=== PATIENT | female | born 1935 | race African-American/Black ===

== ENCOUNTER → 2016-07-18 | Outpatient (CLI) | payer MEDICARE, OTHER ==
[2015-10-28 18:51] VITALS: BP 152/70
[~2016-07-18] MED LIST: ACET325T9 PO; AMLO10TA4 PO; ASPI81TA2 PO; CA C1TAB28 PO; CRESTOR10 MG PO; CRESTOR5 MG PO; DABI75CA3 PO; EZET10TA3 PO; FLUT15OI2 TP; FURO-68 PO; HYDR-2672 PO; HYDR15SO4 PO; LANS30CA PO; LEVO137T3 PO; LOSA50TA6 PO; ONDA-35 PO; POTA20PA PO; SOTA80TA48 PO; TRAM50TA PO
--- NOTE | 2016-07-18 12:09 | CARD ---
APPROVED REPORT EXAM: Two-dimensional and M-mode echocardiogram with Doppler and color Doppler. Other Information Quality : Technically Limited Rhythm : NSRTechnically limited study due to body habitus and positioning limitations of the essence ent. INDICATION Dyspnea 2D DIMENSIONS Left Atrium(2D)3.7 (1.6-4.0cm)IVSd1.3 (0.7-1.1cm) Aortic Root(2D)2.9 (2.0-3.7cm)LVDd4.8 (3.9-5.9cm) LVOT Diameter2.1 (1.8-2.4cm)PWd1.3 (0.7-1.1cm) LVDs2.2 (2.5-4.0cm)FS (%) 32.9 % SV89.3 mlLVEF(%)63.9 (>50%) Aortic Valve AoV Peak Wesly.104.8cm/sAoV VTI20.8cm AO Peak GR.4.4mmHgLVOT Peak Wesly.81.2cm/s LVOT VTI 13.66cmAO Mean GR.2mmHg ESDRAS (VMAX)2.15fn8ECT (VTI)2.37cm2 Mitral Valve MV E Zmbvcnpi55.4cm/sMV DECEL [id number] MV A Bppjcxyr13.4cm/sMV RQQ03xi E/A Ratio1.2MV A Fnggkgcj004dd MVA (PHT)3.39cm2 TDI E/Lateral E'9.3E/Medial E'6.9 Pulmonary Valve PV Peak Qdncaggt39.1cm/sPV Peak Grad.3mmHg RVOT VTI14.5cm Tricuspid Valve TR P. Nnhlnhbs650tv/sRAP JZCNRVBE3tbSn TR Peak Gr.31mjPsRTPE18gzMt LEFT VENTRICLE Technically difficult study. The left ventricle is normal size. There is borderline to mild concentri c left ventricular hypertrophy. Left ventricle systolic function is normal. The Ejection Fraction is 55-60%. There is normal LV segmental wall motion. The left ventricular diastolic function and filling is normal for age. There is no ventricular septal defect visualized. RIGHT VENTRICLE The right ventricle is normal size. The right ventricular systolic function is normal. ATRIA The left atrium size is normal. The right atrium size is normal. The interatrial septum is intact wit h no evidence for an atrial septal defect or patent foramen ovale as noted on 2-D or Doppler imaging. AORTIC VALVE The aortic valve is not well visualized. Doppler and Color Flow revealed no significant aortic regurg itation. There is no significant aortic valvular stenosis. MITRAL VALVE The mitral valve is normal in structure and function. There is no mitral valve stenosis. Doppler and Color Flow revealed trace mitral valve regurgitation. TRICUSPID VALVE The tricuspid valve is not well visualized. Doppler and Color Flow revealed trace to mild tricuspid r egurgitation. The PA pressure was estimated at 33 mmHg. There is no tricuspid valve stenosis. PULMONIC VALVE The pulmonic valve is not well visualized. Doppler and Color Flow revealed no pulmonic valvular regur gitation. There is no pulmonic valvular stenosis. GREAT VESSELS The aortic root is normal in size. Pulmonary veins not well visualized. The IVC is normal in size and collapses >50% with inspiration. PERICARDIAL EFFUSION There is no evidence of significant pericardial effusion. Critical Notification Critical Value: No <Conclusion> Technically difficult study. The left ventricle is normal size. Left ventricle systolic function is normal. The Ejection Fraction is 55-60%. There is borderline to mild concentric left ventricular hypertrophy. There is no significant aortic valvular stenosis. Doppler and Color Flow revealed no significant aortic regurgitation. Doppler and Color Flow revealed trace mitral valve regurgitation. Doppler and Color Flow revealed trace to mild tricuspid regurgitation. The PA pressure was estimated at 33 mmHg.
== END | disposition home or self-care (01) ==
LOC: ECHO 11:05
PROVIDERS: ATTEND Internal Medicine Cardiovascular Disease
DX: I51.7 Cardiomegaly (principal)
CPT/HCPCS: 93306

== ENCOUNTER → 2016-08-30 | Outpatient (CLI) | payer MEDICARE, OTHER ==
[2015-10-28 18:51] VITALS: BP 152/70
[~2016-08-30] MED LIST changes: +ASPI-630 PO; -ASPI81TA2 PO; +EZET10TA18 PO; -EZET10TA3 PO; -HYDR-2672 PO; +HYDR-2766 PO; -ONDA-35 PO; +ONDA4TAB11 PO
--- NOTE | 2016-08-30 12:17 | RAD ---
INDICATION: Right neck pain. COMPARISON: None. TECHNIQUE: Axial CT images obtained through the neck. No intravenous contrast. FINDINGS: Calcified granulomas partially visualized lungs. Mild ground glass opacities left upper lung. There is apparent postoperative changes to the thyroid region with surgical clips. Degenerative changes throughout the spine. No prevertebral soft tissue thickening. There are scattered small lymph nodes seen within the neck. There is some fullness of the region of the aryepiglottic folds. 25 x 13 mm soft tissue density right thyroid region IMPRESSION: 1. There is some questionable fullness of the aryepiglottic folds. This is a questionable finding but can't exclude a lesion within the region. It may be helpful to obtain direct visualization to ensure there is no pathologic process within the region. 2. Degenerative changes throughout spine. 3. Mild groundglass opacities left upper lung. Could be seen with small foci of airway inflammation. Soft tissue density in the right thyroid region. Could be secondary to thyroid tissue within the region if the patient has not had it removed. If the patient has a history of thyroid neoplasm than recurrence is not excluded. Focused ultrasound could further evaluate. PQRS Compliance Statement: One or more of the following individualized dose reduction techniques were utilized for this examination: 1. Automated exposure control 2. Adjustment of the mA and/or kV according to patient size 3. Use of iterative reconstruction technique
== END | disposition home or self-care (01) ==
LOC: CT 11:17
PROVIDERS: ATTEND Internal Medicine
DX: M54.2 Cervicalgia (principal); R91.8 Other nonspecific abnormal finding of lung field
CPT/HCPCS: 70490

== ENCOUNTER → 2016-09-07 | Outpatient (CLI) | payer MEDICARE, OTHER ==
[2015-10-28 18:51] VITALS: BP 152/70
--- NOTE | 2016-09-07 14:14 | RAD ---
Thyroid ultrasound, 09/07/2016: History: Neck mass on CT There is a history of previous thyroidectomy. Ultrasound imaging of the thyroid region was compromised by this patient's body habitus. The small density seen in the right thyroid bed on the CT study was not visualized sonographically. Shadowing related to surgical clips is probably contributing to its poor sonographic visibility. IMPRESSION: 1. Status post thyroidectomy. 2. Nonvisualization of the small density seen in the right thyroid bed on the recent CT study, likely on a technical basis. This could represent residual thyroid tissue or scarring. Depending on the patient's thyroid history, CT follow-up could be considered to establish stability and exclude a neoplastic etiology.
== END | disposition home or self-care (01) ==
LOC: US 10:35
PROVIDERS: ATTEND Internal Medicine
DX: R94.6 Abnormal results of thyroid function studies (principal); E89.0 Postprocedural hypothyroidism
CPT/HCPCS: 76536

== ENCOUNTER 2017-11-29 19:11 | Inpatient (IN) | payer MEDICARE, OTHER ==
[~2017-11-29] VITALS: Ht 167.6 cm; Wt 173.3 kg
[~2017-11-29 19:11] MED LIST changes: -LOSA50TA6 PO; +LOSA50TA7 PO; -POTA20PA PO; +POTA20PA30 PO
--- NOTE | 2017-11-29 20:10 | RAD ---
Exam: AP portable chest History: Dyspnea. Comparison: August 23, 2017. Findings: Cardiac silhouette appears enlarged. Bilateral alveolar infiltrates are seen, right worse than left, most notable in right perihilar region. Pulmonary vascularity is increased. At least small bilateral pleural effusions are suspected. Findings are compatible with moderate congestive heart failure. Impression: 1. Moderate congestive heart failure. Electronically signed by: He Faust MD (11/29/2017 8:07 PM) [facility]
[2017-11-29 20:12] LABS: BASE EXCESS ABG 2 mmol/L (-3-3); HCO3 ABG 34 mmol/L (21-28); PO2 ABG 100 mmHg (65-108); SAT O2 ABG 96 % (92-99)
[2017-11-29 20:36] LABS: PCO2 ABG 96 mmHg (35-46)
--- NOTE | 2017-11-29 20:46 | PHYS DOC ---
Past Medical History Past Medical History: A-Fib, CHF, Hypertension, Hypothyroid, Other Additional Past Medical Histor: PE, OBESE Past Surgical History: Cholecystectomy, Hysterectomy, Other Additional Past Surgical Histo: thyroidectomy, hernia, cataracts Alcohol Use: None Drug Use: None Adult General Chief Complaint Chief Complaint: DYSPNEA/RESPIRATOY DISTRESS HPI HPI Patient is a 82 year old F who presents with respiratory failure and altered mental status. Daughter reports patient's O2 sats have been trending down over the last two weeks. Today, her O2 sat was found to be in the 60's. EMS arrived and placed patient on non-rebreather. Her O2 is better, but she is still struggling to breathe. She is slow to respond. Daughter reports patient was placed at [facility] this summer. She came home from there about two weeks ago. Daughter reports patient has not been sleeping well. Review of Systems Review of Systems Per Daughter: Constitutional: Denies fever or chills [] Respiratory: Reports low O2 sats and some sob Cardiovascular: No chest pain GI: Denies abdominal pain, nausea, vomiting Integument: Denies rash or skin lesions [] Neurologic: Denies headache, focal weakness or sensory changes [] All other systems were reviewed and found to be within normal limits, except as documented in this note. Current Medications Current Medications Current Medications Medications (Trade) Dose Ordered Sig/Violet Start Time Stop Time Status Last Admin Dose Admin Albuterol Sulfate (Ventolin Neb Soln) 2.5 mg 1X ONCE 11/29/17 22:00 11/29/17 22:01 DC Calcium Gluconate (Calcium Gluconate) 2,000 mg 1X ONCE 11/29/17 22:00 11/29/17 22:01 DC Dextrose (Dextrose 50%-Water Syringe) 25 gm 1X ONCE 11/29/17 22:00 11/29/17 22:01 DC Insulin Human Regular (HumuLIN R VIAL) 10 unit 1X ONCE 11/29/17 22:00 11/29/17 22:01 DC Ondansetron HCl (Zofran) 4 mg PRN Q8HRS PRN 11/29/17 21:00 11/30/17 20:59 Allergies Allergies Allergies Coded Allergies Type Severity Reaction Last Updated Verified adhesive Allergy Severe rash 10/28/15 Yes dabigatran etexilate Allergy Severe chf 08/24/17 Yes gabapentin Allergy Severe CHF 08/24/17 Yes Penicillins Allergy Intermediate Rash 10/28/15 Yes sulfacetamide sodium Allergy Intermediate Rash 10/28/15 Yes lisinopril Adverse Reaction Intermediate COUGH 10/28/15 Yes Physical Exam Physical Exam Constitutional: Well developed, well nourished, no acute distress, non-toxic appearance. [] HENT: Normocephalic, atraumatic Eyes: PERRLA, EOMI, conjunctiva normal, no discharge. [] Neck: Normal range of motion, no tenderness, supple, no stridor. [] Cardiovascular:Heart rate regular rhythm, no murmur [] Lungs & Thorax: Breath sound diminished and coarse throughout Abdomen: Bowel sounds normal, soft, no tenderness Skin: Warm, dry, no erythema, no rash. [] Neurologic: Alert and oriented X 3, normal motor function, normal sensory function, no focal deficits noted. [] Psychologic: Affect normal, judgement normal, mood normal. [] Current Patient Data Vital Signs Vital Signs Date Time Temp Pulse Resp B/P (MAP) Pulse Ox O2 Delivery O2 Flow Rate FiO2 11/29/17 20:24 58 20 134/80 (98) 97 BiPAP/CPAP 11/29/17 19:11 98.4 15.0 98.4 Lab Values Laboratory Tests Test 11/29/17 19:30 11/29/17 21:06 O2 Saturation 96 % (92-99) Arterial Blood pH 7.17 (7.35-7.45) *L Arterial Blood pCO2 at Patient Temp 96 mmHg (35-46) *H Arterial Blood pO2 at Patient Temp 100 mmHg (65-108) Arterial Blood HCO3 34 mmol/L (21-28) H Arterial Blood Base Excess 2 mmol/L (-3-3) FiO2 36.0 White Blood Count 6.1 x10^3/uL (4.0-11.0) Red Blood Count 4.29 x10^6/uL (3.50-5.40) Hemoglobin 13.3 g/dL (12.0-15.5) Hematocrit 39.3 % (36.0-47.0) Mean Corpuscular Volume 92 fL (79-100) Mean Corpuscular Hemoglobin 31 pg (25-35) Mean Corpuscular Hemoglobin Concent 34 g/dL (31-37) Red Cell Distribution Width 14.9 % (11.5-14.5) H Platelet Count 263 x10^3/uL (140-400) Neutrophils (%) (Auto) 59 % (31-73) Lymphocytes (%) (Auto) 31 % (24-48) Monocytes (%) (Auto) 7 % (0-9) Eosinophils (%) (Auto) 2 % (0-3) Basophils (%) (Auto) 1 % (0-3) Neutrophils # (Auto) 3.6 x10^3uL (1.8-7.7) Lymphocytes # (Auto) 1.9 x10^3/uL (1.0-4.8) Monocytes # (Auto) 0.4 x10^3/uL (0.0-1.1) Eosinophils # (Auto) 0.1 x10^3/uL (0.0-0.7) Basophils # (Auto) 0.1 x10^3/uL (0.0-0.2) Sodium Level 136 mmol/L (136-145) Potassium Level 6.5 mmol/L (3.5-5.1) *H Chloride Level 101 mmol/L (98-107) Carbon Dioxide Level 31 mmol/L (21-32) Anion Gap 4 (6-14) L Blood Urea Nitrogen 21 mg/dL (7-20) H Creatinine 1.6 mg/dL (0.6-1.0) H Estimated GFR (Cockcroft-Gault) 37.2 BUN/Creatinine Ratio 13 (6-20) Glucose Level 146 mg/dL (70-99) H Calcium Level 8.7 mg/dL (8.5-10.1) Total Bilirubin 0.4 mg/dL (0.2-1.0) Aspartate Amino Transferase (AST) 10 U/L (15-37) L Alanine Aminotransferase (ALT) 12 U/L (14-59) L Alkaline Phosphatase 89 U/L (46-116) Troponin I Quantitative < 0.017 ng/mL (0.000-0.055) SL-Uju-J-Type Natriuretic Peptide 3089 pg/mL (0-449) H Total Protein 7.1 g/dL (6.4-8.2) Albumin 2.8 g/dL (3.4-5.0) L Albumin/Globulin Ratio 0.7 (1.0-1.7) L Laboratory Tests 11/29/17 21:06 Laboratory Tests 11/29/17 21:06 EKG EKG A fib, rate 65, no stemi[] Radiology/Procedures Radiology/Procedures PATIENT: ADILIA MACEDOCOUNT: [id number]#: [id number] : 1935 LOCATION: ER AGE: 82 SEX: F EXAM STATUS: REG ER ORD. PHYSICIAN: NURA RUBALCAVA APRN REASON: hypoxia, AMS PROCEDURE: CHEST AP ONLY Exam: AP portable chest History: Dyspnea. Comparison: August 23, 2017. Findings: Cardiac silhouette appears enlarged. Bilateral alveolar infiltrates are seen, right worse than left, most notable in right perihilar region. Pulmonary vascularity is increased. At least small bilateral pleural effusions are suspected. Findings are compatible with moderate congestive heart failure. Impression: 1. Moderate congestive heart failure. Electronically signed by: He Baig MD (11/29/2017 8:07 PM) [facility] DICTATED and SIGNED BY: HE BAIG MD DATE: 11/29/172005 [] Course & Med Decision Making Course & Med Decision Making Pertinent Labs and Imaging studies reviewed. (See chart for details) d/w Dr. Doherty, accepts admission. Plan: admit Dragon Disclaimer Dragon Disclaimer This electronic medical record was generated, in whole or in part, using a voice recognition dictation system. 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
[2017-11-29] MEDS ORDERED: SOTA80TA48 PO (20:57)
[2017-11-29] MEDS ORDERED: AMLO5TAB7 PO (20:57)
[2017-11-29] MEDS ORDERED: PANT40GR PO (20:57)
[2017-11-29] MEDS ORDERED: LEVO137T2 PO (20:58)
[2017-11-29] MEDS ORDERED: ONDANSETRON PF 4 MG/2 ML VIAL. IV PRN (21:00)
[2017-11-29] MEDS ORDERED: MULT1TAB52 PO (21:03)
[2017-11-29] MEDS ORDERED: CHOL10003 PO (21:03)
[2017-11-29] MEDS ORDERED: [UNRECOGNIZED DRUG - CODE] PO (21:03)
[2017-11-29] MEDS ORDERED: POLY17PO29 PO (21:03)
[2017-11-29] MEDS ORDERED: FLUT9.9S NS (21:03)
[2017-11-29] MEDS ORDERED: CRAN200C2 PO (21:03)
[2017-11-29] MEDS ORDERED: ACET325T9 PO (21:03)
[2017-11-29 21:19] LABS: BASO # 0.1 x10^3/uL (0.0-0.2); BASO % 1 % (0-3); EOS # 0.1 x10^3/uL (0.0-0.7); EOS % 2 % (0-3); HEMATOCRIT 39.3 % (36.0-47.0); HEMOGLOBIN 13.3 g/dL (12.0-15.5); LYMPH # 1.9 x10^3/uL (1.0-4.8); LYMPH % 31 % (24-48); MEAN CORPUSCULAR HEMOGLOBIN 31 pg (25-35); MEAN CORPUSCULAR HGB CONC 34 g/dL (31-37); MEAN CORPUSCULAR VOLUME 92 fL (79-100); MONO # 0.4 x10^3/uL (0.0-1.1); MONO % 7 % (0-9); NEUT # 3.6 x10^3uL (1.8-7.7); NEUT % 59 % (31-73); PLATELET COUNT 263 x10^3/uL (140-400); RED BLOOD COUNT 4.29 x10^6/uL (3.50-5.40); RED CELL DISTRIBUTION WIDTH 14.9 % (11.5-14.5); WHITE BLOOD COUNT 6.1 x10^3/uL (4.0-11.0)
[2017-11-29 21:34] LABS: ALBUMIN 2.8 g/dL (3.4-5.0); ALBUMIN/GLOBULIN RATIO 0.7 (1.0-1.7); CALCIUM 8.7 mg/dL (8.5-10.1); CREATININE 1.6 mg/dL (0.6-1.0); GFR 37.2; TOTAL BILIRUBIN 0.4 mg/dL (0.2-1.0); TOTAL PROTEIN 7.1 g/dL (6.4-8.2)
[2017-11-29 21:37] LABS: POTASSIUM 6.5 mmol/L (3.5-5.1)
[2017-11-29] MEDS ORDERED: DEXTROSE 50% 25 GM / 50ML DISP.SYRIN. IV ONE (22:00)
[2017-11-29] MEDS ORDERED: CALCIUM GLUCONATE 1,000 MG/10 ML VIAL. IVP ONE (22:00)
[2017-11-29] MEDS ORDERED: ALBUTEROL SULFATE 2.5 MG/3 ML NEBU. NEB ONE (22:00)
[2017-11-29] MEDS ORDERED: INSULIN REGULAR 100 UNIT/ML 3ML VIAL. IV ONE (22:00)
[2017-11-29 22:21] LABS: BILIRUBIN,URINE NEGATIVE (NEG); CLARITY,URINE CLEAR; COLOR,URINE YELLOW; NITRITE,URINE NEGATIVE (NEG); PROTEIN,URINE 100 mg/dL (NEG-TRACE)
[2017-11-29 22:28] LABS: BACTERIA,URINE FEW /HPF (0-FEW); RBC,URINE TNTC /HPF (0-2); WBC,URINE OCC /HPF (0-4)
[2017-11-29 22:29] LABS: HYALINE CASTS, URINE MODERATE /HPF; SQUAMOUS EPITHELIAL CELL,UR OCC /LPF
[2017-11-29] MEDS ORDERED: ACETAMINOPHEN 325 MG TABLET. PO ONE (22:45)
[2017-11-29 22:59] LABS: BASE EXCESS ABG 2 mmol/L (-3-3); HCO3 ABG 33 mmol/L (21-28); PO2 ABG 107 mmHg (65-108); SAT O2 ABG 97 % (92-99)
[2017-11-29 23:01] LABS: PCO2 ABG 88 mmHg (35-46)
--- NOTE | 2017-11-29 23:43 | PDOC1 ---
History and Physical Date of Admission Date of Admission DATE: 11/29/17 TIME: 23:43 Identification/Chief Complaint Chief Complaint Shortness of breath Past Medical History Cardiovascular: AFIB, CHF, HTN Pulmonary: Pulmonary embolus CENTRAL NERVOUS SYSTEM: Other GI: Diverticulosis, Other Heme/Onc: No pertinent hx Hepatobiliary: No pertinent hx Psych: No pertinent hx Musculoskeletal: Osteoarthritis Rheumatologic: No pertinent hx Infectious disease: No pertinent hx Renal/: No pertinent hx Endocrine: Diabetes, Hypothyroidism Past Surgical History Past Surgical History: Cholecystectomy, Hernia Repair, Hysterectomy, Other Family History Family History: Other Social History ALCOHOL: none Drugs: None Current Medications Current Medications Current Medications Ondansetron HCl (Zofran) 4 mg PRN Q8HRS PRN IV NAUSEA/VOMITING; Start at 21:00; Stop 11/30/17 at 20:59 Insulin Human Regular (HumuLIN R VIAL) 10 unit 1X ONCE IV Last administered on 11/29/17at 22:35; Start 11/29/17 at 22:00; Stop 11/29/17 at 22:01; Status DC Dextrose (Dextrose 50%-Water Syringe) 25 gm 1X ONCE IV Last administered on at 22:31; Start 11/29/17 at 22:00; Stop 11/29/17 at 22:01; Status DC Albuterol Sulfate (Ventolin Neb Soln) 2.5 mg 1X ONCE NEB Last administered on 11/29/17at 22:44; Start 11/29/17 at 22:00; Stop 11/29/17 at 22:01; Status DC Calcium Gluconate (Calcium Gluconate) 2,000 mg 1X ONCE IVP Last administered on 11/29/17at 22:33; Start 11/29/17 at 22:00; Stop 11/29/17 at 22:01; Status DC Acetaminophen (Tylenol) 650 mg 1X ONCE PO Last administered on 11/29/17at 22: 40; Start 11/29/17 at 22:45; Stop 11/29/17 at 22:46; Status DC Active Scripts Active Reported Miralax (Polyethylene Glycol 3350) 17 Gm Powd.pack 1 Packet PO DAILY Flonase Allergy Relief (Fluticasone Propionate) 9.9 Ml [place].susp 2 Sprays NS DAILY Vitamin D3 (Cholecalciferol (Vitamin D3)) 1,000 Unit Tablet 1 Tab PO DAILY Tylenol (Acetaminophen) 325 Mg Tablet 325 Mg PO Cranberry (Cranberry Extract) 200 Mg Capsule 200 Mg PO Multivitamins (Multivitamin) 1 Each Tablet 1 Tab PO DAILY Acid Control (Ranitidine Hcl) 150 Mg Tablet 150 Mg PO Synthroid (Levothyroxine Sodium) 137 Mcg Tablet 1 Tab PO DAILY Protonix (Pantoprazole Sodium) 40 Mg Granpkt.dr 40 Mg PO DAILY Sotalol (Sotalol Hcl) 80 Mg Tablet 1 Tab PO BID Amlodipine Besylate 5 Mg Tablet 5 Mg PO DAILY Lasix (Furosemide) 40 Mg Tablet 1 Tab PO DAILY Losartan Potassium 50 Mg Tablet 50 Mg PO BID Hydrocodone-Apap 10-325 (Hydrocodone Bit/Acetaminophen) 1 Each Tablet 1 Each PO PRN Q4HRS Aspirin 81 Mg Tab.chew 81 Mg PO DAILY Allergies Allergies: Coded Allergies: adhesive (Verified Allergy, Severe, rash, 10/28/15) dabigatran etexilate (Verified Allergy, Severe, chf, 08/24/17) gabapentin (Verified Allergy, Severe, CHF, 08/24/17) Penicillins (Verified Allergy, Intermediate, Rash, 10/28/15) sulfacetamide sodium (Verified Allergy, Intermediate, Rash, 10/28/15) lisinopril (Verified Adverse Reaction, Intermediate, COUGH, 10/28/15) Vitals Vitals Vital Signs Date Time Temp Pulse Resp B/P (MAP) Pulse Ox O2 Delivery O2 Flow Rate FiO2 11/29/17 23:10 84 22 103/56 (72) 96 BiPAP/CPAP 11/29/17 19:11 98.4 15.0 98.4 Labs Labs Laboratory Tests Test 11/29/17 19:30 11/29/17 21:06 11/29/17 22:15 11/29/17 22:45 O2 Saturation 96 % (92-99) 97 % (92-99) Arterial Blood pH 7.17 (7.35-7.45) 7.19 (7.35-7.45) Arterial Blood pCO2 at Patient Temp 96 mmHg (35-46) 88 mmHg (35-46) Arterial Blood pO2 at Patient Temp 100 mmHg (65-108) 107 mmHg (65-108) Arterial Blood HCO3 34 mmol/L (21-28) 33 mmol/L (21-28) Arterial Blood Base Excess 2 mmol/L (-3-3) 2 mmol/L (-3-3) FiO2 36.0 40.0 White Blood Count 6.1 x10^3/uL (4.0-11.0) Red Blood Count 4.29 x10^6/uL (3.50-5.40) Hemoglobin 13.3 g/dL (12.0-15.5) Hematocrit 39.3 % (36.0-47.0) Mean Corpuscular Volume 92 fL (79-100) Mean Corpuscular Hemoglobin 31 pg (25-35) Mean Corpuscular Hemoglobin Concent 34 g/dL (31-37) Red Cell Distribution Width 14.9 % (11.5-14.5) Platelet Count 263 x10^3/uL (140-400) Neutrophils (%) (Auto) 59 % (31-73) Lymphocytes (%) (Auto) 31 % (24-48) Monocytes (%) (Auto) 7 % (0-9) Eosinophils (%) (Auto) 2 % (0-3) Basophils (%) (Auto) 1 % (0-3) Neutrophils # (Auto) 3.6 x10^3uL (1.8-7.7) Lymphocytes # (Auto) 1.9 x10^3/uL (1.0-4.8) Monocytes # (Auto) 0.4 x10^3/uL (0.0-1.1) Eosinophils # (Auto) 0.1 x10^3/uL (0.0-0.7) Basophils # (Auto) 0.1 x10^3/uL (0.0-0.2) Sodium Level 136 mmol/L (136-145) Potassium Level 6.5 mmol/L (3.5-5.1) Chloride Level 101 mmol/L (98-107) Carbon Dioxide Level 31 mmol/L (21-32) Anion Gap 4 (6-14) Blood Urea Nitrogen 21 mg/dL (7-20) Creatinine 1.6 mg/dL (0.6-1.0) Estimated GFR (Cockcroft-Gault) 37.2 BUN/Creatinine Ratio 13 (6-20) Glucose Level 146 mg/dL (70-99) Calcium Level 8.7 mg/dL (8.5-10.1) Total Bilirubin 0.4 mg/dL (0.2-1.0) Aspartate Amino Transf (AST/SGOT) 10 U/L (15-37) Alanine Aminotransferase (ALT/SGPT) 12 U/L (14-59) Alkaline Phosphatase 89 U/L (46-116) Troponin I Quantitative < 0.017 ng/mL (0.000-0.055) QH-Lym-W-Type Natriuretic Peptide 3089 pg/mL (0-449) Total Protein 7.1 g/dL (6.4-8.2) Albumin 2.8 g/dL (3.4-5.0) Albumin/Globulin Ratio 0.7 (1.0-1.7) Urine Collection Type U cath Urine Color Yellow Urine Clarity Clear Urine pH 5.0 Urine Specific [place] 1.020 Urine Protein 100 mg/dL (NEG-TRACE) Urine Glucose (UA) Negative mg/dL (NEG) Urine Ketones (Stick) Negative mg/dL (NEG) Urine Blood Large (NEG) Urine Nitrite Negative (NEG) Urine Bilirubin Negative (NEG) Urine Urobilinogen Dipstick 1.0 mg/dL (0.2 mg/dL) Urine Leukocyte Esterase Trace (NEG) Urine RBC Tntc /HPF (0-2) Urine WBC Occ /HPF (0-4) Urine Squamous Epithelial Cells Occ /LPF Urine Bacteria Few /HPF (0-FEW) Urine Hyaline Casts Moderate /HPF Urine Mucus Mod /LPF Laboratory Tests Test 11/29/17 19:30 11/29/17 21:06 11/29/17 22:15 11/29/17 22:45 O2 Saturation 96 % (92-99) 97 % (92-99) Arterial Blood pH 7.17 (7.35-7.45) 7.19 (7.35-7.45) Arterial Blood pCO2 at Patient Temp 96 mmHg (35-46) 88 mmHg (35-46) Arterial Blood pO2 at Patient Temp 100 mmHg (65-108) 107 mmHg (65-108) Arterial Blood HCO3 34 mmol/L (21-28) 33 mmol/L (21-28) Arterial Blood Base Excess 2 mmol/L (-3-3) 2 mmol/L (-3-3) FiO2 36.0 40.0 White Blood Count 6.1 x10^3/uL (4.0-11.0) Red Blood Count 4.29 x10^6/uL (3.50-5.40) Hemoglobin 13.3 g/dL (12.0-15.5) Hematocrit 39.3 % (36.0-47.0) Mean Corpuscular Volume 92 fL (79-100) Mean Corpuscular Hemoglobin 31 pg (25-35) Mean Corpuscular Hemoglobin Concent 34 g/dL (31-37) Red Cell Distribution Width 14.9 % (11.5-14.5) Platelet Count 263 x10^3/uL (140-400) Neutrophils (%) (Auto) 59 % (31-73) Lymphocytes (%) (Auto) 31 % (24-48) Monocytes (%) (Auto) 7 % (0-9) Eosinophils (%) (Auto) 2 % (0-3) Basophils (%) (Auto) 1 % (0-3) Neutrophils # (Auto) 3.6 x10^3uL (1.8-7.7) Lymphocytes # (Auto) 1.9 x10^3/uL (1.0-4.8) Monocytes # (Auto) 0.4 x10^3/uL (0.0-1.1) Eosinophils # (Auto) 0.1 x10^3/uL (0.0-0.7) Basophils # (Auto) 0.1 x10^3/uL (0.0-0.2) Sodium Level 136 mmol/L (136-145) Potassium Level 6.5 mmol/L (3.5-5.1) Chloride Level 101 mmol/L (98-107) Carbon Dioxide Level 31 mmol/L (21-32) Anion Gap 4 (6-14) Blood Urea Nitrogen 21 mg/dL (7-20) Creatinine 1.6 mg/dL (0.6-1.0) Estimated GFR (Cockcroft-Gault) 37.2 BUN/Creatinine Ratio 13 (6-20) Glucose Level 146 mg/dL (70-99) Calcium Level 8.7 mg/dL (8.5-10.1) Total Bilirubin 0.4 mg/dL (0.2-1.0) Aspartate Amino Transf (AST/SGOT) 10 U/L (15-37) Alanine Aminotransferase (ALT/SGPT) 12 U/L (14-59) Alkaline Phosphatase 89 U/L (46-116) Troponin I Quantitative < 0.017 ng/mL (0.000-0.055) KF-Kdy-D-Type Natriuretic Peptide 3089 pg/mL (0-449) Total Protein 7.1 g/dL (6.4-8.2) Albumin 2.8 g/dL (3.4-5.0) Albumin/Globulin Ratio 0.7 (1.0-1.7) Urine Collection Type U cath Urine Color Yellow Urine Clarity Clear Urine pH 5.0 Urine Specific [place] 1.020 Urine Protein 100 mg/dL (NEG-TRACE) Urine Glucose (UA) Negative mg/dL (NEG) Urine Ketones (Stick) Negative mg/dL (NEG) Urine Blood Large (NEG) Urine Nitrite Negative (NEG) Urine Bilirubin Negative (NEG) Urine Urobilinogen Dipstick 1.0 mg/dL (0.2 mg/dL) Urine Leukocyte Esterase Trace (NEG) Urine RBC Tntc /HPF (0-2) Urine WBC Occ /HPF (0-4) Urine Squamous Epithelial Cells Occ /LPF Urine Bacteria Few /HPF (0-FEW) Urine Hyaline Casts Moderate /HPF Urine Mucus Mod /LPF VTE Prophylaxis Ordered VTE Prophylaxis Devices: Contraindicated TIKI PALMA MD Nov 29, 2017 23:43
[2017-11-29] MEDS ORDERED: 0.9 % SODIUM CHLORIDE 10 ML DISP.SYRIN. IV PRN (23:45)
[2017-11-30] VITALS (26 sets, daily range): BP systolic 79–159; BP diastolic 43–66
[2017-11-30] MEDS ORDERED: DEXTROSE 50% 25 GM / 50ML DISP.SYRIN. IV PRN
[2017-11-30] MEDS: HYDROcodone/APAP 10/325 1 TAB TABLET PO PRN ×3 (01:35→21:10)
--- NOTE | 2017-11-30 02:18 | EKG ---
[facility] [address] [place] [address] Test Date: 2017-11-29 Test Time: 19:23:42 Pat Name: DAILIA MACEDO Department: Room: Gender: F Card Doffer: : 1935 Requested By: NURA RUBALCAVA Order Number: [id number] Reading MD: Measurements Intervals [place] Rate: 58 P: MI: QRS: -38 QRSD: 90 T: -19 QT: 428 QTc: 423 Interpretive Statements ATRIAL FIBRILLATION ABNORMAL LEFT AXIS DEVIATION LEFT ANTERIOR FASCICULAR BLOCK QRS(T) CONTOUR ABNORMALITY CONSIDER ANTEROSEPTAL MYOCARDIAL DAMAGE T ABNORMALITY IN INFERIOR LEADS ABNORMAL ECG No previous ECG available for comparison
[2017-11-30 06:39] LABS: BASO # 0.1 x10^3/uL (0.0-0.2); BASO % 1 % (0-3); EOS # 0.1 x10^3/uL (0.0-0.7); EOS % 1 % (0-3); HEMATOCRIT 38.5 % (36.0-47.0); HEMOGLOBIN 12.8 g/dL (12.0-15.5); LYMPH # 2.8 x10^3/uL (1.0-4.8); LYMPH % 42 % (24-48); MEAN CORPUSCULAR HEMOGLOBIN 31 pg (25-35); MEAN CORPUSCULAR HGB CONC 33 g/dL (31-37); MEAN CORPUSCULAR VOLUME 93 fL (79-100); MONO # 0.6 x10^3/uL (0.0-1.1); MONO % 9 % (0-9); NEUT # 3.1 x10^3uL (1.8-7.7); NEUT % 47 % (31-73); PLATELET COUNT 249 x10^3/uL (140-400); RED BLOOD COUNT 4.16 x10^6/uL (3.50-5.40); WHITE BLOOD COUNT 6.6 x10^3/uL (4.0-11.0)
[2017-11-30 06:58] LABS: ALBUMIN 2.8 g/dL (3.4-5.0); ALBUMIN/GLOBULIN RATIO 0.7 (1.0-1.7); CALCIUM 9.1 mg/dL (8.5-10.1); CREATININE 1.8 mg/dL (0.6-1.0); GFR 32.5; TOTAL BILIRUBIN 0.5 mg/dL (0.2-1.0); TOTAL PROTEIN 6.9 g/dL (6.4-8.2)
--- NOTE | 2017-11-30 07:37 | PDOC ---
PROGRESS NOTES Vitals Vitals Vital Signs Date Time Temp Pulse Resp B/P (MAP) Pulse Ox O2 Delivery O2 Flow Rate FiO2 11/30/17 07:31 100 BiPAP/CPAP 11/30/17 06:00 52 24 110/48 (68) 11/30/17 04:00 97.6 97.6 11/29/17 19:11 15.0 Labs LABS Laboratory Tests Test 11/29/17 19:30 11/29/17 21:06 11/29/17 22:15 11/29/17 22:45 O2 Saturation 96 % (92-99) 97 % (92-99) Arterial Blood pH 7.17 (7.35-7.45) 7.19 (7.35-7.45) Arterial Blood pCO2 at Patient Temp 96 mmHg (35-46) 88 mmHg (35-46) Arterial Blood pO2 at Patient Temp 100 mmHg (65-108) 107 mmHg (65-108) Arterial Blood HCO3 34 mmol/L (21-28) 33 mmol/L (21-28) Arterial Blood Base Excess 2 mmol/L (-3-3) 2 mmol/L (-3-3) FiO2 36.0 40.0 White Blood Count 6.1 x10^3/uL (4.0-11.0) Red Blood Count 4.29 x10^6/uL (3.50-5.40) Hemoglobin 13.3 g/dL (12.0-15.5) Hematocrit 39.3 % (36.0-47.0) Mean Corpuscular Volume 92 fL (79-100) Mean Corpuscular Hemoglobin 31 pg (25-35) Mean Corpuscular Hemoglobin Concent 34 g/dL (31-37) Red Cell Distribution Width 14.9 % (11.5-14.5) Platelet Count 263 x10^3/uL (140-400) Neutrophils (%) (Auto) 59 % (31-73) Lymphocytes (%) (Auto) 31 % (24-48) Monocytes (%) (Auto) 7 % (0-9) Eosinophils (%) (Auto) 2 % (0-3) Basophils (%) (Auto) 1 % (0-3) Neutrophils # (Auto) 3.6 x10^3uL (1.8-7.7) Lymphocytes # (Auto) 1.9 x10^3/uL (1.0-4.8) Monocytes # (Auto) 0.4 x10^3/uL (0.0-1.1) Eosinophils # (Auto) 0.1 x10^3/uL (0.0-0.7) Basophils # (Auto) 0.1 x10^3/uL (0.0-0.2) Sodium Level 136 mmol/L (136-145) Potassium Level 6.5 mmol/L (3.5-5.1) Chloride Level 101 mmol/L (98-107) Carbon Dioxide Level 31 mmol/L (21-32) Anion Gap 4 (6-14) Blood Urea Nitrogen 21 mg/dL (7-20) Creatinine 1.6 mg/dL (0.6-1.0) Estimated GFR (Cockcroft-Gault) 37.2 BUN/Creatinine Ratio 13 (6-20) Glucose Level 146 mg/dL (70-99) Calcium Level 8.7 mg/dL (8.5-10.1) Total Bilirubin 0.4 mg/dL (0.2-1.0) Aspartate Amino Transf (AST/SGOT) 10 U/L (15-37) Alanine Aminotransferase (ALT/SGPT) 12 U/L (14-59) Alkaline Phosphatase 89 U/L (46-116) Troponin I Quantitative < 0.017 ng/mL (0.000-0.055) ZM-Rhr-U-Type Natriuretic Peptide 3089 pg/mL (0-449) Total Protein 7.1 g/dL (6.4-8.2) Albumin 2.8 g/dL (3.4-5.0) Albumin/Globulin Ratio 0.7 (1.0-1.7) Urine Collection Type U cath Urine Color Yellow Urine Clarity Clear Urine pH 5.0 Urine Specific [place] 1.020 Urine Protein 100 mg/dL (NEG-TRACE) Urine Glucose (UA) Negative mg/dL (NEG) Urine Ketones (Stick) Negative mg/dL (NEG) Urine Blood Large (NEG) Urine Nitrite Negative (NEG) Urine Bilirubin Negative (NEG) Urine Urobilinogen Dipstick 1.0 mg/dL (0.2 mg/dL) Urine Leukocyte Esterase Trace (NEG) Urine RBC Tntc /HPF (0-2) Urine WBC Occ /HPF (0-4) Urine Squamous Epithelial Cells Occ /LPF Urine Bacteria Few /HPF (0-FEW) Urine Hyaline Casts Moderate /HPF Urine Mucus Mod /LPF Test 11/30/17 05:50 White Blood Count 6.6 x10^3/uL (4.0-11.0) Red Blood Count 4.16 x10^6/uL (3.50-5.40) Hemoglobin 12.8 g/dL (12.0-15.5) Hematocrit 38.5 % (36.0-47.0) Mean Corpuscular Volume 93 fL (79-100) Mean Corpuscular Hemoglobin 31 pg (25-35) Mean Corpuscular Hemoglobin Concent 33 g/dL (31-37) Red Cell Distribution Width 15.0 % (11.5-14.5) Platelet Count 249 x10^3/uL (140-400) Neutrophils (%) (Auto) 47 % (31-73) Lymphocytes (%) (Auto) 42 % (24-48) Monocytes (%) (Auto) 9 % (0-9) Eosinophils (%) (Auto) 1 % (0-3) Basophils (%) (Auto) 1 % (0-3) Neutrophils # (Auto) 3.1 x10^3uL (1.8-7.7) Lymphocytes # (Auto) 2.8 x10^3/uL (1.0-4.8) Monocytes # (Auto) 0.6 x10^3/uL (0.0-1.1) Eosinophils # (Auto) 0.1 x10^3/uL (0.0-0.7) Basophils # (Auto) 0.1 x10^3/uL (0.0-0.2) Sodium Level 137 mmol/L (136-145) Potassium Level 6.0 mmol/L (3.5-5.1) Chloride Level 101 mmol/L (98-107) Carbon Dioxide Level 30 mmol/L (21-32) Anion Gap 6 (6-14) Blood Urea Nitrogen 22 mg/dL (7-20) Creatinine 1.8 mg/dL (0.6-1.0) Estimated GFR (Cockcroft-Gault) 32.5 BUN/Creatinine Ratio 12 (6-20) Glucose Level 88 mg/dL (70-99) Calcium Level 9.1 mg/dL (8.5-10.1) Total Bilirubin 0.5 mg/dL (0.2-1.0) Aspartate Amino Transf (AST/SGOT) 11 U/L (15-37) Alanine Aminotransferase (ALT/SGPT) 9 U/L (14-59) Alkaline Phosphatase 84 U/L (46-116) Total Protein 6.9 g/dL (6.4-8.2) Albumin 2.8 g/dL (3.4-5.0) Albumin/Globulin Ratio 0.7 (1.0-1.7) Comment Review of Relevant I have reviewed the following items jeet (where applicable) has been applied. Labs Laboratory Tests Test 11/29/17 19:30 11/29/17 21:06 11/29/17 22:15 11/29/17 22:45 O2 Saturation 96 % (92-99) 97 % (92-99) Arterial Blood pH 7.17 (7.35-7.45) 7.19 (7.35-7.45) Arterial Blood pCO2 at Patient Temp 96 mmHg (35-46) 88 mmHg (35-46) Arterial Blood pO2 at Patient Temp 100 mmHg (65-108) 107 mmHg (65-108) Arterial Blood HCO3 34 mmol/L (21-28) 33 mmol/L (21-28) Arterial Blood Base Excess 2 mmol/L (-3-3) 2 mmol/L (-3-3) FiO2 36.0 40.0 White Blood Count 6.1 x10^3/uL (4.0-11.0) Red Blood Count 4.29 x10^6/uL (3.50-5.40) Hemoglobin 13.3 g/dL (12.0-15.5) Hematocrit 39.3 % (36.0-47.0) Mean Corpuscular Volume 92 fL (79-100) Mean Corpuscular Hemoglobin 31 pg (25-35) Mean Corpuscular Hemoglobin Concent 34 g/dL (31-37) Red Cell Distribution Width 14.9 % (11.5-14.5) Platelet Count 263 x10^3/uL (140-400) Neutrophils (%) (Auto) 59 % (31-73) Lymphocytes (%) (Auto) 31 % (24-48) Monocytes (%) (Auto) 7 % (0-9) Eosinophils (%) (Auto) 2 % (0-3) Basophils (%) (Auto) 1 % (0-3) Neutrophils # (Auto) 3.6 x10^3uL (1.8-7.7) Lymphocytes # (Auto) 1.9 x10^3/uL (1.0-4.8) Monocytes # (Auto) 0.4 x10^3/uL (0.0-1.1) Eosinophils # (Auto) 0.1 x10^3/uL (0.0-0.7) Basophils # (Auto) 0.1 x10^3/uL (0.0-0.2) Sodium Level 136 mmol/L (136-145) Potassium Level 6.5 mmol/L (3.5-5.1) Chloride Level 101 mmol/L (98-107) Carbon Dioxide Level 31 mmol/L (21-32) Anion Gap 4 (6-14) Blood Urea Nitrogen 21 mg/dL (7-20) Creatinine 1.6 mg/dL (0.6-1.0) Estimated GFR (Cockcroft-Gault) 37.2 BUN/Creatinine Ratio 13 (6-20) Glucose Level 146 mg/dL (70-99) Calcium Level 8.7 mg/dL (8.5-10.1) Total Bilirubin 0.4 mg/dL (0.2-1.0) Aspartate Amino Transf (AST/SGOT) 10 U/L (15-37) Alanine Aminotransferase (ALT/SGPT) 12 U/L (14-59) Alkaline Phosphatase 89 U/L (46-116) Troponin I Quantitative < 0.017 ng/mL (0.000-0.055) UI-Rgr-F-Type Natriuretic Peptide 3089 pg/mL (0-449) Total Protein 7.1 g/dL (6.4-8.2) Albumin 2.8 g/dL (3.4-5.0) Albumin/Globulin Ratio 0.7 (1.0-1.7) Urine Collection Type U cath Urine Color Yellow Urine Clarity Clear Urine pH 5.0 Urine Specific [place] 1.020 Urine Protein 100 mg/dL (NEG-TRACE) Urine Glucose (UA) Negative mg/dL (NEG) Urine Ketones (Stick) Negative mg/dL (NEG) Urine Blood Large (NEG) Urine Nitrite Negative (NEG) Urine Bilirubin Negative (NEG) Urine Urobilinogen Dipstick 1.0 mg/dL (0.2 mg/dL) Urine Leukocyte Esterase Trace (NEG) Urine RBC Tntc /HPF (0-2) Urine WBC Occ /HPF (0-4) Urine Squamous Epithelial Cells Occ /LPF Urine Bacteria Few /HPF (0-FEW) Urine Hyaline Casts Moderate /HPF Urine Mucus Mod /LPF Test 11/30/17 05:50 White Blood Count 6.6 x10^3/uL (4.0-11.0) Red Blood Count 4.16 x10^6/uL (3.50-5.40) Hemoglobin 12.8 g/dL (12.0-15.5) Hematocrit 38.5 % (36.0-47.0) Mean Corpuscular Volume 93 fL (79-100) Mean Corpuscular Hemoglobin 31 pg (25-35) Mean Corpuscular Hemoglobin Concent 33 g/dL (31-37) Red Cell Distribution Width 15.0 % (11.5-14.5) Platelet Count 249 x10^3/uL (140-400) Neutrophils (%) (Auto) 47 % (31-73) Lymphocytes (%) (Auto) 42 % (24-48) Monocytes (%) (Auto) 9 % (0-9) Eosinophils (%) (Auto) 1 % (0-3) Basophils (%) (Auto) 1 % (0-3) Neutrophils # (Auto) 3.1 x10^3uL (1.8-7.7) Lymphocytes # (Auto) 2.8 x10^3/uL (1.0-4.8) Monocytes # (Auto) 0.6 x10^3/uL (0.0-1.1) Eosinophils # (Auto) 0.1 x10^3/uL (0.0-0.7) Basophils # (Auto) 0.1 x10^3/uL (0.0-0.2) Sodium Level 137 mmol/L (136-145) Potassium Level 6.0 mmol/L (3.5-5.1) Chloride Level 101 mmol/L (98-107) Carbon Dioxide Level 30 mmol/L (21-32) Anion Gap 6 (6-14) Blood Urea Nitrogen 22 mg/dL (7-20) Creatinine 1.8 mg/dL (0.6-1.0) Estimated GFR (Cockcroft-Gault) 32.5 BUN/Creatinine Ratio 12 (6-20) Glucose Level 88 mg/dL (70-99) Calcium Level 9.1 mg/dL (8.5-10.1) Total Bilirubin 0.5 mg/dL (0.2-1.0) Aspartate Amino Transf (AST/SGOT) 11 U/L (15-37) Alanine Aminotransferase (ALT/SGPT) 9 U/L (14-59) Alkaline Phosphatase 84 U/L (46-116) Total Protein 6.9 g/dL (6.4-8.2) Albumin 2.8 g/dL (3.4-5.0) Albumin/Globulin Ratio 0.7 (1.0-1.7) Laboratory Tests Test 11/29/17 19:30 11/29/17 21:06 11/29/17 22:15 11/29/17 22:45 O2 Saturation 96 % (92-99) 97 % (92-99) Arterial Blood pH 7.17 (7.35-7.45) 7.19 (7.35-7.45) Arterial Blood pCO2 at Patient Temp 96 mmHg (35-46) 88 mmHg (35-46) Arterial Blood pO2 at Patient Temp 100 mmHg (65-108) 107 mmHg (65-108) Arterial Blood HCO3 34 mmol/L (21-28) 33 mmol/L (21-28) Arterial Blood Base Excess 2 mmol/L (-3-3) 2 mmol/L (-3-3) FiO2 36.0 40.0 White Blood Count 6.1 x10^3/uL (4.0-11.0) Red Blood Count 4.29 x10^6/uL (3.50-5.40) Hemoglobin 13.3 g/dL (12.0-15.5) Hematocrit 39.3 % (36.0-47.0) Mean Corpuscular Volume 92 fL (79-100) Mean Corpuscular Hemoglobin 31 pg (25-35) Mean Corpuscular Hemoglobin Concent 34 g/dL (31-37) Red Cell Distribution Width 14.9 % (11.5-14.5) Platelet Count 263 x10^3/uL (140-400) Neutrophils (%) (Auto) 59 % (31-73) Lymphocytes (%) (Auto) 31 % (24-48) Monocytes (%) (Auto) 7 % (0-9) Eosinophils (%) (Auto) 2 % (0-3) Basophils (%) (Auto) 1 % (0-3) Neutrophils # (Auto) 3.6 x10^3uL (1.8-7.7) Lymphocytes # (Auto) 1.9 x10^3/uL (1.0-4.8) Monocytes # (Auto) 0.4 x10^3/uL (0.0-1.1) Eosinophils # (Auto) 0.1 x10^3/uL (0.0-0.7) Basophils # (Auto) 0.1 x10^3/uL (0.0-0.2) Sodium Level 136 mmol/L (136-145) Potassium Level 6.5 mmol/L (3.5-5.1) Chloride Level 101 mmol/L (98-107) Carbon Dioxide Level 31 mmol/L (21-32) Anion Gap 4 (6-14) Blood Urea Nitrogen 21 mg/dL (7-20) Creatinine 1.6 mg/dL (0.6-1.0) Estimated GFR (Cockcroft-Gault) 37.2 BUN/Creatinine Ratio 13 (6-20) Glucose Level 146 mg/dL (70-99) Calcium Level 8.7 mg/dL (8.5-10.1) Total Bilirubin 0.4 mg/dL (0.2-1.0) Aspartate Amino Transf (AST/SGOT) 10 U/L (15-37) Alanine Aminotransferase (ALT/SGPT) 12 U/L (14-59) Alkaline Phosphatase 89 U/L (46-116) Troponin I Quantitative < 0.017 ng/mL (0.000-0.055) VH-Tof-D-Type Natriuretic Peptide 3089 pg/mL (0-449) Total Protein 7.1 g/dL (6.4-8.2) Albumin 2.8 g/dL (3.4-5.0) Albumin/Globulin Ratio 0.7 (1.0-1.7) Urine Collection Type U cath Urine Color Yellow Urine Clarity Clear Urine pH 5.0 Urine Specific [place] 1.020 Urine Protein 100 mg/dL (NEG-TRACE) Urine Glucose (UA) Negative mg/dL (NEG) Urine Ketones (Stick) Negative mg/dL (NEG) Urine Blood Large (NEG) Urine Nitrite Negative (NEG) Urine Bilirubin Negative (NEG) Urine Urobilinogen Dipstick 1.0 mg/dL (0.2 mg/dL) Urine Leukocyte Esterase Trace (NEG) Urine RBC Tntc /HPF (0-2) Urine WBC Occ /HPF (0-4) Urine Squamous Epithelial Cells Occ /LPF Urine Bacteria Few /HPF (0-FEW) Urine Hyaline Casts Moderate /HPF Urine Mucus Mod /LPF Test 11/30/17 05:50 White Blood Count 6.6 x10^3/uL (4.0-11.0) Red Blood Count 4.16 x10^6/uL (3.50-5.40) Hemoglobin 12.8 g/dL (12.0-15.5) Hematocrit 38.5 % (36.0-47.0) Mean Corpuscular Volume 93 fL (79-100) Mean Corpuscular Hemoglobin 31 pg (25-35) Mean Corpuscular Hemoglobin Concent 33 g/dL (31-37) Red Cell Distribution Width 15.0 % (11.5-14.5) Platelet Count 249 x10^3/uL (140-400) Neutrophils (%) (Auto) 47 % (31-73) Lymphocytes (%) (Auto) 42 % (24-48) Monocytes (%) (Auto) 9 % (0-9) Eosinophils (%) (Auto) 1 % (0-3) Basophils (%) (Auto) 1 % (0-3) Neutrophils # (Auto) 3.1 x10^3uL (1.8-7.7) Lymphocytes # (Auto) 2.8 x10^3/uL (1.0-4.8) Monocytes # (Auto) 0.6 x10^3/uL (0.0-1.1) Eosinophils # (Auto) 0.1 x10^3/uL (0.0-0.7) Basophils # (Auto) 0.1 x10^3/uL (0.0-0.2) Sodium Level 137 mmol/L (136-145) Potassium Level 6.0 mmol/L (3.5-5.1) Chloride Level 101 mmol/L (98-107) Carbon Dioxide Level 30 mmol/L (21-32) Anion Gap 6 (6-14) Blood Urea Nitrogen 22 mg/dL (7-20) Creatinine 1.8 mg/dL (0.6-1.0) Estimated GFR (Cockcroft-Gault) 32.5 BUN/Creatinine Ratio 12 (6-20) Glucose Level 88 mg/dL (70-99) Calcium Level 9.1 mg/dL (8.5-10.1) Total Bilirubin 0.5 mg/dL (0.2-1.0) Aspartate Amino Transf (AST/SGOT) 11 U/L (15-37) Alanine Aminotransferase (ALT/SGPT) 9 U/L (14-59) Alkaline Phosphatase 84 U/L (46-116) Total Protein 6.9 g/dL (6.4-8.2) Albumin 2.8 g/dL (3.4-5.0) Albumin/Globulin Ratio 0.7 (1.0-1.7) Medications Current Medications Ondansetron HCl (Zofran) 4 mg PRN Q8HRS PRN IV NAUSEA/VOMITING; Start at 21:00; Stop 11/30/17 at 20:59 Insulin Human Regular (HumuLIN R VIAL) 10 unit 1X ONCE IV Last administered on 11/29/17at 22:35; Start 11/29/17 at 22:00; Stop 11/29/17 at 22:01; Status DC Dextrose (Dextrose 50%-Water Syringe) 25 gm 1X ONCE IV Last administered on at 22:31; Start 11/29/17 at 22:00; Stop 11/29/17 at 22:01; Status DC Albuterol Sulfate (Ventolin Neb Soln) 2.5 mg 1X ONCE NEB Last administered on 11/29/17at 22:44; Start 11/29/17 at 22:00; Stop 11/29/17 at 22:01; Status DC Calcium Gluconate (Calcium Gluconate) 2,000 mg 1X ONCE IVP Last administered on 11/29/17at 22:33; Start 11/29/17 at 22:00; Stop 11/29/17 at 22:01; Status DC Acetaminophen (Tylenol) 650 mg 1X ONCE PO Last administered on 11/29/17at 22: 40; Start 11/29/17 at 22:45; Stop 11/29/17 at 22:46; Status DC Heparin Sodium (Porcine) (Heparin Sodium) 5,000 unit Q12HR SQ ; Start 11/30/17 at 09:00 Sodium Chloride (Normal Saline Flush) 3 ml QSHIFT PRN IV AFTER MEDS AND BLOOD DRAWS; Start 11/29/17 at 23:45 Senna/Docusate Sodium (Senna Plus) 1 tab BID PO ; Start 11/30/17 at 09:00 Acetaminophen (Tylenol) 325 mg PRN Q6HRS PRN PO fever; Start 11/29/17 at 23:45 Amlodipine Besylate (Norvasc) 5 mg DAILY PO ; Start 11/30/17 at 09:00 Aspirin (Children'S Aspirin) 81 mg DAILY PO ; Start 11/30/17 at 09:00 Vitamin D (Vitamin D3) 1,000 unit DAILY PO ; Start 11/30/17 at 09:00 Furosemide (Lasix) 40 mg DAILY PO ; Start 11/30/17 at 09:00 Levothyroxine Sodium (Synthroid) 137 mcg DAILY07 PO ; Start 11/30/17 at 07:00 Fluticasone Propionate (Flonase) 2 spray DAILY NS ; Start 11/30/17 at 09:00 Acetaminophen/ Hydrocodone Bitart (Lortab 10/325) 1 tab PRN Q4HRS PRN PO PAIN Last administered on 11/30/17at 01:35; Start 11/29/17 at 23:45 Multivitamins (Thera M Plus) 1 tab DAILY PO ; Start 11/30/17 at 09:00 Pantoprazole Sodium (Protonix) 40 mg DAILYAC PO ; Start 11/30/17 at 07:30 Polyethylene Glycol (miraLAX PACKET) 17 gm DAILY PO ; Start 11/30/17 at 09:00 Sotalol HCl (Betapace) 80 mg BID PO ; Start 11/30/17 at 09:00 Insulin Human Lispro (HumaLOG) 0-7 UNITS TIDWMEALS SQ ; Start 11/30/17 at 08:00 Dextrose (Dextrose 50%-Water Syringe) 12.5 gm PRN Q15MIN PRN IV SEE COMMENTS; Start 11/30/17 at 00:00 Albuterol/ Ipratropium (Duoneb) 3 ml RTQID NEB ; Start 11/30/17 at 08:00 Active Scripts Active Reported Miralax (Polyethylene Glycol 3350) 17 Gm Powd.pack 1 Packet PO DAILY Flonase Allergy Relief (Fluticasone Propionate) 9.9 Ml [place].susp 2 Sprays NS DAILY Vitamin D3 (Cholecalciferol (Vitamin D3)) 1,000 Unit Tablet 1 Tab PO DAILY Tylenol (Acetaminophen) 325 Mg Tablet 325 Mg PO Cranberry (Cranberry Extract) 200 Mg Capsule 200 Mg PO Multivitamins (Multivitamin) 1 Each Tablet 1 Tab PO DAILY Acid Control (Ranitidine Hcl) 150 Mg Tablet 150 Mg PO Synthroid (Levothyroxine Sodium) 137 Mcg Tablet 1 Tab PO DAILY Protonix (Pantoprazole Sodium) 40 Mg Granpkt.dr 40 Mg PO DAILY Sotalol (Sotalol Hcl) 80 Mg Tablet 1 Tab PO BID Amlodipine Besylate 5 Mg Tablet 5 Mg PO DAILY Lasix (Furosemide) 40 Mg Tablet 1 Tab PO DAILY Losartan Potassium 50 Mg Tablet 50 Mg PO BID Hydrocodone-Apap 10-325 (Hydrocodone Bit/Acetaminophen) 1 Each Tablet 1 Each PO PRN Q4HRS Aspirin 81 Mg Tab.chew 81 Mg PO DAILY Vitals/I & O Vital Sign - Last 24 Hours 11/29/17 11/29/17 11/29/17 11/29/17 19:11 19:45 19:54 20:24 Temp 98.4 98.4 Pulse 87 56 58 Resp 24 20 20 B/P (MAP) 134/60 (84) 155/67 (96) 134/80 (98) Pulse Ox 100 100 97 97 O2 Delivery NonRebreather Mask BiPAP/CPAP BiPAP/CPAP BiPAP/CPAP O2 Flow Rate 15.0 11/29/17 11/29/17 11/29/17 11/29/17 21:08 21:54 22:24 22:39 Pulse 62 56 56 Resp 18 18 16 B/P (MAP) 108/61 (77) 106/54 (71) 112/64 (80) Pulse Ox 97 98 99 97 O2 Delivery BiPAP/CPAP BiPAP/CPAP BiPAP/CPAP BiPAP/CPAP 11/29/17 11/30/17 11/30/17 11/30/17 23:10 00:00 00:15 00:15 Temp 97.5 97.5 Pulse 84 58 58 Resp 22 24 24 B/P (MAP) 103/56 (72) 149/55 (86) 146/65 (92) Pulse Ox 96 100 100 O2 Delivery BiPAP/CPAP BiPAP/CPAP BiPAP/CPAP Bi-pap 11/30/17 11/30/17 11/30/17 11/30/17 00:30 00:45 01:00 01:35 Pulse 56 54 58 Resp 24 24 24 24 B/P (MAP) 115/57 (76) 109/51 (70) 103/59 (74) Pulse Ox 98 98 97 97 O2 Delivery BiPAP/CPAP BiPAP/CPAP BiPAP/CPAP BiPAP/CPAP 11/30/17 11/30/17 11/30/17 11/30/17 01:45 02:00 02:05 03:00 Pulse 48 50 Resp 24 24 B/P (MAP) 111/54 (73) 127/57 (80) Pulse Ox 97 98 99 97 O2 Delivery BiPAP/CPAP BiPAP/CPAP BiPAP/CPAP BiPAP/CPAP 11/30/17 11/30/17 11/30/17 11/30/17 04:00 04:00 04:13 05:00 Temp 97.6 97.6 Pulse 52 52 Resp 24 24 B/P (MAP) 116/53 (74) 111/58 (75) Pulse Ox 100 99 100 O2 Delivery BiPAP/CPAP Bi-pap BiPAP/CPAP BiPAP/CPAP 11/30/17 11/30/17 11/30/17 05:30 06:00 07:31 Pulse 52 Resp 24 B/P (MAP) 110/48 (68) Pulse Ox 99 99 100 O2 Delivery BiPAP/CPAP BiPAP/CPAP BiPAP/CPAP Intake and Output 11/29/17 11/29/17 11/30/17 15:00 23:00 07:00 Intake Total 120 ml Output Total 160 ml Balance -40 ml TIKI PALMA MD Nov 30, 2017 07:37
[2017-11-30] MEDS: IPRATRPIUM/ALBUTEROL 0.5/2.5MG 3 ML NEBU. NEB SCH ×4 (07:39→20:10)
[2017-11-30] MEDS: PANTOPRAZOLE 40 MG TABLET.DR. PO SCH (07:56)
[2017-11-30] MEDS: LEVOTHYROXINE 137 MCG TABLET PO SCH (07:56)
[2017-11-30] MEDS ORDERED: INSULIN LISPRO 300 UNITS/3 ML INSULN.PEN. SQ SCH (08:00)
[2017-11-30 08:31] LABS: BASE EXCESS ABG 1 mmol/L (-3-3); HCO3 ABG 30 mmol/L (21-28); PO2 ABG 98 mmHg (65-108); SAT O2 ABG 97 % (92-99)
[2017-11-30 08:34] LABS: PCO2 ABG 70 mmHg (35-46)
[2017-11-30] MEDS: SENNOSIDES/DOCUSATE 8.6/50MG TABLET. PO SCH ×2 (09:00→21:11)
[2017-11-30] MEDS: POLYETHYLENE GLYCOL 3350 17 GM PACKET. PO SCH (09:00)
[2017-11-30] MEDS ORDERED: SOTALOL 80 MG TABLET. PO SCH (09:00)
[2017-11-30] MEDS ORDERED: amLODIPine BESYLATE 5 MG TABLET PO SCH (09:00)
[2017-11-30] MEDS ORDERED: FUROSEMIDE 40 MG TABLET. PO SCH (09:00)
[2017-11-30] MEDS ORDERED: FLUTICASONE 50MCG/NASAL SPRAY 16GM BOTTLE. NS SCH (09:00)
[2017-11-30] MEDS ORDERED: FUROSEMIDE 40 MG/4 ML VIAL. IVP ONE (10:00)
[2017-11-30] MEDS ORDERED: SODIUM POLYSTYRENE SULFONATE 15 GM/60 ML ORAL.SUSP. PO ONE (10:00)
[2017-11-30] MEDS ORDERED: IV NORMAL SALINE 500ML BAG 500 ML IV ONE (10:15)
[2017-11-30] MEDS: MULTIVITAMIN with MINERAL TABLET. PO SCH (10:23)
[2017-11-30] MEDS: ASPIRIN CHEWABLE 81 MG TABLET. PO SCH (10:23)
[2017-11-30] MEDS: CHOLECALCIFEROL (VITAMIN D3) 1,000 UNIT TABLET PO SCH (10:24)
[2017-11-30] MEDS: HEPARIN for SUB-Q USE 5,000 UNIT/ML VIAL. SQ SCH ×2 (10:28→21:11)
[2017-11-30] MEDS ORDERED: INSULIN REGULAR 100 UNIT/ML 3ML VIAL. IV ONE (10:30)
[2017-11-30] MEDS ORDERED: DEXTROSE 50% 25 GM / 50ML DISP.SYRIN. IV ONE (10:30)
--- NOTE | 2017-11-30 10:48 | CONS ---
DATE OF CONSULTATION: ATTENDING PHYSICIAN: Dr. Mahendra Doherty. REASON FOR CONSULTATION: Respiratory failure. HISTORY OF PRESENT ILLNESS: The patient is an 82-year-old female who is morbidly obese with a BMI of 60. She has been at rehab facility in October and then was sent home. However, the daughter was monitoring her oxygen levels, she is a DPOA as well. She noted her oxygen saturations started to be in the low 80s and then went down in the 70s and even up to the 60s. The patient also has a history of cough which dates back to 2 years, but the cough has been worse since October. Occasionally, she would bring light yellow sputum, but no fever, no chills, no headaches, no nausea or vomiting, no diarrhea. She has also noticed some increased ankle edema as well. When the patient's saturation dropped in the 60s, she called her primary care doctor who referred to be hospitalized. The patient's arterial blood gases initially were abnormal with a pH of 7.17, pCO2 of 96 and a pO2 of 100 with bicarbonate of 34 on 36% FiO2. The patient's ABGs last night did not change significantly and she was kept on BiPAP overnight. She is fully awake, following commands. Her blood gases this morning showed a pH of 7.25, pCO2 of 70 and a pO2 of 98. I had made some changes in her BiPAP setting. She is on IPAP of 26, EPAP of 6 and I have gradually weaned her oxygen down to 21% and saturation was still in the mid 90s. Her chest x-ray was reviewed by me. There were extensive interstitial infiltrates on the right lung. There was some atelectasis, infiltrate left base as well. There was also very prominent right hilum. The patient's x-ray was also abnormal in August. There were some mildly prominent interstitial infiltrates in the right lower lobe and hilar prominence. However, this latest x-ray is definitely worse. I have been asked to see her for further evaluation. PAST MEDICAL HISTORY: Significant for atrial fibrillation, history of CHF although she had a normal EF in August. History of hypertension and hypothyroidism. History of morbid obesity, history of PE. PAST SURGICAL HISTORY: Cholecystectomy, hysterectomy, thyroidectomy, hernia repair, and cataracts. ALLERGIES: PENICILLIN, DABIGATRAN, GABAPENTIN, LISINOPRIL and SULFACETAMIDE. CURRENT MEDICATIONS: Reviewed, including DuoNebs. She also received Lasix x 1; however, urine output is very minimal. HOME MEDICATIONS: Reviewed as well and they include antihypertensive medications, which are multiple and oral Lasix. She is not on any blood thinners. REVIEW OF SYSTEMS: Twelve-point system obtained. Pertinent positives discussed in my history of present illness, otherwise noncontributory. All systems that were negative were reviewed as well. SOCIAL HISTORY: Nonsmoker. FAMILY HISTORY: Noncontributory to lungs. PHYSICAL EXAMINATION: GENERAL: She is awake, following commands, while on BiPAP. VITAL SIGNS: Blood pressure has ranged from 120 systolic to 105, afebrile. HEENT: Sclerae nonicteric. NECK: Supple. LUNGS: With diminished breath sounds at the bases. CARDIOVASCULAR: Regular rate. ABDOMEN: Soft, morbidly obese. EXTREMITIES: With bilateral ankle edema. LABORATORY DATA: Reviewed. ABGs are discussed in my history of present illness. BUN 22, creatinine 1.8 which is increased. ProBNP is only 3089. Albumin is 2.8. Potassium was 6.5, now down to 6.0. White cell count 6.6, hemoglobin 12.8 and platelets are 249. IMPRESSION: 1. Htloq-[id number] hypercapnic respiratory failure and likely secondary to right lung pneumonia. Possibility of diastolic heart failure is also a consideration, but clinically less likely as she has failed to respond to Lasix and renal function has worsened from the one dose she received in the ER. She also has a right hilar prominence with interstitial markings being more accentuated since August x-ray and I cannot exclude the possibility of interstitial lung disease /? sarcoidosis. 2. Abnormal chest x-ray with diffuse right sided interstitial infiltrates with right hilar prominence in the right lung. Differential diagnosis would include interstitial pneumonia or progressive interstitial lung disease. Asymmetric congestive heart failure clinically less likely. She has a right hilar prominence and right hilar adenopathy is a concern, we will need a CT chest once stable to rule out above possibilities. 3. Underlying morbid obesity with suspected obstructive sleep apnea and obesity hypoventilation syndrome. 4. Hyperkalemia. 5. Increasing azotemia with decreasing urine output post Lasix. 6. No significant history of tobacco use or asthma. RECOMMENDATIONS: 1. I have made changes to the BiPAP settings and I have reduced the FiO2 to 21%. We will avoid hyperoxia and follow ABGs and make necessary adjustments. 2. We will hold further diuretics and give her fluid bolus to see an improvement in her urine output. 3. Noncontrast CT chest once more stable to assess for interstitial pneumonia or interstitial lung disease and also to rule out right hilar adenopathy. She may have sarcoidosis. 4. Empiric antibiotic will be initiated. 5. The patient's DPOA does not prefer to have Kayexalate for her hyperkalemia. I will give insulin and D50, and follow the results. 6. Monitor renal function. 7. She will benefit from sleep study as an outpatient. 8. Discussed with RN and RT and we will follow along with you discuss with Dr. Rojas as well. 9. Discussed code status with DPOA. No intubation but ok with CPR/ shock Critical care time 40 minutes. SHUKRI MAX MD DR: GAYLE/lila JOB#: [id number] / [id number] HARI
[2017-11-30] MEDS ORDERED: levOFLOXacin PER PHARMACY. MC PRN (11:15)
--- NOTE | 2017-11-30 11:51 | PDOC ---
Provider Note Provider Note history and physical dictated # [id number] HOOD ALLAN MD Nov 30, 2017 11:51
[2017-11-30] MEDS: IV NORMAL SALINE 1000ML BAG 1,000 ML IV SCH ×2 (12:03→23:05)
[2017-11-30 12:16] LABS: BASE EXCESS ABG 3 mmol/L (-3-3); HCO3 ABG 30 mmol/L (21-28); PCO2 ABG 56 mmHg (35-46); PO2 ABG 62 mmHg (65-108); SAT O2 ABG 93 % (92-99)
--- NOTE | 2017-11-30 12:54 | HP ---
ADMIT DATE: 11/30/2017 LOCATION: She is in Intensive Care Unit in room 113. HISTORY OF PRESENT ILLNESS: The patient is an 82-year-old white female, morbidly obese with BMI of 60, who has a history of diabetes mellitus type 2, treated with diet; hypertension; hyperlipidemia; chronic diastolic congestive heart failure and paroxysmal atrial fibrillation, who was recently dismissed from the [facility] facility due to debility and low back pain and the daughter notes in the last week that she has been coughing up some thick green sputum at times, without any fever or chills. In addition, she has an oximeter and she has been checking her oxygen level since they have been anywhere from 70s to even in the 60s. I was notified of this yesterday and she was told to go to the [facility] Emergency Room and she did and she was subsequently admitted to the hospital. Apparently, she was placed on the Hospitalist service and I was told later this morning that she was admitted to the hospital and I saw her this morning and spoke with her daughter, who is the DPOA. The patient was noted to have hypoxic and hypercarbic acute respiratory failure and was placed on BiPAP. Daughter wishes the patient to do not have intubation or ventilator, but wants her to have shock treatment and chest compressions if it becomes necessary. The patient was alert this morning and she was briefly taken off of BiPAP to cough up some thick, what appeared to be yellow, sputum. Her chest x-ray showed bilateral infiltrates and then the radiologist read it as congestive heart failure and a BNP was elevated. A chest x-ray was noted to be worse compared to the previous one and she was subsequently admitted to hospital. She apparently received a dose of Lasix IV in the Emergency Room, without any urine output and has not been drinking any fluids since 3 o'clock yesterday afternoon, according to the patient's daughter. She is therefore admitted for further evaluation of her acute hypoxic and hypercarbic respiratory failure and bilateral lung infiltrates. ALLERGIES AND INTOLERANCES: INCLUDE PENICILLIN, ADHESIVES, DABIGATRAN, GABAPENTIN, LISINOPRIL AND SULFA. LOOKING AT HER ALLERGIES, LISINOPRIL CAUSED A COUGH AND THE DABIGATRAN CAUSED A HEADACHE, WHICH IS PRADAXA. TARVACIN CAUSED MYALGIAS DID CRESTOR. MEDICATIONS: Prior to admission include Synthroid 137 mcg every day, amlodipine 5 mg every day, sotalol 80 mg in the morning and 40 mg in the p.m., losartan 100 mg every day, Lasix 40 mg every day, Protonix 40 mg every day and Plover 10/325 p.r.n. She also takes ranitidine p.r.n., multiple vitamin, cranberry tablet, aspirin 81 mg every day, Tylenol 650 mg p.r.n., vitamin D 1000 units every day, Flonase p.r.n. and MiraLax p.r.n. PAST MEDICAL HISTORY: Past history is significant for diabetes mellitus type 2, treated with diet; hypertension; hyperlipidemia; paroxysmal atrial fibrillation; chronic diastolic congestive heart failure and idiopathic peripheral neuropathy. She had a pulmonary embolus in 04/2013. She also has morbid obesity and osteoarthritis. She had a thyroidectomy in 2009 for a large goiter. Chronic diastolic congestive heart failure, tubal ligation, cholecystectomy, hysterectomy, arthrocentesis of the right knee and umbilical hernia repair. FAMILY HISTORY: Not contributory. REVIEW OF SYSTEMS: ENDOCRINE: She has diabetes mellitus. PULMONARY: She had the respiratory failure and a cough with thick yellow sputum. CARDIAC: No chest pain. GASTROINTESTINAL: No vomiting or diarrhea. The rest of the systems reviewed are negative, except as stated in the history of present illness. PHYSICAL EXAMINATION: VITAL SIGNS: Temperature is 98.2 degrees, pulse is 58, respiratory rate 24, blood pressure 99/58 and oxygen saturation 97% with the BiPAP. HEENT: Eyes, gaze is conjugate. Mouth symmetrical. HEART: Reveals an S1, S2. There is no S3 or murmur. LUNGS: Clear anteriorly. ABDOMEN: Obese, soft and nontender. GENITOURINARY: She has got a Soto catheter in. There is minimal output in her Soto bag. EXTREMITIES: Lower extremities without significant edema. She has got SCDs on. SKIN: No rashes. NEUROLOGIC: She is coherent and talks. LABORATORY DATA: Review of her laboratory tests, her white count is 6.6, hemoglobin 12.8, platelet count 249,000, polys 47 and lymphocytes 42. She had an arterial blood gas initially showing a pH of 7.17, pCO2 of 96 and a pO2 of 100 on FiO2 of 36%. Last blood gas from this morning showed a pH of 7.25, pCO2 of 70 and a pO2 of 98 and I believe she is on BiPAP. Sodium 137, potassium 6.0 today, chloride 101, total CO2 was 30, BUN 22, creatinine 1.8 and the blood sugar was 88 and 73 by fingerstick this morning. Her albumin was 2.8. The ProBNP was increased at 3089. Liver function tests were normal. Potassium was 6.5 yesterday. Total CO2 was 30. Urinalysis showed too numerous to count red cells and occasional white cells. Chest x-ray per the radiologist showed moderate congestive heart failure and pulmonary vascularity increased. Also had some bilateral pleural effusion suspected. I discussed the case with Dr. Deleon and I felt that she most likely was not in congestive heart failure and this could be more chronic and new infiltrates perhaps related to infection. Also, need to rule out sarcoidosis with accompanying infiltrates. EKG showed a lot of artifact. It was unclear if she was in atrial fib versus sinus rhythm. ASSESSMENT: 1. Acute hypoxic and hypercarbic respiratory failure. Suspect this is on top of chronic hypercarbic respiratory failure, possibly due to a Pickwickian type syndrome. 2. Chronic kidney disease stage 3. 3. Morbid obesity with a body mass index of 60. 4. Paroxysmal atrial fibrillation. 5. Diabetes mellitus type 2, treated with diet. 6. Hypertension. 7. Hypothyroidism. 8. Chronic diastolic congestive heart failure. 9. Hyperkalemia. She declined the Kayexalate and was given an amp of D50 and 10 units of regular insulin per Dr. Deleon. PLAN: The plan is to consult Dr. Deleon who has already seen the patient, consult Dr. Rocha for Cardiology, we will consult Dr. Mays for Nephrology and Dr. Miles for Infectious Disease. Discussed with the daughter, but the daughter does not want her intubated or placed on a ventilator, but wants everything else. Discussed that with the nurse who was going to write the order. We will start her on some Zyvox and Levaquin. Obtain a sputum culture. Repeat the chest x-ray and blood test tomorrow. Also get a renal ultrasound. We will start her on some IV normal saline at 75 mL an hour. Continue heparin for deep vein thrombosis prophylaxis. She did have an echocardiogram done a few months ago that showed a preserved left ventricular ejection fraction. HOOD ALLAN MD DR: Luis JOB#: [id number] / [id number]
--- NOTE | 2017-11-30 13:30 | PDOC2 ---
GISELLE HERNANDEZ EVENT SALES ASSISTANT 11/30/17 1330: CARDIAC CONSULT DATE OF CONSULT Date of Consult DATE: 11/30/17 TIME: 12:41 REASON FOR CONSULT Reason for Consult: CHF exacerbation REFERRING PHYSICIAN Referring Physician: Crystal SOURCE Source: Chart review, Patient HISTORY OF PRESENT ILLNESS HISTORY OF PRESENT ILLNESS This is an 82 yo female admitted for complains of SOA and altered mentation. She has been having increasing SOA in the last 2 weeks and actually more in the last week with increasing leg swelling. Her sister has noted her O2 sat in the 70-80s and was due to receive her O2 supplement this week. Last Monday her symptoms became more increased. She has been more tired and at times dizzy. Reports that she has been hydrating herself adequately and has been complaint with her medications. She was released from rehab a month ago. Denies any chest pain or palpitations and no nausea or vomiting. She has not been sleeping well. She has not been tested for sleep apnea. She takes lasix at home but less than what was given in rehab according to her. Unfortunately she could not weigh herself because she could not stand very well. She has a hospital bed but does not have a scale. PAST MEDICAL HISTORY Past Medical History Cardiovascular: AFIB (paroxysmal), CHF (diastolic ), HTN Pulmonary: Pulmonary embolus (2013) CENTRAL NERVOUS SYSTEM: Other (none) GI: Diverticulosis, Other (morbid obesity) Heme/Onc: No pertinent hx Hepatobiliary: cholelithiasis Psych: No pertinent hx Musculoskeletal: Osteoarthritis, lumbar stenosis, morbid obesity Rheumatologic: No pertinent hx Infectious disease: No pertinent hx ENT: No pertinent hx Renal/: No pertinent hx Endocrine: Diabetes, Hypothyroidism Dermatology: No pertinent hx PAST SURGICAL HISTORY Past Surgical History Cholecystectomy, Hernia Repair, Hysterectomy, Other (thyroidectomy) FAMILY HISTORY Family History noncontributory SOCIAL HISTORY Smoke: No ALCOHOL: none Drugs: None CURRENT MEDICATIONS CURRENT MEDICATIONS Current Medications Medications (Trade) Dose Ordered Sig/Violet Route PRN Reason Start Time Stop Time Status Last Admin Dose Admin Insulin Human Regular (HumuLIN R VIAL) 10 unit 1X ONCE IV 11/29/17 22:00 11/30/17 09:35 DC 11/29/17 22:35 Dextrose (Dextrose 50%-Water Syringe) 25 gm 1X ONCE IV 11/29/17 22:00 11/30/17 09:35 DC 11/29/17 22:31 Albuterol Sulfate (Ventolin Neb Soln) 2.5 mg 1X ONCE NEB 11/29/17 22:00 11/29/17 22:01 DC 11/29/17 22:44 Calcium Gluconate (Calcium Gluconate) 2,000 mg 1X ONCE IVP 11/29/17 22:00 11/29/17 22:01 DC 11/29/17 22:33 Acetaminophen (Tylenol) 650 mg 1X ONCE PO 11/29/17 22:45 11/29/17 22:46 DC 11/29/17 22:40 Heparin Sodium (Porcine) (Heparin Sodium) 5,000 unit Q12HR SQ 11/30/17 09:00 11/30/17 10:28 Aspirin (Children'S Aspirin) 81 mg DAILY PO 11/30/17 09:00 11/30/17 10:23 Vitamin D (Vitamin D3) 1,000 unit DAILY PO 11/30/17 09:00 11/30/17 10:24 Levothyroxine Sodium (Synthroid) 137 mcg DAILY07 PO 11/30/17 07:00 11/30/17 07:56 Acetaminophen/ Hydrocodone Bitart (Lortab 10/325) 1 tab PRN Q4HRS PRN PO PAIN 11/29/17 23:45 11/30/17 01:35 Multivitamins (Thera M Plus) 1 tab DAILY PO 11/30/17 09:00 11/30/17 10:23 Pantoprazole Sodium (Protonix) 40 mg DAILYAC PO 11/30/17 07:30 11/30/17 07:56 Albuterol/ Ipratropium (Duoneb) 3 ml RTQID NEB 11/30/17 08:00 11/30/17 11:55 Sodium Chloride 500 ml @ 500 mls/hr 1X ONCE IV 11/30/17 10:15 11/30/17 11:14 DC 11/30/17 10:22 Insulin Human Regular (HumuLIN R VIAL) 10 unit 1X ONCE IV 11/30/17 10:30 11/30/17 10:31 DC 11/30/17 10:27 Dextrose (Dextrose 50%-Water Syringe) 25 gm 1X ONCE IV 11/30/17 10:30 11/30/17 10:31 DC 11/30/17 10:25 Sodium Chloride 1,000 ml @ 75 mls/hr [id number] IV 11/30/17 11:30 11/30/17 12:03 ALLERGIES ALLERGIES: Coded Allergies: adhesive (Verified Allergy, Severe, rash, 10/28/15) dabigatran etexilate (Verified Allergy, Severe, chf, 08/24/17) gabapentin (Verified Allergy, Severe, CHF, 08/24/17) Penicillins (Verified Allergy, Intermediate, Rash, 10/28/15) sulfacetamide sodium (Verified Allergy, Intermediate, Rash, 10/28/15) lisinopril (Verified Adverse Reaction, Intermediate, COUGH, 10/28/15) PHYSICAL EXAM General: Alert, Oriented X3, Cooperative, mild distress HEENT: Atraumatic, Mucous membr. moist/pink Lungs: Other (diminsihed basilar crackles; 97% at 30% venti mask) Heart: Regular rate (SR with WAP), Other (distant heart sounds) Abdomen: Soft, Other (obese) Extremities: No cyanosis, Other (2+ bilateral pedal edema) Skin: No breakdown, No significant lesion Neuro: Normal speech, Sensation intact Psych/Mental Status: Mental status NL, Mood NL MUSCULOSKELETAL: Osteoarthritic changes both hands VITALS VITALS Vital Signs Date Time Temp Pulse Resp B/P (MAP) Pulse Ox O2 Delivery O2 Flow Rate FiO2 11/30/17 11:55 100 BiPAP/CPAP 11/30/17 11:00 58 24 99/58 (72) 11/30/17 08:00 98.2 98.2 11/29/17 19:11 15.0 LABS Lab: Laboratory Tests Test 11/29/17 19:30 11/29/17 21:06 11/29/17 22:15 11/29/17 22:45 O2 Saturation 96 % (92-99) 97 % (92-99) Arterial Blood pH 7.17 (7.35-7.45) 7.19 (7.35-7.45) Arterial Blood pCO2 at Patient Temp 96 mmHg (35-46) 88 mmHg (35-46) Arterial Blood pO2 at Patient Temp 100 mmHg (65-108) 107 mmHg (65-108) Arterial Blood HCO3 34 mmol/L (21-28) 33 mmol/L (21-28) Arterial Blood Base Excess 2 mmol/L (-3-3) 2 mmol/L (-3-3) FiO2 36.0 40.0 White Blood Count 6.1 x10^3/uL (4.0-11.0) Red Blood Count 4.29 x10^6/uL (3.50-5.40) Hemoglobin 13.3 g/dL (12.0-15.5) Hematocrit 39.3 % (36.0-47.0) Mean Corpuscular Volume 92 fL (79-100) Mean Corpuscular Hemoglobin 31 pg (25-35) Mean Corpuscular Hemoglobin Concent 34 g/dL (31-37) Red Cell Distribution Width 14.9 % (11.5-14.5) Platelet Count 263 x10^3/uL (140-400) Neutrophils (%) (Auto) 59 % (31-73) Lymphocytes (%) (Auto) 31 % (24-48) Monocytes (%) (Auto) 7 % (0-9) Eosinophils (%) (Auto) 2 % (0-3) Basophils (%) (Auto) 1 % (0-3) Neutrophils # (Auto) 3.6 x10^3uL (1.8-7.7) Lymphocytes # (Auto) 1.9 x10^3/uL (1.0-4.8) Monocytes # (Auto) 0.4 x10^3/uL (0.0-1.1) Eosinophils # (Auto) 0.1 x10^3/uL (0.0-0.7) Basophils # (Auto) 0.1 x10^3/uL (0.0-0.2) Sodium Level 136 mmol/L (136-145) Potassium Level 6.5 mmol/L (3.5-5.1) Chloride Level 101 mmol/L (98-107) Carbon Dioxide Level 31 mmol/L (21-32) Anion Gap 4 (6-14) Blood Urea Nitrogen 21 mg/dL (7-20) Creatinine 1.6 mg/dL (0.6-1.0) Estimated GFR (Cockcroft-Gault) 37.2 BUN/Creatinine Ratio 13 (6-20) Glucose Level 146 mg/dL (70-99) Calcium Level 8.7 mg/dL (8.5-10.1) Total Bilirubin 0.4 mg/dL (0.2-1.0) Aspartate Amino Transf (AST/SGOT) 10 U/L (15-37) Alanine Aminotransferase (ALT/SGPT) 12 U/L (14-59) Alkaline Phosphatase 89 U/L (46-116) Troponin I Quantitative < 0.017 ng/mL (0.000-0.055) ZW-Ncb-J-Type Natriuretic Peptide 3089 pg/mL (0-449) Total Protein 7.1 g/dL (6.4-8.2) Albumin 2.8 g/dL (3.4-5.0) Albumin/Globulin Ratio 0.7 (1.0-1.7) Urine Collection Type U cath Urine Color Yellow Urine Clarity Clear Urine pH 5.0 Urine Specific [place] 1.020 Urine Protein 100 mg/dL (NEG-TRACE) Urine Glucose (UA) Negative mg/dL (NEG) Urine Ketones (Stick) Negative mg/dL (NEG) Urine Blood Large (NEG) Urine Nitrite Negative (NEG) Urine Bilirubin Negative (NEG) Urine Urobilinogen Dipstick 1.0 mg/dL (0.2 mg/dL) Urine Leukocyte Esterase Trace (NEG) Urine RBC Tntc /HPF (0-2) Urine WBC Occ /HPF (0-4) Urine Squamous Epithelial Cells Occ /LPF Urine Bacteria Few /HPF (0-FEW) Urine Hyaline Casts Moderate /HPF Urine Mucus Mod /LPF Test 11/30/17 05:50 11/30/17 07:30 11/30/17 08:11 White Blood Count 6.6 x10^3/uL (4.0-11.0) Red Blood Count 4.16 x10^6/uL (3.50-5.40) Hemoglobin 12.8 g/dL (12.0-15.5) Hematocrit 38.5 % (36.0-47.0) Mean Corpuscular Volume 93 fL (79-100) Mean Corpuscular Hemoglobin 31 pg (25-35) Mean Corpuscular Hemoglobin Concent 33 g/dL (31-37) Red Cell Distribution Width 15.0 % (11.5-14.5) Platelet Count 249 x10^3/uL (140-400) Neutrophils (%) (Auto) 47 % (31-73) Lymphocytes (%) (Auto) 42 % (24-48) Monocytes (%) (Auto) 9 % (0-9) Eosinophils (%) (Auto) 1 % (0-3) Basophils (%) (Auto) 1 % (0-3) Neutrophils # (Auto) 3.1 x10^3uL (1.8-7.7) Lymphocytes # (Auto) 2.8 x10^3/uL (1.0-4.8) Monocytes # (Auto) 0.6 x10^3/uL (0.0-1.1) Eosinophils # (Auto) 0.1 x10^3/uL (0.0-0.7) Basophils # (Auto) 0.1 x10^3/uL (0.0-0.2) Sodium Level 137 mmol/L (136-145) Potassium Level 6.0 mmol/L (3.5-5.1) Chloride Level 101 mmol/L (98-107) Carbon Dioxide Level 30 mmol/L (21-32) Anion Gap 6 (6-14) Blood Urea Nitrogen 22 mg/dL (7-20) Creatinine 1.8 mg/dL (0.6-1.0) Estimated GFR (Cockcroft-Gault) 32.5 BUN/Creatinine Ratio 12 (6-20) Glucose Level 88 mg/dL (70-99) Calcium Level 9.1 mg/dL (8.5-10.1) Total Bilirubin 0.5 mg/dL (0.2-1.0) Aspartate Amino Transf (AST/SGOT) 11 U/L (15-37) Alanine Aminotransferase (ALT/SGPT) 9 U/L (14-59) Alkaline Phosphatase 84 U/L (46-116) Total Protein 6.9 g/dL (6.4-8.2) Albumin 2.8 g/dL (3.4-5.0) Albumin/Globulin Ratio 0.7 (1.0-1.7) O2 Saturation 97 % (92-99) Arterial Blood pH 7.25 (7.35-7.45) Arterial Blood pCO2 at Patient Temp 70 mmHg (35-46) Arterial Blood pO2 at Patient Temp 98 mmHg (65-108) Arterial Blood HCO3 30 mmol/L (21-28) Arterial Blood Base Excess 1 mmol/L (-3-3) Glucose (Fingerstick) 73 mg/dL (70-99) ECHOCARDIOGRAM ECHOCARDIOGRAM <Conclusion> The left ventricular systolic function is normal and the ejection fraction is within normal range. EF 65% There is mild to moderate concentric left ventricular hypertrophy. DATE: 08/24/17 1043 ASSESSMENT/PLAN ASSESSMENT/PLAN 1. Acute on chronic respiratory failure with underlying ELLI/morbid obesity/CHF with possible pneumonia 2. Acute on chronic diastolic CHF: induced by above. Recent EF nml. 3. STAN on CKD/hyperkalemia: prerenal. Has not had any hydration since 4PM yesterday.Nephrology consulted. 4. HTN: low end. 5. PAFIB: on sotalol. Presently SR and possible WAP. 6. Hypothyroidism 7. Hypoxic/metabolic encephalopathy: improved. Recommendations 1. Repeat EKG and note QTc. Continue low dose sotalol pending HR trend. periods of bradycardia with contributing metabolic issues. 2. ASA for stroke prevention. Deemed not a good candidate in the past for anticoagulation due to high bleed and fall risk 3. Correct K. kayexelate on board, insulin, albuterol. Start IVF. Lasix PRN for now. . 4. Was on bipap, tolerating venti mask currently 5. Will need home ELLI w/u as outpt given that she is bedbound. 6. No ARB or ACEi. Supportive care. CHERYLE MIRANDA MD 11/30/17 1532: CARDIAC CONSULT ASSESSMENT/PLAN ASSESSMENT/PLAN Patient seen and examined. Agree with above nurse practitioner note. Morbidly obese elderly woman presenting with respiratory distress. Ultimately will issues as noted above. No obvious cardiac source identified at this time. Await pulmonary and renal evaluation. Suspect underlying component of diastolic heart failure given her multiple comorbidities. Given her renal issues would defer any aggressive diuresis. Supportive care for now. GISELLE HERNANDEZ APRN Nov 30, 2017 13:30 CHERYLE MIRANDA MD Nov 30, 2017 15:32
[2017-11-30 13:39] LABS: CALCIUM 8.8 mg/dL (8.5-10.1); CREATININE 2.1 mg/dL (0.6-1.0); GFR 27.2; POTASSIUM 5.4 mmol/L (3.5-5.1)
--- NOTE | 2017-11-30 13:43 | EKG ---
[facility] [address] [place] [address] Test Date: 2017-11-30 Test Time: 13:38:23 Pat Name: ADILIA MACEDO Department: Room: 113 1 Gender: F Oven Dauber: ASIF : 1935 Requested By: GISELLE HERNANDEZ Order Number: [id number] Reading MD: Jairo Dubois MD Measurements Intervals [place] Rate: 60 P: [place]: QRS: -28 QRSD: 92 T: 35 QT: 428 QTc: 428 Interpretive Statements SR 1ST DEGREE AVB NON-SPECIFIC ST/T CHANGES Electronically Signed On 12-02-2017 13:42:56 CDT by Jairo Dubois MD
--- NOTE | 2017-11-30 14:58 | PDOC ---
Infectious Disease Note Vital Sign Vital Signs Vital Signs Date Time Temp Pulse Resp B/P (MAP) Pulse Ox O2 Delivery O2 Flow Rate FiO2 11/30/17 13:00 63 24 113/59 (77) 96 Venturi Mask 11/30/17 12:00 98.2 98.2 11/29/17 19:11 15.0 Labs Lab Laboratory Tests Test 11/29/17 19:30 11/29/17 21:06 11/29/17 22:15 11/29/17 22:45 O2 Saturation 96 % (92-99) 97 % (92-99) Arterial Blood pH 7.17 (7.35-7.45) 7.19 (7.35-7.45) Arterial Blood pCO2 at Patient Temp 96 mmHg (35-46) 88 mmHg (35-46) Arterial Blood pO2 at Patient Temp 100 mmHg (65-108) 107 mmHg (65-108) Arterial Blood HCO3 34 mmol/L (21-28) 33 mmol/L (21-28) Arterial Blood Base Excess 2 mmol/L (-3-3) 2 mmol/L (-3-3) FiO2 36.0 40.0 White Blood Count 6.1 x10^3/uL (4.0-11.0) Red Blood Count 4.29 x10^6/uL (3.50-5.40) Hemoglobin 13.3 g/dL (12.0-15.5) Hematocrit 39.3 % (36.0-47.0) Mean Corpuscular Volume 92 fL (79-100) Mean Corpuscular Hemoglobin 31 pg (25-35) Mean Corpuscular Hemoglobin Concent 34 g/dL (31-37) Red Cell Distribution Width 14.9 % (11.5-14.5) Platelet Count 263 x10^3/uL (140-400) Neutrophils (%) (Auto) 59 % (31-73) Lymphocytes (%) (Auto) 31 % (24-48) Monocytes (%) (Auto) 7 % (0-9) Eosinophils (%) (Auto) 2 % (0-3) Basophils (%) (Auto) 1 % (0-3) Neutrophils # (Auto) 3.6 x10^3uL (1.8-7.7) Lymphocytes # (Auto) 1.9 x10^3/uL (1.0-4.8) Monocytes # (Auto) 0.4 x10^3/uL (0.0-1.1) Eosinophils # (Auto) 0.1 x10^3/uL (0.0-0.7) Basophils # (Auto) 0.1 x10^3/uL (0.0-0.2) Sodium Level 136 mmol/L (136-145) Potassium Level 6.5 mmol/L (3.5-5.1) Chloride Level 101 mmol/L (98-107) Carbon Dioxide Level 31 mmol/L (21-32) Anion Gap 4 (6-14) Blood Urea Nitrogen 21 mg/dL (7-20) Creatinine 1.6 mg/dL (0.6-1.0) Estimated GFR (Cockcroft-Gault) 37.2 BUN/Creatinine Ratio 13 (6-20) Glucose Level 146 mg/dL (70-99) Calcium Level 8.7 mg/dL (8.5-10.1) Total Bilirubin 0.4 mg/dL (0.2-1.0) Aspartate Amino Transf (AST/SGOT) 10 U/L (15-37) Alanine Aminotransferase (ALT/SGPT) 12 U/L (14-59) Alkaline Phosphatase 89 U/L (46-116) Troponin I Quantitative < 0.017 ng/mL (0.000-0.055) SY-Ceu-K-Type Natriuretic Peptide 3089 pg/mL (0-449) Total Protein 7.1 g/dL (6.4-8.2) Albumin 2.8 g/dL (3.4-5.0) Albumin/Globulin Ratio 0.7 (1.0-1.7) Urine Collection Type U cath Urine Color Yellow Urine Clarity Clear Urine pH 5.0 Urine Specific [place] 1.020 Urine Protein 100 mg/dL (NEG-TRACE) Urine Glucose (UA) Negative mg/dL (NEG) Urine Ketones (Stick) Negative mg/dL (NEG) Urine Blood Large (NEG) Urine Nitrite Negative (NEG) Urine Bilirubin Negative (NEG) Urine Urobilinogen Dipstick 1.0 mg/dL (0.2 mg/dL) Urine Leukocyte Esterase Trace (NEG) Urine RBC Tntc /HPF (0-2) Urine WBC Occ /HPF (0-4) Urine Squamous Epithelial Cells Occ /LPF Urine Bacteria Few /HPF (0-FEW) Urine Hyaline Casts Moderate /HPF Urine Mucus Mod /LPF Test 11/30/17 05:50 11/30/17 07:30 11/30/17 08:11 11/30/17 12:20 White Blood Count 6.6 x10^3/uL (4.0-11.0) Red Blood Count 4.16 x10^6/uL (3.50-5.40) Hemoglobin 12.8 g/dL (12.0-15.5) Hematocrit 38.5 % (36.0-47.0) Mean Corpuscular Volume 93 fL (79-100) Mean Corpuscular Hemoglobin 31 pg (25-35) Mean Corpuscular Hemoglobin Concent 33 g/dL (31-37) Red Cell Distribution Width 15.0 % (11.5-14.5) Platelet Count 249 x10^3/uL (140-400) Neutrophils (%) (Auto) 47 % (31-73) Lymphocytes (%) (Auto) 42 % (24-48) Monocytes (%) (Auto) 9 % (0-9) Eosinophils (%) (Auto) 1 % (0-3) Basophils (%) (Auto) 1 % (0-3) Neutrophils # (Auto) 3.1 x10^3uL (1.8-7.7) Lymphocytes # (Auto) 2.8 x10^3/uL (1.0-4.8) Monocytes # (Auto) 0.6 x10^3/uL (0.0-1.1) Eosinophils # (Auto) 0.1 x10^3/uL (0.0-0.7) Basophils # (Auto) 0.1 x10^3/uL (0.0-0.2) Sodium Level 137 mmol/L (136-145) 138 mmol/L (136-145) Potassium Level 6.0 mmol/L (3.5-5.1) 5.4 mmol/L (3.5-5.1) Chloride Level 101 mmol/L (98-107) 101 mmol/L (98-107) Carbon Dioxide Level 30 mmol/L (21-32) 31 mmol/L (21-32) Anion Gap 6 (6-14) 6 (6-14) Blood Urea Nitrogen 22 mg/dL (7-20) 24 mg/dL (7-20) Creatinine 1.8 mg/dL (0.6-1.0) 2.1 mg/dL (0.6-1.0) Estimated GFR (Cockcroft-Gault) 32.5 27.2 BUN/Creatinine Ratio 12 (6-20) Glucose Level 88 mg/dL (70-99) 83 mg/dL (70-99) Calcium Level 9.1 mg/dL (8.5-10.1) 8.8 mg/dL (8.5-10.1) Total Bilirubin 0.5 mg/dL (0.2-1.0) Aspartate Amino Transf (AST/SGOT) 11 U/L (15-37) Alanine Aminotransferase (ALT/SGPT) 9 U/L (14-59) Alkaline Phosphatase 84 U/L (46-116) Total Protein 6.9 g/dL (6.4-8.2) Albumin 2.8 g/dL (3.4-5.0) Albumin/Globulin Ratio 0.7 (1.0-1.7) O2 Saturation 97 % (92-99) Arterial Blood pH 7.25 (7.35-7.45) Arterial Blood pCO2 at Patient Temp 70 mmHg (35-46) Arterial Blood pO2 at Patient Temp 98 mmHg (65-108) Arterial Blood HCO3 30 mmol/L (21-28) Arterial Blood Base Excess 1 mmol/L (-3-3) Glucose (Fingerstick) 73 mg/dL (70-99) Objective Assessment Acute Resp failure PCN allergy - has tolerated Cephalexin (d/w 2 daughters). Sulfa allergy AFib STAN CHF Plan Plan of Care Cont Zyvox D/c Levoflox with h/o Afib and begin Doxy Add Cefepime Check Influenza/Legionella/Strep antigen. RSVP not available F/u labs and cults D/w Daughters Thank you # [phone] MIN BOOKER MD Nov 30, 2017 14:58
[2017-11-30] MEDS ORDERED: CEFEPIME HCL 2 GM in IV DEXTROSE 5% 100ML 100 ML IV SCH (15:30)
[2017-11-30 15:40] LABS: FIO2 ABG 35% VENTI
[2017-11-30] MEDS: CEFEPIME HCL IV Push 2 GM VIAL. IVP SCH (15:42)
[2017-11-30 16:25] LABS: BASE EXCESS ABG 1 mmol/L (-3-3); HCO3 ABG 28 mmol/L (21-28); PCO2 ABG 53 mmHg (35-46); PO2 ABG 72 mmHg (65-108); SAT O2 ABG 95 % (92-99)
[2017-11-30 16:54] LABS: FIO2 ABG 28% VENTI
[2017-11-30 19:07] LABS: INFLUENZA A PATIENT NEGATIVE (NEGATIVE); INFLUENZA B PATIENT NEGATIVE (NEGATIVE)
[2017-11-30] MEDS: ACETAMINOPHEN 325 MG TABLET. PO PRN (21:10)
[2017-11-30] MEDS: DOXYCYCLINE HYCLATE 100 MG TABLET PO SCH (21:11)
[2017-12-01] VITALS (16 sets, daily range): BP systolic 103–196; BP diastolic 31–99
[2017-12-01] MEDS: CEFEPIME HCL IV Push 2 GM VIAL. IVP SCH ×3 (01:08→21:25)
[2017-12-01] MEDS: HYDROcodone/APAP 10/325 1 TAB TABLET PO PRN ×3 (01:13→21:22)
[2017-12-01] MEDS: SOTALOL 80 MG TABLET. PO SCH ×2 (01:18→07:40)
[2017-12-01] MEDS: FLUTICASONE 50MCG/NASAL SPRAY 16GM BOTTLE. NS PRN (01:24)
--- NOTE | 2017-12-01 03:48 | CONS ---
DATE OF CONSULTATION: 11/30/2017 PATIENT IS IN ROOM: ICU 113. REQUESTING PHYSICIAN: Dr. Rojas. REASON FOR CONSULTATION: Infiltrates. HISTORY OF PRESENT ILLNESS: The patient is an 82-year-old female with a longstanding history of morbid obesity, paroxysmal atrial fibrillation, recently discharged from a nursing facility that she was there secondary to low back pain. She has now developed some increased cough, some thick green sputum and have been checked and oxygen level dropped into the 70s and 60s. Apparently, she contacted Dr. Rojas on the and was instructed to go to the Emergency Room. On arrival, white count was 6.1 with a normal differential. Her O2 sat was 96, but her ABG had a pH of 7.17 and a pCO2 of 96. She was initially placed on FiO2 and then was changed to BiPAP. X-ray was obtained, it showed extensive interstitial infiltrates, mainly in the right lung. She denies any gross fevers or chills or sweats. She does have some nonspecific aches and generalized aches. No dysuria, but she does not have a catheter in place. Denies any rashes. PAST MEDICAL HISTORY: Positive for diabetes, hypertension, hyperlipidemia, atrial fibrillation, chronic diastolic congestive heart failure, idiopathic peripheral neuropathy, history of pulmonary embolism, morbid obesity, osteoarthritis, history of goiter. PAST SURGICAL HISTORY: Positive for thyroidectomy, tubal ligation, cholecystectomy, hysterectomy, arthrocentesis of the right knee and umbilical hernia repair. REVIEW OF SYSTEMS: Otherwise negative except as mentioned above. ALLERGIES: Listed as PENICILLIN. She cannot tolerate AMOXICILLIN, states she develops rash and dark fingernails. She has had cephalexin before. This was discussed with two of her daughters. Also listed ADHESIVE, DABIGATRAN, GABAPENTIN, LISINOPRIL, AND SULFA. SOCIAL HISTORY: She has a very supportive family, currently with her. She is a nonsmoker. FAMILY HISTORY: Noncontributory. CURRENT MEDICATIONS: Included levofloxacin, Zyvox, Tylenol, Norvasc, aspirin, levofloxacin, insulin, Synthroid, Protonix, sotalol. Other meds are available and have been reviewed in the chart. PHYSICAL EXAMINATION: VITAL SIGNS: She is afebrile, temperature 98.2 axillary, pulse 63, respirations 24, blood pressure 113/59, satting 96% of ventimask. CONSTITUTIONAL: She is alert. She is cooperative. She is in no acute distress. She is morbidly obese. She has normal conjunctivae. HEENT: Oral cavity, pharynx is dry, but clear. NECK: Supple, no JVD. LUNGS: Some mild crackles. HEART: S1, S2. ABDOMEN: Morbidly obese, soft, nontender, no guarding. GENITOURINARY: Soto is in place with clear urine. EXTREMITIES: Without clubbing, cyanosis, with trace 1+ lower extremity edema. Joints are without signs of any inflammation, no redness. SKIN: Warm to touch without signs of generalized rash. NEUROLOGIC: She is nonfocal and appropriate. PSYCHIATRIC: Affect is pleasant. IV SITES: Clean. LABORATORY DATA: White count 6.6, hemoglobin 12.8, platelets of 249. Neutrophils 47, they were 31 previously. Lymphs are 42. Creatinine is 2.1, up from 1.8. AST 11, ALT 9. Urinalysis, few bacteria, squamous cells occasional, too numerous to count red blood cells, occasional white blood cells, nitrites negative, leukocyte esterase is trace. Chest x-ray: Moderate congestive failure. IMPRESSION: 1. Acute respiratory failure. 2. PENICILLIN allergy, but has tolerated cephalexin. Discussed with 2 daughters. Also, SULFA allergy. 3. Atrial fibrillation. 4. Acute kidney injury. 5. Congestive heart failure. RECOMMENDATIONS: We will continue the Zyvox. We will discontinue the levofloxacin with history of atrial fibrillation on sotalol and begin doxycycline. Add cefepime. We will check influenza legionella, strep pneumo antigen. Respiratory viral panels are not available. Follow up labs and cultures. This was discussed with the daughters. Thank you for allowing me to participate in the patient's care. should you have any further questions, please do not hesitate to contact me. MIN BOOKER MD DR: MARY/lila JOB#: [id number] / [id number]
[2017-12-01 05:27] LABS: BASO % 0 % (0-3); EOS # 0.2 x10^3/uL (0.0-0.7); EOS % 4 % (0-3); HEMATOCRIT 34.2 % (36.0-47.0); HEMOGLOBIN 11.4 g/dL (12.0-15.5); LYMPH # 2.6 x10^3/uL (1.0-4.8); LYMPH % 40 % (24-48); MEAN CORPUSCULAR HEMOGLOBIN 31 pg (25-35); MEAN CORPUSCULAR HGB CONC 33 g/dL (31-37); MEAN CORPUSCULAR VOLUME 92 fL (79-100); MONO # 0.7 x10^3/uL (0.0-1.1); MONO % 11 % (0-9); NEUT # 2.9 x10^3uL (1.8-7.7); NEUT % 45 % (31-73); PLATELET COUNT 219 x10^3/uL (140-400); RED BLOOD COUNT 3.72 x10^6/uL (3.50-5.40); RED CELL DISTRIBUTION WIDTH 14.9 % (11.5-14.5); WHITE BLOOD COUNT 6.5 x10^3/uL (4.0-11.0)
[2017-12-01 05:59] LABS: CALCIUM 8.1 mg/dL (8.5-10.1); CREATININE 2.2 mg/dL (0.6-1.0); GFR 25.8; POTASSIUM 5.3 mmol/L (3.5-5.1)
[2017-12-01] MEDS: DOXYCYCLINE HYCLATE 100 MG TABLET PO SCH (07:38)
[2017-12-01] MEDS: CHOLECALCIFEROL (VITAMIN D3) 1,000 UNIT TABLET PO SCH (07:39)
[2017-12-01] MEDS: PANTOPRAZOLE 40 MG TABLET.DR. PO SCH (07:39)
[2017-12-01] MEDS: LEVOTHYROXINE 137 MCG TABLET PO SCH (07:40)
[2017-12-01] MEDS: POLYETHYLENE GLYCOL 3350 17 GM PACKET. PO SCH (07:40)
[2017-12-01] MEDS: ASPIRIN CHEWABLE 81 MG TABLET. PO SCH (07:40)
[2017-12-01] MEDS: MULTIVITAMIN with MINERAL TABLET. PO SCH (07:40)
[2017-12-01] MEDS: SENNOSIDES/DOCUSATE 8.6/50MG TABLET. PO SCH ×2 (07:40→21:26)
[2017-12-01] MEDS: HEPARIN for SUB-Q USE 5,000 UNIT/ML VIAL. SQ SCH ×2 (07:51→21:32)
[2017-12-01] MEDS: IPRATRPIUM/ALBUTEROL 0.5/2.5MG 3 ML NEBU. NEB SCH ×4 (08:06→21:47)
--- NOTE | 2017-12-01 09:06 | RAD ---
CT of the chest without contrast, 11/30/2017: HISTORY: Congestive heart failure, pneumonia Noncontrast scans were obtained as requested. Comparison is made to a study from 04/01/2013. The patient is moderately rotated to the left. The heart is generally enlarged. There is calcific plaquing of the aorta without evidence of aneurysm. Calcified mediastinal and hilar lymph nodes are present compatible with old granulomatous disease. No mediastinal adenopathy is seen. There is a small amount of right-sided pleural fluid. A greater amount of right-sided pleural fluid was present on the previous study. There is mild atelectasis posteriorly in the right upper and lower lobes. There is minimal atelectasis and/or scarring posteriorly in the left lower lobe. Scattered calcified granulomata are present in both lungs. No other dense pulmonary consolidation or mass is seen. There is only slight interlobular septal thickening posteriorly on the right. IMPRESSION: 1. Moderate generalized cardiomegaly and aortic atherosclerosis. 2. Old healed granulomatous disease in the chest. 3. Small right pleural effusion. 4. Mild atelectasis posteriorly in both lower lobes and right upper lobe. PQRS Compliance Statement: One or more of the following individualized dose reduction techniques were utilized for this examination: 1. Automated exposure control 2. Adjustment of the mA and/or kV according to patient size 3. Use of iterative reconstruction technique Electronically signed by: Eduardo Cano MD (12/01/2017 9:02 AM) [facility]
--- NOTE | 2017-12-01 09:09 | RAD ---
Portable chest, 12/01/2017: HISTORY: Respiratory failure Comparison is made to a study from 11/29/2017. The heart is enlarged. The pulmonary vascularity is at the upper limits of normal. Mild bibasilar opacities appear to have improved, although the lung bases and hemidiaphragms are partially obscured by the patient's overlying abdominal pannus. No new abnormality is seen. IMPRESSION: 1. Cardiomegaly with vascular congestion. 2. Mild bibasilar opacities appear to have improved slightly. Electronically signed by: Eduardo Cano MD (12/01/2017 9:06 AM) [facility]
--- NOTE | 2017-12-01 09:58 | PDOC ---
PROGRESS NOTES Subjective Subjective feels better. off bipap on oxygen NC. alert and talking. some urine output. lab reviewed. creatinine 2.2. ct chest negative for chf or pneumonia. Objective Objective Vital Signs Date Time Temp Pulse Resp B/P (MAP) Pulse Ox O2 Delivery O2 Flow Rate FiO2 12/01/17 09:33 61 20 134/59 (84) 99 Nasal Cannula 3.0 12/01/17 07:00 97.8 97.8 Intake and Output 12/01/17 07:00 Intake Total 2443 ml Output Total 297 ml Balance 2146 ml Intake Oral 600 ml IV Total 1843 ml Output Urine Total 297 ml Physical Exam Abdomen: Soft, Other (obese) Heart: Regular rate, Normal S1, Normal S2 Extremities: Other (trace edema feet) General: Alert HEENT: Atraumatic, Other Lungs: Other (clear with decreased breath sounds) Neuro: Normal speech Psych/Mental Status: Mental status NL Skin: No rashes Assessment Assessment 1. Acute on chronic hypoxic and hypercarbic respiratory failure. obesity hypoventilation syndrome 2. acute kidney injury on chronic kidney disease stage 3. 3. Morbid obesity with a body mass index of 60. 4. Paroxysmal atrial fibrillation. 5. Diabetes mellitus type 2, treated with diet. 6. Hypertension. 7. Hypothyroidism. 8. Chronic diastolic congestive heart failure. acute bronchitis Plan Plan of Care continue zyvox and doxycycline and cefepime sputum culture pending renal ultrasound continue iv fluids continue oxygen and nebulizer rx start PT and OT bilateral LE venous doppler discussed with patient and her daughter and dr. Deleon Comment Review of Relevant I have reviewed the following items jeet (where applicable) has been applied. Labs Laboratory Tests Test 11/29/17 19:30 11/29/17 21:06 11/29/17 22:15 11/29/17 22:45 O2 Saturation 96 % (92-99) 97 % (92-99) Arterial Blood pH 7.17 (7.35-7.45) 7.19 (7.35-7.45) Arterial Blood pCO2 at Patient Temp 96 mmHg (35-46) 88 mmHg (35-46) Arterial Blood pO2 at Patient Temp 100 mmHg (65-108) 107 mmHg (65-108) Arterial Blood HCO3 34 mmol/L (21-28) 33 mmol/L (21-28) Arterial Blood Base Excess 2 mmol/L (-3-3) 2 mmol/L (-3-3) FiO2 36.0 40.0 White Blood Count 6.1 x10^3/uL (4.0-11.0) Red Blood Count 4.29 x10^6/uL (3.50-5.40) Hemoglobin 13.3 g/dL (12.0-15.5) Hematocrit 39.3 % (36.0-47.0) Mean Corpuscular Volume 92 fL (79-100) Mean Corpuscular Hemoglobin 31 pg (25-35) Mean Corpuscular Hemoglobin Concent 34 g/dL (31-37) Red Cell Distribution Width 14.9 % (11.5-14.5) Platelet Count 263 x10^3/uL (140-400) Neutrophils (%) (Auto) 59 % (31-73) Lymphocytes (%) (Auto) 31 % (24-48) Monocytes (%) (Auto) 7 % (0-9) Eosinophils (%) (Auto) 2 % (0-3) Basophils (%) (Auto) 1 % (0-3) Neutrophils # (Auto) 3.6 x10^3uL (1.8-7.7) Lymphocytes # (Auto) 1.9 x10^3/uL (1.0-4.8) Monocytes # (Auto) 0.4 x10^3/uL (0.0-1.1) Eosinophils # (Auto) 0.1 x10^3/uL (0.0-0.7) Basophils # (Auto) 0.1 x10^3/uL (0.0-0.2) Sodium Level 136 mmol/L (136-145) Potassium Level 6.5 mmol/L (3.5-5.1) Chloride Level 101 mmol/L (98-107) Carbon Dioxide Level 31 mmol/L (21-32) Anion Gap 4 (6-14) Blood Urea Nitrogen 21 mg/dL (7-20) Creatinine 1.6 mg/dL (0.6-1.0) Estimated GFR (Cockcroft-Gault) 37.2 BUN/Creatinine Ratio 13 (6-20) Glucose Level 146 mg/dL (70-99) Calcium Level 8.7 mg/dL (8.5-10.1) Total Bilirubin 0.4 mg/dL (0.2-1.0) Aspartate Amino Transf (AST/SGOT) 10 U/L (15-37) Alanine Aminotransferase (ALT/SGPT) 12 U/L (14-59) Alkaline Phosphatase 89 U/L (46-116) Troponin I Quantitative < 0.017 ng/mL (0.000-0.055) VW-Ceu-X-Type Natriuretic Peptide 3089 pg/mL (0-449) Total Protein 7.1 g/dL (6.4-8.2) Albumin 2.8 g/dL (3.4-5.0) Albumin/Globulin Ratio 0.7 (1.0-1.7) Urine Collection Type U cath Urine Color Yellow Urine Clarity Clear Urine pH 5.0 Urine Specific [place] 1.020 Urine Protein 100 mg/dL (NEG-TRACE) Urine Glucose (UA) Negative mg/dL (NEG) Urine Ketones (Stick) Negative mg/dL (NEG) Urine Blood Large (NEG) Urine Nitrite Negative (NEG) Urine Bilirubin Negative (NEG) Urine Urobilinogen Dipstick 1.0 mg/dL (0.2 mg/dL) Urine Leukocyte Esterase Trace (NEG) Urine RBC Tntc /HPF (0-2) Urine WBC Occ /HPF (0-4) Urine Squamous Epithelial Cells Occ /LPF Urine Bacteria Few /HPF (0-FEW) Urine Hyaline Casts Moderate /HPF Urine Mucus Mod /LPF Test 11/30/17 01:00 11/30/17 05:50 11/30/17 07:30 11/30/17 08:11 Nasal Screen MRSA (PCR) Positive (Negative) White Blood Count 6.6 x10^3/uL (4.0-11.0) Red Blood Count 4.16 x10^6/uL (3.50-5.40) Hemoglobin 12.8 g/dL (12.0-15.5) Hematocrit 38.5 % (36.0-47.0) Mean Corpuscular Volume 93 fL (79-100) Mean Corpuscular Hemoglobin 31 pg (25-35) Mean Corpuscular Hemoglobin Concent 33 g/dL (31-37) Red Cell Distribution Width 15.0 % (11.5-14.5) Platelet Count 249 x10^3/uL (140-400) Neutrophils (%) (Auto) 47 % (31-73) Lymphocytes (%) (Auto) 42 % (24-48) Monocytes (%) (Auto) 9 % (0-9) Eosinophils (%) (Auto) 1 % (0-3) Basophils (%) (Auto) 1 % (0-3) Neutrophils # (Auto) 3.1 x10^3uL (1.8-7.7) Lymphocytes # (Auto) 2.8 x10^3/uL (1.0-4.8) Monocytes # (Auto) 0.6 x10^3/uL (0.0-1.1) Eosinophils # (Auto) 0.1 x10^3/uL (0.0-0.7) Basophils # (Auto) 0.1 x10^3/uL (0.0-0.2) Sodium Level 137 mmol/L (136-145) Potassium Level 6.0 mmol/L (3.5-5.1) Chloride Level 101 mmol/L (98-107) Carbon Dioxide Level 30 mmol/L (21-32) Anion Gap 6 (6-14) Blood Urea Nitrogen 22 mg/dL (7-20) Creatinine 1.8 mg/dL (0.6-1.0) Estimated GFR (Cockcroft-Gault) 32.5 BUN/Creatinine Ratio 12 (6-20) Glucose Level 88 mg/dL (70-99) Calcium Level 9.1 mg/dL (8.5-10.1) Total Bilirubin 0.5 mg/dL (0.2-1.0) Aspartate Amino Transf (AST/SGOT) 11 U/L (15-37) Alanine Aminotransferase (ALT/SGPT) 9 U/L (14-59) Alkaline Phosphatase 84 U/L (46-116) Total Protein 6.9 g/dL (6.4-8.2) Albumin 2.8 g/dL (3.4-5.0) Albumin/Globulin Ratio 0.7 (1.0-1.7) O2 Saturation 97 % (92-99) Arterial Blood pH 7.25 (7.35-7.45) Arterial Blood pCO2 at Patient Temp 70 mmHg (35-46) Arterial Blood pO2 at Patient Temp 98 mmHg (65-108) Arterial Blood HCO3 30 mmol/L (21-28) Arterial Blood Base Excess 1 mmol/L (-3-3) Glucose (Fingerstick) 73 mg/dL (70-99) Test 11/30/17 12:00 11/30/17 12:20 11/30/17 16:02 11/30/17 18:00 O2 Saturation 93 % (92-99) 95 % (92-99) Arterial Blood pH 7.34 (7.35-7.45) 7.34 (7.35-7.45) Arterial Blood pCO2 at Patient Temp 56 mmHg (35-46) 53 mmHg (35-46) Arterial Blood pO2 at Patient Temp 62 mmHg (65-108) 72 mmHg (65-108) Arterial Blood HCO3 30 mmol/L (21-28) 28 mmol/L (21-28) Arterial Blood Base Excess 3 mmol/L (-3-3) 1 mmol/L (-3-3) FiO2 35% venti 28% venti Sodium Level 138 mmol/L (136-145) Potassium Level 5.4 mmol/L (3.5-5.1) Chloride Level 101 mmol/L (98-107) Carbon Dioxide Level 31 mmol/L (21-32) Anion Gap 6 (6-14) Blood Urea Nitrogen 24 mg/dL (7-20) Creatinine 2.1 mg/dL (0.6-1.0) Estimated GFR (Cockcroft-Gault) 27.2 Glucose Level 83 mg/dL (70-99) Calcium Level 8.8 mg/dL (8.5-10.1) Procalcitonin < 0.10 ng/mL (0.00-0.10) Influenza Type A Antigen Negative (NEGATIVE) Influenza Type B Antigen Negative (NEGATIVE) Test 12/01/17 03:45 White Blood Count 6.5 x10^3/uL (4.0-11.0) Red Blood Count 3.72 x10^6/uL (3.50-5.40) Hemoglobin 11.4 g/dL (12.0-15.5) Hematocrit 34.2 % (36.0-47.0) Mean Corpuscular Volume 92 fL (79-100) Mean Corpuscular Hemoglobin 31 pg (25-35) Mean Corpuscular Hemoglobin Concent 33 g/dL (31-37) Red Cell Distribution Width 14.9 % (11.5-14.5) Platelet Count 219 x10^3/uL (140-400) Neutrophils (%) (Auto) 45 % (31-73) Lymphocytes (%) (Auto) 40 % (24-48) Monocytes (%) (Auto) 11 % (0-9) Eosinophils (%) (Auto) 4 % (0-3) Basophils (%) (Auto) 0 % (0-3) Neutrophils # (Auto) 2.9 x10^3uL (1.8-7.7) Lymphocytes # (Auto) 2.6 x10^3/uL (1.0-4.8) Monocytes # (Auto) 0.7 x10^3/uL (0.0-1.1) Eosinophils # (Auto) 0.2 x10^3/uL (0.0-0.7) Basophils # (Auto) 0.0 x10^3/uL (0.0-0.2) Sodium Level 136 mmol/L (136-145) Potassium Level 5.3 mmol/L (3.5-5.1) Chloride Level 102 mmol/L (98-107) Carbon Dioxide Level 27 mmol/L (21-32) Anion Gap 7 (6-14) Blood Urea Nitrogen 27 mg/dL (7-20) Creatinine 2.2 mg/dL (0.6-1.0) Estimated GFR (Cockcroft-Gault) 25.8 Glucose Level 90 mg/dL (70-99) Calcium Level 8.1 mg/dL (8.5-10.1) Laboratory Tests Test 11/30/17 12:00 11/30/17 12:20 11/30/17 16:02 11/30/17 18:00 O2 Saturation 93 % (92-99) 95 % (92-99) Arterial Blood pH 7.34 (7.35-7.45) 7.34 (7.35-7.45) Arterial Blood pCO2 at Patient Temp 56 mmHg (35-46) 53 mmHg (35-46) Arterial Blood pO2 at Patient Temp 62 mmHg (65-108) 72 mmHg (65-108) Arterial Blood HCO3 30 mmol/L (21-28) 28 mmol/L (21-28) Arterial Blood Base Excess 3 mmol/L (-3-3) 1 mmol/L (-3-3) FiO2 35% venti 28% venti Sodium Level 138 mmol/L (136-145) Potassium Level 5.4 mmol/L (3.5-5.1) Chloride Level 101 mmol/L (98-107) Carbon Dioxide Level 31 mmol/L (21-32) Anion Gap 6 (6-14) Blood Urea Nitrogen 24 mg/dL (7-20) Creatinine 2.1 mg/dL (0.6-1.0) Estimated GFR (Cockcroft-Gault) 27.2 Glucose Level 83 mg/dL (70-99) Calcium Level 8.8 mg/dL (8.5-10.1) Procalcitonin < 0.10 ng/mL (0.00-0.10) Influenza Type A Antigen Negative (NEGATIVE) Influenza Type B Antigen Negative (NEGATIVE) Test 12/01/17 03:45 White Blood Count 6.5 x10^3/uL (4.0-11.0) Red Blood Count 3.72 x10^6/uL (3.50-5.40) Hemoglobin 11.4 g/dL (12.0-15.5) Hematocrit 34.2 % (36.0-47.0) Mean Corpuscular Volume 92 fL (79-100) Mean Corpuscular Hemoglobin 31 pg (25-35) Mean Corpuscular Hemoglobin Concent 33 g/dL (31-37) Red Cell Distribution Width 14.9 % (11.5-14.5) Platelet Count 219 x10^3/uL (140-400) Neutrophils (%) (Auto) 45 % (31-73) Lymphocytes (%) (Auto) 40 % (24-48) Monocytes (%) (Auto) 11 % (0-9) Eosinophils (%) (Auto) 4 % (0-3) Basophils (%) (Auto) 0 % (0-3) Neutrophils # (Auto) 2.9 x10^3uL (1.8-7.7) Lymphocytes # (Auto) 2.6 x10^3/uL (1.0-4.8) Monocytes # (Auto) 0.7 x10^3/uL (0.0-1.1) Eosinophils # (Auto) 0.2 x10^3/uL (0.0-0.7) Basophils # (Auto) 0.0 x10^3/uL (0.0-0.2) Sodium Level 136 mmol/L (136-145) Potassium Level 5.3 mmol/L (3.5-5.1) Chloride Level 102 mmol/L (98-107) Carbon Dioxide Level 27 mmol/L (21-32) Anion Gap 7 (6-14) Blood Urea Nitrogen 27 mg/dL (7-20) Creatinine 2.2 mg/dL (0.6-1.0) Estimated GFR (Cockcroft-Gault) 25.8 Glucose Level 90 mg/dL (70-99) Calcium Level 8.1 mg/dL (8.5-10.1) Medications Current Medications Ondansetron HCl (Zofran) 4 mg PRN Q8HRS PRN IV NAUSEA/VOMITING; Start at 21:00; Stop 11/30/17 at 20:59; Status DC Insulin Human Regular (HumuLIN R VIAL) 10 unit 1X ONCE IV Last administered on 11/29/17at 22:35; Start 11/29/17 at 22:00; Stop 11/30/17 at 09:35; Status DC Dextrose (Dextrose 50%-Water Syringe) 25 gm 1X ONCE IV Last administered on at 22:31; Start 11/29/17 at 22:00; Stop 11/30/17 at 09:35; Status DC Albuterol Sulfate (Ventolin Neb Soln) 2.5 mg 1X ONCE NEB Last administered on 11/29/17at 22:44; Start 11/29/17 at 22:00; Stop 11/29/17 at 22:01; Status DC Calcium Gluconate (Calcium Gluconate) 2,000 mg 1X ONCE IVP Last administered on 11/29/17at 22:33; Start 11/29/17 at 22:00; Stop 11/29/17 at 22:01; Status DC Acetaminophen (Tylenol) 650 mg 1X ONCE PO Last administered on 11/29/17at 22: 40; Start 11/29/17 at 22:45; Stop 11/29/17 at 22:46; Status DC Heparin Sodium (Porcine) (Heparin Sodium) 5,000 unit Q12HR SQ Last administered on 12/01/17at 07:51; Start 11/30/17 at 09:00 Sodium Chloride (Normal Saline Flush) 3 ml QSHIFT PRN IV AFTER MEDS AND BLOOD DRAWS; Start 11/29/17 at 23:45 Senna/Docusate Sodium (Senna Plus) 1 tab BID PO Last administered on at 21:11; Start 11/30/17 at 09:00 Acetaminophen (Tylenol) 325 mg PRN Q6HRS PRN PO fever Last administered on at 21:10; Start 11/29/17 at 23:45 Amlodipine Besylate (Norvasc) 5 mg DAILY PO ; Start 11/30/17 at 09:00; Stop at 11:37; Status DC Aspirin (Children'S Aspirin) 81 mg DAILY PO Last administered on 12/01/17at 07: 40; Start 11/30/17 at 09:00 Vitamin D (Vitamin D3) 1,000 unit DAILY PO Last administered on 12/01/17at 07: 39; Start 11/30/17 at 09:00 Furosemide (Lasix) 40 mg DAILY PO ; Start 11/30/17 at 09:00; Stop 11/30/17 at 11:37; Status DC Levothyroxine Sodium (Synthroid) 137 mcg DAILY07 PO Last administered on at 07:40; Start 11/30/17 at 07:00 Fluticasone Propionate (Flonase) 2 spray DAILY NS ; Start 11/30/17 at 09:00; Stop 11/30/17 at 11:37; Status DC Acetaminophen/ Hydrocodone Bitart (Lortab 10/325) 1 tab PRN Q4HRS PRN PO PAIN Last administered on 12/01/17at 01:13; Start 11/29/17 at 23:45 Multivitamins (Thera M Plus) 1 tab DAILY PO Last administered on 12/01/17at 07: 40; Start 11/30/17 at 09:00 Pantoprazole Sodium (Protonix) 40 mg DAILYAC PO Last administered on at 07:39; Start 11/30/17 at 07:30 Polyethylene Glycol (miraLAX PACKET) 17 gm DAILY PO Last administered on at 07:40; Start 11/30/17 at 09:00 Sotalol HCl (Betapace) 80 mg BID PO ; Start 11/30/17 at 09:00; Stop 11/30/17 at 11:37; Status DC Insulin Human Lispro (HumaLOG) 0-7 UNITS TIDWMEALS SQ ; Start 11/30/17 at 08:00 ; Stop 11/30/17 at 09:35; Status DC Dextrose (Dextrose 50%-Water Syringe) 12.5 gm PRN Q15MIN PRN IV SEE COMMENTS; Start 11/30/17 at 00:00; Stop 11/30/17 at 09:35; Status DC Albuterol/ Ipratropium (Duoneb) 3 ml RTQID NEB Last administered on 12/01/17at 08:06; Start 11/30/17 at 08:00 Furosemide (Lasix) 40 mg 1X ONCE IVP ; Start 11/30/17 at 10:00; Stop at 10:08; Status DC Sodium Polystyrene Sulfonate (Kayexalate) 30 gm 1X ONCE PO ; Start 11/30/17 at 10:00; Stop 11/30/17 at 10:08; Status DC Sodium Chloride 500 ml @ 500 mls/hr 1X ONCE IV Last administered on at 10:22; Start 11/30/17 at 10:15; Stop 11/30/17 at 11:14; Status DC Insulin Human Regular (HumuLIN R VIAL) 10 unit 1X ONCE IV Last administered on 11/30/17at 10:27; Start 11/30/17 at 10:30; Stop 11/30/17 at 10:31; Status DC Dextrose (Dextrose 50%-Water Syringe) 25 gm 1X ONCE IV Last administered on at 10:25; Start 11/30/17 at 10:30; Stop 11/30/17 at 10:31; Status DC Levofloxacin/ Dextrose (Levaquin Per Pharmacy) 1 each PRN DAILY PRN MC SEE COMMENTS; Start 11/30/17 at 11:15; Stop 11/30/17 at 14:55; Status DC Linezolid/Dextrose 300 ml @ 300 mls/hr Q12HR IV Last administered on at 07:39; Start 11/30/17 at 12:00 Levofloxacin/ Dextrose 100 ml @ 100 mls/hr 1X ONCE IV Last administered on at 13:36; Start 11/30/17 at 12:00; Stop 11/30/17 at 12:59; Status DC Levofloxacin/ Dextrose 50 ml @ 50 mls/hr Q24H IV ; Start 12/01/17 at 12:00; Stop 12/01/17 at 12:00; Status DC Fluticasone Propionate (Flonase) 2 spray PRN DAILY PRN NS ALLERGIES Last administered on 12/01/17at 01:24; Start 11/30/17 at 11:30 Sotalol HCl (Betapace) 40 mg BID PO Last administered on 12/01/17at 01:18; Start 11/30/17 at 21:00 Sodium Chloride 1,000 ml @ 75 mls/hr [id number] IV Last administered on at 23:05; Start 11/30/17 at 11:30 Doxycycline Hyclate (Vibra-Tab) 100 mg BID PO Last administered on 12/01/17at 07:38; Start 11/30/17 at 21:00 Cefepime HCl 2 gm/ Dextrose 100 ml @ 200 mls/hr Q12HR IV ; Start 11/30/17 at 15:30; Status Cancel Cefepime HCl (Maxipime) 2 gm Q12HR IVP Last administered on 12/01/17at 07:38; Start 11/30/17 at 15:30 Active Scripts Active Reported Miralax (Polyethylene Glycol 3350) 17 Gm Powd.pack 1 Packet PO DAILY Flonase Allergy Relief (Fluticasone Propionate) 9.9 Ml Vest.susp 2 Sprays NS DAILY Vitamin D3 (Cholecalciferol (Vitamin D3)) 1,000 Unit Tablet 1 Tab PO DAILY Tylenol (Acetaminophen) 325 Mg Tablet 325 Mg PO Cranberry (Cranberry Extract) 200 Mg Capsule 200 Mg PO Multivitamins (Multivitamin) 1 Each Tablet 1 Tab PO DAILY Acid Control (Ranitidine Hcl) 150 Mg Tablet 150 Mg PO Synthroid (Levothyroxine Sodium) 137 Mcg Tablet 1 Tab PO DAILY Protonix (Pantoprazole Sodium) 40 Mg Granpkt.dr 40 Mg PO DAILY Sotalol (Sotalol Hcl) 80 Mg Tablet 1 Tab PO BID Amlodipine Besylate 5 Mg Tablet 5 Mg PO DAILY Lasix (Furosemide) 40 Mg Tablet 1 Tab PO DAILY Losartan Potassium 50 Mg Tablet 50 Mg PO BID Hydrocodone-Apap 10-325 (Hydrocodone Bit/Acetaminophen) 1 Each Tablet 1 Each PO PRN Q4HRS Aspirin 81 Mg Tab.chew 81 Mg PO DAILY Vitals/I & O Vital Sign - Last 24 Hours 11/30/17 11/30/17 11/30/17 11/30/17 11:00 11:55 12:00 12:00 Temp 98.2 98.2 Pulse 58 56 Resp 24 25 B/P (MAP) 99/58 (72) 100/53 (69) Pulse Ox 97 100 99 O2 Delivery BiPAP/CPAP BiPAP/CPAP BiPAP/CPAP Bi-pap 11/30/17 11/30/17 11/30/17 11/30/17 13:00 14:00 15:00 15:28 Pulse 63 68 68 Resp 24 25 24 B/P (MAP) 113/59 (77) 113/59 (77) 87/45 (59) Pulse Ox 96 97 96 98 O2 Delivery Venturi Mask Venturi Mask Venturi Mask Venturi Mask 11/30/17 11/30/17 11/30/17 11/30/17 16:00 16:00 17:00 18:00 Temp 98.0 98.0 Pulse 64 58 51 Resp 24 24 24 B/P (MAP) 89/46 (60) 115/51 (72) 122/47 (72) Pulse Ox 97 96 94 O2 Delivery Venturi Mask Bi-pap Venturi Mask Venturi Mask 11/30/17 11/30/17 11/30/17 11/30/17 19:00 20:00 20:00 20:00 Temp 98.7 98.7 Pulse 62 70 Resp 24 24 B/P (MAP) 91/47 (62) 79/47 (58) Pulse Ox 98 100 O2 Delivery Venturi Mask Bi-pap Nasal Cannula O2 Flow Rate 15.0 11/30/17 11/30/17 11/30/17 11/30/17 20:07 21:00 21:10 22:00 Pulse 69 Resp 24 12 B/P (MAP) 108/47 (67) Pulse Ox 97 96 97 O2 Delivery Nasal Cannula Venturi Mask O2 Flow Rate 5.0 5.0 5.0 11/30/17 11/30/17 11/30/17 11/30/17 22:00 22:10 23:00 23:59 Pulse 64 68 Resp 24 24 B/P (MAP) 102/43 (62) 159/66 (97) Pulse Ox 98 98 O2 Delivery Venturi Mask Venturi Mask Bi-pap O2 Flow Rate 5.0 12/01/17 12/01/17 12/01/17 12/01/17 00:00 00:01 01:00 01:13 Temp 98.4 98.4 Pulse 66 62 Resp 24 24 B/P (MAP) 166/84 (111) 196/84 (121) Pulse Ox 98 98 98 O2 Delivery Venturi Mask Venturi Mask O2 Flow Rate 5.0 5.0 12/01/17 12/01/17 12/01/17 12/01/17 01:18 02:00 02:13 03:00 Pulse 64 61 61 Resp 24 21 24 B/P (MAP) 196/87 159/67 (97) 159/64 (95) Pulse Ox 96 96 96 O2 Delivery Venturi Mask Venturi Mask Venturi Mask 12/01/17 12/01/17 12/01/17 12/01/17 04:00 04:00 04:00 05:00 Pulse 59 56 Resp 24 24 B/P (MAP) 179/88 (118) 103/31 (55) Pulse Ox 97 97 O2 Delivery Venturi Mask Bi-pap Venturi Mask O2 Flow Rate 5.0 12/01/17 12/01/17 12/01/17 12/01/17 06:00 07:00 07:40 08:00 Temp 97.8 97.8 Pulse 55 65 59 Resp 22 22 B/P (MAP) 104/49 (67) 105/52 (69) 105/52 Pulse Ox 97 100 O2 Delivery Venturi Mask Nasal Cannula O2 Flow Rate 3.0 3.0 12/01/17 12/01/17 12/01/17 12/01/17 08:00 08:06 09:00 09:33 Pulse 62 61 Resp 20 20 B/P (MAP) 134/59 (84) 134/59 (84) Pulse Ox 98 100 99 O2 Delivery Nasal Cannula Nasal Cannula Nasal Cannula Nasal Cannula O2 Flow Rate 3.0 4.0 3.0 3.0 Intake and Output 11/30/17 11/30/17 12/01/17 15:00 23:00 07:00 Intake Total 300 ml 2143 ml Output Total 37 ml 125 ml 135 ml Balance -37 ml 175 ml 2008 ml HOOD ALLAN MD Dec 01, 2017 09:58
--- NOTE | 2017-12-01 09:59 | PDOC ---
Infectious Disease Note Subjective Subjective "I feel great." Denies SOA/CP Denies F/C/S/aches Denies N/V/D ROS ROS per HPI otherwise neg Vital Sign Vital Signs Vital Signs Date Time Temp Pulse Resp B/P (MAP) Pulse Ox O2 Delivery O2 Flow Rate FiO2 12/01/17 09:33 61 20 134/59 (84) 99 Nasal Cannula 3.0 12/01/17 07:00 97.8 97.8 Physical Exam PHYSICAL EXAM GENERAL: Propped up in bed, alert, smiling HEENT: Oral cavity, pharynx is dry, but clear. NECK: Supple, no JVD. LUNGS: Some mild crackles. HEART: S1, S2. ABDOMEN: Morbidly obese, soft, nontender, no guarding. GENITOURINARY: [place] is in place with clear urine. EXTREMITIES: Without clubbing, cyanosis, with trace 1+ lower extremity edema. Joints are without signs of any inflammation, no redness. SKIN: Warm to touch without signs of generalized rash. NEUROLOGIC: She is nonfocal and appropriate. IV SITES: Clean. Labs Lab Laboratory Tests Test 11/30/17 12:00 11/30/17 12:20 11/30/17 16:02 11/30/17 18:00 O2 Saturation 93 % (92-99) 95 % (92-99) Arterial Blood pH 7.34 (7.35-7.45) 7.34 (7.35-7.45) Arterial Blood pCO2 at Patient Temp 56 mmHg (35-46) 53 mmHg (35-46) Arterial Blood pO2 at Patient Temp 62 mmHg (65-108) 72 mmHg (65-108) Arterial Blood HCO3 30 mmol/L (21-28) 28 mmol/L (21-28) Arterial Blood Base Excess 3 mmol/L (-3-3) 1 mmol/L (-3-3) FiO2 35% venti 28% venti Sodium Level 138 mmol/L (136-145) Potassium Level 5.4 mmol/L (3.5-5.1) Chloride Level 101 mmol/L (98-107) Carbon Dioxide Level 31 mmol/L (21-32) Anion Gap 6 (6-14) Blood Urea Nitrogen 24 mg/dL (7-20) Creatinine 2.1 mg/dL (0.6-1.0) Estimated GFR (Cockcroft-Gault) 27.2 Glucose Level 83 mg/dL (70-99) Calcium Level 8.8 mg/dL (8.5-10.1) Procalcitonin < 0.10 ng/mL (0.00-0.10) Influenza Type A Antigen Negative (NEGATIVE) Influenza Type B Antigen Negative (NEGATIVE) Test 12/01/17 03:45 White Blood Count 6.5 x10^3/uL (4.0-11.0) Red Blood Count 3.72 x10^6/uL (3.50-5.40) Hemoglobin 11.4 g/dL (12.0-15.5) Hematocrit 34.2 % (36.0-47.0) Mean Corpuscular Volume 92 fL (79-100) Mean Corpuscular Hemoglobin 31 pg (25-35) Mean Corpuscular Hemoglobin Concent 33 g/dL (31-37) Red Cell Distribution Width 14.9 % (11.5-14.5) Platelet Count 219 x10^3/uL (140-400) Neutrophils (%) (Auto) 45 % (31-73) Lymphocytes (%) (Auto) 40 % (24-48) Monocytes (%) (Auto) 11 % (0-9) Eosinophils (%) (Auto) 4 % (0-3) Basophils (%) (Auto) 0 % (0-3) Neutrophils # (Auto) 2.9 x10^3uL (1.8-7.7) Lymphocytes # (Auto) 2.6 x10^3/uL (1.0-4.8) Monocytes # (Auto) 0.7 x10^3/uL (0.0-1.1) Eosinophils # (Auto) 0.2 x10^3/uL (0.0-0.7) Basophils # (Auto) 0.0 x10^3/uL (0.0-0.2) Sodium Level 136 mmol/L (136-145) Potassium Level 5.3 mmol/L (3.5-5.1) Chloride Level 102 mmol/L (98-107) Carbon Dioxide Level 27 mmol/L (21-32) Anion Gap 7 (6-14) Blood Urea Nitrogen 27 mg/dL (7-20) Creatinine 2.2 mg/dL (0.6-1.0) Estimated GFR (Cockcroft-Gault) 25.8 Glucose Level 90 mg/dL (70-99) Calcium Level 8.1 mg/dL (8.5-10.1) IMPRESSION: 1. Cardiomegaly with vascular congestion. 2. Mild bibasilar opacities appear to have improved slightly. IMPRESSION: 1. Moderate generalized cardiomegaly and aortic atherosclerosis. 2. Old healed granulomatous disease in the chest. 3. Small right pleural effusion. 4. Mild atelectasis posteriorly in both lower lobes and right upper lobe. Objective Assessment Acute Resp failure - improved -Influenza neg PCN allergy - has tolerated Cephalexin (d/w 2 daughters). Sulfa allergy AFib STAN CHF MRSA screen positive Plan Plan of Care Cont Zyvox, cefepime and doxy D/c Levoflox with h/o Afib Legionella/Strep antigen pending RSVP not available Monitor labs/temp Sputum culture pending D/w Daughter Attending Co-Sign The patient was seen and interviewed as well as examined at the bedside. The chart was reviewed. The case was discussed. Agree with the plan of care. ZOIE HEART APRN Dec 01, 2017 09:59 VARUN LE MD Dec 01, 2017 11:27
--- NOTE | 2017-12-01 10:11 | PDOC2 ---
CONSULT Date of Consult Date of Consult DATE: 12/01/17 TIME: 09:17 Reason for Consult Reason for Consult: Renal Insufficiency Identification/Chief Complaint Chief Complaint Shortness of Breath and cough , No complaints today Source Source: Chart review History of Present Illness Reason for Visit: Pt is 82-year-old AAF ,morbidly obese , history of DM 2, diet controlled, HTN; chronic diastolic heart failure, paroxysmal atrial fibrillation, Admitted with complains of SOA and altered mentation. She has been having increasing SOA in the last 2 weeks and actually more in the last week with increasing leg swelling. Her daughter noted her O2 sat in the 70-80s . She has been more tired and at times dizzy. She was released from rehab a month ago. Denies any chest pain or palpitations and no nausea or vomiting. She takes lasix at home but less than what was given in rehab according to her C/O coughing up some thick green sputum at times, without any fever or chills. She received a dose of Lasix IV in the ER without any urine output. She was taking 20 mg Lasix at home but before that at [facility] was getting 60 mg QD as recommended by Dr. Rojas per daughter Denies any NSAID use, No UTI symptoms. At Home Incontinent- uses [facility] ., as per daughter Good UOP. Reports Poor PO intake at home and daughter noticed decreased UOP since mon- when she was hospitalized and thinks now picked up Past Medical History Cardiovascular: AFIB, CHF, HTN Pulmonary: Pulmonary embolus CENTRAL NERVOUS SYSTEM: Other GI: Diverticulosis, Other Heme/Onc: No pertinent hx Hepatobiliary: No pertinent hx Psych: No pertinent hx Musculoskeletal: Osteoarthritis Rheumatologic: No pertinent hx Infectious disease: No pertinent hx Renal/: No pertinent hx Endocrine: Diabetes, Hypothyroidism Past Surgical History Past Surgical History: Cholecystectomy, Hernia Repair, Hysterectomy, Other Family History Family History: Other Social History No ALCOHOL: none Drugs: None Lives: Alone Current Medications Current Medications Current Medications Ondansetron HCl (Zofran) 4 mg PRN Q8HRS PRN IV NAUSEA/VOMITING; Start at 21:00; Stop 11/30/17 at 20:59; Status DC Insulin Human Regular (HumuLIN R VIAL) 10 unit 1X ONCE IV Last administered on 11/29/17at 22:35; Start 11/29/17 at 22:00; Stop 11/30/17 at 09:35; Status DC Dextrose (Dextrose 50%-Water Syringe) 25 gm 1X ONCE IV Last administered on at 22:31; Start 11/29/17 at 22:00; Stop 11/30/17 at 09:35; Status DC Albuterol Sulfate (Ventolin Neb Soln) 2.5 mg 1X ONCE NEB Last administered on 11/29/17at 22:44; Start 11/29/17 at 22:00; Stop 11/29/17 at 22:01; Status DC Calcium Gluconate (Calcium Gluconate) 2,000 mg 1X ONCE IVP Last administered on 11/29/17at 22:33; Start 11/29/17 at 22:00; Stop 11/29/17 at 22:01; Status DC Acetaminophen (Tylenol) 650 mg 1X ONCE PO Last administered on 11/29/17at 22: 40; Start 11/29/17 at 22:45; Stop 11/29/17 at 22:46; Status DC Heparin Sodium (Porcine) (Heparin Sodium) 5,000 unit Q12HR SQ Last administered on 12/01/17at 07:51; Start 11/30/17 at 09:00 Sodium Chloride (Normal Saline Flush) 3 ml QSHIFT PRN IV AFTER MEDS AND BLOOD DRAWS; Start 11/29/17 at 23:45 Senna/Docusate Sodium (Senna Plus) 1 tab BID PO Last administered on at 21:11; Start 11/30/17 at 09:00 Acetaminophen (Tylenol) 325 mg PRN Q6HRS PRN PO fever Last administered on at 21:10; Start 11/29/17 at 23:45 Amlodipine Besylate (Norvasc) 5 mg DAILY PO ; Start 11/30/17 at 09:00; Stop at 11:37; Status DC Aspirin (Children'S Aspirin) 81 mg DAILY PO Last administered on 12/01/17at 07: 40; Start 11/30/17 at 09:00 Vitamin D (Vitamin D3) 1,000 unit DAILY PO Last administered on 12/01/17at 07: 39; Start 11/30/17 at 09:00 Furosemide (Lasix) 40 mg DAILY PO ; Start 11/30/17 at 09:00; Stop 11/30/17 at 11:37; Status DC Levothyroxine Sodium (Synthroid) 137 mcg DAILY07 PO Last administered on at 07:40; Start 11/30/17 at 07:00 Fluticasone Propionate (Flonase) 2 spray DAILY NS ; Start 11/30/17 at 09:00; Stop 11/30/17 at 11:37; Status DC Acetaminophen/ Hydrocodone Bitart (Lortab 10325) 1 tab PRN Q4HRS PRN PO PAIN Last administered on 12/01/17at 01:13; Start 11/29/17 at 23:45 Multivitamins (Thera M Plus) 1 tab DAILY PO Last administered on 12/01/17at 07: 40; Start 11/30/17 at 09:00 Pantoprazole Sodium (Protonix) 40 mg DAILYAC PO Last administered on at 07:39; Start 11/30/17 at 07:30 Polyethylene Glycol (miraLAX PACKET) 17 gm DAILY PO Last administered on at 07:40; Start 11/30/17 at 09:00 Sotalol HCl (Betapace) 80 mg BID PO ; Start 11/30/17 at 09:00; Stop 11/30/17 at 11:37; Status DC Insulin Human Lispro (HumaLOG) 0-7 UNITS TIDWMEALS SQ ; Start 11/30/17 at 08:00 ; Stop 11/30/17 at 09:35; Status DC Dextrose (Dextrose 50%-Water Syringe) 12.5 gm PRN Q15MIN PRN IV SEE COMMENTS; Start 11/30/17 at 00:00; Stop 11/30/17 at 09:35; Status DC Albuterol/ Ipratropium (Duoneb) 3 ml RTQID NEB Last administered on 12/01/17at 08:06; Start 11/30/17 at 08:00 Furosemide (Lasix) 40 mg 1X ONCE IVP ; Start 11/30/17 at 10:00; Stop at 10:08; Status DC Sodium Polystyrene Sulfonate (Kayexalate) 30 gm 1X ONCE PO ; Start 11/30/17 at 10:00; Stop 11/30/17 at 10:08; Status DC Sodium Chloride 500 ml @ 500 mls/hr 1X ONCE IV Last administered on at 10:22; Start 11/30/17 at 10:15; Stop 11/30/17 at 11:14; Status DC Insulin Human Regular (HumuLIN R VIAL) 10 unit 1X ONCE IV Last administered on 11/30/17at 10:27; Start 11/30/17 at 10:30; Stop 11/30/17 at 10:31; Status DC Dextrose (Dextrose 50%-Water Syringe) 25 gm 1X ONCE IV Last administered on at 10:25; Start 11/30/17 at 10:30; Stop 11/30/17 at 10:31; Status DC Levofloxacin/ Dextrose (Levaquin Per Pharmacy) 1 each PRN DAILY PRN MC SEE COMMENTS; Start 11/30/17 at 11:15; Stop 11/30/17 at 14:55; Status DC Linezolid/Dextrose 300 ml @ 300 mls/hr Q12HR IV Last administered on at 07:39; Start 11/30/17 at 12:00 Levofloxacin/ Dextrose 100 ml @ 100 mls/hr 1X ONCE IV Last administered on at 13:36; Start 11/30/17 at 12:00; Stop 11/30/17 at 12:59; Status DC Levofloxacin/ Dextrose 50 ml @ 50 mls/hr Q24H IV ; Start 12/01/17 at 12:00; Stop 12/01/17 at 12:00; Status DC Fluticasone Propionate (Flonase) 2 spray PRN DAILY PRN NS ALLERGIES Last administered on 12/01/17at 01:24; Start 11/30/17 at 11:30 Sotalol HCl (Betapace) 40 mg BID PO Last administered on 12/01/17at 01:18; Start 11/30/17 at 21:00 Sodium Chloride 1,000 ml @ 75 mls/hr [id number] IV Last administered on at 23:05; Start 11/30/17 at 11:30 Doxycycline Hyclate (Vibra-Tab) 100 mg BID PO Last administered on 12/01/17at 07:38; Start 11/30/17 at 21:00 Cefepime HCl 2 gm/ Dextrose 100 ml @ 200 mls/hr Q12HR IV ; Start 11/30/17 at 15:30; Status Cancel Cefepime HCl (Maxipime) 2 gm Q12HR IVP Last administered on 12/01/17at 07:38; Start 11/30/17 at 15:30 Active Scripts Active Reported Miralax (Polyethylene Glycol 3350) 17 Gm Powd.pack 1 Packet PO DAILY Flonase Allergy Relief (Fluticasone Propionate) 9.9 Ml [place].susp 2 Sprays NS DAILY Vitamin D3 (Cholecalciferol (Vitamin D3)) 1,000 Unit Tablet 1 Tab PO DAILY Tylenol (Acetaminophen) 325 Mg Tablet 325 Mg PO Cranberry (Cranberry Extract) 200 Mg Capsule 200 Mg PO Multivitamins (Multivitamin) 1 Each Tablet 1 Tab PO DAILY Acid Control (Ranitidine Hcl) 150 Mg Tablet 150 Mg PO Synthroid (Levothyroxine Sodium) 137 Mcg Tablet 1 Tab PO DAILY Protonix (Pantoprazole Sodium) 40 Mg Granpkt.dr 40 Mg PO DAILY Sotalol (Sotalol Hcl) 80 Mg Tablet 1 Tab PO BID Amlodipine Besylate 5 Mg Tablet 5 Mg PO DAILY Lasix (Furosemide) 40 Mg Tablet 1 Tab PO DAILY Losartan Potassium 50 Mg Tablet 50 Mg PO BID Hydrocodone-Apap 10-325 (Hydrocodone Bit/Acetaminophen) 1 Each Tablet 1 Each PO PRN Q4HRS Aspirin 81 Mg Tab.chew 81 Mg PO DAILY Allergies Allergies: Coded Allergies: adhesive (Verified Allergy, Severe, rash, 10/28/15) dabigatran etexilate (Verified Allergy, Severe, chf, 08/24/17) gabapentin (Verified Allergy, Severe, CHF, 08/24/17) Penicillins (Verified Allergy, Intermediate, Rash, 10/28/15) sulfacetamide sodium (Verified Allergy, Intermediate, Rash, 10/28/15) lisinopril (Verified Adverse Reaction, Intermediate, COUGH, 10/28/15) ROS Review of System As per HPI Physical Exam Physical Exam General: Alert, Oriented X3, Cooperative,NAD HEENT: OM moist , O2 by NC Neck Supple Lungs: diminished basilar crackles; 97% at 30% venti mask) Heart: Regular rate Abdomen: Soft, obese Extremities: No pitting edema , ankle swollen and Chronic foot pain Skin: No rash Neuro: Normal speech, Sensation intact - [place] +, No CVA or SP tenderness Vital Signs Vital Signs Date Time Temp Pulse Resp B/P (MAP) Pulse Ox O2 Delivery O2 Flow Rate FiO2 12/01/17 09:00 62 20 134/59 (84) 100 Nasal Cannula 3.0 12/01/17 07:00 97.8 97.8 Assessment & Plan STAN- ATN Likely sec to Poor PO intake, was hypotensive , Cardiorenal Decreased UOP on wed as per daughter, now improving Electrolytes stable, PO intake improved, Vitals stable Continue to Monitor , will repeat Renal US , No UTI on UA Continue IVF ? 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 Suggest follow-up imaging in one year to ensure stability. Bosniak category 2F. Acute on chronic respiratory failure On O2 by NC now Acute on chronic diastolic CHF: Recent EF nml Compensated PAFIB: on sotalol. Presently SR Discussed at length with patient , daughter and RN Labs Labs Laboratory Tests Test 11/29/17 19:30 11/29/17 21:06 11/29/17 22:15 11/29/17 22:45 O2 Saturation 96 % (92-99) 97 % (92-99) Arterial Blood pH 7.17 (7.35-7.45) 7.19 (7.35-7.45) Arterial Blood pCO2 at Patient Temp 96 mmHg (35-46) 88 mmHg (35-46) Arterial Blood pO2 at Patient Temp 100 mmHg (65-108) 107 mmHg (65-108) Arterial Blood HCO3 34 mmol/L (21-28) 33 mmol/L (21-28) Arterial Blood Base Excess 2 mmol/L (-3-3) 2 mmol/L (-3-3) FiO2 36.0 40.0 White Blood Count 6.1 x10^3/uL (4.0-11.0) Red Blood Count 4.29 x10^6/uL (3.50-5.40) Hemoglobin 13.3 g/dL (12.0-15.5) Hematocrit 39.3 % (36.0-47.0) Mean Corpuscular Volume 92 fL (79-100) Mean Corpuscular Hemoglobin 31 pg (25-35) Mean Corpuscular Hemoglobin Concent 34 g/dL (31-37) Red Cell Distribution Width 14.9 % (11.5-14.5) Platelet Count 263 x10^3/uL (140-400) Neutrophils (%) (Auto) 59 % (31-73) Lymphocytes (%) (Auto) 31 % (24-48) Monocytes (%) (Auto) 7 % (0-9) Eosinophils (%) (Auto) 2 % (0-3) Basophils (%) (Auto) 1 % (0-3) Neutrophils # (Auto) 3.6 x10^3uL (1.8-7.7) Lymphocytes # (Auto) 1.9 x10^3/uL (1.0-4.8) Monocytes # (Auto) 0.4 x10^3/uL (0.0-1.1) Eosinophils # (Auto) 0.1 x10^3/uL (0.0-0.7) Basophils # (Auto) 0.1 x10^3/uL (0.0-0.2) Sodium Level 136 mmol/L (136-145) Potassium Level 6.5 mmol/L (3.5-5.1) Chloride Level 101 mmol/L (98-107) Carbon Dioxide Level 31 mmol/L (21-32) Anion Gap 4 (6-14) Blood Urea Nitrogen 21 mg/dL (7-20) Creatinine 1.6 mg/dL (0.6-1.0) Estimated GFR (Cockcroft-Gault) 37.2 BUN/Creatinine Ratio 13 (6-20) Glucose Level 146 mg/dL (70-99) Calcium Level 8.7 mg/dL (8.5-10.1) Total Bilirubin 0.4 mg/dL (0.2-1.0) Aspartate Amino Transf (AST/SGOT) 10 U/L (15-37) Alanine Aminotransferase (ALT/SGPT) 12 U/L (14-59) Alkaline Phosphatase 89 U/L (46-116) Troponin I Quantitative < 0.017 ng/mL (0.000-0.055) VB-Jna-H-Type Natriuretic Peptide 3089 pg/mL (0-449) Total Protein 7.1 g/dL (6.4-8.2) Albumin 2.8 g/dL (3.4-5.0) Albumin/Globulin Ratio 0.7 (1.0-1.7) Urine Collection Type U cath Urine Color Yellow Urine Clarity Clear Urine pH 5.0 Urine Specific [place] 1.020 Urine Protein 100 mg/dL (NEG-TRACE) Urine Glucose (UA) Negative mg/dL (NEG) Urine Ketones (Stick) Negative mg/dL (NEG) Urine Blood Large (NEG) Urine Nitrite Negative (NEG) Urine Bilirubin Negative (NEG) Urine Urobilinogen Dipstick 1.0 mg/dL (0.2 mg/dL) Urine Leukocyte Esterase Trace (NEG) Urine RBC Tntc /HPF (0-2) Urine WBC Occ /HPF (0-4) Urine Squamous Epithelial Cells Occ /LPF Urine Bacteria Few /HPF (0-FEW) Urine Hyaline Casts Moderate /HPF Urine Mucus Mod /LPF Test 11/30/17 01:00 11/30/17 05:50 11/30/17 07:30 11/30/17 08:11 Nasal Screen MRSA (PCR) Positive (Negative) White Blood Count 6.6 x10^3/uL (4.0-11.0) Red Blood Count 4.16 x10^6/uL (3.50-5.40) Hemoglobin 12.8 g/dL (12.0-15.5) Hematocrit 38.5 % (36.0-47.0) Mean Corpuscular Volume 93 fL (79-100) Mean Corpuscular Hemoglobin 31 pg (25-35) Mean Corpuscular Hemoglobin Concent 33 g/dL (31-37) Red Cell Distribution Width 15.0 % (11.5-14.5) Platelet Count 249 x10^3/uL (140-400) Neutrophils (%) (Auto) 47 % (31-73) Lymphocytes (%) (Auto) 42 % (24-48) Monocytes (%) (Auto) 9 % (0-9) Eosinophils (%) (Auto) 1 % (0-3) Basophils (%) (Auto) 1 % (0-3) Neutrophils # (Auto) 3.1 x10^3uL (1.8-7.7) Lymphocytes # (Auto) 2.8 x10^3/uL (1.0-4.8) Monocytes # (Auto) 0.6 x10^3/uL (0.0-1.1) Eosinophils # (Auto) 0.1 x10^3/uL (0.0-0.7) Basophils # (Auto) 0.1 x10^3/uL (0.0-0.2) Sodium Level 137 mmol/L (136-145) Potassium Level 6.0 mmol/L (3.5-5.1) Chloride Level 101 mmol/L (98-107) Carbon Dioxide Level 30 mmol/L (21-32) Anion Gap 6 (6-14) Blood Urea Nitrogen 22 mg/dL (7-20) Creatinine 1.8 mg/dL (0.6-1.0) Estimated GFR (Cockcroft-Gault) 32.5 BUN/Creatinine Ratio 12 (6-20) Glucose Level 88 mg/dL (70-99) Calcium Level 9.1 mg/dL (8.5-10.1) Total Bilirubin 0.5 mg/dL (0.2-1.0) Aspartate Amino Transf (AST/SGOT) 11 U/L (15-37) Alanine Aminotransferase (ALT/SGPT) 9 U/L (14-59) Alkaline Phosphatase 84 U/L (46-116) Total Protein 6.9 g/dL (6.4-8.2) Albumin 2.8 g/dL (3.4-5.0) Albumin/Globulin Ratio 0.7 (1.0-1.7) O2 Saturation 97 % (92-99) Arterial Blood pH 7.25 (7.35-7.45) Arterial Blood pCO2 at Patient Temp 70 mmHg (35-46) Arterial Blood pO2 at Patient Temp 98 mmHg (65-108) Arterial Blood HCO3 30 mmol/L (21-28) Arterial Blood Base Excess 1 mmol/L (-3-3) Glucose (Fingerstick) 73 mg/dL (70-99) Test 11/30/17 12:00 11/30/17 12:20 11/30/17 16:02 11/30/17 18:00 O2 Saturation 93 % (92-99) 95 % (92-99) Arterial Blood pH 7.34 (7.35-7.45) 7.34 (7.35-7.45) Arterial Blood pCO2 at Patient Temp 56 mmHg (35-46) 53 mmHg (35-46) Arterial Blood pO2 at Patient Temp 62 mmHg (65-108) 72 mmHg (65-108) Arterial Blood HCO3 30 mmol/L (21-28) 28 mmol/L (21-28) Arterial Blood Base Excess 3 mmol/L (-3-3) 1 mmol/L (-3-3) FiO2 35% venti 28% venti Sodium Level 138 mmol/L (136-145) Potassium Level 5.4 mmol/L (3.5-5.1) Chloride Level 101 mmol/L (98-107) Carbon Dioxide Level 31 mmol/L (21-32) Anion Gap 6 (6-14) Blood Urea Nitrogen 24 mg/dL (7-20) Creatinine 2.1 mg/dL (0.6-1.0) Estimated GFR (Cockcroft-Gault) 27.2 Glucose Level 83 mg/dL (70-99) Calcium Level 8.8 mg/dL (8.5-10.1) Procalcitonin < 0.10 ng/mL (0.00-0.10) Influenza Type A Antigen Negative (NEGATIVE) Influenza Type B Antigen Negative (NEGATIVE) Test 12/01/17 03:45 White Blood Count 6.5 x10^3/uL (4.0-11.0) Red Blood Count 3.72 x10^6/uL (3.50-5.40) Hemoglobin 11.4 g/dL (12.0-15.5) Hematocrit 34.2 % (36.0-47.0) Mean Corpuscular Volume 92 fL (79-100) Mean Corpuscular Hemoglobin 31 pg (25-35) Mean Corpuscular Hemoglobin Concent 33 g/dL (31-37) Red Cell Distribution Width 14.9 % (11.5-14.5) Platelet Count 219 x10^3/uL (140-400) Neutrophils (%) (Auto) 45 % (31-73) Lymphocytes (%) (Auto) 40 % (24-48) Monocytes (%) (Auto) 11 % (0-9) Eosinophils (%) (Auto) 4 % (0-3) Basophils (%) (Auto) 0 % (0-3) Neutrophils # (Auto) 2.9 x10^3uL (1.8-7.7) Lymphocytes # (Auto) 2.6 x10^3/uL (1.0-4.8) Monocytes # (Auto) 0.7 x10^3/uL (0.0-1.1) Eosinophils # (Auto) 0.2 x10^3/uL (0.0-0.7) Basophils # (Auto) 0.0 x10^3/uL (0.0-0.2) Sodium Level 136 mmol/L (136-145) Potassium Level 5.3 mmol/L (3.5-5.1) Chloride Level 102 mmol/L (98-107) Carbon Dioxide Level 27 mmol/L (21-32) Anion Gap 7 (6-14) Blood Urea Nitrogen 27 mg/dL (7-20) Creatinine 2.2 mg/dL (0.6-1.0) Estimated GFR (Cockcroft-Gault) 25.8 Glucose Level 90 mg/dL (70-99) Calcium Level 8.1 mg/dL (8.5-10.1) Laboratory Tests Test 11/30/17 12:00 11/30/17 12:20 11/30/17 16:02 11/30/17 18:00 O2 Saturation 93 % (92-99) 95 % (92-99) Arterial Blood pH 7.34 (7.35-7.45) 7.34 (7.35-7.45) Arterial Blood pCO2 at Patient Temp 56 mmHg (35-46) 53 mmHg (35-46) Arterial Blood pO2 at Patient Temp 62 mmHg (65-108) 72 mmHg (65-108) Arterial Blood HCO3 30 mmol/L (21-28) 28 mmol/L (21-28) Arterial Blood Base Excess 3 mmol/L (-3-3) 1 mmol/L (-3-3) FiO2 35% venti 28% venti Sodium Level 138 mmol/L (136-145) Potassium Level 5.4 mmol/L (3.5-5.1) Chloride Level 101 mmol/L (98-107) Carbon Dioxide Level 31 mmol/L (21-32) Anion Gap 6 (6-14) Blood Urea Nitrogen 24 mg/dL (7-20) Creatinine 2.1 mg/dL (0.6-1.0) Estimated GFR (Cockcroft-Gault) 27.2 Glucose Level 83 mg/dL (70-99) Calcium Level 8.8 mg/dL (8.5-10.1) Procalcitonin < 0.10 ng/mL (0.00-0.10) Influenza Type A Antigen Negative (NEGATIVE) Influenza Type B Antigen Negative (NEGATIVE) Test 12/01/17 03:45 White Blood Count 6.5 x10^3/uL (4.0-11.0) Red Blood Count 3.72 x10^6/uL (3.50-5.40) Hemoglobin 11.4 g/dL (12.0-15.5) Hematocrit 34.2 % (36.0-47.0) Mean Corpuscular Volume 92 fL (79-100) Mean Corpuscular Hemoglobin 31 pg (25-35) Mean Corpuscular Hemoglobin Concent 33 g/dL (31-37) Red Cell Distribution Width 14.9 % (11.5-14.5) Platelet Count 219 x10^3/uL (140-400) Neutrophils (%) (Auto) 45 % (31-73) Lymphocytes (%) (Auto) 40 % (24-48) Monocytes (%) (Auto) 11 % (0-9) Eosinophils (%) (Auto) 4 % (0-3) Basophils (%) (Auto) 0 % (0-3) Neutrophils # (Auto) 2.9 x10^3uL (1.8-7.7) Lymphocytes # (Auto) 2.6 x10^3/uL (1.0-4.8) Monocytes # (Auto) 0.7 x10^3/uL (0.0-1.1) Eosinophils # (Auto) 0.2 x10^3/uL (0.0-0.7) Basophils # (Auto) 0.0 x10^3/uL (0.0-0.2) Sodium Level 136 mmol/L (136-145) Potassium Level 5.3 mmol/L (3.5-5.1) Chloride Level 102 mmol/L (98-107) Carbon Dioxide Level 27 mmol/L (21-32) Anion Gap 7 (6-14) Blood Urea Nitrogen 27 mg/dL (7-20) Creatinine 2.2 mg/dL (0.6-1.0) Estimated GFR (Cockcroft-Gault) 25.8 Glucose Level 90 mg/dL (70-99) Calcium Level 8.1 mg/dL (8.5-10.1) Review All relevant outside records, renal labs, imaging studies, telemetry/EKG's were reviewed. Images Images -August 2017 The exam was severely compromised by the patient's large size. The left kidney could not be adequately visualized. The right kidney measures 11.2 cm in length. There is no evidence of hydronephrosis. The small cortical lesion identified on the recent CT study could not be visualized sonographically. The bladder was also not visualized. MRI 08/2017-\ There are multiple nodules scattered throughout both kidneys, some of which show precontrast T1 hyperintensity and mild heterogeneity, although there is no appreciable enhancement post gadolinium. These most likely represent hemorrhagic or proteinaceous cysts. Suggest follow-up imaging in one year to ensure stability. Bosniak category 2F. CxR 12/01-- Comparison is made to a study from 11/29/2017. The heart is enlarged. The pulmonary vascularity is at the upper limits of normal. Mild bibasilar opacities appear to have improved, although the lung bases and hemidiaphragms are partially obscured by the patient's overlying abdominal pannus. No new abnormality is seen. IMPRESSION: 1. Cardiomegaly with vascular congestion. 2. Mild bibasilar opacities appear to have improved slightly. CT chest without contrast -- 1. Moderate generalized cardiomegaly and aortic atherosclerosis. 2. Old healed granulomatous disease in the chest. 3. Small right pleural effusion. 4. Mild atelectasis posteriorly in both lower lobes and right upper lobe. DANIELA HARIRNGTON MD Dec 01, 2017 10:11
--- NOTE | 2017-12-01 12:07 | PDOC ---
PULMONARY PROGRESS NOTES Subjective FULLY AWAKE, OFF bipap Vitals Vital Signs Date Time Temp Pulse Resp B/P (MAP) Pulse Ox O2 Delivery O2 Flow Rate FiO2 12/01/17 11:47 Nasal Cannula 1.0 12/01/17 11:46 98.0 50 20 129/67 (87) 98 98.0 General: Alert, No acute distress Lungs: Clear Cardiovascular: S1 Abdomen: Soft, Other (obese) Extremities: Other (1+edema) Labs Laboratory Tests Test 11/29/17 19:30 11/29/17 21:06 11/29/17 22:15 11/29/17 22:45 O2 Saturation 96 % (92-99) 97 % (92-99) Arterial Blood pH 7.17 (7.35-7.45) 7.19 (7.35-7.45) Arterial Blood pCO2 at Patient Temp 96 mmHg (35-46) 88 mmHg (35-46) Arterial Blood pO2 at Patient Temp 100 mmHg (65-108) 107 mmHg (65-108) Arterial Blood HCO3 34 mmol/L (21-28) 33 mmol/L (21-28) Arterial Blood Base Excess 2 mmol/L (-3-3) 2 mmol/L (-3-3) FiO2 36.0 40.0 White Blood Count 6.1 x10^3/uL (4.0-11.0) Red Blood Count 4.29 x10^6/uL (3.50-5.40) Hemoglobin 13.3 g/dL (12.0-15.5) Hematocrit 39.3 % (36.0-47.0) Mean Corpuscular Volume 92 fL (79-100) Mean Corpuscular Hemoglobin 31 pg (25-35) Mean Corpuscular Hemoglobin Concent 34 g/dL (31-37) Red Cell Distribution Width 14.9 % (11.5-14.5) Platelet Count 263 x10^3/uL (140-400) Neutrophils (%) (Auto) 59 % (31-73) Lymphocytes (%) (Auto) 31 % (24-48) Monocytes (%) (Auto) 7 % (0-9) Eosinophils (%) (Auto) 2 % (0-3) Basophils (%) (Auto) 1 % (0-3) Neutrophils # (Auto) 3.6 x10^3uL (1.8-7.7) Lymphocytes # (Auto) 1.9 x10^3/uL (1.0-4.8) Monocytes # (Auto) 0.4 x10^3/uL (0.0-1.1) Eosinophils # (Auto) 0.1 x10^3/uL (0.0-0.7) Basophils # (Auto) 0.1 x10^3/uL (0.0-0.2) Sodium Level 136 mmol/L (136-145) Potassium Level 6.5 mmol/L (3.5-5.1) Chloride Level 101 mmol/L (98-107) Carbon Dioxide Level 31 mmol/L (21-32) Anion Gap 4 (6-14) Blood Urea Nitrogen 21 mg/dL (7-20) Creatinine 1.6 mg/dL (0.6-1.0) Estimated GFR (Cockcroft-Gault) 37.2 BUN/Creatinine Ratio 13 (6-20) Glucose Level 146 mg/dL (70-99) Calcium Level 8.7 mg/dL (8.5-10.1) Total Bilirubin 0.4 mg/dL (0.2-1.0) Aspartate Amino Transf (AST/SGOT) 10 U/L (15-37) Alanine Aminotransferase (ALT/SGPT) 12 U/L (14-59) Alkaline Phosphatase 89 U/L (46-116) Troponin I Quantitative < 0.017 ng/mL (0.000-0.055) BP-Qut-D-Type Natriuretic Peptide 3089 pg/mL (0-449) Total Protein 7.1 g/dL (6.4-8.2) Albumin 2.8 g/dL (3.4-5.0) Albumin/Globulin Ratio 0.7 (1.0-1.7) Urine Collection Type U cath Urine Color Yellow Urine Clarity Clear Urine pH 5.0 Urine Specific Entiat 1.020 Urine Protein 100 mg/dL (NEG-TRACE) Urine Glucose (UA) Negative mg/dL (NEG) Urine Ketones (Stick) Negative mg/dL (NEG) Urine Blood Large (NEG) Urine Nitrite Negative (NEG) Urine Bilirubin Negative (NEG) Urine Urobilinogen Dipstick 1.0 mg/dL (0.2 mg/dL) Urine Leukocyte Esterase Trace (NEG) Urine RBC Tntc /HPF (0-2) Urine WBC Occ /HPF (0-4) Urine Squamous Epithelial Cells Occ /LPF Urine Bacteria Few /HPF (0-FEW) Urine Hyaline Casts Moderate /HPF Urine Mucus Mod /LPF Test 11/30/17 01:00 11/30/17 05:50 11/30/17 07:30 11/30/17 08:11 Nasal Screen MRSA (PCR) Positive (Negative) White Blood Count 6.6 x10^3/uL (4.0-11.0) Red Blood Count 4.16 x10^6/uL (3.50-5.40) Hemoglobin 12.8 g/dL (12.0-15.5) Hematocrit 38.5 % (36.0-47.0) Mean Corpuscular Volume 93 fL (79-100) Mean Corpuscular Hemoglobin 31 pg (25-35) Mean Corpuscular Hemoglobin Concent 33 g/dL (31-37) Red Cell Distribution Width 15.0 % (11.5-14.5) Platelet Count 249 x10^3/uL (140-400) Neutrophils (%) (Auto) 47 % (31-73) Lymphocytes (%) (Auto) 42 % (24-48) Monocytes (%) (Auto) 9 % (0-9) Eosinophils (%) (Auto) 1 % (0-3) Basophils (%) (Auto) 1 % (0-3) Neutrophils # (Auto) 3.1 x10^3uL (1.8-7.7) Lymphocytes # (Auto) 2.8 x10^3/uL (1.0-4.8) Monocytes # (Auto) 0.6 x10^3/uL (0.0-1.1) Eosinophils # (Auto) 0.1 x10^3/uL (0.0-0.7) Basophils # (Auto) 0.1 x10^3/uL (0.0-0.2) Sodium Level 137 mmol/L (136-145) Potassium Level 6.0 mmol/L (3.5-5.1) Chloride Level 101 mmol/L (98-107) Carbon Dioxide Level 30 mmol/L (21-32) Anion Gap 6 (6-14) Blood Urea Nitrogen 22 mg/dL (7-20) Creatinine 1.8 mg/dL (0.6-1.0) Estimated GFR (Cockcroft-Gault) 32.5 BUN/Creatinine Ratio 12 (6-20) Glucose Level 88 mg/dL (70-99) Calcium Level 9.1 mg/dL (8.5-10.1) Total Bilirubin 0.5 mg/dL (0.2-1.0) Aspartate Amino Transf (AST/SGOT) 11 U/L (15-37) Alanine Aminotransferase (ALT/SGPT) 9 U/L (14-59) Alkaline Phosphatase 84 U/L (46-116) Total Protein 6.9 g/dL (6.4-8.2) Albumin 2.8 g/dL (3.4-5.0) Albumin/Globulin Ratio 0.7 (1.0-1.7) O2 Saturation 97 % (92-99) Arterial Blood pH 7.25 (7.35-7.45) Arterial Blood pCO2 at Patient Temp 70 mmHg (35-46) Arterial Blood pO2 at Patient Temp 98 mmHg (65-108) Arterial Blood HCO3 30 mmol/L (21-28) Arterial Blood Base Excess 1 mmol/L (-3-3) Glucose (Fingerstick) 73 mg/dL (70-99) Test 11/30/17 12:00 11/30/17 12:20 11/30/17 16:02 11/30/17 18:00 O2 Saturation 93 % (92-99) 95 % (92-99) Arterial Blood pH 7.34 (7.35-7.45) 7.34 (7.35-7.45) Arterial Blood pCO2 at Patient Temp 56 mmHg (35-46) 53 mmHg (35-46) Arterial Blood pO2 at Patient Temp 62 mmHg (65-108) 72 mmHg (65-108) Arterial Blood HCO3 30 mmol/L (21-28) 28 mmol/L (21-28) Arterial Blood Base Excess 3 mmol/L (-3-3) 1 mmol/L (-3-3) FiO2 35% venti 28% venti Sodium Level 138 mmol/L (136-145) Potassium Level 5.4 mmol/L (3.5-5.1) Chloride Level 101 mmol/L (98-107) Carbon Dioxide Level 31 mmol/L (21-32) Anion Gap 6 (6-14) Blood Urea Nitrogen 24 mg/dL (7-20) Creatinine 2.1 mg/dL (0.6-1.0) Estimated GFR (Cockcroft-Gault) 27.2 Glucose Level 83 mg/dL (70-99) Calcium Level 8.8 mg/dL (8.5-10.1) Procalcitonin < 0.10 ng/mL (0.00-0.10) Influenza Type A Antigen Negative (NEGATIVE) Influenza Type B Antigen Negative (NEGATIVE) Test 12/01/17 03:45 White Blood Count 6.5 x10^3/uL (4.0-11.0) Red Blood Count 3.72 x10^6/uL (3.50-5.40) Hemoglobin 11.4 g/dL (12.0-15.5) Hematocrit 34.2 % (36.0-47.0) Mean Corpuscular Volume 92 fL (79-100) Mean Corpuscular Hemoglobin 31 pg (25-35) Mean Corpuscular Hemoglobin Concent 33 g/dL (31-37) Red Cell Distribution Width 14.9 % (11.5-14.5) Platelet Count 219 x10^3/uL (140-400) Neutrophils (%) (Auto) 45 % (31-73) Lymphocytes (%) (Auto) 40 % (24-48) Monocytes (%) (Auto) 11 % (0-9) Eosinophils (%) (Auto) 4 % (0-3) Basophils (%) (Auto) 0 % (0-3) Neutrophils # (Auto) 2.9 x10^3uL (1.8-7.7) Lymphocytes # (Auto) 2.6 x10^3/uL (1.0-4.8) Monocytes # (Auto) 0.7 x10^3/uL (0.0-1.1) Eosinophils # (Auto) 0.2 x10^3/uL (0.0-0.7) Basophils # (Auto) 0.0 x10^3/uL (0.0-0.2) Sodium Level 136 mmol/L (136-145) Potassium Level 5.3 mmol/L (3.5-5.1) Chloride Level 102 mmol/L (98-107) Carbon Dioxide Level 27 mmol/L (21-32) Anion Gap 7 (6-14) Blood Urea Nitrogen 27 mg/dL (7-20) Creatinine 2.2 mg/dL (0.6-1.0) Estimated GFR (Cockcroft-Gault) 25.8 Glucose Level 90 mg/dL (70-99) Calcium Level 8.1 mg/dL (8.5-10.1) Laboratory Tests Test 11/30/17 12:20 11/30/17 16:02 11/30/17 18:00 12/01/17 03:45 Sodium Level 138 mmol/L (136-145) 136 mmol/L (136-145) Potassium Level 5.4 mmol/L (3.5-5.1) 5.3 mmol/L (3.5-5.1) Chloride Level 101 mmol/L (98-107) 102 mmol/L (98-107) Carbon Dioxide Level 31 mmol/L (21-32) 27 mmol/L (21-32) Anion Gap 6 (6-14) 7 (6-14) Blood Urea Nitrogen 24 mg/dL (7-20) 27 mg/dL (7-20) Creatinine 2.1 mg/dL (0.6-1.0) 2.2 mg/dL (0.6-1.0) Estimated GFR (Cockcroft-Gault) 27.2 25.8 Glucose Level 83 mg/dL (70-99) 90 mg/dL (70-99) Calcium Level 8.8 mg/dL (8.5-10.1) 8.1 mg/dL (8.5-10.1) Procalcitonin < 0.10 ng/mL (0.00-0.10) O2 Saturation 95 % (92-99) Arterial Blood pH 7.34 (7.35-7.45) Arterial Blood pCO2 at Patient Temp 53 mmHg (35-46) Arterial Blood pO2 at Patient Temp 72 mmHg (65-108) Arterial Blood HCO3 28 mmol/L (21-28) Arterial Blood Base Excess 1 mmol/L (-3-3) FiO2 28% venti Influenza Type A Antigen Negative (NEGATIVE) Influenza Type B Antigen Negative (NEGATIVE) White Blood Count 6.5 x10^3/uL (4.0-11.0) Red Blood Count 3.72 x10^6/uL (3.50-5.40) Hemoglobin 11.4 g/dL (12.0-15.5) Hematocrit 34.2 % (36.0-47.0) Mean Corpuscular Volume 92 fL (79-100) Mean Corpuscular Hemoglobin 31 pg (25-35) Mean Corpuscular Hemoglobin Concent 33 g/dL (31-37) Red Cell Distribution Width 14.9 % (11.5-14.5) Platelet Count 219 x10^3/uL (140-400) Neutrophils (%) (Auto) 45 % (31-73) Lymphocytes (%) (Auto) 40 % (24-48) Monocytes (%) (Auto) 11 % (0-9) Eosinophils (%) (Auto) 4 % (0-3) Basophils (%) (Auto) 0 % (0-3) Neutrophils # (Auto) 2.9 x10^3uL (1.8-7.7) Lymphocytes # (Auto) 2.6 x10^3/uL (1.0-4.8) Monocytes # (Auto) 0.7 x10^3/uL (0.0-1.1) Eosinophils # (Auto) 0.2 x10^3/uL (0.0-0.7) Basophils # (Auto) 0.0 x10^3/uL (0.0-0.2) Medications Active Scripts Medications Dose Route/Sig Max Daily Dose Days Date Category Miralax (Polyethylene Glycol 3350) 17 Gm Powd.pack 1 Packet PO DAILY 11/29/17 Reported Flonase Allergy Relief (Fluticasone Propionate) 9.9 Ml Hermann.susp 2 Sprays NS DAILY 11/29/17 Reported Vitamin D3 (Cholecalciferol (Vitamin D3)) 1,000 Unit Tablet 1 Tab PO DAILY 11/29/17 Reported Tylenol (Acetaminophen) 325 Mg Tablet 325 Mg PO 11/29/17 Reported Cranberry (Cranberry Extract) 200 Mg Capsule 200 Mg PO 11/29/17 Reported Multivitamins (Multivitamin) 1 Each Tablet 1 Tab PO DAILY 11/29/17 Reported Acid Control (Ranitidine Hcl) 150 Mg Tablet 150 Mg PO 11/29/17 Reported Synthroid (Levothyroxine Sodium) 137 Mcg Tablet 1 Tab PO DAILY 11/29/17 Reported Protonix (Pantoprazole Sodium) 40 Mg Granpkt.dr 40 Mg PO DAILY 11/29/17 Reported Sotalol (Sotalol Hcl) 80 Mg Tablet 1 Tab PO BID 11/29/17 Reported Amlodipine Besylate 5 Mg Tablet 5 Mg PO DAILY 11/29/17 Reported Lasix (Furosemide) 40 Mg Tablet 1 Tab PO DAILY 06/03/14 Reported Losartan Potassium 50 Mg Tablet 50 Mg PO BID 06/03/14 Reported Hydrocodone-Apap 10-325 (Hydrocodone Bit/Acetaminophen) 1 Each Tablet 1 Each PO PRN Q4HRS 04/01/13 Reported Aspirin 81 Mg Tab.chew 81 Mg PO DAILY 04/01/13 Reported Impression . 1. Fzbdj-an-wjrgjvo hypercapnic respiratory failure . 2. Abnormal chest x-ray with diffuse right sided interstitial infiltrates with right hilar prominence in the right lung. Differential diagnosis would include interstitial pneumonia or progressive interstitial lung disease. Asymmetric congestive heart failure clinically less likely. She has a right hilar prominence and right hilar adenopathy is a concern, CT chest reviewed. no ILDor CHF/ mild basal effusions and atelectasis 3. Underlying morbid obesity with suspected obstructive sleep apnea and obesity hypoventilation syndrome. 4. Hyperkalemia. 5. Increasing azotemia with decreasing urine output post Lasix. 6. No significant history of tobacco use or asthma. Plan . 1. Nasal canula / prn BIPAP 2. s/p fluid bolus/ Monitor renal function 3. Noncontrast CT chest reviewed. no CHF/ ILD 4. Empiric antibiotic per ID 6. Monitor renal function. 7. She will benefit from sleep study as an outpatient. 8. Discussed with RN and RT and we will follow along with you discuss with Dr. Rojas as well. 9. Discussed code status with DPOA. No intubation but ok with CPR/ shock SHUKRI MAX MD Dec 01, 2017 12:07
--- NOTE | 2017-12-01 12:12 | RAD ---
Bilateral lower extremity venous ultrasound, 12/01/2017: History: Bilateral leg swelling Duplex evaluation of the deep veins in the lower extremities was performed including grayscale, color-flow and spectral Doppler analysis. The femoral and popliteal veins demonstrate normal compressibility and normal responses to distal augmentation maneuvers. Color imaging of those vessels shows no evidence of intraluminal clot. The visualized deep veins in both calves are patent. IMPRESSION: There is no sonographic evidence of deep vein thrombosis in either lower extremity. Electronically signed by: Eduardo Cano MD (12/01/2017 12:09 PM) [facility]
--- NOTE | 2017-12-01 12:17 | RAD ---
Renal ultrasound, 12/01/2017: HISTORY: Acute renal insufficiency The exam was compromised by the patient's large size. The right kidney measures 11.9 cm in length. There is no evidence of hydronephrosis. The renal parenchymal echogenicity is unremarkable. The patient's known small cortical lesion could not be visualized sonographically. The left kidney could not be adequately visualized. The bladder is not visualized, apparently decompressed by Soto catheter. IMPRESSION: Limited exam showing no evidence of hydronephrosis on the right. The left kidney could not be visualized. Similar difficulties were encountered on the 08/24/2017 exam. Electronically signed by: Eduardo Cano MD (12/01/2017 12:14 PM) [facility]
--- NOTE | 2017-12-01 13:46 | PDOC ---
GISELLE HERNANDEZ TOUCH UP CARVER 12/01/17 1346: CARDIO Progress Notes Date and Time Date of Service 12/01/2017 Time of Evaluation 1240 Subjective Subjective: No Chest Pain, No shortness of breath, No Palpitations, Other ( laying down flat on back without SOA ) Vitals Vitals Vital Signs Date Time Temp Pulse Resp B/P (MAP) Pulse Ox O2 Delivery O2 Flow Rate FiO2 12/01/17 12:43 98 Nasal Cannula 3.0 12/01/17 12:32 49 20 118/65 (82) 12/01/17 11:46 98.0 98.0 Weight Weight [ ] Input and Output Intake and Output Intake and Output 12/01/17 07:00 Intake Total 2443 ml Output Total 297 ml Balance 2146 ml Intake Oral 600 ml IV Total 1843 ml Output Urine Total 297 ml Laboratory Labs Laboratory Tests Test 11/30/17 16:02 11/30/17 18:00 12/01/17 03:45 O2 Saturation 95 % (92-99) Arterial Blood pH 7.34 (7.35-7.45) Arterial Blood pCO2 at Patient Temp 53 mmHg (35-46) Arterial Blood pO2 at Patient Temp 72 mmHg (65-108) Arterial Blood HCO3 28 mmol/L (21-28) Arterial Blood Base Excess 1 mmol/L (-3-3) FiO2 28% venti Influenza Type A Antigen Negative (NEGATIVE) Influenza Type B Antigen Negative (NEGATIVE) White Blood Count 6.5 x10^3/uL (4.0-11.0) Red Blood Count 3.72 x10^6/uL (3.50-5.40) Hemoglobin 11.4 g/dL (12.0-15.5) Hematocrit 34.2 % (36.0-47.0) Mean Corpuscular Volume 92 fL (79-100) Mean Corpuscular Hemoglobin 31 pg (25-35) Mean Corpuscular Hemoglobin Concent 33 g/dL (31-37) Red Cell Distribution Width 14.9 % (11.5-14.5) Platelet Count 219 x10^3/uL (140-400) Neutrophils (%) (Auto) 45 % (31-73) Lymphocytes (%) (Auto) 40 % (24-48) Monocytes (%) (Auto) 11 % (0-9) Eosinophils (%) (Auto) 4 % (0-3) Basophils (%) (Auto) 0 % (0-3) Neutrophils # (Auto) 2.9 x10^3uL (1.8-7.7) Lymphocytes # (Auto) 2.6 x10^3/uL (1.0-4.8) Monocytes # (Auto) 0.7 x10^3/uL (0.0-1.1) Eosinophils # (Auto) 0.2 x10^3/uL (0.0-0.7) Basophils # (Auto) 0.0 x10^3/uL (0.0-0.2) Sodium Level 136 mmol/L (136-145) Potassium Level 5.3 mmol/L (3.5-5.1) Chloride Level 102 mmol/L (98-107) Carbon Dioxide Level 27 mmol/L (21-32) Anion Gap 7 (6-14) Blood Urea Nitrogen 27 mg/dL (7-20) Creatinine 2.2 mg/dL (0.6-1.0) Estimated GFR (Cockcroft-Gault) 25.8 Glucose Level 90 mg/dL (70-99) Calcium Level 8.1 mg/dL (8.5-10.1) Physical Exam HEENT: Neck Supple W Full Motion Chest: Symmetric LUNGS: Other (diminished; 1L O2 NC supine at 97%) Heart: S1S2, RRR (SB 50s) Abdomen: Soft N/T Extremities: No Calf Tenderness, Other (2-3+ bilateral pedal edmea) Neurology: alert, oriented, follow commands Assessment Assessment 1. Acute on chronic respiratory failure with underlying ELLI/morbid obesity/CHF with possible pneumonia 2. Acute on chronic diastolic CHF: induced by above. Recent EF nml. Compensated. supine 1LO2 NC at 97%. 3. STAN on CKD/hyperkalemia: nephrology following 4. HTN: controlled 5. PAFIB: SR/SB mean at 50s, no pauses 6. Hypothyroidism: TSH pending 7. Hypoxic/metabolic encephalopathy: resolved Recommendations 1. Repeat EKG tomorrow and note QTc. Continue low dose sotalol. periods of bradycardia with contributing metabolic issues. May decrease to daily if renal function does not improve. sufficiently 2. ASA for stroke prevention. Deemed not a good candidate in the past for anticoagulation due to high bleed and fall risk 3. IVF. Lasix PRN for now. . 4. Will need home ELLI w/u as outpt given that she is bedbound. 5. No ARB or ACEi. Nothing further cardiac hoffman at this time. Will follow along peripherally. CHERYLE MIRANDA MD 12/01/17 1848: CARDIO Progress Notes Plan Plan Pt. seen and examined. 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 No clear cardiac source of her decompensation. Certainly has underlying stable diastolic HF Will stop sotalol given worsening renal function. Start low dose Metoprolol 12.5mg bid. Supportive care. Thanks. GISELLE HERNANDEZ APRN Dec 01, 2017 13:46 CHERYLE MIRANDA MD Dec 01, 2017 18:48
[2017-12-01] MEDS: IV NORMAL SALINE 1000ML BAG 1,000 ML IV SCH (16:35)
[2017-12-01] MEDS: ACETAMINOPHEN 325 MG TABLET. PO PRN (17:11)
[2017-12-01] MEDS ORDERED: SOTALOL 80 MG TABLET. PO SCH (21:00)
[2017-12-01] MEDS: METOPROLOL TART IMMED RELEASE 25 MG TABLET. PO SCH (21:23)
[2017-12-01] MEDS: LACTOBACILLUS RHAMNOSUS GG 1 CAPSULE. PO SCH (21:24)
[2017-12-02 03:50] VITALS: BP 119/45
[2017-12-02 05:02] LABS: BASO % 1 % (0-3); EOS # 0.3 x10^3/uL (0.0-0.7); EOS % 5 % (0-3); HEMATOCRIT 33.2 % (36.0-47.0); HEMOGLOBIN 11.2 g/dL (12.0-15.5); LYMPH # 2.6 x10^3/uL (1.0-4.8); LYMPH % 43 % (24-48); MEAN CORPUSCULAR HEMOGLOBIN 31 pg (25-35); MEAN CORPUSCULAR HGB CONC 34 g/dL (31-37); MEAN CORPUSCULAR VOLUME 92 fL (79-100); MONO # 0.7 x10^3/uL (0.0-1.1); MONO % 12 % (0-9); NEUT # 2.4 x10^3uL (1.8-7.7); NEUT % 40 % (31-73); PLATELET COUNT 224 x10^3/uL (140-400); RED BLOOD COUNT 3.61 x10^6/uL (3.50-5.40); RED CELL DISTRIBUTION WIDTH 14.9 % (11.5-14.5); WHITE BLOOD COUNT 6.1 x10^3/uL (4.0-11.0)
[2017-12-02 05:19] LABS: CALCIUM 8.6 mg/dL (8.5-10.1); CREATININE 2.2 mg/dL (0.6-1.0); GFR 25.8; POTASSIUM 5.5 mmol/L (3.5-5.1)
[2017-12-02] MEDS: IV NORMAL SALINE 1000ML BAG 1,000 ML IV SCH (05:43)
[2017-12-02] MEDS: LEVOTHYROXINE 137 MCG TABLET PO SCH (06:08)
[2017-12-02] MEDS: HYDROcodone/APAP 10/325 1 TAB TABLET PO PRN ×3 (06:31→22:57)
[2017-12-02 07:00] VITALS: BP 129/50
[2017-12-02] MEDS: IPRATRPIUM/ALBUTEROL 0.5/2.5MG 3 ML NEBU. NEB SCH ×4 (07:23→20:23)
[2017-12-02] MEDS: POLYETHYLENE GLYCOL 3350 17 GM PACKET. PO SCH (09:00)
[2017-12-02] MEDS: MULTIVITAMIN with MINERAL TABLET. PO SCH (09:01)
[2017-12-02] MEDS: PANTOPRAZOLE 40 MG TABLET.DR. PO SCH (09:01)
[2017-12-02] MEDS: LACTOBACILLUS RHAMNOSUS GG 1 CAPSULE. PO SCH ×2 (09:01→20:16)
[2017-12-02] MEDS: CHOLECALCIFEROL (VITAMIN D3) 1,000 UNIT TABLET PO SCH (09:01)
[2017-12-02] MEDS: SENNOSIDES/DOCUSATE 8.6/50MG TABLET. PO SCH ×2 (09:01→20:16)
[2017-12-02] MEDS: ASPIRIN CHEWABLE 81 MG TABLET. PO SCH (09:02)
[2017-12-02] MEDS: METOPROLOL TART IMMED RELEASE 25 MG TABLET. PO SCH ×2 (09:03→20:17)
[2017-12-02] MEDS: CEFEPIME HCL IV Push 2 GM VIAL. IVP SCH ×2 (09:04→20:18)
[2017-12-02] MEDS: HEPARIN for SUB-Q USE 5,000 UNIT/ML VIAL. SQ SCH ×2 (09:10→21:31)
--- NOTE | 2017-12-02 10:56 | PDOC ---
PULMONARY PROGRESS NOTES Subjective FULLY AWAKE, OFF bipap Vitals Vital Signs Date Time Temp Pulse Resp B/P (MAP) Pulse Ox O2 Delivery O2 Flow Rate FiO2 12/02/17 09:03 71 129/50 12/02/17 07:25 98 Nasal Cannula 2.0 12/02/17 07:00 97.7 18 97.7 General: Alert, No acute distress Lungs: Clear Cardiovascular: S1 Abdomen: Soft, Other (obese) Extremities: Other (1+edema) Labs Laboratory Tests Test 11/30/17 12:00 11/30/17 12:20 11/30/17 16:02 11/30/17 18:00 O2 Saturation 93 % (92-99) 95 % (92-99) Arterial Blood pH 7.34 (7.35-7.45) 7.34 (7.35-7.45) Arterial Blood pCO2 at Patient Temp 56 mmHg (35-46) 53 mmHg (35-46) Arterial Blood pO2 at Patient Temp 62 mmHg (65-108) 72 mmHg (65-108) Arterial Blood HCO3 30 mmol/L (21-28) 28 mmol/L (21-28) Arterial Blood Base Excess 3 mmol/L (-3-3) 1 mmol/L (-3-3) FiO2 35% venti 28% venti Sodium Level 138 mmol/L (136-145) Potassium Level 5.4 mmol/L (3.5-5.1) Chloride Level 101 mmol/L (98-107) Carbon Dioxide Level 31 mmol/L (21-32) Anion Gap 6 (6-14) Blood Urea Nitrogen 24 mg/dL (7-20) Creatinine 2.1 mg/dL (0.6-1.0) Estimated GFR (Cockcroft-Gault) 27.2 Glucose Level 83 mg/dL (70-99) Calcium Level 8.8 mg/dL (8.5-10.1) Procalcitonin < 0.10 ng/mL (0.00-0.10) Influenza Type A Antigen Negative (NEGATIVE) Influenza Type B Antigen Negative (NEGATIVE) Test 12/01/17 03:45 12/02/17 03:30 White Blood Count 6.5 x10^3/uL (4.0-11.0) 6.1 x10^3/uL (4.0-11.0) Red Blood Count 3.72 x10^6/uL (3.50-5.40) 3.61 x10^6/uL (3.50-5.40) Hemoglobin 11.4 g/dL (12.0-15.5) 11.2 g/dL (12.0-15.5) Hematocrit 34.2 % (36.0-47.0) 33.2 % (36.0-47.0) Mean Corpuscular Volume 92 fL (79-100) 92 fL (79-100) Mean Corpuscular Hemoglobin 31 pg (25-35) 31 pg (25-35) Mean Corpuscular Hemoglobin Concent 33 g/dL (31-37) 34 g/dL (31-37) Red Cell Distribution Width 14.9 % (11.5-14.5) 14.9 % (11.5-14.5) Platelet Count 219 x10^3/uL (140-400) 224 x10^3/uL (140-400) Neutrophils (%) (Auto) 45 % (31-73) 40 % (31-73) Lymphocytes (%) (Auto) 40 % (24-48) 43 % (24-48) Monocytes (%) (Auto) 11 % (0-9) 12 % (0-9) Eosinophils (%) (Auto) 4 % (0-3) 5 % (0-3) Basophils (%) (Auto) 0 % (0-3) 1 % (0-3) Neutrophils # (Auto) 2.9 x10^3uL (1.8-7.7) 2.4 x10^3uL (1.8-7.7) Lymphocytes # (Auto) 2.6 x10^3/uL (1.0-4.8) 2.6 x10^3/uL (1.0-4.8) Monocytes # (Auto) 0.7 x10^3/uL (0.0-1.1) 0.7 x10^3/uL (0.0-1.1) Eosinophils # (Auto) 0.2 x10^3/uL (0.0-0.7) 0.3 x10^3/uL (0.0-0.7) Basophils # (Auto) 0.0 x10^3/uL (0.0-0.2) 0.0 x10^3/uL (0.0-0.2) Sodium Level 136 mmol/L (136-145) 133 mmol/L (136-145) Potassium Level 5.3 mmol/L (3.5-5.1) 5.5 mmol/L (3.5-5.1) Chloride Level 102 mmol/L (98-107) 101 mmol/L (98-107) Carbon Dioxide Level 27 mmol/L (21-32) 26 mmol/L (21-32) Anion Gap 7 (6-14) 6 (6-14) Blood Urea Nitrogen 27 mg/dL (7-20) 31 mg/dL (7-20) Creatinine 2.2 mg/dL (0.6-1.0) 2.2 mg/dL (0.6-1.0) Estimated GFR (Cockcroft-Gault) 25.8 25.8 Glucose Level 90 mg/dL (70-99) 137 mg/dL (70-99) Calcium Level 8.1 mg/dL (8.5-10.1) 8.6 mg/dL (8.5-10.1) Thyroid Stimulating Hormone (TSH) 1.566 uIU/mL (0.358-3.74) Laboratory Tests Test 12/02/17 03:30 White Blood Count 6.1 x10^3/uL (4.0-11.0) Red Blood Count 3.61 x10^6/uL (3.50-5.40) Hemoglobin 11.2 g/dL (12.0-15.5) Hematocrit 33.2 % (36.0-47.0) Mean Corpuscular Volume 92 fL (79-100) Mean Corpuscular Hemoglobin 31 pg (25-35) Mean Corpuscular Hemoglobin Concent 34 g/dL (31-37) Red Cell Distribution Width 14.9 % (11.5-14.5) Platelet Count 224 x10^3/uL (140-400) Neutrophils (%) (Auto) 40 % (31-73) Lymphocytes (%) (Auto) 43 % (24-48) Monocytes (%) (Auto) 12 % (0-9) Eosinophils (%) (Auto) 5 % (0-3) Basophils (%) (Auto) 1 % (0-3) Neutrophils # (Auto) 2.4 x10^3uL (1.8-7.7) Lymphocytes # (Auto) 2.6 x10^3/uL (1.0-4.8) Monocytes # (Auto) 0.7 x10^3/uL (0.0-1.1) Eosinophils # (Auto) 0.3 x10^3/uL (0.0-0.7) Basophils # (Auto) 0.0 x10^3/uL (0.0-0.2) Sodium Level 133 mmol/L (136-145) Potassium Level 5.5 mmol/L (3.5-5.1) Chloride Level 101 mmol/L (98-107) Carbon Dioxide Level 26 mmol/L (21-32) Anion Gap 6 (6-14) Blood Urea Nitrogen 31 mg/dL (7-20) Creatinine 2.2 mg/dL (0.6-1.0) Estimated GFR (Cockcroft-Gault) 25.8 Glucose Level 137 mg/dL (70-99) Calcium Level 8.6 mg/dL (8.5-10.1) Medications Active Scripts Medications Dose Route/Sig Max Daily Dose Days Date Category Miralax (Polyethylene Glycol 3350) 17 Gm Powd.pack 1 Packet PO DAILY 11/29/17 Reported Flonase Allergy Relief (Fluticasone Propionate) 9.9 Ml Marion.susp 2 Sprays NS DAILY 11/29/17 Reported Vitamin D3 (Cholecalciferol (Vitamin D3)) 1,000 Unit Tablet 1 Tab PO DAILY 11/29/17 Reported Tylenol (Acetaminophen) 325 Mg Tablet 325 Mg PO 11/29/17 Reported Cranberry (Cranberry Extract) 200 Mg Capsule 200 Mg PO 11/29/17 Reported Multivitamins (Multivitamin) 1 Each Tablet 1 Tab PO DAILY 11/29/17 Reported Acid Control (Ranitidine Hcl) 150 Mg Tablet 150 Mg PO 11/29/17 Reported Synthroid (Levothyroxine Sodium) 137 Mcg Tablet 1 Tab PO DAILY 11/29/17 Reported Protonix (Pantoprazole Sodium) 40 Mg Granpkt.dr 40 Mg PO DAILY 11/29/17 Reported Sotalol (Sotalol Hcl) 80 Mg Tablet 1 Tab PO BID 11/29/17 Reported Amlodipine Besylate 5 Mg Tablet 5 Mg PO DAILY 11/29/17 Reported Lasix (Furosemide) 40 Mg Tablet 1 Tab PO DAILY 06/03/14 Reported Losartan Potassium 50 Mg Tablet 50 Mg PO BID 06/03/14 Reported Hydrocodone-Apap 10-325 (Hydrocodone Bit/Acetaminophen) 1 Each Tablet 1 Each PO PRN Q4HRS 04/01/13 Reported Aspirin 81 Mg Tab.chew 81 Mg PO DAILY 04/01/13 Reported Impression . 1. Rjvne-gh-mrxcuot hypercapnic respiratory failure . 2. Abnormal chest x-ray with diffuse right sided interstitial infiltrates with right hilar prominence in the right lung. CT chest reviewed. no ILD or CHF/ mild basal effusions and atelectasis 3. Underlying morbid obesity with suspected obstructive sleep apnea and obesity hypoventilation syndrome. 4. Hyperkalemia. 5. azotemia 6. No significant history of tobacco use or asthma. 7. Ankle edema, suspect due to cor -pulmonale Plan . 1. Nasal canula / prn BIPAP 2. Monitor renal function 3. Noncontrast CT chest reviewed. no CHF/ ILD 4. Empiric antibiotic per ID 6. Monitor renal function. 7. She will benefit from sleep study as an outpatient. 8. Discussed with RN and daughter in detail 9. Daughter concerned with 25 Lb wt gain in hospital and ankle edema. I will ask DR Rojas for one dose of lasSHUKRI Herrera MD Dec 02, 2017 10:56
[2017-12-02 11:00] VITALS: BP 115/52
[2017-12-02] MEDS ORDERED: SODIUM POLYSTYRENE SULFONATE 15 GM/60 ML ORAL.SUSP. PO ONE (11:00)
--- NOTE | 2017-12-02 11:00 | PDOC ---
PROGRESS NOTES Subjective Subjective sleeping. discussed with daughter. good urine output. creatinine stable 2.2. potassium 5.5. bilateral LE venous doppler negative for DVT. renal sonogram. right kidney without hydronephrosis. left kidney not visualized Objective Objective Vital Signs Date Time Temp Pulse Resp B/P (MAP) Pulse Ox O2 Delivery O2 Flow Rate FiO2 12/02/17 09:03 71 129/50 12/02/17 07:25 98 Nasal Cannula 2.0 12/02/17 07:00 97.7 18 97.7 Intake and Output 12/02/17 07:00 Intake Total 880 ml Output Total 860 ml Balance 20 ml Intake Oral 580 ml IV Total 300 ml Output Urine Total 860 ml Physical Exam Abdomen: Soft, Other (obese) Heart: Regular rate, Normal S1, Normal S2 Extremities: Other (2 plus edema both feet) General: Other (sleeping) HEENT: Atraumatic Lungs: Clear to auscultation Neuro: Other (sleeping) Psych/Mental Status: Other (sleeping) Skin: No rashes Assessment Assessment 1. Acute on chronic hypoxic and hypercarbic respiratory failure. obesity hypoventilation syndrome 2. acute kidney injury stable on chronic kidney disease stage 3. 3. Morbid obesity with a body mass index of 60. 4. Paroxysmal atrial fibrillation. 5. Diabetes mellitus type 2, treated with diet. 6. Hypertension. 7. Hypothyroidism. 8. Chronic diastolic congestive heart failure. acute bronchitis bilateral LE edema hyperkalemia Plan Plan of Care d/c iv fluids d/c scd start oral lasix kayexelate now PT and OT bipap at hs heparin for DVT prophylaxis Comment Review of Relevant I have reviewed the following items jeet (where applicable) has been applied. Labs Laboratory Tests Test 11/30/17 12:00 11/30/17 12:20 11/30/17 16:02 11/30/17 18:00 O2 Saturation 93 % (92-99) 95 % (92-99) Arterial Blood pH 7.34 (7.35-7.45) 7.34 (7.35-7.45) Arterial Blood pCO2 at Patient Temp 56 mmHg (35-46) 53 mmHg (35-46) Arterial Blood pO2 at Patient Temp 62 mmHg (65-108) 72 mmHg (65-108) Arterial Blood HCO3 30 mmol/L (21-28) 28 mmol/L (21-28) Arterial Blood Base Excess 3 mmol/L (-3-3) 1 mmol/L (-3-3) FiO2 35% venti 28% venti Sodium Level 138 mmol/L (136-145) Potassium Level 5.4 mmol/L (3.5-5.1) Chloride Level 101 mmol/L (98-107) Carbon Dioxide Level 31 mmol/L (21-32) Anion Gap 6 (6-14) Blood Urea Nitrogen 24 mg/dL (7-20) Creatinine 2.1 mg/dL (0.6-1.0) Estimated GFR (Cockcroft-Gault) 27.2 Glucose Level 83 mg/dL (70-99) Calcium Level 8.8 mg/dL (8.5-10.1) Procalcitonin < 0.10 ng/mL (0.00-0.10) Influenza Type A Antigen Negative (NEGATIVE) Influenza Type B Antigen Negative (NEGATIVE) Test 12/01/17 03:45 12/02/17 03:30 White Blood Count 6.5 x10^3/uL (4.0-11.0) 6.1 x10^3/uL (4.0-11.0) Red Blood Count 3.72 x10^6/uL (3.50-5.40) 3.61 x10^6/uL (3.50-5.40) Hemoglobin 11.4 g/dL (12.0-15.5) 11.2 g/dL (12.0-15.5) Hematocrit 34.2 % (36.0-47.0) 33.2 % (36.0-47.0) Mean Corpuscular Volume 92 fL (79-100) 92 fL (79-100) Mean Corpuscular Hemoglobin 31 pg (25-35) 31 pg (25-35) Mean Corpuscular Hemoglobin Concent 33 g/dL (31-37) 34 g/dL (31-37) Red Cell Distribution Width 14.9 % (11.5-14.5) 14.9 % (11.5-14.5) Platelet Count 219 x10^3/uL (140-400) 224 x10^3/uL (140-400) Neutrophils (%) (Auto) 45 % (31-73) 40 % (31-73) Lymphocytes (%) (Auto) 40 % (24-48) 43 % (24-48) Monocytes (%) (Auto) 11 % (0-9) 12 % (0-9) Eosinophils (%) (Auto) 4 % (0-3) 5 % (0-3) Basophils (%) (Auto) 0 % (0-3) 1 % (0-3) Neutrophils # (Auto) 2.9 x10^3uL (1.8-7.7) 2.4 x10^3uL (1.8-7.7) Lymphocytes # (Auto) 2.6 x10^3/uL (1.0-4.8) 2.6 x10^3/uL (1.0-4.8) Monocytes # (Auto) 0.7 x10^3/uL (0.0-1.1) 0.7 x10^3/uL (0.0-1.1) Eosinophils # (Auto) 0.2 x10^3/uL (0.0-0.7) 0.3 x10^3/uL (0.0-0.7) Basophils # (Auto) 0.0 x10^3/uL (0.0-0.2) 0.0 x10^3/uL (0.0-0.2) Sodium Level 136 mmol/L (136-145) 133 mmol/L (136-145) Potassium Level 5.3 mmol/L (3.5-5.1) 5.5 mmol/L (3.5-5.1) Chloride Level 102 mmol/L (98-107) 101 mmol/L (98-107) Carbon Dioxide Level 27 mmol/L (21-32) 26 mmol/L (21-32) Anion Gap 7 (6-14) 6 (6-14) Blood Urea Nitrogen 27 mg/dL (7-20) 31 mg/dL (7-20) Creatinine 2.2 mg/dL (0.6-1.0) 2.2 mg/dL (0.6-1.0) Estimated GFR (Cockcroft-Gault) 25.8 25.8 Glucose Level 90 mg/dL (70-99) 137 mg/dL (70-99) Calcium Level 8.1 mg/dL (8.5-10.1) 8.6 mg/dL (8.5-10.1) Thyroid Stimulating Hormone (TSH) 1.566 uIU/mL (0.358-3.74) Laboratory Tests Test 12/02/17 03:30 White Blood Count 6.1 x10^3/uL (4.0-11.0) Red Blood Count 3.61 x10^6/uL (3.50-5.40) Hemoglobin 11.2 g/dL (12.0-15.5) Hematocrit 33.2 % (36.0-47.0) Mean Corpuscular Volume 92 fL (79-100) Mean Corpuscular Hemoglobin 31 pg (25-35) Mean Corpuscular Hemoglobin Concent 34 g/dL (31-37) Red Cell Distribution Width 14.9 % (11.5-14.5) Platelet Count 224 x10^3/uL (140-400) Neutrophils (%) (Auto) 40 % (31-73) Lymphocytes (%) (Auto) 43 % (24-48) Monocytes (%) (Auto) 12 % (0-9) Eosinophils (%) (Auto) 5 % (0-3) Basophils (%) (Auto) 1 % (0-3) Neutrophils # (Auto) 2.4 x10^3uL (1.8-7.7) Lymphocytes # (Auto) 2.6 x10^3/uL (1.0-4.8) Monocytes # (Auto) 0.7 x10^3/uL (0.0-1.1) Eosinophils # (Auto) 0.3 x10^3/uL (0.0-0.7) Basophils # (Auto) 0.0 x10^3/uL (0.0-0.2) Sodium Level 133 mmol/L (136-145) Potassium Level 5.5 mmol/L (3.5-5.1) Chloride Level 101 mmol/L (98-107) Carbon Dioxide Level 26 mmol/L (21-32) Anion Gap 6 (6-14) Blood Urea Nitrogen 31 mg/dL (7-20) Creatinine 2.2 mg/dL (0.6-1.0) Estimated GFR (Cockcroft-Gault) 25.8 Glucose Level 137 mg/dL (70-99) Calcium Level 8.6 mg/dL (8.5-10.1) Microbiology 11/30/17 - Final, Resulted 11/30/17 - Final, Resulted 11/30/17 - Final, Resulted 11/30/17 Gram Stain Evaluation - Final, Resulted 11/30/17 Sputum Culture, Resulted Pending 11/29/17 Urine Culture - Final, Complete 11/29/17 Urine Culture Result 1 (RAPHAEL) - Final, Complete Medications Current Medications Ondansetron HCl (Zofran) 4 mg PRN Q8HRS PRN IV NAUSEA/VOMITING; Start at 21:00; Stop 11/30/17 at 20:59; Status DC Insulin Human Regular (HumuLIN R VIAL) 10 unit 1X ONCE IV Last administered on 11/29/17at 22:35; Start 11/29/17 at 22:00; Stop 11/30/17 at 09:35; Status DC Dextrose (Dextrose 50%-Water Syringe) 25 gm 1X ONCE IV Last administered on at 22:31; Start 11/29/17 at 22:00; Stop 11/30/17 at 09:35; Status DC Albuterol Sulfate (Ventolin Neb Soln) 2.5 mg 1X ONCE NEB Last administered on 11/29/17at 22:44; Start 11/29/17 at 22:00; Stop 11/29/17 at 22:01; Status DC Calcium Gluconate (Calcium Gluconate) 2,000 mg 1X ONCE IVP Last administered on 11/29/17at 22:33; Start 11/29/17 at 22:00; Stop 11/29/17 at 22:01; Status DC Acetaminophen (Tylenol) 650 mg 1X ONCE PO Last administered on 11/29/17at 22: 40; Start 11/29/17 at 22:45; Stop 11/29/17 at 22:46; Status DC Heparin Sodium (Porcine) (Heparin Sodium) 5,000 unit Q12HR SQ Last administered on 12/02/17at 09:10; Start 11/30/17 at 09:00 Sodium Chloride (Normal Saline Flush) 3 ml QSHIFT PRN IV AFTER MEDS AND BLOOD DRAWS; Start 11/29/17 at 23:45 Senna/Docusate Sodium (Senna Plus) 1 tab BID PO Last administered on at 09:01; Start 11/30/17 at 09:00 Acetaminophen (Tylenol) 325 mg PRN Q6HRS PRN PO fever Last administered on at 17:11; Start 11/29/17 at 23:45 Amlodipine Besylate (Norvasc) 5 mg DAILY PO ; Start 11/30/17 at 09:00; Stop at 11:37; Status DC Aspirin (Children'S Aspirin) 81 mg DAILY PO Last administered on 12/02/17 09: 02; Start 11/30/17 at 09:00 Vitamin D (Vitamin D3) 1,000 unit DAILY PO Last administered on 12/02/17at 09: 01; Start 11/30/17 at 09:00 Furosemide (Lasix) 40 mg DAILY PO ; Start 11/30/17 at 09:00; Stop 11/30/17 at 11:37; Status DC Levothyroxine Sodium (Synthroid) 137 mcg DAILY07 PO Last administered on at 06:08; Start 11/30/17 at 07:00 Fluticasone Propionate (Flonase) 2 spray DAILY NS ; Start 11/30/17 at 09:00; Stop 11/30/17 at 11:37; Status DC Acetaminophen/ Hydrocodone Bitart (Lortab 10/325) 1 tab PRN Q4HRS PRN PO PAIN Last administered on 12/01/17at 01:13; Start 11/29/17 at 23:45; Stop 12/01/17 at 10:01; Status DC Multivitamins (Thera M Plus) 1 tab DAILY PO Last administered on 12/02/17at 09: 01; Start 11/30/17 at 09:00 Pantoprazole Sodium (Protonix) 40 mg DAILYAC PO Last administered on at 09:01; Start 11/30/17 at 07:30 Polyethylene Glycol (miraLAX PACKET) 17 gm DAILY PO Last administered on at 07:40; Start 11/30/17 at 09:00 Sotalol HCl (Betapace) 80 mg BID PO ; Start 11/30/17 at 09:00; Stop 11/30/17 at 11:37; Status DC Insulin Human Lispro (HumaLOG) 0-7 UNITS TIDWMEALS SQ ; Start 11/30/17 at 08:00 ; Stop 11/30/17 at 09:35; Status DC Dextrose (Dextrose 50%-Water Syringe) 12.5 gm PRN Q15MIN PRN IV SEE COMMENTS; Start 11/30/17 at 00:00; Stop 11/30/17 at 09:35; Status DC Albuterol/ Ipratropium (Duoneb) 3 ml RTQID NEB Last administered on 12/02/17at 07:23; Start 11/30/17 at 08:00 Furosemide (Lasix) 40 mg 1X ONCE IVP ; Start 11/30/17 at 10:00; Stop at 10:08; Status DC Sodium Polystyrene Sulfonate (Kayexalate) 30 gm 1X ONCE PO ; Start 11/30/17 at 10:00; Stop 11/30/17 at 10:08; Status DC Sodium Chloride 500 ml @ 500 mls/hr 1X ONCE IV Last administered on at 10:22; Start 11/30/17 at 10:15; Stop 11/30/17 at 11:14; Status DC Insulin Human Regular (HumuLIN R VIAL) 10 unit 1X ONCE IV Last administered on 11/30/17at 10:27; Start 11/30/17 at 10:30; Stop 11/30/17 at 10:31; Status DC Dextrose (Dextrose 50%-Water Syringe) 25 gm 1X ONCE IV Last administered on at 10:25; Start 11/30/17 at 10:30; Stop 11/30/17 at 10:31; Status DC Levofloxacin/ Dextrose (Levaquin Per Pharmacy) 1 each PRN DAILY PRN MC SEE COMMENTS; Start 11/30/17 at 11:15; Stop 11/30/17 at 14:55; Status DC Linezolid/Dextrose 300 ml @ 300 mls/hr Q12HR IV Last administered on at 09:04; Start 11/30/17 at 12:00 Levofloxacin/ Dextrose 100 ml @ 100 mls/hr 1X ONCE IV Last administered on at 13:36; Start 11/30/17 at 12:00; Stop 11/30/17 at 12:59; Status DC Levofloxacin/ Dextrose 50 ml @ 50 mls/hr Q24H IV ; Start 12/01/17 at 12:00; Stop 12/01/17 at 12:00; Status DC Fluticasone Propionate (Flonase) 2 spray PRN DAILY PRN NS ALLERGIES Last administered on 12/01/17at 01:24; Start 11/30/17 at 11:30 Sotalol HCl (Betapace) 40 mg BID PO Last administered on 12/01/17at 01:18; Start 11/30/17 at 21:00; Stop 12/01/17 at 18:47; Status DC Sodium Chloride 1,000 ml @ 100 mls/hr Q10H IV Last administered on 12/02/17at 05:43; Start 11/30/17 at 11:30 Doxycycline Hyclate (Vibra-Tab) 100 mg BID PO Last administered on 12/01/17at 07:38; Start 11/30/17 at 21:00; Stop 12/01/17 at 11:36; Status DC Cefepime HCl 2 gm/ Dextrose 100 ml @ 200 mls/hr Q12HR IV ; Start 11/30/17 at 15:30; Status Cancel Cefepime HCl (Maxipime) 2 gm Q12HR IVP Last administered on 12/02/17at 09:04; Start 11/30/17 at 15:30 Acetaminophen/ Hydrocodone Bitart (Lortab 10/325) 1 tab PRN Q6HRS PRN PO PAIN Last administered on 12/02/17at 06:31; Start 12/01/17 at 10:15 Lactobacillus Rhamnosus (Culturelle) 1 cap BID PO Last administered on at 09:01; Start 12/01/17 at 21:00 Sotalol HCl (Betapace) 40 mg BID PO ; Start 12/01/17 at 21:00; Status Cancel Metoprolol Tartrate (Lopressor) 12.5 mg BID PO Last administered on 12/02/17 09:03; Start 12/01/17 at 21:00 Active Scripts Active Reported Miralax (Polyethylene Glycol 3350) 17 Gm Powd.pack 1 Packet PO DAILY Flonase Allergy Relief (Fluticasone Propionate) 9.9 Ml Erwin.susp 2 Sprays NS DAILY Vitamin D3 (Cholecalciferol (Vitamin D3)) 1,000 Unit Tablet 1 Tab PO DAILY Tylenol (Acetaminophen) 325 Mg Tablet 325 Mg PO Cranberry (Cranberry Extract) 200 Mg Capsule 200 Mg PO Multivitamins (Multivitamin) 1 Each Tablet 1 Tab PO DAILY Acid Control (Ranitidine Hcl) 150 Mg Tablet 150 Mg PO Synthroid (Levothyroxine Sodium) 137 Mcg Tablet 1 Tab PO DAILY Protonix (Pantoprazole Sodium) 40 Mg Granpkt.dr 40 Mg PO DAILY Sotalol (Sotalol Hcl) 80 Mg Tablet 1 Tab PO BID Amlodipine Besylate 5 Mg Tablet 5 Mg PO DAILY Lasix (Furosemide) 40 Mg Tablet 1 Tab PO DAILY Losartan Potassium 50 Mg Tablet 50 Mg PO BID Hydrocodone-Apap 10-325 (Hydrocodone Bit/Acetaminophen) 1 Each Tablet 1 Each PO PRN Q4HRS Aspirin 81 Mg Tab.chew 81 Mg PO DAILY Vitals/I & O Vital Sign - Last 24 Hours 12/01/17 12/01/17 12/01/17 12/01/17 11:46 11:47 12:32 12:43 Temp 98.0 98.0 Pulse 50 49 Resp 20 20 B/P (MAP) 129/67 (87) 118/65 (82) Pulse Ox 98 97 98 O2 Delivery Nasal Cannula Nasal Cannula Nasal Cannula Nasal Cannula O2 Flow Rate 1.0 1.0 1.0 3.0 12/01/17 12/01/17 12/01/17 12/01/17 14:30 15:50 16:35 17:11 Temp 98.2 98.2 Pulse 51 Resp 16 20 B/P (MAP) 141/61 (87) Pulse Ox 100 95 O2 Delivery Nasal Cannula Nasal Cannula Nasal Cannula Nasal Cannula O2 Flow Rate 3.0 1.0 1.0 12/01/17 12/01/17 12/01/17 12/01/17 19:30 20:00 21:22 21:23 Temp 98.2 98.2 Pulse 57 57 Resp 17 20 B/P (MAP) 119/60 (79) 119/60 Pulse Ox 92 O2 Delivery Nasal Cannula Nasal Cannula Nasal Cannula O2 Flow Rate 2.0 1.0 12/01/17 12/01/17 12/02/17 12/02/17 21:53 23:45 03:50 05:51 Temp 98.3 98.5 98.3 98.5 Pulse 55 51 Resp 18 18 B/P (MAP) 125/99 (108) 119/45 (69) Pulse Ox 94 92 O2 Delivery BiPAP/CPAP Nasal Cannula BiPAP/CPAP BiPAP/CPAP O2 Flow Rate 2.0 12/02/17 12/02/17 12/02/17 12/02/17 06:31 07:00 07:25 09:03 Temp 97.7 97.7 Pulse 71 71 Resp 20 18 B/P (MAP) 129/50 (76) 129/50 Pulse Ox 100 98 O2 Delivery Room Air 2L NC Nasal Cannula O2 Flow Rate 2.0 Intake and Output 12/01/17 12/01/17 12/02/17 15:00 23:00 07:00 Intake Total 480 ml 350 ml 50 ml Output Total 210 ml 0 ml 650 ml Balance 270 ml 350 ml -600 ml HOOD ALLAN MD Dec 02, 2017 11:00
--- NOTE | 2017-12-02 12:10 | PDOC ---
Infectious Disease Note Subjective Subjective Transferred out of ICU Daughter said her mother tossed and turned all last night. She couldn't tolerate BiPAP very well + cough with phlegm Now resting No fevers ROS ROS per HPI Vital Sign Vital Signs Vital Signs Date Time Temp Pulse Resp B/P (MAP) Pulse Ox O2 Delivery O2 Flow Rate FiO2 12/02/17 11:14 99 Nasal Cannula 2.0 12/02/17 11:00 98.0 51 18 115/52 (73) 98.0 Physical Exam PHYSICAL EXAM GENERAL: Sleeping, appears comfortable LUNGS: Improved aeration HEART: S1, S2. ABDOMEN: Morbidly obese, soft : [place] EXTREMITIES: Generalized edea SKIN: Warm Labs Lab Laboratory Tests Test 12/02/17 03:30 White Blood Count 6.1 x10^3/uL (4.0-11.0) Red Blood Count 3.61 x10^6/uL (3.50-5.40) Hemoglobin 11.2 g/dL (12.0-15.5) Hematocrit 33.2 % (36.0-47.0) Mean Corpuscular Volume 92 fL (79-100) Mean Corpuscular Hemoglobin 31 pg (25-35) Mean Corpuscular Hemoglobin Concent 34 g/dL (31-37) Red Cell Distribution Width 14.9 % (11.5-14.5) Platelet Count 224 x10^3/uL (140-400) Neutrophils (%) (Auto) 40 % (31-73) Lymphocytes (%) (Auto) 43 % (24-48) Monocytes (%) (Auto) 12 % (0-9) Eosinophils (%) (Auto) 5 % (0-3) Basophils (%) (Auto) 1 % (0-3) Neutrophils # (Auto) 2.4 x10^3uL (1.8-7.7) Lymphocytes # (Auto) 2.6 x10^3/uL (1.0-4.8) Monocytes # (Auto) 0.7 x10^3/uL (0.0-1.1) Eosinophils # (Auto) 0.3 x10^3/uL (0.0-0.7) Basophils # (Auto) 0.0 x10^3/uL (0.0-0.2) Sodium Level 133 mmol/L (136-145) Potassium Level 5.5 mmol/L (3.5-5.1) Chloride Level 101 mmol/L (98-107) Carbon Dioxide Level 26 mmol/L (21-32) Anion Gap 6 (6-14) Blood Urea Nitrogen 31 mg/dL (7-20) Creatinine 2.2 mg/dL (0.6-1.0) Estimated GFR (Cockcroft-Gault) 25.8 Glucose Level 137 mg/dL (70-99) Calcium Level 8.6 mg/dL (8.5-10.1) Micro Microbiology 11/30/17 - Final, Complete 11/30/17 - Final, Complete 11/30/17 - Final, Complete 11/30/17 Gram Stain Evaluation - Final, Complete 11/30/17 Sputum Culture - Final, Complete 11/30/17 Sputum Result 1 - Final, Complete 11/29/17 Urine Culture - Final, Complete 11/29/17 Urine Culture Result 1 (RAPHAEL) - Final, Complete Objective Assessment Acute Resp failure - improved -Influenza neg; sputum culture neg; strep ag neg PCN allergy - has tolerated Cephalexin (d/w 2 daughters). Sulfa allergy AFib STAN CHF MRSA screen positive Plan Plan of Care Cont Zyvox and cefepime Legionella antigen pending RSVP not available Monitor labs/temp D/w Daughter Patient seen, examined, I agree with above. Assessment and plan was formulated with INTERNAL CONTROLS MANAGER. ZOIE HEART APRN Dec 02, 2017 12:10 CHARITY LE MD Dec 02, 2017 15:44
--- NOTE | 2017-12-02 12:10 | PDOC ---
SUBJECTIVE ROS We were asked to see patient for acute on chronic renal insufficiency Patient did not sleep all night. Patient's daughter who is in the room wants me to let her sleep and rest currently. No reported abnormalities currently. Hence no questions regarding review of systems were asked to the patient OBJECTIVE Vital Signs Vital Signs Date Time Temp Pulse Resp B/P (MAP) Pulse Ox O2 Delivery O2 Flow Rate FiO2 12/02/17 11:14 99 Nasal Cannula 2.0 12/02/17 11:00 98.0 51 18 115/52 (73) 98.0 I & 0 Intake and Output 12/02/17 07:00 Intake Total 880 ml Output Total 860 ml Balance 20 ml Intake Oral 580 ml IV Total 300 ml Output Urine Total 860 ml PHYSICAL EXAM Physical Exam GEN: Asleep and resting peacefully, In no distress, really obese, EYES: Sclerae anicteric, Conjunctiva Normal EN: No EN Drainage, Mucous Membranes moist NECK: no JVD, no JVP, Supple, no Thyromegaly, short thick neck CVS: S1S2, no Murmur, No Gallop, No Rub,no pitting Edema, distal heart sounds RESP: no Rales, no Rhonchi,no Acc. Muscle Use, distal breath sounds GI: BS + ve, NO Bruit, Non Tender, Non Distended, morbidly obese abdomen : no CVA tenderness, no Suprapubic Tenderness DIAGNOSIS/ASSESSMENT Assessment & Plan AK I /CK D stage III: Stable creatinine currently. Current fluid and E-lyte status does not necessitate emergent need for dialysis. Underlying security stage III/ IV - will start 24-hour urine collection Previous oliguria: Now appears to be improving. Hyperkalemia - she may need a potassium level drawn without a tourniquet. Her previous ABGs have revealed significant respiratory acidosis which may be contributing to her elevated potassium. 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 See orders for changes. Discussed Plan of Care with family (daughter) at bedside COMMENT/RELEVANT DATA Meds Current Medications Medications (Trade) Dose Ordered Sig/Violet Start Time Stop Time Status Last Admin Dose Admin Acetaminophen (Tylenol) 325 mg PRN Q6HRS PRN 11/29/17 23:45 12/01/17 17:11 325 MG Acetaminophen/ Hydrocodone Bitart (Lortab ) 1 tab PRN Q6HRS PRN 12/01/17 10:15 12/02/17 06:31 1 TAB Albuterol Sulfate (Ventolin Neb Soln) 2.5 mg 1X ONCE 11/29/17 22:00 11/29/17 22:01 DC 11/29/17 22:44 2.5 MG Albuterol/ Ipratropium (Duoneb) 3 ml RTQID 11/30/17 08:00 12/02/17 11:10 3 ML Amlodipine Besylate (Norvasc) 5 mg DAILY 11/30/17 09:00 11/30/17 11:37 DC Aspirin (Children'S Aspirin) 81 mg DAILY 11/30/17 09:00 12/02/17 09:02 81 MG Calcium Gluconate (Calcium Gluconate) 2,000 mg 1X ONCE 11/29/17 22:00 11/29/17 22:01 DC 11/29/17 22:33 2,000 MG Cefepime HCl (Maxipime) 2 gm Q12HR 11/30/17 15:30 12/02/17 09:04 2 GM Cefepime HCl 2 gm/ Dextrose 100 ml @ 200 mls/hr Q12HR 11/30/17 15:30 Cancel Dextrose (Dextrose 50%-Water Syringe) 25 gm 1X ONCE 11/30/17 10:30 11/30/17 10:31 DC 11/30/17 10:25 25 GM Doxycycline Hyclate (Vibra-Tab) 100 mg BID 11/30/17 21:00 12/01/17 11:36 DC 12/01/17 07:38 100 MG Fluticasone Propionate (Flonase) 2 spray PRN DAILY PRN 11/30/17 11:30 12/01/17 01:24 2 SPRAY Furosemide (Lasix) 40 mg DAILY 12/02/17 12:00 Heparin Sodium (Porcine) (Heparin Sodium) 5,000 unit Q12HR 11/30/17 09:00 12/02/17 09:10 5,000 UNIT Insulin Human Lispro (HumaLOG) 0-7 UNITS TIDWMEALS 11/30/17 08:00 11/30/17 09:35 DC Insulin Human Regular (HumuLIN R VIAL) 10 unit 1X ONCE 11/30/17 10:30 11/30/17 10:31 DC 11/30/17 10:27 10 UNIT Lactobacillus Rhamnosus (Culturelle) 1 cap BID 12/01/17 21:00 12/02/17 09:01 1 CAP Levofloxacin/ Dextrose 50 ml @ 50 mls/hr Q24H 12/01/17 12:00 12/01/17 12:00 DC Levofloxacin/ Dextrose (Levaquin Per Pharmacy) 1 each PRN DAILY PRN 11/30/17 11:15 11/30/17 14:55 DC Levothyroxine Sodium (Synthroid) 137 mcg DAILY07 11/30/17 07:00 12/02/17 06:08 137 MCG Linezolid/Dextrose 300 ml @ 300 mls/hr Q12HR 11/30/17 12:00 12/02/17 09:04 300 MLS/HR Metoprolol Tartrate (Lopressor) 12.5 mg BID 12/01/17 21:00 12/02/17 09:03 12.5 MG Multivitamins (Thera M Plus) 1 tab DAILY 11/30/17 09:00 12/02/17 09:01 1 TAB Ondansetron HCl (Zofran) 4 mg PRN Q8HRS PRN 11/29/17 21:00 11/30/17 20:59 DC Pantoprazole Sodium (Protonix) 40 mg DAILYAC 11/30/17 07:30 12/02/17 09:01 40 MG Polyethylene Glycol (miraLAX PACKET) 17 gm DAILY 11/30/17 09:00 12/01/17 07:40 17 GM Senna/Docusate Sodium (Senna Plus) 1 tab BID 11/30/17 09:00 12/02/17 09:01 1 TAB Sodium Polystyrene Sulfonate (Kayexalate) 30 gm 1X ONCE 12/02/17 11:00 12/02/17 11:01 DC Sodium Chloride 1,000 ml @ 100 mls/hr Q10H 11/30/17 11:30 12/02/17 10:56 DC 12/02/17 05:43 100 MLS/HR Sodium Chloride (Normal Saline Flush) 3 ml QSHIFT PRN 11/29/17 23:45 Sotalol HCl (Betapace) 40 mg BID 12/01/17 21:00 Cancel Vitamin D (Vitamin D3) 1,000 unit DAILY 11/30/17 09:00 12/02/17 09:01 1,000 UNIT Lab Laboratory Tests Test 12/02/17 03:30 White Blood Count 6.1 x10^3/uL (4.0-11.0) Red Blood Count 3.61 x10^6/uL (3.50-5.40) Hemoglobin 11.2 g/dL (12.0-15.5) Hematocrit 33.2 % (36.0-47.0) Mean Corpuscular Volume 92 fL (79-100) Mean Corpuscular Hemoglobin 31 pg (25-35) Mean Corpuscular Hemoglobin Concent 34 g/dL (31-37) Red Cell Distribution Width 14.9 % (11.5-14.5) Platelet Count 224 x10^3/uL (140-400) Neutrophils (%) (Auto) 40 % (31-73) Lymphocytes (%) (Auto) 43 % (24-48) Monocytes (%) (Auto) 12 % (0-9) Eosinophils (%) (Auto) 5 % (0-3) Basophils (%) (Auto) 1 % (0-3) Neutrophils # (Auto) 2.4 x10^3uL (1.8-7.7) Lymphocytes # (Auto) 2.6 x10^3/uL (1.0-4.8) Monocytes # (Auto) 0.7 x10^3/uL (0.0-1.1) Eosinophils # (Auto) 0.3 x10^3/uL (0.0-0.7) Basophils # (Auto) 0.0 x10^3/uL (0.0-0.2) Sodium Level 133 mmol/L (136-145) Potassium Level 5.5 mmol/L (3.5-5.1) Chloride Level 101 mmol/L (98-107) Carbon Dioxide Level 26 mmol/L (21-32) Anion Gap 6 (6-14) Blood Urea Nitrogen 31 mg/dL (7-20) Creatinine 2.2 mg/dL (0.6-1.0) Estimated GFR (Cockcroft-Gault) 25.8 Glucose Level 137 mg/dL (70-99) Calcium Level 8.6 mg/dL (8.5-10.1) Results All relevant outside records, renal labs, imaging studies, telemetry/EKG's were reviewed. Other Renal ultrasound shows : IMPRESSION: Limited exam showing no evidence of hydronephrosis on the right. The left kidney could not be visualized. Similar difficulties were encountered on the 08/24/2017 exam. MRI of the abdomen done08/25/2017 shows There are multiple nodules scattered throughout both kidneys, some of which show precontrast T1 hyperintensity and mild heterogeneity, although there is no appreciable enhancement post gadolinium. These most likely represent hemorrhagic or proteinaceous cysts. Suggest follow-up imaging in one year to ensure stability. Bosniak category 2F. ERICK LE MD Dec 02, 2017 12:10
[2017-12-02] MEDS: FUROSEMIDE 40 MG TABLET. PO SCH (12:34)
[2017-12-02 15:00] VITALS: BP 121/48
--- NOTE | 2017-12-02 18:04 | EKG ---
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
[2017-12-02 21:40] VITALS: BP 116/56
[2017-12-02 23:10] VITALS: BP 118/59
[2017-12-03 04:45] VITALS: BP 165/75
[2017-12-03 05:02] LABS: BASO % 0 % (0-3); EOS # 0.3 x10^3/uL (0.0-0.7); EOS % 6 % (0-3); HEMATOCRIT 32.5 % (36.0-47.0); HEMOGLOBIN 10.8 g/dL (12.0-15.5); LYMPH # 2.5 x10^3/uL (1.0-4.8); LYMPH % 46 % (24-48); MEAN CORPUSCULAR HEMOGLOBIN 31 pg (25-35); MEAN CORPUSCULAR HGB CONC 33 g/dL (31-37); MEAN CORPUSCULAR VOLUME 92 fL (79-100); MONO # 0.6 x10^3/uL (0.0-1.1); MONO % 12 % (0-9); NEUT % 36 % (31-73); PLATELET COUNT 217 x10^3/uL (140-400); RED BLOOD COUNT 3.55 x10^6/uL (3.50-5.40); RED CELL DISTRIBUTION WIDTH 15.2 % (11.5-14.5); WHITE BLOOD COUNT 5.4 x10^3/uL (4.0-11.0)
[2017-12-03 05:42] LABS: CALCIUM 8.6 mg/dL (8.5-10.1); GFR 28.8; POTASSIUM 5.3 mmol/L (3.5-5.1)
[2017-12-03] MEDS: LEVOTHYROXINE 137 MCG TABLET PO SCH (06:20)
[2017-12-03 07:00] VITALS: BP 120/53
[2017-12-03] MEDS: CHOLECALCIFEROL (VITAMIN D3) 1,000 UNIT TABLET PO SCH (08:30)
[2017-12-03] MEDS: PANTOPRAZOLE 40 MG TABLET.DR. PO SCH (08:30)
[2017-12-03] MEDS: MULTIVITAMIN with MINERAL TABLET. PO SCH (08:30)
[2017-12-03] MEDS: ASPIRIN CHEWABLE 81 MG TABLET. PO SCH (08:30)
[2017-12-03] MEDS: FUROSEMIDE 40 MG TABLET. PO SCH (08:31)
[2017-12-03] MEDS: SENNOSIDES/DOCUSATE 8.6/50MG TABLET. PO SCH ×2 (08:31→20:37)
[2017-12-03] MEDS: LACTOBACILLUS RHAMNOSUS GG 1 CAPSULE. PO SCH ×2 (08:31→20:34)
[2017-12-03] MEDS: CEFEPIME HCL IV Push 2 GM VIAL. IVP SCH ×2 (08:31→20:35)
[2017-12-03] MEDS: METOPROLOL TART IMMED RELEASE 25 MG TABLET. PO SCH (08:34)
[2017-12-03] MEDS: POLYETHYLENE GLYCOL 3350 17 GM PACKET. PO SCH (08:34)
[2017-12-03] MEDS: IPRATRPIUM/ALBUTEROL 0.5/2.5MG 3 ML NEBU. NEB SCH ×4 (08:35→20:10)
[2017-12-03] MEDS: HEPARIN for SUB-Q USE 5,000 UNIT/ML VIAL. SQ SCH ×2 (08:43→20:36)
--- NOTE | 2017-12-03 10:16 | PDOC ---
Infectious Disease Note Subjective Subjective Tired this morning Comfortable, denies pain + BM x 2. Off supplemental O2 Denies F/C/S/N/V/D/SOA/CP ROS ROS per HPI otherwise neg Vital Sign Vital Signs Vital Signs Date Time Temp Pulse Resp B/P (MAP) Pulse Ox O2 Delivery O2 Flow Rate FiO2 12/03/17 08:36 99 Nasal Cannula 2.0 12/03/17 08:34 56 120/53 12/03/17 07:00 97.7 18 97.7 Physical Exam PHYSICAL EXAM GENERAL: Lying down, NAD HENT: Oral cavity clear LUNGS: Improved aeration Clear anteriorly HEART: S1, S2. ABDOMEN: Morbidly obese, soft, NT : [place] EXTREMITIES: Generalized edema. No cyanosis SKIN: Warm without rash DEPUTY GENERAL COUNSEL: Alert and oriented Labs Lab Laboratory Tests Test 12/03/17 04:00 White Blood Count 5.4 x10^3/uL (4.0-11.0) Red Blood Count 3.55 x10^6/uL (3.50-5.40) Hemoglobin 10.8 g/dL (12.0-15.5) Hematocrit 32.5 % (36.0-47.0) Mean Corpuscular Volume 92 fL (79-100) Mean Corpuscular Hemoglobin 31 pg (25-35) Mean Corpuscular Hemoglobin Concent 33 g/dL (31-37) Red Cell Distribution Width 15.2 % (11.5-14.5) Platelet Count 217 x10^3/uL (140-400) Neutrophils (%) (Auto) 36 % (31-73) Lymphocytes (%) (Auto) 46 % (24-48) Monocytes (%) (Auto) 12 % (0-9) Eosinophils (%) (Auto) 6 % (0-3) Basophils (%) (Auto) 0 % (0-3) Neutrophils # (Auto) 2.0 x10^3uL (1.8-7.7) Lymphocytes # (Auto) 2.5 x10^3/uL (1.0-4.8) Monocytes # (Auto) 0.6 x10^3/uL (0.0-1.1) Eosinophils # (Auto) 0.3 x10^3/uL (0.0-0.7) Basophils # (Auto) 0.0 x10^3/uL (0.0-0.2) Sodium Level 138 mmol/L (136-145) Potassium Level 5.3 mmol/L (3.5-5.1) Chloride Level 104 mmol/L (98-107) Carbon Dioxide Level 27 mmol/L (21-32) Anion Gap 7 (6-14) Blood Urea Nitrogen 31 mg/dL (7-20) Creatinine 2.0 mg/dL (0.6-1.0) Estimated GFR (Cockcroft-Gault) 28.8 Glucose Level 101 mg/dL (70-99) Calcium Level 8.6 mg/dL (8.5-10.1) Creatine Kinase 13 U/L (26-192) Micro Microbiology 11/30/17 - Final, Complete 11/30/17 - Final, Complete 11/30/17 - Final, Complete 11/30/17 Gram Stain Evaluation - Final, Complete 11/30/17 Sputum Culture - Final, Complete 11/30/17 Sputum Result 1 - Final, Complete 11/29/17 Urine Culture - Final, Complete 11/29/17 Urine Culture Result 1 (RAPHAEL) - Final, Complete Objective Assessment Acute Resp failure - improved -Influenza neg; sputum culture neg; strep ag neg PCN allergy - has tolerated Cephalexin (d/w 2 daughters). Sulfa allergy AFib STAN CHF MRSA screen positive Plan Plan of Care Cont Zyvox and cefepime Legionella antigen pending, RVP not available Monitor labs/temp Supportive care Patient seen, examined, Lab and other data reviewed I agree with above A/P by PROP AND EFFECTS DESIGNER D/W Daughter at bedside ZOIE HEART APRN Dec 03, 2017 10:16 CHARITY LE MD Dec 03, 2017 13:56
--- NOTE | 2017-12-03 10:23 | PDOC ---
PROGRESS NOTES Subjective Subjective she feels much better. she is alert and coherent and not short of breath and currently off of oxygen. she had an excellent diuresis and lost 9 pounds. serum creatinine better 2.0. potassium 5.3. bicarbonate 27. discussed with family. Objective Objective Vital Signs Date Time Temp Pulse Resp B/P (MAP) Pulse Ox O2 Delivery O2 Flow Rate FiO2 12/03/17 08:36 99 Nasal Cannula 2.0 12/03/17 08:34 56 120/53 12/03/17 07:00 97.7 18 97.7 Intake and Output 12/03/17 07:00 Intake Total 1900 ml Output Total 2550 ml Balance -650 ml Intake Oral 1900 ml Output Urine Total 2550 ml # Bowel Movements 1 Physical Exam Abdomen: Soft, Other (obese) Heart: Regular rate, Normal S1, Normal S2 Extremities: Other (2 plus bipedal edema) General: Alert HEENT: Atraumatic Lungs: Other (clear anteriorly) Neuro: Normal speech Psych/Mental Status: Mental status NL Skin: No rashes Assessment Assessment 1. Acute on chronic hypoxic and hypercarbic respiratory failure. obesity hypoventilation syndrome 2. acute kidney injury improving on chronic kidney disease stage 3. 3. Morbid obesity with a body mass index of 60. 4. Paroxysmal atrial fibrillation. 5. Diabetes mellitus type 2, treated with diet. 6. Hypertension. 7. Hypothyroidism. 8. Chronic diastolic congestive heart failure. acute bronchitis bilateral LE edema hyperkalemia Plan Plan of Care continue oral lasix daily lab nocturnal oxygen desaturation study concur with sleep study to rule out sleep apnea PT family striving to take her home instead of SNF and have a sit to stand as hoyler lift did not work with transfers kayexelate times 1 dose Comment Review of Relevant I have reviewed the following items jeet (where applicable) has been applied. Labs Laboratory Tests Test 12/02/17 03:30 12/03/17 04:00 White Blood Count 6.1 x10^3/uL (4.0-11.0) 5.4 x10^3/uL (4.0-11.0) Red Blood Count 3.61 x10^6/uL (3.50-5.40) 3.55 x10^6/uL (3.50-5.40) Hemoglobin 11.2 g/dL (12.0-15.5) 10.8 g/dL (12.0-15.5) Hematocrit 33.2 % (36.0-47.0) 32.5 % (36.0-47.0) Mean Corpuscular Volume 92 fL (79-100) 92 fL (79-100) Mean Corpuscular Hemoglobin 31 pg (25-35) 31 pg (25-35) Mean Corpuscular Hemoglobin Concent 34 g/dL (31-37) 33 g/dL (31-37) Red Cell Distribution Width 14.9 % (11.5-14.5) 15.2 % (11.5-14.5) Platelet Count 224 x10^3/uL (140-400) 217 x10^3/uL (140-400) Neutrophils (%) (Auto) 40 % (31-73) 36 % (31-73) Lymphocytes (%) (Auto) 43 % (24-48) 46 % (24-48) Monocytes (%) (Auto) 12 % (0-9) 12 % (0-9) Eosinophils (%) (Auto) 5 % (0-3) 6 % (0-3) Basophils (%) (Auto) 1 % (0-3) 0 % (0-3) Neutrophils # (Auto) 2.4 x10^3uL (1.8-7.7) 2.0 x10^3uL (1.8-7.7) Lymphocytes # (Auto) 2.6 x10^3/uL (1.0-4.8) 2.5 x10^3/uL (1.0-4.8) Monocytes # (Auto) 0.7 x10^3/uL (0.0-1.1) 0.6 x10^3/uL (0.0-1.1) Eosinophils # (Auto) 0.3 x10^3/uL (0.0-0.7) 0.3 x10^3/uL (0.0-0.7) Basophils # (Auto) 0.0 x10^3/uL (0.0-0.2) 0.0 x10^3/uL (0.0-0.2) Reticulocyte Count (auto) 1.4 % (0.5-2.5) Sodium Level 133 mmol/L (136-145) 138 mmol/L (136-145) Potassium Level 5.5 mmol/L (3.5-5.1) 5.3 mmol/L (3.5-5.1) Chloride Level 101 mmol/L (98-107) 104 mmol/L (98-107) Carbon Dioxide Level 26 mmol/L (21-32) 27 mmol/L (21-32) Anion Gap 6 (6-14) 7 (6-14) Blood Urea Nitrogen 31 mg/dL (7-20) 31 mg/dL (7-20) Creatinine 2.2 mg/dL (0.6-1.0) 2.0 mg/dL (0.6-1.0) Estimated GFR (Cockcroft-Gault) 25.8 28.8 Glucose Level 137 mg/dL (70-99) 101 mg/dL (70-99) Calcium Level 8.6 mg/dL (8.5-10.1) 8.6 mg/dL (8.5-10.1) Iron Level 31 ug/dL (50-170) Total Iron Binding Capacity 156 ug/dL (250-450) Iron Saturation 20 % (15-34) Ferritin 106 ng/mL (8-252) Lactate Dehydrogenase 161 U/L (81-234) Creatine Kinase 13 U/L (26-192) Laboratory Tests Test 12/03/17 04:00 White Blood Count 5.4 x10^3/uL (4.0-11.0) Red Blood Count 3.55 x10^6/uL (3.50-5.40) Hemoglobin 10.8 g/dL (12.0-15.5) Hematocrit 32.5 % (36.0-47.0) Mean Corpuscular Volume 92 fL (79-100) Mean Corpuscular Hemoglobin 31 pg (25-35) Mean Corpuscular Hemoglobin Concent 33 g/dL (31-37) Red Cell Distribution Width 15.2 % (11.5-14.5) Platelet Count 217 x10^3/uL (140-400) Neutrophils (%) (Auto) 36 % (31-73) Lymphocytes (%) (Auto) 46 % (24-48) Monocytes (%) (Auto) 12 % (0-9) Eosinophils (%) (Auto) 6 % (0-3) Basophils (%) (Auto) 0 % (0-3) Neutrophils # (Auto) 2.0 x10^3uL (1.8-7.7) Lymphocytes # (Auto) 2.5 x10^3/uL (1.0-4.8) Monocytes # (Auto) 0.6 x10^3/uL (0.0-1.1) Eosinophils # (Auto) 0.3 x10^3/uL (0.0-0.7) Basophils # (Auto) 0.0 x10^3/uL (0.0-0.2) Sodium Level 138 mmol/L (136-145) Potassium Level 5.3 mmol/L (3.5-5.1) Chloride Level 104 mmol/L (98-107) Carbon Dioxide Level 27 mmol/L (21-32) Anion Gap 7 (6-14) Blood Urea Nitrogen 31 mg/dL (7-20) Creatinine 2.0 mg/dL (0.6-1.0) Estimated GFR (Cockcroft-Gault) 28.8 Glucose Level 101 mg/dL (70-99) Calcium Level 8.6 mg/dL (8.5-10.1) Creatine Kinase 13 U/L (26-192) Microbiology 11/30/17 - Final, Complete 11/30/17 - Final, Complete 11/30/17 - Final, Complete 11/30/17 Gram Stain Evaluation - Final, Complete 11/30/17 Sputum Culture - Final, Complete 11/30/17 Sputum Result 1 - Final, Complete 11/29/17 Urine Culture - Final, Complete 11/29/17 Urine Culture Result 1 (RAPHAEL) - Final, Complete Medications Current Medications Ondansetron HCl (Zofran) 4 mg PRN Q8HRS PRN IV NAUSEA/VOMITING; Start at 21:00; Stop 11/30/17 at 20:59; Status DC Insulin Human Regular (HumuLIN R VIAL) 10 unit 1X ONCE IV Last administered on 11/29/17at 22:35; Start 11/29/17 at 22:00; Stop 11/30/17 at 09:35; Status DC Dextrose (Dextrose 50%-Water Syringe) 25 gm 1X ONCE IV Last administered on at 22:31; Start 11/29/17 at 22:00; Stop 11/30/17 at 09:35; Status DC Albuterol Sulfate (Ventolin Neb Soln) 2.5 mg 1X ONCE NEB Last administered on 11/29/17at 22:44; Start 11/29/17 at 22:00; Stop 11/29/17 at 22:01; Status DC Calcium Gluconate (Calcium Gluconate) 2,000 mg 1X ONCE IVP Last administered on 11/29/17at 22:33; Start 11/29/17 at 22:00; Stop 11/29/17 at 22:01; Status DC Acetaminophen (Tylenol) 650 mg 1X ONCE PO Last administered on 11/29/17at 22: 40; Start 11/29/17 at 22:45; Stop 11/29/17 at 22:46; Status DC Heparin Sodium (Porcine) (Heparin Sodium) 5,000 unit Q12HR SQ Last administered on 12/03/17at 08:43; Start 11/30/17 at 09:00 Sodium Chloride (Normal Saline Flush) 3 ml QSHIFT PRN IV AFTER MEDS AND BLOOD DRAWS; Start 11/29/17 at 23:45 Senna/Docusate Sodium (Senna Plus) 1 tab BID PO Last administered on at 08:31; Start 11/30/17 at 09:00 Acetaminophen (Tylenol) 325 mg PRN Q6HRS PRN PO fever Last administered on at 17:11; Start 11/29/17 at 23:45 Amlodipine Besylate (Norvasc) 5 mg DAILY PO ; Start 11/30/17 at 09:00; Stop at 11:37; Status DC Aspirin (Children'S Aspirin) 81 mg DAILY PO Last administered on 12/03/17at 08: 30; Start 11/30/17 at 09:00 Vitamin D (Vitamin D3) 1,000 unit DAILY PO Last administered on 12/03/17at 08: 30; Start 11/30/17 at 09:00 Furosemide (Lasix) 40 mg DAILY PO ; Start 11/30/17 at 09:00; Stop 11/30/17 at 11:37; Status DC Levothyroxine Sodium (Synthroid) 137 mcg DAILY07 PO Last administered on at 06:20; Start 11/30/17 at 07:00 Fluticasone Propionate (Flonase) 2 spray DAILY NS ; Start 11/30/17 at 09:00; Stop 11/30/17 at 11:37; Status DC Acetaminophen/ Hydrocodone Bitart (Lortab 10/325) 1 tab PRN Q4HRS PRN PO PAIN Last administered on 12/01/17at 01:13; Start 11/29/17 at 23:45; Stop 12/01/17 at 10:01; Status DC Multivitamins (Thera M Plus) 1 tab DAILY PO Last administered on 12/03/17at 08: 30; Start 11/30/17 at 09:00 Pantoprazole Sodium (Protonix) 40 mg DAILYAC PO Last administered on at 08:30; Start 11/30/17 at 07:30 Polyethylene Glycol (miraLAX PACKET) 17 gm DAILY PO Last administered on at 07:40; Start 11/30/17 at 09:00 Sotalol HCl (Betapace) 80 mg BID PO ; Start 11/30/17 at 09:00; Stop 11/30/17 at 11:37; Status DC Insulin Human Lispro (HumaLOG) 0-7 UNITS TIDWMEALS SQ ; Start 11/30/17 at 08:00 ; Stop 11/30/17 at 09:35; Status DC Dextrose (Dextrose 50%-Water Syringe) 12.5 gm PRN Q15MIN PRN IV SEE COMMENTS; Start 11/30/17 at 00:00; Stop 11/30/17 at 09:35; Status DC Albuterol/ Ipratropium (Duoneb) 3 ml RTQID NEB Last administered on 12/03/17at 08:35; Start 11/30/17 at 08:00 Furosemide (Lasix) 40 mg 1X ONCE IVP ; Start 11/30/17 at 10:00; Stop at 10:08; Status DC Sodium Polystyrene Sulfonate (Kayexalate) 30 gm 1X ONCE PO ; Start 11/30/17 at 10:00; Stop 11/30/17 at 10:08; Status DC Sodium Chloride 500 ml @ 500 mls/hr 1X ONCE IV Last administered on at 10:22; Start 11/30/17 at 10:15; Stop 11/30/17 at 11:14; Status DC Insulin Human Regular (HumuLIN R VIAL) 10 unit 1X ONCE IV Last administered on 11/30/17at 10:27; Start 11/30/17 at 10:30; Stop 11/30/17 at 10:31; Status DC Dextrose (Dextrose 50%-Water Syringe) 25 gm 1X ONCE IV Last administered on at 10:25; Start 11/30/17 at 10:30; Stop 11/30/17 at 10:31; Status DC Levofloxacin/ Dextrose (Levaquin Per Pharmacy) 1 each PRN DAILY PRN MC SEE COMMENTS; Start 11/30/17 at 11:15; Stop 11/30/17 at 14:55; Status DC Linezolid/Dextrose 300 ml @ 300 mls/hr Q12HR IV Last administered on at 08:31; Start 11/30/17 at 12:00 Levofloxacin/ Dextrose 100 ml @ 100 mls/hr 1X ONCE IV Last administered on at 13:36; Start 11/30/17 at 12:00; Stop 11/30/17 at 12:59; Status DC Levofloxacin/ Dextrose 50 ml @ 50 mls/hr Q24H IV ; Start 12/01/17 at 12:00; Stop 12/01/17 at 12:00; Status DC Fluticasone Propionate (Flonase) 2 spray PRN DAILY PRN NS ALLERGIES Last administered on 12/01/17at 01:24; Start 11/30/17 at 11:30 Sotalol HCl (Betapace) 40 mg BID PO Last administered on 12/01/17at 01:18; Start 11/30/17 at 21:00; Stop 12/01/17 at 18:47; Status DC Sodium Chloride 1,000 ml @ 100 mls/hr Q10H IV Last administered on 12/02/17at 05:43; Start 11/30/17 at 11:30; Stop 12/02/17 at 10:56; Status DC Doxycycline Hyclate (Vibra-Tab) 100 mg BID PO Last administered on 12/01/17at 07:38; Start 11/30/17 at 21:00; Stop 12/01/17 at 11:36; Status DC Cefepime HCl 2 gm/ Dextrose 100 ml @ 200 mls/hr Q12HR IV ; Start 11/30/17 at 15:30; Status Cancel Cefepime HCl (Maxipime) 2 gm Q12HR IVP Last administered on 12/03/17at 08:31; Start 11/30/17 at 15:30 Acetaminophen/ Hydrocodone Bitart (Lortab 10/325) 1 tab PRN Q6HRS PRN PO PAIN Last administered on 12/02/17at 22:57; Start 12/01/17 at 10:15 Lactobacillus Rhamnosus (Culturelle) 1 cap BID PO Last administered on at 08:31; Start 12/01/17 at 21:00 Sotalol HCl (Betapace) 40 mg BID PO ; Start 12/01/17 at 21:00; Status Cancel Metoprolol Tartrate (Lopressor) 12.5 mg BID PO Last administered on 12/03/17 08:34; Start 12/01/17 at 21:00 Furosemide (Lasix) 40 mg DAILY PO Last administered on 12/03/17 08:31; Start 12/02/17 at 12:00 Sodium Polystyrene Sulfonate (Kayexalate) 30 gm 1X ONCE PO Last administered on 12/02/17at 12:33; Start 12/02/17 at 11:00; Stop 12/02/17 at 11:01; Status DC Active Scripts Active Reported Miralax (Polyethylene Glycol 3350) 17 Gm Powd.pack 1 Packet PO DAILY Flonase Allergy Relief (Fluticasone Propionate) 9.9 Ml [place].susp 2 Sprays NS DAILY Vitamin D3 (Cholecalciferol (Vitamin D3)) 1,000 Unit Tablet 1 Tab PO DAILY Tylenol (Acetaminophen) 325 Mg Tablet 325 Mg PO Cranberry (Cranberry Extract) 200 Mg Capsule 200 Mg PO Multivitamins (Multivitamin) 1 Each Tablet 1 Tab PO DAILY Acid Control (Ranitidine Hcl) 150 Mg Tablet 150 Mg PO Synthroid (Levothyroxine Sodium) 137 Mcg Tablet 1 Tab PO DAILY Protonix (Pantoprazole Sodium) 40 Mg Granpkt.dr 40 Mg PO DAILY Sotalol (Sotalol Hcl) 80 Mg Tablet 1 Tab PO BID Amlodipine Besylate 5 Mg Tablet 5 Mg PO DAILY Lasix (Furosemide) 40 Mg Tablet 1 Tab PO DAILY Losartan Potassium 50 Mg Tablet 50 Mg PO BID Hydrocodone-Apap 10-325 (Hydrocodone Bit/Acetaminophen) 1 Each Tablet 1 Each PO PRN Q4HRS Aspirin 81 Mg Tab.chew 81 Mg PO DAILY Vitals/I & O Vital Sign - Last 24 Hours 12/02/17 12/02/17 12/02/17 12/02/17 11:00 11:14 14:49 15:00 Temp 98.0 97.7 98.0 97.7 Pulse 51 50 Resp 18 18 18 B/P (MAP) 115/52 (73) 121/48 (72) Pulse Ox 98 99 99 98 O2 Delivery 2L NC Nasal Cannula Nasal Cannula 2L NC O2 Flow Rate 2.0 2.0 12/02/17 12/02/17 12/02/17 12/02/17 15:09 15:50 19:00 20:00 Resp 18 Pulse Ox 98 O2 Delivery Nasal Cannula Nasal Cannula Nasal Cannula O2 Flow Rate 2.0 2.0 2.0 12/02/17 12/02/17 12/02/17 12/02/17 20:17 20:25 21:40 22:57 Temp 98.4 98.4 Pulse 50 57 Resp 18 B/P (MAP) 121/48 116/56 (76) Pulse Ox 95 97 97 O2 Delivery Room Air Nasal Cannula BiPAP/CPAP O2 Flow Rate 2.0 12/02/17 12/02/17 12/02/17 12/03/17 23:01 23:10 23:57 01:17 Temp 97.4 97.4 Pulse 69 Resp 18 B/P (MAP) 118/59 (78) Pulse Ox 100 100 O2 Delivery BiPAP/CPAP Nasal Cannula BiPAP/CPAP BiPAP/CPAP O2 Flow Rate 2.0 12/03/17 12/03/17 12/03/17 12/03/17 03:00 04:45 07:00 08:00 Temp 97.6 97.7 97.6 97.7 Pulse 59 56 Resp 19 18 B/P (MAP) 165/75 (105) 120/53 (75) Pulse Ox 100 93 O2 Delivery BiPAP/CPAP Nasal Cannula 2L/NC Nasal Cannula O2 Flow Rate 2.0 2.0 12/03/17 12/03/17 08:34 08:36 Pulse 56 B/P (MAP) 120/53 Pulse Ox 99 O2 Delivery Nasal Cannula O2 Flow Rate 2.0 Intake and Output 12/02/17 12/02/17 12/03/17 15:00 23:00 07:00 Intake Total 600 ml 1300 ml Output Total 1900 ml 650 ml Balance 600 ml -600 ml -650 ml HOOD ALLAN MD Dec 03, 2017 10:23
[2017-12-03 11:00] VITALS: BP 141/61
[2017-12-03] MEDS ORDERED: SODIUM POLYSTYRENE SULFONATE 15 GM/60 ML ORAL.SUSP. PO ONE (11:00)
--- NOTE | 2017-12-03 11:48 | PDOC ---
PULMONARY PROGRESS NOTES Subjective FULLY AWAKE, OFF bipap Vitals Vital Signs Date Time Temp Pulse Resp B/P (MAP) Pulse Ox O2 Delivery O2 Flow Rate FiO2 12/03/17 11:17 92 Room Air 12/03/17 11:00 98.2 55 18 141/61 (87) 98.2 12/03/17 08:36 2.0 General: Alert, No acute distress Lungs: Clear Cardiovascular: S1 Abdomen: Soft, Other (obese) Extremities: Other (1+edema) Labs Laboratory Tests Test 12/02/17 03:30 12/03/17 04:00 White Blood Count 6.1 x10^3/uL (4.0-11.0) 5.4 x10^3/uL (4.0-11.0) Red Blood Count 3.61 x10^6/uL (3.50-5.40) 3.55 x10^6/uL (3.50-5.40) Hemoglobin 11.2 g/dL (12.0-15.5) 10.8 g/dL (12.0-15.5) Hematocrit 33.2 % (36.0-47.0) 32.5 % (36.0-47.0) Mean Corpuscular Volume 92 fL (79-100) 92 fL (79-100) Mean Corpuscular Hemoglobin 31 pg (25-35) 31 pg (25-35) Mean Corpuscular Hemoglobin Concent 34 g/dL (31-37) 33 g/dL (31-37) Red Cell Distribution Width 14.9 % (11.5-14.5) 15.2 % (11.5-14.5) Platelet Count 224 x10^3/uL (140-400) 217 x10^3/uL (140-400) Neutrophils (%) (Auto) 40 % (31-73) 36 % (31-73) Lymphocytes (%) (Auto) 43 % (24-48) 46 % (24-48) Monocytes (%) (Auto) 12 % (0-9) 12 % (0-9) Eosinophils (%) (Auto) 5 % (0-3) 6 % (0-3) Basophils (%) (Auto) 1 % (0-3) 0 % (0-3) Neutrophils # (Auto) 2.4 x10^3uL (1.8-7.7) 2.0 x10^3uL (1.8-7.7) Lymphocytes # (Auto) 2.6 x10^3/uL (1.0-4.8) 2.5 x10^3/uL (1.0-4.8) Monocytes # (Auto) 0.7 x10^3/uL (0.0-1.1) 0.6 x10^3/uL (0.0-1.1) Eosinophils # (Auto) 0.3 x10^3/uL (0.0-0.7) 0.3 x10^3/uL (0.0-0.7) Basophils # (Auto) 0.0 x10^3/uL (0.0-0.2) 0.0 x10^3/uL (0.0-0.2) Reticulocyte Count (auto) 1.4 % (0.5-2.5) Sodium Level 133 mmol/L (136-145) 138 mmol/L (136-145) Potassium Level 5.5 mmol/L (3.5-5.1) 5.3 mmol/L (3.5-5.1) Chloride Level 101 mmol/L (98-107) 104 mmol/L (98-107) Carbon Dioxide Level 26 mmol/L (21-32) 27 mmol/L (21-32) Anion Gap 6 (6-14) 7 (6-14) Blood Urea Nitrogen 31 mg/dL (7-20) 31 mg/dL (7-20) Creatinine 2.2 mg/dL (0.6-1.0) 2.0 mg/dL (0.6-1.0) Estimated GFR (Cockcroft-Gault) 25.8 28.8 Glucose Level 137 mg/dL (70-99) 101 mg/dL (70-99) Calcium Level 8.6 mg/dL (8.5-10.1) 8.6 mg/dL (8.5-10.1) Iron Level 31 ug/dL (50-170) Total Iron Binding Capacity 156 ug/dL (250-450) Iron Saturation 20 % (15-34) Ferritin 106 ng/mL (8-252) Lactate Dehydrogenase 161 U/L (81-234) Creatine Kinase 13 U/L (26-192) Laboratory Tests Test 12/03/17 04:00 White Blood Count 5.4 x10^3/uL (4.0-11.0) Red Blood Count 3.55 x10^6/uL (3.50-5.40) Hemoglobin 10.8 g/dL (12.0-15.5) Hematocrit 32.5 % (36.0-47.0) Mean Corpuscular Volume 92 fL (79-100) Mean Corpuscular Hemoglobin 31 pg (25-35) Mean Corpuscular Hemoglobin Concent 33 g/dL (31-37) Red Cell Distribution Width 15.2 % (11.5-14.5) Platelet Count 217 x10^3/uL (140-400) Neutrophils (%) (Auto) 36 % (31-73) Lymphocytes (%) (Auto) 46 % (24-48) Monocytes (%) (Auto) 12 % (0-9) Eosinophils (%) (Auto) 6 % (0-3) Basophils (%) (Auto) 0 % (0-3) Neutrophils # (Auto) 2.0 x10^3uL (1.8-7.7) Lymphocytes # (Auto) 2.5 x10^3/uL (1.0-4.8) Monocytes # (Auto) 0.6 x10^3/uL (0.0-1.1) Eosinophils # (Auto) 0.3 x10^3/uL (0.0-0.7) Basophils # (Auto) 0.0 x10^3/uL (0.0-0.2) Sodium Level 138 mmol/L (136-145) Potassium Level 5.3 mmol/L (3.5-5.1) Chloride Level 104 mmol/L (98-107) Carbon Dioxide Level 27 mmol/L (21-32) Anion Gap 7 (6-14) Blood Urea Nitrogen 31 mg/dL (7-20) Creatinine 2.0 mg/dL (0.6-1.0) Estimated GFR (Cockcroft-Gault) 28.8 Glucose Level 101 mg/dL (70-99) Calcium Level 8.6 mg/dL (8.5-10.1) Creatine Kinase 13 U/L (26-192) Medications Active Scripts Medications Dose Route/Sig Max Daily Dose Days Date Category Miralax (Polyethylene Glycol 3350) 17 Gm Powd.pack 1 Packet PO DAILY 11/29/17 Reported Flonase Allergy Relief (Fluticasone Propionate) 9.9 Ml [place].susp 2 Sprays NS DAILY 11/29/17 Reported Vitamin D3 (Cholecalciferol (Vitamin D3)) 1,000 Unit Tablet 1 Tab PO DAILY 11/29/17 Reported Tylenol (Acetaminophen) 325 Mg Tablet 325 Mg PO 11/29/17 Reported Cranberry (Cranberry Extract) 200 Mg Capsule 200 Mg PO 11/29/17 Reported Multivitamins (Multivitamin) 1 Each Tablet 1 Tab PO DAILY 11/29/17 Reported Acid Control (Ranitidine Hcl) 150 Mg Tablet 150 Mg PO 11/29/17 Reported Synthroid (Levothyroxine Sodium) 137 Mcg Tablet 1 Tab PO DAILY 11/29/17 Reported Protonix (Pantoprazole Sodium) 40 Mg Granpkt.dr 40 Mg PO DAILY 11/29/17 Reported Sotalol (Sotalol Hcl) 80 Mg Tablet 1 Tab PO BID 11/29/17 Reported Amlodipine Besylate 5 Mg Tablet 5 Mg PO DAILY 11/29/17 Reported Lasix (Furosemide) 40 Mg Tablet 1 Tab PO DAILY 06/03/14 Reported Losartan Potassium 50 Mg Tablet 50 Mg PO BID 06/03/14 Reported Hydrocodone-Apap 10-325 (Hydrocodone Bit/Acetaminophen) 1 Each Tablet 1 Each PO PRN Q4HRS 04/01/13 Reported Aspirin 81 Mg Tab.chew 81 Mg PO DAILY 04/01/13 Reported Impression . 1. [id number]-[id number] hypercapnic respiratory failure . 2. Abnormal chest x-ray with diffuse right sided interstitial infiltrates with right hilar prominence in the right lung. CT chest reviewed. no ILD or CHF/ mild basal effusions and atelectasis 3. Underlying morbid obesity with suspected obstructive sleep apnea and obesity hypoventilation syndrome. 4. Hyperkalemia. 5. azotemia 6. No significant history of tobacco use or asthma. 7. Ankle edema, suspect due to cor -pulmonale Plan . 1. Nasal canula / prn BIPAP 2. Monitor renal function 3. Noncontrast CT chest reviewed. no CHF/ ILD 4. Empiric antibiotic per ID 6. Monitor renal function. 7. She will benefit from sleep study as an outpatient. 8. Discussed with RN and daughter in detail 9. Daughter concerned with 25 Lb wt gain in hospital and ankle edema. re- started on PO SHUKRI Hyawood MD Dec 03, 2017 11:48
[2017-12-03] MEDS: ACETAMINOPHEN 325 MG TABLET. PO PRN (13:23)
[2017-12-03 15:00] VITALS: BP 126/51
[2017-12-03 19:00] VITALS: BP 116/47
[2017-12-03] MEDS: HYDROcodone/APAP 10/325 1 TAB TABLET PO PRN (20:34)
[2017-12-03 23:00] VITALS: BP 138/46
[2017-12-04] MEDS: HYDROcodone/APAP 10/325 1 TAB TABLET PO PRN ×3 (03:32→21:29)
[2017-12-04 06:04] LABS: CALCIUM 8.7 mg/dL (8.5-10.1); CREATININE 1.9 mg/dL (0.6-1.0); GFR 30.5; POTASSIUM 4.3 mmol/L (3.5-5.1)
[2017-12-04] MEDS: LEVOTHYROXINE 137 MCG TABLET PO SCH (06:10)
[2017-12-04 07:00] VITALS: BP 144/64
[2017-12-04] MEDS: IPRATRPIUM/ALBUTEROL 0.5/2.5MG 3 ML NEBU. NEB SCH ×4 (08:16→20:01)
[2017-12-04] MEDS: MULTIVITAMIN with MINERAL TABLET. PO SCH (08:50)
[2017-12-04] MEDS: SENNOSIDES/DOCUSATE 8.6/50MG TABLET. PO SCH ×2 (08:50→21:00)
[2017-12-04] MEDS: ASPIRIN CHEWABLE 81 MG TABLET. PO SCH (08:50)
[2017-12-04] MEDS: CHOLECALCIFEROL (VITAMIN D3) 1,000 UNIT TABLET PO SCH (08:50)
[2017-12-04] MEDS: LACTOBACILLUS RHAMNOSUS GG 1 CAPSULE. PO SCH ×2 (08:50→21:29)
[2017-12-04] MEDS: FUROSEMIDE 40 MG TABLET. PO SCH (08:50)
[2017-12-04] MEDS: PANTOPRAZOLE 40 MG TABLET.DR. PO SCH (08:50)
[2017-12-04] MEDS: CEFEPIME HCL IV Push 2 GM VIAL. IVP SCH (08:52)
[2017-12-04] MEDS: METOPROLOL TART IMMED RELEASE 25 MG TABLET. PO SCH (08:52)
[2017-12-04] MEDS: POLYETHYLENE GLYCOL 3350 17 GM PACKET. PO SCH (08:52)
[2017-12-04] MEDS: HEPARIN for SUB-Q USE 5,000 UNIT/ML VIAL. SQ SCH ×2 (09:20→21:35)
--- NOTE | 2017-12-04 10:01 | PDOC ---
PROGRESS NOTES Subjective Subjective feels better. slept poorly but discussed that sedatives need to avoided due to suspected ELLI. has bilateral leg edema from iv fluids and acute on chronic cor pulmonale on oral lasix. will avoid iv lasix due to recent STAN. creatinine improved to 1.9. not short of breath.daugher picking up sit to chair apparatus for home use tomorrow. so the earliest dismissal would be monday. discussed with daughter. Objective Objective Vital Signs Date Time Temp Pulse Resp B/P (MAP) Pulse Ox O2 Delivery O2 Flow Rate FiO2 12/04/17 08:52 64 144/64 12/04/17 08:17 96 Room Air 12/04/17 07:00 98.6 20 98.6 12/03/17 08:36 2.0 Intake and Output 12/04/17 07:00 Intake Total 1900 ml Output Total 2450 ml Balance -550 ml Intake Oral 1900 ml Output Urine Total 2450 ml # Bowel Movements 3 Physical Exam Abdomen: Soft, Other (obese) Heart: Regular rate, Normal S1, Normal S2 Extremities: Other (2to 3 plus edema legs) General: Alert HEENT: Atraumatic Lungs: Clear to auscultation Neuro: Normal speech Psych/Mental Status: Mental status NL Skin: No rashes Assessment Assessment 1. Acute on chronic hypoxic and hypercarbic respiratory failure. obesity hypoventilation syndrome 2. acute kidney injury improving on chronic kidney disease stage 3. 3. Morbid obesity with a body mass index of 60. 4. Paroxysmal atrial fibrillation. 5. Diabetes mellitus type 2, treated with diet. 6. Hypertension. 7. Hypothyroidism. 8. Chronic diastolic congestive heart failure. acute bronchitis bilateral LE edema due to acute and chronic cor pulmonale and previous iv fluids Plan Plan of Care iv antibiotics discussed with daughter avoid hs sedatives out patient sleep study await results of nocturnal oxygen desaturation study d/c jaeger continue oral lasix lab tomorrow daughter to obtain sit to stand apparatus tomorrow possible dismissal on monday discussed with dr. Deleon Comment Review of Relevant I have reviewed the following items jeet (where applicable) has been applied. Labs Laboratory Tests Test 12/03/17 04:00 12/04/17 05:00 White Blood Count 5.4 x10^3/uL (4.0-11.0) Red Blood Count 3.55 x10^6/uL (3.50-5.40) Hemoglobin 10.8 g/dL (12.0-15.5) Hematocrit 32.5 % (36.0-47.0) Mean Corpuscular Volume 92 fL (79-100) Mean Corpuscular Hemoglobin 31 pg (25-35) Mean Corpuscular Hemoglobin Concent 33 g/dL (31-37) Red Cell Distribution Width 15.2 % (11.5-14.5) Platelet Count 217 x10^3/uL (140-400) Neutrophils (%) (Auto) 36 % (31-73) Lymphocytes (%) (Auto) 46 % (24-48) Monocytes (%) (Auto) 12 % (0-9) Eosinophils (%) (Auto) 6 % (0-3) Basophils (%) (Auto) 0 % (0-3) Neutrophils # (Auto) 2.0 x10^3uL (1.8-7.7) Lymphocytes # (Auto) 2.5 x10^3/uL (1.0-4.8) Monocytes # (Auto) 0.6 x10^3/uL (0.0-1.1) Eosinophils # (Auto) 0.3 x10^3/uL (0.0-0.7) Basophils # (Auto) 0.0 x10^3/uL (0.0-0.2) Sodium Level 138 mmol/L (136-145) 141 mmol/L (136-145) Potassium Level 5.3 mmol/L (3.5-5.1) 4.3 mmol/L (3.5-5.1) Chloride Level 104 mmol/L (98-107) 105 mmol/L (98-107) Carbon Dioxide Level 27 mmol/L (21-32) 30 mmol/L (21-32) Anion Gap 7 (6-14) 6 (6-14) Blood Urea Nitrogen 31 mg/dL (7-20) 27 mg/dL (7-20) Creatinine 2.0 mg/dL (0.6-1.0) 1.9 mg/dL (0.6-1.0) Estimated GFR (Cockcroft-Gault) 28.8 30.5 Glucose Level 101 mg/dL (70-99) 101 mg/dL (70-99) Calcium Level 8.6 mg/dL (8.5-10.1) 8.7 mg/dL (8.5-10.1) Creatine Kinase 13 U/L (26-192) 12 U/L (26-192) Magnesium Level 2.0 mg/dL (1.8-2.4) Laboratory Tests Test 12/04/17 05:00 Sodium Level 141 mmol/L (136-145) Potassium Level 4.3 mmol/L (3.5-5.1) Chloride Level 105 mmol/L (98-107) Carbon Dioxide Level 30 mmol/L (21-32) Anion Gap 6 (6-14) Blood Urea Nitrogen 27 mg/dL (7-20) Creatinine 1.9 mg/dL (0.6-1.0) Estimated GFR (Cockcroft-Gault) 30.5 Glucose Level 101 mg/dL (70-99) Calcium Level 8.7 mg/dL (8.5-10.1) Magnesium Level 2.0 mg/dL (1.8-2.4) Creatine Kinase 12 U/L (26-192) Microbiology 11/30/17 - Final, Complete 11/30/17 - Final, Complete 11/30/17 - Final, Complete 11/30/17 Gram Stain Evaluation - Final, Complete 11/30/17 Sputum Culture - Final, Complete 11/30/17 Sputum Result 1 - Final, Complete 11/29/17 Urine Culture - Final, Complete 11/29/17 Urine Culture Result 1 (RAPHAEL) - Final, Complete Medications Current Medications Ondansetron HCl (Zofran) 4 mg PRN Q8HRS PRN IV NAUSEA/VOMITING; Start at 21:00; Stop 11/30/17 at 20:59; Status DC Insulin Human Regular (HumuLIN R VIAL) 10 unit 1X ONCE IV Last administered on 11/29/17at 22:35; Start 11/29/17 at 22:00; Stop 11/30/17 at 09:35; Status DC Dextrose (Dextrose 50%-Water Syringe) 25 gm 1X ONCE IV Last administered on at 22:31; Start 11/29/17 at 22:00; Stop 11/30/17 at 09:35; Status DC Albuterol Sulfate (Ventolin Neb Soln) 2.5 mg 1X ONCE NEB Last administered on 11/29/17at 22:44; Start 11/29/17 at 22:00; Stop 11/29/17 at 22:01; Status DC Calcium Gluconate (Calcium Gluconate) 2,000 mg 1X ONCE IVP Last administered on 11/29/17at 22:33; Start 11/29/17 at 22:00; Stop 11/29/17 at 22:01; Status DC Acetaminophen (Tylenol) 650 mg 1X ONCE PO Last administered on 11/29/17at 22: 40; Start 11/29/17 at 22:45; Stop 11/29/17 at 22:46; Status DC Heparin Sodium (Porcine) (Heparin Sodium) 5,000 unit Q12HR SQ Last administered on 12/04/17at 09:20; Start 11/30/17 at 09:00 Sodium Chloride (Normal Saline Flush) 3 ml QSHIFT PRN IV AFTER MEDS AND BLOOD DRAWS; Start 11/29/17 at 23:45 Senna/Docusate Sodium (Senna Plus) 1 tab BID PO Last administered on at 08:50; Start 11/30/17 at 09:00 Acetaminophen (Tylenol) 325 mg PRN Q6HRS PRN PO fever Last administered on at 13:23; Start 11/29/17 at 23:45 Amlodipine Besylate (Norvasc) 5 mg DAILY PO ; Start 11/30/17 at 09:00; Stop at 11:37; Status DC Aspirin (Children'S Aspirin) 81 mg DAILY PO Last administered on 12/04/17at 08: 50; Start 11/30/17 at 09:00 Vitamin D (Vitamin D3) 1,000 unit DAILY PO Last administered on 12/04/17at 08: 50; Start 11/30/17 at 09:00 Furosemide (Lasix) 40 mg DAILY PO ; Start 11/30/17 at 09:00; Stop 11/30/17 at 11:37; Status DC Levothyroxine Sodium (Synthroid) 137 mcg DAILY07 PO Last administered on at 06:10; Start 11/30/17 at 07:00 Fluticasone Propionate (Flonase) 2 spray DAILY NS ; Start 11/30/17 at 09:00; Stop 11/30/17 at 11:37; Status DC Acetaminophen/ Hydrocodone Bitart (Lortab 10/325) 1 tab PRN Q4HRS PRN PO PAIN Last administered on 12/01/17at 01:13; Start 11/29/17 at 23:45; Stop 12/01/17 at 10:01; Status DC Multivitamins (Thera M Plus) 1 tab DAILY PO Last administered on 12/04/17at 08: 50; Start 11/30/17 at 09:00 Pantoprazole Sodium (Protonix) 40 mg DAILYAC PO Last administered on at 08:50; Start 11/30/17 at 07:30 Polyethylene Glycol (miraLAX PACKET) 17 gm DAILY PO Last administered on at 08:52; Start 11/30/17 at 09:00 Sotalol HCl (Betapace) 80 mg BID PO ; Start 11/30/17 at 09:00; Stop 11/30/17 at 11:37; Status DC Insulin Human Lispro (HumaLOG) 0-7 UNITS TIDWMEALS SQ ; Start 11/30/17 at 08:00 ; Stop 11/30/17 at 09:35; Status DC Dextrose (Dextrose 50%-Water Syringe) 12.5 gm PRN Q15MIN PRN IV SEE COMMENTS; Start 11/30/17 at 00:00; Stop 11/30/17 at 09:35; Status DC Albuterol/ Ipratropium (Duoneb) 3 ml RTQID NEB Last administered on 12/04/17at 08:16; Start 11/30/17 at 08:00 Furosemide (Lasix) 40 mg 1X ONCE IVP ; Start 11/30/17 at 10:00; Stop at 10:08; Status DC Sodium Polystyrene Sulfonate (Kayexalate) 30 gm 1X ONCE PO ; Start 11/30/17 at 10:00; Stop 11/30/17 at 10:08; Status DC Sodium Chloride 500 ml @ 500 mls/hr 1X ONCE IV Last administered on at 10:22; Start 11/30/17 at 10:15; Stop 11/30/17 at 11:14; Status DC Insulin Human Regular (HumuLIN R VIAL) 10 unit 1X ONCE IV Last administered on 11/30/17at 10:27; Start 11/30/17 at 10:30; Stop 11/30/17 at 10:31; Status DC Dextrose (Dextrose 50%-Water Syringe) 25 gm 1X ONCE IV Last administered on at 10:25; Start 11/30/17 at 10:30; Stop 11/30/17 at 10:31; Status DC Levofloxacin/ Dextrose (Levaquin Per Pharmacy) 1 each PRN DAILY PRN MC SEE COMMENTS; Start 11/30/17 at 11:15; Stop 11/30/17 at 14:55; Status DC Linezolid/Dextrose 300 ml @ 300 mls/hr Q12HR IV Last administered on at 08:53; Start 11/30/17 at 12:00 Levofloxacin/ Dextrose 100 ml @ 100 mls/hr 1X ONCE IV Last administered on at 13:36; Start 11/30/17 at 12:00; Stop 11/30/17 at 12:59; Status DC Levofloxacin/ Dextrose 50 ml @ 50 mls/hr Q24H IV ; Start 12/01/17 at 12:00; Stop 12/01/17 at 12:00; Status DC Fluticasone Propionate (Flonase) 2 spray PRN DAILY PRN NS ALLERGIES Last administered on 12/01/17at 01:24; Start 11/30/17 at 11:30 Sotalol HCl (Betapace) 40 mg BID PO Last administered on 12/01/17at 01:18; Start 11/30/17 at 21:00; Stop 12/01/17 at 18:47; Status DC Sodium Chloride 1,000 ml @ 100 mls/hr Q10H IV Last administered on 12/02/17at 05:43; Start 11/30/17 at 11:30; Stop 12/02/17 at 10:56; Status DC Doxycycline Hyclate (Vibra-Tab) 100 mg BID PO Last administered on 12/01/17at 07:38; Start 11/30/17 at 21:00; Stop 12/01/17 at 11:36; Status DC Cefepime HCl 2 gm/ Dextrose 100 ml @ 200 mls/hr Q12HR IV ; Start 11/30/17 at 15:30; Status Cancel Cefepime HCl (Maxipime) 2 gm Q12HR IVP Last administered on 12/04/17at 08:52; Start 11/30/17 at 15:30 Acetaminophen/ Hydrocodone Bitart (Lortab 10/325) 1 tab PRN Q6HRS PRN PO PAIN Last administered on 12/04/17at 03:32; Start 12/01/17 at 10:15 Lactobacillus Rhamnosus (Culturelle) 1 cap BID PO Last administered on at 08:50; Start 12/01/17 at 21:00 Sotalol HCl (Betapace) 40 mg BID PO ; Start 12/01/17 at 21:00; Status Cancel Metoprolol Tartrate (Lopressor) 12.5 mg BID PO Last administered on 12/03/17at 08:34; Start 12/01/17 at 21:00; Stop 12/03/17 at 10:25; Status DC Furosemide (Lasix) 40 mg DAILY PO Last administered on 12/04/17at 08:50; Start 12/02/17 at 12:00 Sodium Polystyrene Sulfonate (Kayexalate) 30 gm 1X ONCE PO Last administered on 12/02/17at 12:33; Start 12/02/17 at 11:00; Stop 12/02/17 at 11:01; Status DC Metoprolol Tartrate (Lopressor) 12.5 mg DAILY PO Last administered on at 08:52; Start 12/04/17 at 09:00 Sodium Polystyrene Sulfonate (Kayexalate) 15 gm 1X ONCE PO Last administered on 12/03/17at 12:15; Start 12/03/17 at 11:00; Stop 12/03/17 at 11:01; Status DC Active Scripts Active Reported Miralax (Polyethylene Glycol 3350) 17 Gm Powd.pack 1 Packet PO DAILY Flonase Allergy Relief (Fluticasone Propionate) 9.9 Ml [place].susp 2 Sprays NS DAILY Vitamin D3 (Cholecalciferol (Vitamin D3)) 1,000 Unit Tablet 1 Tab PO DAILY Tylenol (Acetaminophen) 325 Mg Tablet 325 Mg PO Cranberry (Cranberry Extract) 200 Mg Capsule 200 Mg PO Multivitamins (Multivitamin) 1 Each Tablet 1 Tab PO DAILY Acid Control (Ranitidine Hcl) 150 Mg Tablet 150 Mg PO Synthroid (Levothyroxine Sodium) 137 Mcg Tablet 1 Tab PO DAILY Protonix (Pantoprazole Sodium) 40 Mg Granpkt.dr 40 Mg PO DAILY Sotalol (Sotalol Hcl) 80 Mg Tablet 1 Tab PO BID Amlodipine Besylate 5 Mg Tablet 5 Mg PO DAILY Lasix (Furosemide) 40 Mg Tablet 1 Tab PO DAILY Losartan Potassium 50 Mg Tablet 50 Mg PO BID Hydrocodone-Apap 10-325 (Hydrocodone Bit/Acetaminophen) 1 Each Tablet 1 Each PO PRN Q4HRS Aspirin 81 Mg Tab.chew 81 Mg PO DAILY Vitals/I & O Vital Sign - Last 24 Hours 12/03/17 12/03/17 12/03/17 12/03/17 11:00 11:17 15:00 15:37 Temp 98.2 97.7 98.2 97.7 Pulse 55 66 Resp 18 18 B/P (MAP) 141/61 (87) 126/51 (76) Pulse Ox 92 92 93 93 O2 Delivery 2L/NC Room Air 2L NC Room Air 12/03/17 12/03/17 12/03/17 12/03/17 19:00 20:00 20:10 20:34 Temp 98.5 98.5 Pulse 67 Resp 18 B/P (MAP) 116/47 (70) Pulse Ox 94 95 95 O2 Delivery Room Air Room Air Room Air 12/03/17 12/04/17 12/04/17 12/04/17 23:00 03:00 03:32 04:32 Temp 99.0 99.0 Pulse 65 63 Resp 20 16 B/P (MAP) 138/46 (76) Pulse Ox 96 95 96 96 O2 Delivery Room Air Room Air Room Air Room Air 12/04/17 12/04/17 12/04/17 12/04/17 07:00 08:00 08:17 08:52 Temp 98.6 98.6 Pulse 64 64 Resp 20 B/P (MAP) 144/64 (90) 144/64 Pulse Ox 97 96 O2 Delivery Room Air Room Air Intake and Output 12/03/17 12/03/17 12/04/17 15:00 23:00 07:00 Intake Total 600 ml 1300 ml Output Total 2450 ml Balance 600 ml 1300 ml -2450 ml HOOD ALLAN MD Dec 04, 2017 10:01
[2017-12-04 11:00] VITALS: BP 150/81
--- NOTE | 2017-12-04 11:45 | PDOC ---
Infectious Disease Note Subjective Subjective awake, sitting says feeling really good ROS ROS no n/v/d/sob Vital Sign Vital Signs Vital Signs Date Time Temp Pulse Resp B/P (MAP) Pulse Ox O2 Delivery O2 Flow Rate FiO2 12/04/17 10:56 Room Air 12/04/17 08:52 64 144/64 12/04/17 08:17 96 12/04/17 07:00 98.6 20 98.6 12/03/17 08:36 2.0 Physical Exam PHYSICAL EXAM GENERAL: Lying down, NAD HENT: Oral cavity clear LUNGS: Improved aeration Clear anteriorly HEART: S1, S2. ABDOMEN: Morbidly obese, soft, NT : [place] EXTREMITIES: Generalized edema. 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 Labs Lab Laboratory Tests Test 12/04/17 05:00 Sodium Level 141 mmol/L (136-145) Potassium Level 4.3 mmol/L (3.5-5.1) Chloride Level 105 mmol/L (98-107) Carbon Dioxide Level 30 mmol/L (21-32) Anion Gap 6 (6-14) Blood Urea Nitrogen 27 mg/dL (7-20) Creatinine 1.9 mg/dL (0.6-1.0) Estimated GFR (Cockcroft-Gault) 30.5 Glucose Level 101 mg/dL (70-99) Calcium Level 8.7 mg/dL (8.5-10.1) Magnesium Level 2.0 mg/dL (1.8-2.4) Creatine Kinase 12 U/L (26-192) Micro Microbiology 11/30/17 - Final, Complete 11/30/17 - Final, Complete 11/30/17 - Final, Complete 11/30/17 Gram Stain Evaluation - Final, Complete 11/30/17 Sputum Culture - Final, Complete 11/30/17 Sputum Result 1 - Final, Complete 11/29/17 Urine Culture - Final, Complete 11/29/17 Urine Culture Result 1 (RAPHAEL) - Final, Complete Objective Assessment Acute Resp failure - improved -Influenza neg; sputum culture neg; strep ag neg PCN allergy - has tolerated Cephalexin (d/w 2 daughters). Sulfa allergy AFib STAN CHF MRSA screen positive Plan Plan of Care d/c Zyvox and cefepime Legionella antigen pending, RVP not available Monitor labs/temp Supportive care D/W Daughter at bedside LE,VARUN R MD Dec 04, 2017 11:45
--- NOTE | 2017-12-04 12:12 | PDOC ---
Renal-Progress Notes Subjective Notes Notes NO NEW COMPLAINTS History of Present Illness Hx of present illness STABLE Vitals Vitals Vital Signs Date Time Temp Pulse Resp B/P (MAP) Pulse Ox O2 Delivery O2 Flow Rate FiO2 12/04/17 11:55 96 Room Air 12/04/17 08:52 64 144/64 12/04/17 07:00 98.6 20 98.6 12/03/17 08:36 2.0 Weight Weight [ ] I.O. Intake and Output Intake and Output 12/04/17 07:00 Intake Total 1900 ml Output Total 2450 ml Balance -550 ml Intake Oral 1900 ml Output Urine Total 2450 ml # Bowel Movements 3 Labs Labs Laboratory Tests Test 12/04/17 05:00 Sodium Level 141 mmol/L (136-145) Potassium Level 4.3 mmol/L (3.5-5.1) Chloride Level 105 mmol/L (98-107) Carbon Dioxide Level 30 mmol/L (21-32) Anion Gap 6 (6-14) Blood Urea Nitrogen 27 mg/dL (7-20) Creatinine 1.9 mg/dL (0.6-1.0) Estimated GFR (Cockcroft-Gault) 30.5 Glucose Level 101 mg/dL (70-99) Calcium Level 8.7 mg/dL (8.5-10.1) Magnesium Level 2.0 mg/dL (1.8-2.4) Creatine Kinase 12 U/L (26-192) Micro Micro Microbiology 11/30/17 - Final, Complete 11/30/17 - Final, Complete 11/30/17 - Final, Complete 11/30/17 Gram Stain Evaluation - Final, Complete 11/30/17 Sputum Culture - Final, Complete 11/30/17 Sputum Result 1 - Final, Complete 11/29/17 Urine Culture - Final, Complete 11/29/17 Urine Culture Result 1 (RAPHAEL) - Final, Complete Review of Systems Constitutional: yes: weakness, alert, oriented Ears/Nose/Throat: Yes: no symptom reported Eyes: Yes: no symptom reported Pulmonary: Yes no symptom reported, Yes dyspnea Cardiovascular: Yes no symptom reported Gastrointestional: Yes: no symptom reported Genitourinary: Yes: no symptom reported Musculoskeletal: Yes: no symptom reported Skin: Yes no symptom reported Psychiatric/Neurological: Yes: no symptom reported Endocrine: Yes: no symptom reported Physical Exam General Appearance: no apparent distress Skin: warm Respiratory: decreased breath sounds Heart: S1S2 Abdomen: soft, bowel sounds present Genitourinary: bladder flat Extremities: edema Neurology: alert, follow commands Assessment Assessment IMP STAN-NEARLY RESOLVED WITH CR DOWN TO 1.9 CKD STAGE 3 WITH BASELINE CR OF 1.5 HEMATURIA-MOST LIKELY DUE TO HEMORRHAGIC CYST DIASTOLIC CHF-ACUTE AND CHRONIC ACUTE RESP FAILURE DM II HTN PLAN CONT LASIX CONT SUPPORTIVE CARE SUGGEST REPEAT UA IN A COUPLE MONTHS AND IF HEMATURIA STILL PRESENT THEN UROLOGY RAMESH RONDON MD Dec 04, 2017 12:12
[2017-12-04 12:13] LABS: TOTAL SERUM CREATININE 1.8 mg/dL (0.57-1.00); TOTAL URINE CREATININE 24.9 mg/dL (Not Estab.)
[2017-12-04 12:14] LABS: UR PROTEIN 15.8 mg/dL (Not Estab.)
--- NOTE | 2017-12-04 12:15 | PDOC ---
PULMONARY PROGRESS NOTES Subjective no soa Vitals Vital Signs Date Time Temp Pulse Resp B/P (MAP) Pulse Ox O2 Delivery O2 Flow Rate FiO2 12/04/17 11:55 96 Room Air 12/04/17 08:52 64 144/64 12/04/17 07:00 98.6 20 98.6 12/03/17 08:36 2.0 General: Alert, No acute distress Lungs: Clear Cardiovascular: S1 Abdomen: Soft, Other (obese) Extremities: Other (1+edema) Labs Laboratory Tests Test 12/03/17 04:00 12/04/17 05:00 White Blood Count 5.4 x10^3/uL (4.0-11.0) Red Blood Count 3.55 x10^6/uL (3.50-5.40) Hemoglobin 10.8 g/dL (12.0-15.5) Hematocrit 32.5 % (36.0-47.0) Mean Corpuscular Volume 92 fL (79-100) Mean Corpuscular Hemoglobin 31 pg (25-35) Mean Corpuscular Hemoglobin Concent 33 g/dL (31-37) Red Cell Distribution Width 15.2 % (11.5-14.5) Platelet Count 217 x10^3/uL (140-400) Neutrophils (%) (Auto) 36 % (31-73) Lymphocytes (%) (Auto) 46 % (24-48) Monocytes (%) (Auto) 12 % (0-9) Eosinophils (%) (Auto) 6 % (0-3) Basophils (%) (Auto) 0 % (0-3) Neutrophils # (Auto) 2.0 x10^3uL (1.8-7.7) Lymphocytes # (Auto) 2.5 x10^3/uL (1.0-4.8) Monocytes # (Auto) 0.6 x10^3/uL (0.0-1.1) Eosinophils # (Auto) 0.3 x10^3/uL (0.0-0.7) Basophils # (Auto) 0.0 x10^3/uL (0.0-0.2) Sodium Level 138 mmol/L (136-145) 141 mmol/L (136-145) Potassium Level 5.3 mmol/L (3.5-5.1) 4.3 mmol/L (3.5-5.1) Chloride Level 104 mmol/L (98-107) 105 mmol/L (98-107) Carbon Dioxide Level 27 mmol/L (21-32) 30 mmol/L (21-32) Anion Gap 7 (6-14) 6 (6-14) Blood Urea Nitrogen 31 mg/dL (7-20) 27 mg/dL (7-20) Creatinine 2.0 mg/dL (0.6-1.0) 1.9 mg/dL (0.6-1.0) Estimated GFR (Cockcroft-Gault) 28.8 30.5 Glucose Level 101 mg/dL (70-99) 101 mg/dL (70-99) Calcium Level 8.6 mg/dL (8.5-10.1) 8.7 mg/dL (8.5-10.1) Creatine Kinase 13 U/L (26-192) 12 U/L (26-192) Magnesium Level 2.0 mg/dL (1.8-2.4) Laboratory Tests Test 12/04/17 05:00 Sodium Level 141 mmol/L (136-145) Potassium Level 4.3 mmol/L (3.5-5.1) Chloride Level 105 mmol/L (98-107) Carbon Dioxide Level 30 mmol/L (21-32) Anion Gap 6 (6-14) Blood Urea Nitrogen 27 mg/dL (7-20) Creatinine 1.9 mg/dL (0.6-1.0) Estimated GFR (Cockcroft-Gault) 30.5 Glucose Level 101 mg/dL (70-99) Calcium Level 8.7 mg/dL (8.5-10.1) Magnesium Level 2.0 mg/dL (1.8-2.4) Creatine Kinase 12 U/L (26-192) Medications Active Scripts Medications Dose Route/Sig Max Daily Dose Days Date Category Miralax (Polyethylene Glycol 3350) 17 Gm Powd.pack 1 Packet PO DAILY 11/29/17 Reported Flonase Allergy Relief (Fluticasone Propionate) 9.9 Ml [place].susp 2 Sprays NS DAILY 11/29/17 Reported Vitamin D3 (Cholecalciferol (Vitamin D3)) 1,000 Unit Tablet 1 Tab PO DAILY 11/29/17 Reported Tylenol (Acetaminophen) 325 Mg Tablet 325 Mg PO 11/29/17 Reported Cranberry (Cranberry Extract) 200 Mg Capsule 200 Mg PO 11/29/17 Reported Multivitamins (Multivitamin) 1 Each Tablet 1 Tab PO DAILY 11/29/17 Reported Acid Control (Ranitidine Hcl) 150 Mg Tablet 150 Mg PO 11/29/17 Reported Synthroid (Levothyroxine Sodium) 137 Mcg Tablet 1 Tab PO DAILY 11/29/17 Reported Protonix (Pantoprazole Sodium) 40 Mg Granpkt.dr 40 Mg PO DAILY 11/29/17 Reported Sotalol (Sotalol Hcl) 80 Mg Tablet 1 Tab PO BID 11/29/17 Reported Amlodipine Besylate 5 Mg Tablet 5 Mg PO DAILY 11/29/17 Reported Lasix (Furosemide) 40 Mg Tablet 1 Tab PO DAILY 06/03/14 Reported Losartan Potassium 50 Mg Tablet 50 Mg PO BID 06/03/14 Reported Hydrocodone-Apap 10-325 (Hydrocodone Bit/Acetaminophen) 1 Each Tablet 1 Each PO PRN Q4HRS 04/01/13 Reported Aspirin 81 Mg Tab.chew 81 Mg PO DAILY 04/01/13 Reported Impression . 1. [id number] hypercapnic respiratory failure . 2. Abnormal chest x-ray with diffuse right sided interstitial infiltrates with right hilar prominence in the right lung. CT chest reviewed. no ILD or CHF/ mild basal effusions and atelectasis 3. Underlying morbid obesity with suspected obstructive sleep apnea and obesity hypoventilation syndrome. 4. Hyperkalemia. 5. azotemia 6. No significant history of tobacco use or asthma. 7. Ankle edema, suspect due to cor -pulmonale Plan . 1. Nasal canula / prn BIPAP 2. Monitor renal function 3. Noncontrast CT chest reviewed. no CHF/ ILD 4. Empiric antibiotic per ID 6. Monitor renal function. 7. She will benefit from sleep study as an outpatient. 8. Discussed with RN and daughter in detail 9. PO lasix 10. Pt to follow with me in January with a sleep study prior. Appointment given. In the mean time arrange nocturnal oxygen based on abnormal study / d/w SHUKRI CHAPMAN MD Dec 04, 2017 12:15
[2017-12-04 15:00] VITALS: BP 134/65
[2017-12-04 19:00] VITALS: BP 143/62
[2017-12-04 23:00] VITALS: BP 144/76
[2017-12-05 03:00] VITALS: BP 164/67
[2017-12-05 06:30] LABS: CALCIUM 8.7 mg/dL (8.5-10.1); CREATININE 1.9 mg/dL (0.6-1.0); GFR 30.5; POTASSIUM 4.2 mmol/L (3.5-5.1)
[2017-12-05 07:00] VITALS: BP 146/64
[2017-12-05] MEDS: LEVOTHYROXINE 137 MCG TABLET PO SCH (07:35)
[2017-12-05] MEDS: IPRATRPIUM/ALBUTEROL 0.5/2.5MG 3 ML NEBU. NEB SCH ×4 (08:03→19:15)
[2017-12-05] MEDS: POLYETHYLENE GLYCOL 3350 17 GM PACKET. PO SCH (09:00)
[2017-12-05] MEDS: SENNOSIDES/DOCUSATE 8.6/50MG TABLET. PO SCH ×2 (09:00→20:33)
--- NOTE | 2017-12-05 09:21 | PDOC ---
PULMONARY PROGRESS NOTES Subjective no soa Vitals Vital Signs Date Time Temp Pulse Resp B/P (MAP) Pulse Ox O2 Delivery O2 Flow Rate FiO2 12/05/17 08:05 100 Nasal Cannula 2.0 12/05/17 07:00 98.4 86 18 146/64 (91) 98.4 General: Alert, No acute distress Lungs: Clear Cardiovascular: S1 Abdomen: Soft, Other (obese) Extremities: Other (1+edema) Labs Laboratory Tests Test 12/04/17 05:00 12/05/17 04:20 Sodium Level 141 mmol/L (136-145) 141 mmol/L (136-145) Potassium Level 4.3 mmol/L (3.5-5.1) 4.2 mmol/L (3.5-5.1) Chloride Level 105 mmol/L (98-107) 105 mmol/L (98-107) Carbon Dioxide Level 30 mmol/L (21-32) 30 mmol/L (21-32) Anion Gap 6 (6-14) 6 (6-14) Blood Urea Nitrogen 27 mg/dL (7-20) 25 mg/dL (7-20) Creatinine 1.9 mg/dL (0.6-1.0) 1.9 mg/dL (0.6-1.0) Estimated GFR (Cockcroft-Gault) 30.5 30.5 Glucose Level 101 mg/dL (70-99) 115 mg/dL (70-99) Calcium Level 8.7 mg/dL (8.5-10.1) 8.7 mg/dL (8.5-10.1) Magnesium Level 2.0 mg/dL (1.8-2.4) 2.0 mg/dL (1.8-2.4) Creatine Kinase 12 U/L (26-192) 14 U/L (26-192) Laboratory Tests Test 12/05/17 04:20 Sodium Level 141 mmol/L (136-145) Potassium Level 4.2 mmol/L (3.5-5.1) Chloride Level 105 mmol/L (98-107) Carbon Dioxide Level 30 mmol/L (21-32) Anion Gap 6 (6-14) Blood Urea Nitrogen 25 mg/dL (7-20) Creatinine 1.9 mg/dL (0.6-1.0) Estimated GFR (Cockcroft-Gault) 30.5 Glucose Level 115 mg/dL (70-99) Calcium Level 8.7 mg/dL (8.5-10.1) Magnesium Level 2.0 mg/dL (1.8-2.4) Creatine Kinase 14 U/L (26-192) Medications Active Scripts Medications Dose Route/Sig Max Daily Dose Days Date Category Miralax (Polyethylene Glycol 3350) 17 Gm Powd.pack 1 Packet PO DAILY 11/29/17 Reported Flonase Allergy Relief (Fluticasone Propionate) 9.9 Ml [place].susp 2 Sprays NS DAILY 11/29/17 Reported Vitamin D3 (Cholecalciferol (Vitamin D3)) 1,000 Unit Tablet 1 Tab PO DAILY 11/29/17 Reported Tylenol (Acetaminophen) 325 Mg Tablet 325 Mg PO 11/29/17 Reported Cranberry (Cranberry Extract) 200 Mg Capsule 200 Mg PO 11/29/17 Reported Multivitamins (Multivitamin) 1 Each Tablet 1 Tab PO DAILY 11/29/17 Reported Acid Control (Ranitidine Hcl) 150 Mg Tablet 150 Mg PO 11/29/17 Reported Synthroid (Levothyroxine Sodium) 137 Mcg Tablet 1 Tab PO DAILY 11/29/17 Reported Protonix (Pantoprazole Sodium) 40 Mg Granpkt.dr 40 Mg PO DAILY 11/29/17 Reported Sotalol (Sotalol Hcl) 80 Mg Tablet 1 Tab PO BID 11/29/17 Reported Amlodipine Besylate 5 Mg Tablet 5 Mg PO DAILY 11/29/17 Reported Lasix (Furosemide) 40 Mg Tablet 1 Tab PO DAILY 06/03/14 Reported Losartan Potassium 50 Mg Tablet 50 Mg PO BID 06/03/14 Reported Hydrocodone-Apap 10-325 (Hydrocodone Bit/Acetaminophen) 1 Each Tablet 1 Each PO PRN Q4HRS 04/01/13 Reported Aspirin 81 Mg Tab.chew 81 Mg PO DAILY 04/01/13 Reported Impression . 1. Knvxq-lh-cobvnrm hypercapnic respiratory failure . 2. Abnormal chest x-ray with diffuse right sided interstitial infiltrates with right hilar prominence in the right lung. CT chest reviewed. no ILD or CHF/ mild basal effusions and atelectasis 3. Underlying morbid obesity with suspected obstructive sleep apnea and obesity hypoventilation syndrome. 4. Hyperkalemia. 5. azotemia 6. No significant history of tobacco use or asthma. 7. Ankle edema, suspect due to cor -pulmonale Plan . OXYGEN AT HOME PT TO FOLLOW UP WITH DR MAX FOR SLEEP STUDY OK TO D/C IN BRAVO CARDOZA MD Dec 05, 2017 09:21
[2017-12-05] MEDS: LACTOBACILLUS RHAMNOSUS GG 1 CAPSULE. PO SCH ×2 (09:39→20:32)
[2017-12-05] MEDS: MULTIVITAMIN with MINERAL TABLET. PO SCH (09:39)
[2017-12-05] MEDS: PANTOPRAZOLE 40 MG TABLET.DR. PO SCH (09:39)
[2017-12-05] MEDS: METOPROLOL TART IMMED RELEASE 25 MG TABLET. PO SCH (09:40)
[2017-12-05] MEDS: FUROSEMIDE 40 MG TABLET. PO SCH (09:40)
[2017-12-05] MEDS: ASPIRIN CHEWABLE 81 MG TABLET. PO SCH (09:40)
[2017-12-05] MEDS: CHOLECALCIFEROL (VITAMIN D3) 1,000 UNIT TABLET PO SCH (09:40)
--- NOTE | 2017-12-05 09:41 | RESP ---
DATE OF SERVICE: 12/03/2017 NOCTURNAL OXIMETRY STUDY ATTENDING PHYSICIAN: Dr. Rojas. The patient's mean oxygen saturation remained around 93.8% with the lowest of 76%. 9% of time oxygen, saturation remained less than 90%, which was a total of 48 minutes. IMPRESSION: Nocturnal hypoxia. RECOMMENDATIONS: If clinical suspicion for sleep apnea is high, then consider doing full polysomnogram. Alternatively, the patient should be placed on 2 liters at nighttime. SHUKRI MAX MD DR: GAYLE/lila JOB#: [id number] / [id number] HOOD Bhat MD
[2017-12-05] MEDS: HEPARIN for SUB-Q USE 5,000 UNIT/ML VIAL. SQ SCH ×2 (09:50→20:38)
--- NOTE | 2017-12-05 09:54 | PDOC ---
PROGRESS NOTES Subjective Subjective feels better. she will be on oxygen 2LNC aldrich nocturnal oxygen desaturation and will need this for home. labs reviewed. creatinine stable 1.9. has less LE edema. Objective Objective Vital Signs Date Time Temp Pulse Resp B/P (MAP) Pulse Ox O2 Delivery O2 Flow Rate FiO2 12/05/17 08:05 100 Nasal Cannula 2.0 12/05/17 07:00 98.4 86 18 146/64 (91) 98.4 Intake and Output 12/05/17 07:00 Intake Total 700 ml Output Total 800 ml Balance -100 ml Intake Oral 700 ml Output Urine Total 800 ml Physical Exam Abdomen: Soft, Other (obese) Heart: Regular rate, Normal S1, Normal S2 Extremities: Other (2 pus edema legs) General: Alert HEENT: Atraumatic Lungs: Clear to auscultation Neuro: Normal speech Psych/Mental Status: Mood NL Skin: No rashes Assessment Assessment . Acute on chronic hypoxic and hypercarbic respiratory failure. obesity hypoventilation syndrome 2. acute kidney injury improved on chronic kidney disease stage 3. 3. Morbid obesity with a body mass index of 60. 4. Paroxysmal atrial fibrillation. 5. Diabetes mellitus type 2, treated with diet. 6. Hypertension. 7. Hypothyroidism. 8. Chronic diastolic congestive heart failure. acute bronchitis treated bilateral LE edema due to acute and chronic cor pulmonale and previous iv fluids Plan Plan of Care daughter to get sit to stand apparatus for home use oxygen 2LNC at hs at home out patient sleep study to be arranged by dr. Deleon continue furosemide dismiss tomorrow PT and OT Comment Review of Relevant I have reviewed the following items jeet (where applicable) has been applied. Labs Laboratory Tests Test 12/04/17 05:00 12/05/17 04:20 Sodium Level 141 mmol/L (136-145) 141 mmol/L (136-145) Potassium Level 4.3 mmol/L (3.5-5.1) 4.2 mmol/L (3.5-5.1) Chloride Level 105 mmol/L (98-107) 105 mmol/L (98-107) Carbon Dioxide Level 30 mmol/L (21-32) 30 mmol/L (21-32) Anion Gap 6 (6-14) 6 (6-14) Blood Urea Nitrogen 27 mg/dL (7-20) 25 mg/dL (7-20) Creatinine 1.9 mg/dL (0.6-1.0) 1.9 mg/dL (0.6-1.0) Estimated GFR (Cockcroft-Gault) 30.5 30.5 Glucose Level 101 mg/dL (70-99) 115 mg/dL (70-99) Calcium Level 8.7 mg/dL (8.5-10.1) 8.7 mg/dL (8.5-10.1) Magnesium Level 2.0 mg/dL (1.8-2.4) 2.0 mg/dL (1.8-2.4) Creatine Kinase 12 U/L (26-192) 14 U/L (26-192) Laboratory Tests Test 12/05/17 04:20 Sodium Level 141 mmol/L (136-145) Potassium Level 4.2 mmol/L (3.5-5.1) Chloride Level 105 mmol/L (98-107) Carbon Dioxide Level 30 mmol/L (21-32) Anion Gap 6 (6-14) Blood Urea Nitrogen 25 mg/dL (7-20) Creatinine 1.9 mg/dL (0.6-1.0) Estimated GFR (Cockcroft-Gault) 30.5 Glucose Level 115 mg/dL (70-99) Calcium Level 8.7 mg/dL (8.5-10.1) Magnesium Level 2.0 mg/dL (1.8-2.4) Creatine Kinase 14 U/L (26-192) Microbiology 11/30/17 - Final, Complete 11/30/17 - Final, Complete 11/30/17 - Final, Complete 11/30/17 Gram Stain Evaluation - Final, Complete 11/30/17 Sputum Culture - Final, Complete 11/30/17 Sputum Result 1 - Final, Complete 11/29/17 Urine Culture - Final, Complete 11/29/17 Urine Culture Result 1 (RAPHAEL) - Final, Complete Medications Current Medications Ondansetron HCl (Zofran) 4 mg PRN Q8HRS PRN IV NAUSEA/VOMITING; Start at 21:00; Stop 11/30/17 at 20:59; Status DC Insulin Human Regular (HumuLIN R VIAL) 10 unit 1X ONCE IV Last administered on 11/29/17at 22:35; Start 11/29/17 at 22:00; Stop 11/30/17 at 09:35; Status DC Dextrose (Dextrose 50%-Water Syringe) 25 gm 1X ONCE IV Last administered on at 22:31; Start 11/29/17 at 22:00; Stop 11/30/17 at 09:35; Status DC Albuterol Sulfate (Ventolin Neb Soln) 2.5 mg 1X ONCE NEB Last administered on 11/29/17at 22:44; Start 11/29/17 at 22:00; Stop 11/29/17 at 22:01; Status DC Calcium Gluconate (Calcium Gluconate) 2,000 mg 1X ONCE IVP Last administered on 11/29/17at 22:33; Start 11/29/17 at 22:00; Stop 11/29/17 at 22:01; Status DC Acetaminophen (Tylenol) 650 mg 1X ONCE PO Last administered on 11/29/17at 22: 40; Start 11/29/17 at 22:45; Stop 11/29/17 at 22:46; Status DC Heparin Sodium (Porcine) (Heparin Sodium) 5,000 unit Q12HR SQ Last administered on 12/04/17at 21:35; Start 11/30/17 at 09:00 Sodium Chloride (Normal Saline Flush) 3 ml QSHIFT PRN IV AFTER MEDS AND BLOOD DRAWS; Start 11/29/17 at 23:45 Senna/Docusate Sodium (Senna Plus) 1 tab BID PO Last administered on at 08:50; Start 11/30/17 at 09:00 Acetaminophen (Tylenol) 325 mg PRN Q6HRS PRN PO fever Last administered on at 13:23; Start 11/29/17 at 23:45 Amlodipine Besylate (Norvasc) 5 mg DAILY PO ; Start 11/30/17 at 09:00; Stop at 11:37; Status DC Aspirin (Children'S Aspirin) 81 mg DAILY PO Last administered on 12/04/17at 08: 50; Start 11/30/17 at 09:00 Vitamin D (Vitamin D3) 1,000 unit DAILY PO Last administered on 12/04/17at 08: 50; Start 11/30/17 at 09:00 Furosemide (Lasix) 40 mg DAILY PO ; Start 11/30/17 at 09:00; Stop 11/30/17 at 11:37; Status DC Levothyroxine Sodium (Synthroid) 137 mcg DAILY07 PO Last administered on at 07:35; Start 11/30/17 at 07:00 Fluticasone Propionate (Flonase) 2 spray DAILY NS ; Start 11/30/17 at 09:00; Stop 11/30/17 at 11:37; Status DC Acetaminophen/ Hydrocodone Bitart (Lortab 10/325) 1 tab PRN Q4HRS PRN PO PAIN Last administered on 12/01/17at 01:13; Start 11/29/17 at 23:45; Stop 12/01/17 at 10:01; Status DC Multivitamins (Thera M Plus) 1 tab DAILY PO Last administered on 12/04/17at 08: 50; Start 11/30/17 at 09:00 Pantoprazole Sodium (Protonix) 40 mg DAILYAC PO Last administered on at 08:50; Start 11/30/17 at 07:30 Polyethylene Glycol (miraLAX PACKET) 17 gm DAILY PO Last administered on at 08:52; Start 11/30/17 at 09:00 Sotalol HCl (Betapace) 80 mg BID PO ; Start 11/30/17 at 09:00; Stop 11/30/17 at 11:37; Status DC Insulin Human Lispro (HumaLOG) 0-7 UNITS TIDWMEALS SQ ; Start 11/30/17 at 08:00 ; Stop 11/30/17 at 09:35; Status DC Dextrose (Dextrose 50%-Water Syringe) 12.5 gm PRN Q15MIN PRN IV SEE COMMENTS; Start 11/30/17 at 00:00; Stop 11/30/17 at 09:35; Status DC Albuterol/ Ipratropium (Duoneb) 3 ml RTQID NEB Last administered on 12/05/17at 08:03; Start 11/30/17 at 08:00 Furosemide (Lasix) 40 mg 1X ONCE IVP ; Start 11/30/17 at 10:00; Stop at 10:08; Status DC Sodium Polystyrene Sulfonate (Kayexalate) 30 gm 1X ONCE PO ; Start 11/30/17 at 10:00; Stop 11/30/17 at 10:08; Status DC Sodium Chloride 500 ml @ 500 mls/hr 1X ONCE IV Last administered on at 10:22; Start 11/30/17 at 10:15; Stop 11/30/17 at 11:14; Status DC Insulin Human Regular (HumuLIN R VIAL) 10 unit 1X ONCE IV Last administered on 11/30/17at 10:27; Start 11/30/17 at 10:30; Stop 11/30/17 at 10:31; Status DC Dextrose (Dextrose 50%-Water Syringe) 25 gm 1X ONCE IV Last administered on at 10:25; Start 11/30/17 at 10:30; Stop 11/30/17 at 10:31; Status DC Levofloxacin/ Dextrose (Levaquin Per Pharmacy) 1 each PRN DAILY PRN MC SEE COMMENTS; Start 11/30/17 at 11:15; Stop 11/30/17 at 14:55; Status DC Linezolid/Dextrose 300 ml @ 300 mls/hr Q12HR IV Last administered on at 08:53; Start 11/30/17 at 12:00; Stop 12/04/17 at 11:45; Status DC Levofloxacin/ Dextrose 100 ml @ 100 mls/hr 1X ONCE IV Last administered on at 13:36; Start 11/30/17 at 12:00; Stop 11/30/17 at 12:59; Status DC Levofloxacin/ Dextrose 50 ml @ 50 mls/hr Q24H IV ; Start 12/01/17 at 12:00; Stop 12/01/17 at 12:00; Status DC Fluticasone Propionate (Flonase) 2 spray PRN DAILY PRN NS ALLERGIES Last administered on 12/01/17at 01:24; Start 11/30/17 at 11:30 Sotalol HCl (Betapace) 40 mg BID PO Last administered on 12/01/17at 01:18; Start 11/30/17 at 21:00; Stop 12/01/17 at 18:47; Status DC Sodium Chloride 1,000 ml @ 100 mls/hr Q10H IV Last administered on 12/02/17at 05:43; Start 11/30/17 at 11:30; Stop 12/02/17 at 10:56; Status DC Doxycycline Hyclate (Vibra-Tab) 100 mg BID PO Last administered on 12/01/17at 07:38; Start 11/30/17 at 21:00; Stop 12/01/17 at 11:36; Status DC Cefepime HCl 2 gm/ Dextrose 100 ml @ 200 mls/hr Q12HR IV ; Start 11/30/17 at 15:30; Status Cancel Cefepime HCl (Maxipime) 2 gm Q12HR IVP Last administered on 12/04/17at 08:52; Start 11/30/17 at 15:30; Stop 12/04/17 at 11:45; Status DC Acetaminophen/ Hydrocodone Bitart (Lortab 10325) 1 tab PRN Q6HRS PRN PO PAIN Last administered on 12/04/17at 21:29; Start 12/01/17 at 10:15 Lactobacillus Rhamnosus (Culturelle) 1 cap BID PO Last administered on at 21:29; Start 12/01/17 at 21:00 Sotalol HCl (Betapace) 40 mg BID PO ; Start 12/01/17 at 21:00; Status Cancel Metoprolol Tartrate (Lopressor) 12.5 mg BID PO Last administered on 12/03/17at 08:34; Start 12/01/17 at 21:00; Stop 12/03/17 at 10:25; Status DC Furosemide (Lasix) 40 mg DAILY PO Last administered on 12/04/17at 08:50; Start 12/02/17 at 12:00 Sodium Polystyrene Sulfonate (Kayexalate) 30 gm 1X ONCE PO Last administered on 12/02/17at 12:33; Start 12/02/17 at 11:00; Stop 12/02/17 at 11:01; Status DC Metoprolol Tartrate (Lopressor) 12.5 mg DAILY PO Last administered on at 08:52; Start 12/04/17 at 09:00 Sodium Polystyrene Sulfonate (Kayexalate) 15 gm 1X ONCE PO Last administered on 12/03/17at 12:15; Start 12/03/17 at 11:00; Stop 12/03/17 at 11:01; Status DC Active Scripts Active Reported Miralax (Polyethylene Glycol 3350) 17 Gm Powd.pack 1 Packet PO DAILY Flonase Allergy Relief (Fluticasone Propionate) 9.9 Ml Porter.susp 2 Sprays NS DAILY Vitamin D3 (Cholecalciferol (Vitamin D3)) 1,000 Unit Tablet 1 Tab PO DAILY Tylenol (Acetaminophen) 325 Mg Tablet 325 Mg PO Cranberry (Cranberry Extract) 200 Mg Capsule 200 Mg PO Multivitamins (Multivitamin) 1 Each Tablet 1 Tab PO DAILY Acid Control (Ranitidine Hcl) 150 Mg Tablet 150 Mg PO Synthroid (Levothyroxine Sodium) 137 Mcg Tablet 1 Tab PO DAILY Protonix (Pantoprazole Sodium) 40 Mg Granpkt.dr 40 Mg PO DAILY Sotalol (Sotalol Hcl) 80 Mg Tablet 1 Tab PO BID Amlodipine Besylate 5 Mg Tablet 5 Mg PO DAILY Lasix (Furosemide) 40 Mg Tablet 1 Tab PO DAILY Losartan Potassium 50 Mg Tablet 50 Mg PO BID Hydrocodone-Apap 10-325 (Hydrocodone Bit/Acetaminophen) 1 Each Tablet 1 Each PO PRN Q4HRS Aspirin 81 Mg Tab.chew 81 Mg PO DAILY Vitals/I & O Vital Sign - Last 24 Hours 12/04/17 12/04/17 12/04/17 12/04/17 10:56 11:00 11:55 15:00 Temp 98.0 97.9 98.0 97.9 Pulse 78 76 Resp 20 20 B/P (MAP) 150/81 (104) 134/65 (88) Pulse Ox 95 96 92 O2 Delivery Room Air Room Air 12/04/17 12/04/17 12/04/17 12/04/17 19:00 20:00 20:02 21:29 Temp 97.9 97.9 Pulse 68 Resp 19 B/P (MAP) 143/62 (89) Pulse Ox 94 O2 Delivery Room Air Room Air Room Air Room Air 12/04/17 12/04/17 12/05/17 12/05/17 22:34 23:00 03:00 07:00 Temp 98.0 98.4 98.4 98.0 98.4 98.4 Pulse 80 69 86 Resp 18 18 18 B/P (MAP) 144/76 (98) 164/67 (99) 146/64 (91) Pulse Ox 97 98 97 O2 Delivery Room Air Room Air Nasal Cannula Nasal Cannula O2 Flow Rate 2.0 2.0 2.0 12/05/17 08:05 Pulse Ox 100 O2 Delivery Nasal Cannula O2 Flow Rate 2.0 Intake and Output 12/04/17 12/04/17 12/05/17 15:00 23:00 07:00 Intake Total 400 ml 300 ml Output Total 800 ml Balance 400 ml -500 ml HOOD ALLAN MD Dec 05, 2017 09:54
[2017-12-05 11:00] VITALS: BP 134/72
--- NOTE | 2017-12-05 11:33 | PDOC ---
Renal-Progress Notes Subjective Notes Notes NONE History of Present Illness Hx of present illness STABLE Vitals Vitals Vital Signs Date Time Temp Pulse Resp B/P (MAP) Pulse Ox O2 Delivery O2 Flow Rate FiO2 12/05/17 11:21 Nasal Cannula 2.0 12/05/17 09:40 86 146/64 12/05/17 08:05 100 12/05/17 07:00 98.4 18 98.4 Weight Weight [ ] I.O. Intake and Output Intake and Output 12/05/17 07:00 Intake Total 700 ml Output Total 800 ml Balance -100 ml Intake Oral 700 ml Output Urine Total 800 ml Labs Labs Laboratory Tests Test 12/05/17 04:20 Sodium Level 141 mmol/L (136-145) Potassium Level 4.2 mmol/L (3.5-5.1) Chloride Level 105 mmol/L (98-107) Carbon Dioxide Level 30 mmol/L (21-32) Anion Gap 6 (6-14) Blood Urea Nitrogen 25 mg/dL (7-20) Creatinine 1.9 mg/dL (0.6-1.0) Estimated GFR (Cockcroft-Gault) 30.5 Glucose Level 115 mg/dL (70-99) Calcium Level 8.7 mg/dL (8.5-10.1) Magnesium Level 2.0 mg/dL (1.8-2.4) Creatine Kinase 14 U/L (26-192) Micro Micro Microbiology 11/30/17 - Final, Complete 11/30/17 - Final, Complete 11/30/17 - Final, Complete 11/30/17 Gram Stain Evaluation - Final, Complete 11/30/17 Sputum Culture - Final, Complete 11/30/17 Sputum Result 1 - Final, Complete 11/29/17 Urine Culture - Final, Complete 11/29/17 Urine Culture Result 1 (RAPHAEL) - Final, Complete Review of Systems Constitutional: yes: weakness, alert, oriented Ears/Nose/Throat: Yes: no symptom reported Eyes: Yes: no symptom reported Pulmonary: Yes no symptom reported, Yes dyspnea Cardiovascular: Yes no symptom reported Gastrointestional: Yes: no symptom reported Genitourinary: Yes: no symptom reported Musculoskeletal: Yes: no symptom reported Skin: Yes no symptom reported Psychiatric/Neurological: Yes: no symptom reported Endocrine: Yes: no symptom reported Physical Exam General Appearance: no apparent distress Skin: warm Respiratory: decreased breath sounds Heart: S1S2 Abdomen: soft, bowel sounds present Genitourinary: bladder flat Extremities: edema Neurology: alert, follow commands Assessment Assessment IMP STAN-NEARLY RESOLVED WITH CR DOWN TO 1.9-MAY BE NEW BASELINE CKD STAGE 3 WITH BASELINE CR OF 1.5 HEMATURIA-MOST LIKELY DUE TO HEMORRHAGIC CYST DIASTOLIC CHF-ACUTE AND CHRONIC ACUTE RESP FAILURE DM II HTN PLAN CONT LASIX-HAS NEG FLUID BALANCE WITH CURRENT DOSE CONT SUPPORTIVE CARE SUGGEST REPEAT UA IN A COUPLE MONTHS AND IF HEMATURIA STILL PRESENT THEN UROLOGY RAMESH RONDON MD Dec 05, 2017 11:33
--- NOTE | 2017-12-05 11:44 | PDOC ---
Infectious Disease Note Subjective Subjective awake, sitting says feeling really good ROS ROS no n/v/d/sob Vital Sign Vital Signs Vital Signs Date Time Temp Pulse Resp B/P (MAP) Pulse Ox O2 Delivery O2 Flow Rate FiO2 12/05/17 11:21 Nasal Cannula 2.0 12/05/17 09:40 86 146/64 12/05/17 08:05 100 12/05/17 07:00 98.4 18 98.4 Physical Exam PHYSICAL EXAM GENERAL: Lying down, NAD HENT: Oral cavity clear LUNGS: Improved aeration Clear anteriorly HEART: S1, S2. ABDOMEN: Morbidly obese, soft, NT : [place] EXTREMITIES: Generalized edema. No cyanosis SKIN: Warm without rash FIRMWARE MANAGER: Alert and oriented Labs Lab Laboratory Tests Test 12/05/17 04:20 Sodium Level 141 mmol/L (136-145) Potassium Level 4.2 mmol/L (3.5-5.1) Chloride Level 105 mmol/L (98-107) Carbon Dioxide Level 30 mmol/L (21-32) Anion Gap 6 (6-14) Blood Urea Nitrogen 25 mg/dL (7-20) Creatinine 1.9 mg/dL (0.6-1.0) Estimated GFR (Cockcroft-Gault) 30.5 Glucose Level 115 mg/dL (70-99) Calcium Level 8.7 mg/dL (8.5-10.1) Magnesium Level 2.0 mg/dL (1.8-2.4) Creatine Kinase 14 U/L (26-192) Micro Microbiology 11/30/17 - Final, Complete 11/30/17 - Final, Complete 11/30/17 - Final, Complete 11/30/17 Gram Stain Evaluation - Final, Complete 11/30/17 Sputum Culture - Final, Complete 11/30/17 Sputum Result 1 - Final, Complete 11/29/17 Urine Culture - Final, Complete 11/29/17 Urine Culture Result 1 (RAPHAEL) - Final, Complete Objective Assessment Acute Resp failure - improved -Influenza neg; sputum culture neg; strep ag neg PCN allergy - has tolerated Cephalexin (d/w 2 daughters). Sulfa allergy AFib STAN CHF MRSA screen positive Plan Plan of Care off antibiotics, ok to d/c RVP not available Monitor labs/temp Supportive care D/W Daughter at bedside VARUN LE MD Dec 05, 2017 11:44
[2017-12-05 15:00] VITALS: BP 100/77
[2017-12-05 19:00] VITALS: BP 126/46
[2017-12-05 23:00] VITALS: BP 165/52
[2017-12-05] MEDS: HYDROcodone/APAP 10/325 1 TAB TABLET PO PRN (23:10)
[2017-12-05] MEDS: FLUTICASONE 50MCG/NASAL SPRAY 16GM BOTTLE. NS PRN (23:10)
[2017-12-06] VITALS (7 sets, daily range): BP systolic 97–133; BP diastolic 50–92
[2017-12-06 05:55] LABS: CALCIUM 9.4 mg/dL (8.5-10.1); GFR 28.8
[2017-12-06] MEDS: LEVOTHYROXINE 137 MCG TABLET PO SCH (06:35)
[2017-12-06] MEDS: IPRATRPIUM/ALBUTEROL 0.5/2.5MG 3 ML NEBU. NEB SCH ×4 (07:32→19:49)
[2017-12-06] MEDS: LACTOBACILLUS RHAMNOSUS GG 1 CAPSULE. PO SCH ×2 (08:00→21:04)
[2017-12-06] MEDS: MULTIVITAMIN with MINERAL TABLET. PO SCH (08:01)
[2017-12-06] MEDS: PANTOPRAZOLE 40 MG TABLET.DR. PO SCH (08:02)
[2017-12-06] MEDS: ASPIRIN CHEWABLE 81 MG TABLET. PO SCH (08:02)
[2017-12-06] MEDS: CHOLECALCIFEROL (VITAMIN D3) 1,000 UNIT TABLET PO SCH (08:02)
[2017-12-06] MEDS: FUROSEMIDE 40 MG TABLET. PO SCH (08:02)
[2017-12-06] MEDS: POLYETHYLENE GLYCOL 3350 17 GM PACKET. PO SCH (08:04)
[2017-12-06] MEDS: METOPROLOL TART IMMED RELEASE 25 MG TABLET. PO SCH (08:04)
[2017-12-06] MEDS: SENNOSIDES/DOCUSATE 8.6/50MG TABLET. PO SCH ×2 (08:05→21:00)
[2017-12-06] MEDS: HEPARIN for SUB-Q USE 5,000 UNIT/ML VIAL. SQ SCH ×2 (08:10→21:09)
--- NOTE | 2017-12-06 09:43 | PDOC ---
PROGRESS NOTES Subjective Subjective feels okay ,. sinus tachycardia rate 116. PVCs noted by nurse. lab reviewed,. creatinine 2.0. potassium 4.0 Objective Objective Vital Signs Date Time Temp Pulse Resp B/P (MAP) Pulse Ox O2 Delivery O2 Flow Rate FiO2 12/06/17 08:04 117 104/61 12/06/17 07:34 98 Nasal Cannula 2.0 12/06/17 07:00 97.7 18 97.7 Intake and Output 12/06/17 07:00 Intake Total 300 ml Output Total 1150 ml Balance -850 ml Intake Oral 300 ml Output Urine Total 1150 ml Physical Exam Abdomen: Soft, Other (obese) Heart: Regular rate, Normal S1, Normal S2 Extremities: Other (2 plus bilateral LE edema) General: Alert HEENT: Atraumatic Lungs: Clear to auscultation Neuro: Normal speech Psych/Mental Status: Mental status NL Skin: No rashes Assessment Assessment . Acute on chronic hypoxic and hypercarbic respiratory failure. obesity hypoventilation syndrome 2. acute kidney injury improved on chronic kidney disease stage 3. 3. Morbid obesity with a body mass index of 60. 4. Paroxysmal atrial fibrillation. 5. Diabetes mellitus type 2, treated with diet. 6. Hypertension. 7. Hypothyroidism. 8. Chronic diastolic congestive heart failure. acute bronchitis treated bilateral LE edema due to acute and chronic cor pulmonale and previous iv flu sinus tachycardia Plan Plan of Care increase metoprolol core stacker to see patient today may be dismissed if okay with core stacker Comment Review of Relevant I have reviewed the following items jeet (where applicable) has been applied. Labs Laboratory Tests Test 12/05/17 04:20 12/06/17 04:15 Sodium Level 141 mmol/L (136-145) 141 mmol/L (136-145) Potassium Level 4.2 mmol/L (3.5-5.1) 4.0 mmol/L (3.5-5.1) Chloride Level 105 mmol/L (98-107) 104 mmol/L (98-107) Carbon Dioxide Level 30 mmol/L (21-32) 31 mmol/L (21-32) Anion Gap 6 (6-14) 6 (6-14) Blood Urea Nitrogen 25 mg/dL (7-20) 29 mg/dL (7-20) Creatinine 1.9 mg/dL (0.6-1.0) 2.0 mg/dL (0.6-1.0) Estimated GFR (Cockcroft-Gault) 30.5 28.8 Glucose Level 115 mg/dL (70-99) 97 mg/dL (70-99) Calcium Level 8.7 mg/dL (8.5-10.1) 9.4 mg/dL (8.5-10.1) Magnesium Level 2.0 mg/dL (1.8-2.4) Creatine Kinase 14 U/L (26-192) 13 U/L (26-192) Laboratory Tests Test 12/06/17 04:15 Sodium Level 141 mmol/L (136-145) Potassium Level 4.0 mmol/L (3.5-5.1) Chloride Level 104 mmol/L (98-107) Carbon Dioxide Level 31 mmol/L (21-32) Anion Gap 6 (6-14) Blood Urea Nitrogen 29 mg/dL (7-20) Creatinine 2.0 mg/dL (0.6-1.0) Estimated GFR (Cockcroft-Gault) 28.8 Glucose Level 97 mg/dL (70-99) Calcium Level 9.4 mg/dL (8.5-10.1) Creatine Kinase 13 U/L (26-192) Microbiology 11/30/17 - Final, Complete 11/30/17 - Final, Complete 11/30/17 - Final, Complete 11/30/17 Gram Stain Evaluation - Final, Complete 11/30/17 Sputum Culture - Final, Complete 11/30/17 Sputum Result 1 - Final, Complete 11/29/17 Urine Culture - Final, Complete 11/29/17 Urine Culture Result 1 (RAPHAEL) - Final, Complete Medications Current Medications Ondansetron HCl (Zofran) 4 mg PRN Q8HRS PRN IV NAUSEA/VOMITING; Start at 21:00; Stop 11/30/17 at 20:59; Status DC Insulin Human Regular (HumuLIN R VIAL) 10 unit 1X ONCE IV Last administered on 11/29/17at 22:35; Start 11/29/17 at 22:00; Stop 11/30/17 at 09:35; Status DC Dextrose (Dextrose 50%-Water Syringe) 25 gm 1X ONCE IV Last administered on at 22:31; Start 11/29/17 at 22:00; Stop 11/30/17 at 09:35; Status DC Albuterol Sulfate (Ventolin Neb Soln) 2.5 mg 1X ONCE NEB Last administered on 11/29/17at 22:44; Start 11/29/17 at 22:00; Stop 11/29/17 at 22:01; Status DC Calcium Gluconate (Calcium Gluconate) 2,000 mg 1X ONCE IVP Last administered on 11/29/17at 22:33; Start 11/29/17 at 22:00; Stop 11/29/17 at 22:01; Status DC Acetaminophen (Tylenol) 650 mg 1X ONCE PO Last administered on 11/29/17at 22: 40; Start 11/29/17 at 22:45; Stop 11/29/17 at 22:46; Status DC Heparin Sodium (Porcine) (Heparin Sodium) 5,000 unit Q12HR SQ Last administered on 12/06/17at 08:10; Start 11/30/17 at 09:00 Sodium Chloride (Normal Saline Flush) 3 ml QSHIFT PRN IV AFTER MEDS AND BLOOD DRAWS; Start 11/29/17 at 23:45 Senna/Docusate Sodium (Senna Plus) 1 tab BID PO Last administered on at 08:50; Start 11/30/17 at 09:00 Acetaminophen (Tylenol) 325 mg PRN Q6HRS PRN PO fever Last administered on at 13:23; Start 11/29/17 at 23:45 Amlodipine Besylate (Norvasc) 5 mg DAILY PO ; Start 11/30/17 at 09:00; Stop at 11:37; Status DC Aspirin (Children'S Aspirin) 81 mg DAILY PO Last administered on 12/06/17at 08: 02; Start 11/30/17 at 09:00 Vitamin D (Vitamin D3) 1,000 unit DAILY PO Last administered on 12/06/17at 08: 02; Start 11/30/17 at 09:00 Furosemide (Lasix) 40 mg DAILY PO ; Start 11/30/17 at 09:00; Stop 11/30/17 at 11:37; Status DC Levothyroxine Sodium (Synthroid) 137 mcg DAILY07 PO Last administered on at 06:35; Start 11/30/17 at 07:00 Fluticasone Propionate (Flonase) 2 spray DAILY NS ; Start 11/30/17 at 09:00; Stop 11/30/17 at 11:37; Status DC Acetaminophen/ Hydrocodone Bitart (Lortab 10/325) 1 tab PRN Q4HRS PRN PO PAIN Last administered on 12/01/17at 01:13; Start 11/29/17 at 23:45; Stop 12/01/17 at 10:01; Status DC Multivitamins (Thera M Plus) 1 tab DAILY PO Last administered on 12/06/17at 08: 01; Start 11/30/17 at 09:00 Pantoprazole Sodium (Protonix) 40 mg DAILYAC PO Last administered on at 08:02; Start 11/30/17 at 07:30 Polyethylene Glycol (miraLAX PACKET) 17 gm DAILY PO Last administered on at 08:52; Start 11/30/17 at 09:00 Sotalol HCl (Betapace) 80 mg BID PO ; Start 11/30/17 at 09:00; Stop 11/30/17 at 11:37; Status DC Insulin Human Lispro (HumaLOG) 0-7 UNITS TIDWMEALS SQ ; Start 11/30/17 at 08:00 ; Stop 11/30/17 at 09:35; Status DC Dextrose (Dextrose 50%-Water Syringe) 12.5 gm PRN Q15MIN PRN IV SEE COMMENTS; Start 11/30/17 at 00:00; Stop 11/30/17 at 09:35; Status DC Albuterol/ Ipratropium (Duoneb) 3 ml RTQID NEB Last administered on 12/06/17at 07:32; Start 11/30/17 at 08:00 Furosemide (Lasix) 40 mg 1X ONCE IVP ; Start 11/30/17 at 10:00; Stop at 10:08; Status DC Sodium Polystyrene Sulfonate (Kayexalate) 30 gm 1X ONCE PO ; Start 11/30/17 at 10:00; Stop 11/30/17 at 10:08; Status DC Sodium Chloride 500 ml @ 500 mls/hr 1X ONCE IV Last administered on at 10:22; Start 11/30/17 at 10:15; Stop 11/30/17 at 11:14; Status DC Insulin Human Regular (HumuLIN R VIAL) 10 unit 1X ONCE IV Last administered on 11/30/17at 10:27; Start 11/30/17 at 10:30; Stop 11/30/17 at 10:31; Status DC Dextrose (Dextrose 50%-Water Syringe) 25 gm 1X ONCE IV Last administered on at 10:25; Start 11/30/17 at 10:30; Stop 11/30/17 at 10:31; Status DC Levofloxacin/ Dextrose (Levaquin Per Pharmacy) 1 each PRN DAILY PRN MC SEE COMMENTS; Start 11/30/17 at 11:15; Stop 11/30/17 at 14:55; Status DC Linezolid/Dextrose 300 ml @ 300 mls/hr Q12HR IV Last administered on at 08:53; Start 11/30/17 at 12:00; Stop 12/04/17 at 11:45; Status DC Levofloxacin/ Dextrose 100 ml @ 100 mls/hr 1X ONCE IV Last administered on at 13:36; Start 11/30/17 at 12:00; Stop 11/30/17 at 12:59; Status DC Levofloxacin/ Dextrose 50 ml @ 50 mls/hr Q24H IV ; Start 12/01/17 at 12:00; Stop 12/01/17 at 12:00; Status DC Fluticasone Propionate (Flonase) 2 spray PRN DAILY PRN NS ALLERGIES Last administered on 12/05/17at 23:10; Start 11/30/17 at 11:30 Sotalol HCl (Betapace) 40 mg BID PO Last administered on 12/01/17at 01:18; Start 11/30/17 at 21:00; Stop 12/01/17 at 18:47; Status DC Sodium Chloride 1,000 ml @ 100 mls/hr Q10H IV Last administered on 12/02/17at 05:43; Start 11/30/17 at 11:30; Stop 12/02/17 at 10:56; Status DC Doxycycline Hyclate (Vibra-Tab) 100 mg BID PO Last administered on 12/01/17at 07:38; Start 11/30/17 at 21:00; Stop 12/01/17 at 11:36; Status DC Cefepime HCl 2 gm/ Dextrose 100 ml @ 200 mls/hr Q12HR IV ; Start 11/30/17 at 15:30; Status Cancel Cefepime HCl (Maxipime) 2 gm Q12HR IVP Last administered on 12/04/17at 08:52; Start 11/30/17 at 15:30; Stop 12/04/17 at 11:45; Status DC Acetaminophen/ Hydrocodone Bitart (Lortab 10/325) 1 tab PRN Q6HRS PRN PO PAIN Last administered on 12/05/17at 23:10; Start 12/01/17 at 10:15 Lactobacillus Rhamnosus (Culturelle) 1 cap BID PO Last administered on at 08:00; Start 12/01/17 at 21:00 Sotalol HCl (Betapace) 40 mg BID PO ; Start 12/01/17 at 21:00; Status Cancel Metoprolol Tartrate (Lopressor) 12.5 mg BID PO Last administered on 12/03/17at 08:34; Start 12/01/17 at 21:00; Stop 12/03/17 at 10:25; Status DC Furosemide (Lasix) 40 mg DAILY PO Last administered on 12/06/17at 08:02; Start 12/02/17 at 12:00 Sodium Polystyrene Sulfonate (Kayexalate) 30 gm 1X ONCE PO Last administered on 12/02/17at 12:33; Start 12/02/17 at 11:00; Stop 12/02/17 at 11:01; Status DC Metoprolol Tartrate (Lopressor) 12.5 mg DAILY PO Last administered on at 08:04; Start 12/04/17 at 09:00 Sodium Polystyrene Sulfonate (Kayexalate) 15 gm 1X ONCE PO Last administered on 12/03/17at 12:15; Start 12/03/17 at 11:00; Stop 12/03/17 at 11:01; Status DC Active Scripts Active Reported Miralax (Polyethylene Glycol 3350) 17 Gm Powd.pack 1 Packet PO DAILY Flonase Allergy Relief (Fluticasone Propionate) 9.9 [address] [place].susp 2 Sprays NS DAILY Vitamin D3 (Cholecalciferol (Vitamin D3)) 1,000 Unit Tablet 1 Tab PO DAILY Tylenol (Acetaminophen) 325 Mg Tablet 325 Mg PO Cranberry (Cranberry Extract) 200 Mg Capsule 200 Mg PO Multivitamins (Multivitamin) 1 Each Tablet 1 Tab PO DAILY Acid Control (Ranitidine Hcl) 150 Mg Tablet 150 Mg PO Synthroid (Levothyroxine Sodium) 137 Mcg Tablet 1 Tab PO DAILY Protonix (Pantoprazole Sodium) 40 Mg Granpkt.dr 40 Mg PO DAILY Sotalol (Sotalol Hcl) 80 Mg Tablet 1 Tab PO BID Amlodipine Besylate 5 Mg Tablet 5 Mg PO DAILY Lasix (Furosemide) 40 Mg Tablet 1 Tab PO DAILY Losartan Potassium 50 Mg Tablet 50 Mg PO BID Hydrocodone-Apap 10-325 (Hydrocodone Bit/Acetaminophen) 1 Each Tablet 1 Each PO PRN Q4HRS Aspirin 81 Mg Tab.chew 81 Mg PO DAILY Vitals/I & O Vital Sign - Last 24 Hours 12/05/17 12/05/17 12/05/17 12/05/17 11:00 11:21 15:00 15:58 Temp 97.9 98.1 97.9 98.1 Pulse 61 64 Resp 18 18 B/P (MAP) 134/72 (92) 100/77 (85) Pulse Ox 90 96 O2 Delivery Nasal Cannula Nasal Cannula Nasal Cannula Nasal Cannula O2 Flow Rate 2.0 2.0 2.0 2.0 12/05/17 12/05/17 12/05/17 12/05/17 19:00 19:15 19:24 20:00 Temp 98.1 98.1 Pulse 76 Resp 18 B/P (MAP) 126/46 (72) Pulse Ox 93 O2 Delivery Nasal Cannula Nasal Cannula Nasal Cannula Nasal Cannula O2 Flow Rate 2.0 2.0 2.0 12/05/17 12/05/17 12/06/17 12/06/17 23:00 23:10 00:14 03:00 Temp 98.2 98.8 98.2 98.8 Pulse 68 71 Resp 18 18 16 18 B/P (MAP) 165/52 (89) 105/50 (68) Pulse Ox 93 93 93 98 O2 Delivery Nasal Cannula Nasal Cannula Nasal Cannula Nasal Cannula O2 Flow Rate 2.0 2.0 12/06/17 12/06/17 12/06/17 07:00 07:34 08:04 Temp 97.7 97.7 Pulse 117 117 Resp 18 B/P (MAP) 104/61 (75) 104/61 Pulse Ox 96 98 O2 Delivery Nasal Cannula Nasal Cannula O2 Flow Rate 2.0 Intake and Output 12/05/17 12/05/17 12/06/17 15:00 23:00 07:00 Intake Total 300 ml Output Total 700 ml 450 ml Balance -700 ml -150 ml HOOD ALLAN MD Dec 06, 2017 09:43
[2017-12-06] MEDS ORDERED: METO25TA4 PO (09:47)
--- NOTE | 2017-12-06 09:51 | DISCH ---
DISCHARGE WITH HOME HEALTH DISCHARGE INFORMATION: Condition on Discharge: Stable HOME HEALTH: Face to Face: I certify this patient is under my care and that I, or a nurse practitioner or physician's instruction assistant principal working with me, had a face to face encounter that meets the physician face to face encounter requirements with this patient on [12/06/17 ]. Medical Complications: Other (acute hypoxic and hypercarbic respiratory failure.) Physical Therapy For: Evalulation/Treatment Occupational Therapy For: Evaluation/Treatment Pt Meets Homebound Status: Other: (unable to ambulate) POST DISCHARGE ORDERS: Activity Instructions for Disc: Activity as tolerated Weight Bearing Status after Di: No restrictions DIET AFTER DISCHARGE: Low Sodium 2 gm TREATMENT/EQUIPMENT ORDERS: Adaptive Equipment Issued: Wheelchair CERTIFICATION STATEMENT: Certification Statement: Certification Statement: Based on the above finding, I certify that this patient is confined to the home and needs intermittent jail care, physical therapy and/or speech therapy, or continues to need occupational therapy.~ This patient is under my care, and I have initiated the establishment of the plan of care.~ This patient will be followed by myself or a community physician who will periodically review the plan of care. Home Meds Active Scripts Metoprolol Tartrate (METOPROLOL TARTRATE) 25 Mg Tablet, 12.5 MG PO BID for 30 Days, #30 TAB Prov:HOOD ALLAN MD 12/06/17 Reported Medications Polyethylene Glycol 3350 (MIRALAX) 17 Gm Powd.pack, 1 PACKET PO DAILY, #30 PACKET 3 Refills 11/29/17 Fluticasone Propionate (Flonase Allergy Relief) 9.9 Ml [place].susp, 2 SPRAYS NS DAILY, BOTTLE 11/29/17 Cholecalciferol (Vitamin D3) (VITAMIN D3) 1,000 Unit Tablet, 1 TAB PO DAILY, # 30 TAB 5 Refills 11/29/17 Acetaminophen (TYLENOL) 325 Mg Tablet, 325 MG PO, TAB 11/29/17 Cranberry Extract (CRANBERRY) 200 Mg Capsule, 200 MG PO, CAP 11/29/17 Multivitamin (MULTIVITAMINS) 1 Each Tablet, 1 TAB PO DAILY, #90 TAB 3 Refills 11/29/17 Ranitidine Hcl (ACID CONTROL) 150 Mg Tablet, 150 MG PO for Nausea, TAB 11/29/17 Levothyroxine Sodium (SYNTHROID) 137 Mcg Tablet, 1 TAB PO DAILY, #30 TAB 5 Refills 11/29/17 Pantoprazole Sodium (PROTONIX) 40 Mg Granpkt.dr, 40 MG PO DAILY, TAB 11/29/17 Sotalol Hcl (SOTALOL) 80 Mg Tablet, 1 TAB PO BID, #60 TAB 5 Refills 11/29/17 Amlodipine Besylate (AMLODIPINE BESYLATE) 5 Mg Tablet, 5 MG PO DAILY, TAB 11/29/17 Furosemide (LASIX) 40 Mg Tablet, 1 TAB PO DAILY, #90 TAB 1 Refill 06/03/14 Losartan Potassium (LOSARTAN POTASSIUM) 50 Mg Tablet, 50 MG PO BID, TAB 06/03/14 Hydrocodone Bit/Acetaminophen (HYDROCODONE-APAP 10-325 ) 1 Each Tablet, 1 EACH PO PRN Q4HRS 04/01/13 Aspirin (ASPIRIN) 81 Mg Tab.chew, 81 MG PO DAILY, TAB.CHEW 04/01/13 Discontinued Reported Medications Amlodipine Besylate (NORVASC) 10 Mg Tablet, 10 MG PO DAILY, TAB 06/03/14 HOOD ALLAN MD Dec 06, 2017 09:51
--- NOTE | 2017-12-06 09:58 | PDOC ---
Provider Note Provider Note discharge summary dictated # [id number] HOOD ALLAN MD Dec 06, 2017 09:58
--- NOTE | 2017-12-06 10:21 | PDOC ---
PULMONARY PROGRESS NOTES Subjective no soa Vitals Vital Signs Date Time Temp Pulse Resp B/P (MAP) Pulse Ox O2 Delivery O2 Flow Rate FiO2 12/06/17 08:04 117 104/61 12/06/17 07:34 98 Nasal Cannula 2.0 12/06/17 07:00 97.7 18 97.7 General: Alert, No acute distress Lungs: Clear Cardiovascular: S1 Abdomen: Soft, Other (obese) Extremities: Other (1+edema) Labs Laboratory Tests Test 12/05/17 04:20 12/06/17 04:15 Sodium Level 141 mmol/L (136-145) 141 mmol/L (136-145) Potassium Level 4.2 mmol/L (3.5-5.1) 4.0 mmol/L (3.5-5.1) Chloride Level 105 mmol/L (98-107) 104 mmol/L (98-107) Carbon Dioxide Level 30 mmol/L (21-32) 31 mmol/L (21-32) Anion Gap 6 (6-14) 6 (6-14) Blood Urea Nitrogen 25 mg/dL (7-20) 29 mg/dL (7-20) Creatinine 1.9 mg/dL (0.6-1.0) 2.0 mg/dL (0.6-1.0) Estimated GFR (Cockcroft-Gault) 30.5 28.8 Glucose Level 115 mg/dL (70-99) 97 mg/dL (70-99) Calcium Level 8.7 mg/dL (8.5-10.1) 9.4 mg/dL (8.5-10.1) Magnesium Level 2.0 mg/dL (1.8-2.4) Creatine Kinase 14 U/L (26-192) 13 U/L (26-192) Laboratory Tests Test 12/06/17 04:15 Sodium Level 141 mmol/L (136-145) Potassium Level 4.0 mmol/L (3.5-5.1) Chloride Level 104 mmol/L (98-107) Carbon Dioxide Level 31 mmol/L (21-32) Anion Gap 6 (6-14) Blood Urea Nitrogen 29 mg/dL (7-20) Creatinine 2.0 mg/dL (0.6-1.0) Estimated GFR (Cockcroft-Gault) 28.8 Glucose Level 97 mg/dL (70-99) Calcium Level 9.4 mg/dL (8.5-10.1) Creatine Kinase 13 U/L (26-192) Medications Active Scripts Medications Dose Route/Sig Max Daily Dose Days Date Category Miralax (Polyethylene Glycol 3350) 17 Gm Powd.pack 1 Packet PO DAILY 11/29/17 Reported Flonase Allergy Relief (Fluticasone Propionate) 9.9 Ml [place].susp 2 Sprays NS DAILY 11/29/17 Reported Vitamin D3 (Cholecalciferol (Vitamin D3)) 1,000 Unit Tablet 1 Tab PO DAILY 11/29/17 Reported Tylenol (Acetaminophen) 325 Mg Tablet 325 Mg PO 11/29/17 Reported Cranberry (Cranberry Extract) 200 Mg Capsule 200 Mg PO 11/29/17 Reported Multivitamins (Multivitamin) 1 Each Tablet 1 Tab PO DAILY 11/29/17 Reported Acid Control (Ranitidine Hcl) 150 Mg Tablet 150 Mg PO 11/29/17 Reported Synthroid (Levothyroxine Sodium) 137 Mcg Tablet 1 Tab PO DAILY 11/29/17 Reported Protonix (Pantoprazole Sodium) 40 Mg Granpkt.dr 40 Mg PO DAILY 11/29/17 Reported Sotalol (Sotalol Hcl) 80 Mg Tablet 1 Tab PO BID 11/29/17 Reported Amlodipine Besylate 5 Mg Tablet 5 Mg PO DAILY 11/29/17 Reported Lasix (Furosemide) 40 Mg Tablet 1 Tab PO DAILY 06/03/14 Reported Losartan Potassium 50 Mg Tablet 50 Mg PO BID 06/03/14 Reported Hydrocodone-Apap 10-325 (Hydrocodone Bit/Acetaminophen) 1 Each Tablet 1 Each PO PRN Q4HRS 04/01/13 Reported Aspirin 81 Mg Tab.chew 81 Mg PO DAILY 04/01/13 Reported Impression . 1. Sjmeo-jh-hykezgh hypercapnic respiratory failure . 2. Abnormal chest x-ray with diffuse right sided interstitial infiltrates with right hilar prominence in the right lung. CT chest reviewed. no ILD or CHF/ mild basal effusions and atelectasis 3. Underlying morbid obesity with suspected obstructive sleep apnea and obesity hypoventilation syndrome. 4. Hyperkalemia. 5. azotemia 6. No significant history of tobacco use or asthma. 7. Ankle edema, suspect due to cor -pulmonale Plan . pt not seen OXYGEN AT HOME PT TO FOLLOW UP WITH DR MAX FOR SLEEP STUDY OK TO D/C IN AM BRAVO JOHN MD Dec 06, 2017 10:21
--- NOTE | 2017-12-06 10:59 | EKG ---
[address] [place] [address] Test Date: 2017-12-06 Test Time: 10:51:52 Pat Name: ADILIA MACEDO Department: Room: [facility] Gender: F Die Tripper: AT : 1935 Requested By: HOOD ALLAN Order Number: [id number] Reading MD: Viraj Rocha Measurements Intervals [place] Rate: 149 P: LA: QRS: -28 QRSD: 86 T: 45 QT: 294 QTc: 467 Interpretive Statements ATRIAL FIBRILLATION WITH RVR LEFTWARD AXIS Electronically Signed On 12-07-2017 11:30:19 CDT by Viraj Rocha
--- NOTE | 2017-12-06 11:11 | PDOC ---
CARDIO Progress Notes Date and Time Date of Service 12/06/2017 Time of Evaluation 1050 Subjective Subjective: No Chest Pain, No shortness of breath, No Palpitations Vitals Vitals Vital Signs Date Time Temp Pulse Resp B/P (MAP) Pulse Ox O2 Delivery O2 Flow Rate FiO2 12/06/17 10:58 Nasal Cannula 2.0 12/06/17 08:04 117 104/61 12/06/17 07:34 98 12/06/17 07:00 97.7 18 97.7 Weight Weight [ ] Input and Output Intake and Output Intake and Output 12/06/17 07:00 Intake Total 300 ml Output Total 1150 ml Balance -850 ml Intake Oral 300 ml Output Urine Total 1150 ml Laboratory Labs Laboratory Tests Test 12/06/17 04:15 Sodium Level 141 mmol/L (136-145) Potassium Level 4.0 mmol/L (3.5-5.1) Chloride Level 104 mmol/L (98-107) Carbon Dioxide Level 31 mmol/L (21-32) Anion Gap 6 (6-14) Blood Urea Nitrogen 29 mg/dL (7-20) Creatinine 2.0 mg/dL (0.6-1.0) Estimated GFR (Cockcroft-Gault) 28.8 Glucose Level 97 mg/dL (70-99) Calcium Level 9.4 mg/dL (8.5-10.1) Creatine Kinase 13 U/L (26-192) Microbiology Micro Microbiology 11/30/17 - Final, Complete 11/30/17 - Final, Complete 11/30/17 - Final, Complete 11/30/17 Gram Stain Evaluation - Final, Complete 11/30/17 Sputum Culture - Final, Complete 11/30/17 Sputum Result 1 - Final, Complete 11/29/17 Urine Culture - Final, Complete 11/29/17 Urine Culture Result 1 (RAPHAEL) - Final, Complete Review of Systems Constitutional: yes: weakness, alert, oriented Ears/Nose/Throat: Yes: no symptom reported Eyes: Yes: no symptom reported Pulmonary: Yes no symptom reported, Yes dyspnea Cardiovascular: Yes no symptom reported Gastrointestional: Yes: no symptom reported Genitourinary: Yes: no symptom reported Musculoskeletal: Yes: no symptom reported Skin: Yes no symptom reported Psychiatric/Neurological: Yes: no symptom reported Endocrine: Yes: no symptom reported Physical Exam HEENT: Neck Supple W Full Motion Chest: Symmetric LUNGS: Other (diminished; 1L O2 NC supine at 97%) Heart: S1S2, irregularly irregular (AFIB RVR) Abdomen: Soft N/T Extremities: No Calf Tenderness, Other (2-3+ bilateral pedal edmea) Neurology: alert, oriented, follow commands Assessment Assessment 1. AFIB RVR: refractory being off sotalol. asymptomatic 2. Acute on chronic respiratory failure with underlying ELLI/morbid obesity/CHF with possible pneumonia 3. Acute on chronic diastolic CHF: compensated. 4. STAN on CKD: stable at Cr 2 5. HTN: low end but controlled Recommendations 1. Stop metoprolol and replace low dosesotalol. Dig IV x1. Transfer to CVC 2. ASA for stroke prevention. Deemed not a good candidate in the past for anticoagulation due to high bleed and fall risk 3. Continue with current regimen. EKG in AM and note QTc. 4. Will need home ELLI w/u as outpt given that she is bedbound. GISELLE HERNANDEZ APRN Dec 06, 2017 11:11
[2017-12-06] MEDS ORDERED: DIGOXIN IV 500 MCG/2 ML AMPUL. IV ONE (12:00)
[2017-12-06] MEDS: SOTALOL 80 MG TABLET. PO SCH ×2 (12:10→21:05)
--- NOTE | 2017-12-06 13:25 | DS ---
DATE OF DISCHARGE: 12/06/2017 DATE OF ANTICIPATED DISMISSAL: 12/06/2017. CONSULTANTS: Include Dr. Deleon, Dr. Miles, Dr. Lock and also the entry analyst, I believe, Dr. Scanlon. FINAL DIAGNOSES: 1. Eqtzp-wx-hfolumh hypoxic and hypercarbic respiratory failure. 2. Obesity hypoventilation syndrome. 3. Acute kidney injury on top of chronic kidney disease stage 3. 4. Morbid obesity with a body mass index of 60. 5. Paroxysmal atrial fibrillation. 6. Diabetes mellitus type 2, treated with diet. 7. Hypertension. 8. Hypothyroidism. 9. Chronic diastolic congestive heart failure. 10. Acute bronchitis, treated. 11. Bilateral lower extremity edema due to [id number] cor pulmonale and also from her previous IV fluids. 12. Sinus tachycardia. HOSPITAL COURSE: The patient is an 82-year-old morbidly obese -[place] female with a BMI of 60 with a history of diabetes mellitus type 2, treated with diet; hypertension; hyperlipidemia; chronic diastolic congestive heart failure and paroxysmal atrial fibrillation, [facility] due to debility and low back pain. Daughter noted a 1-week history of coughing up some thick green sputum at times, without fever or chills. She was having oxygen desaturations at home and oxygen desaturations have been in the 60s and 70s and she was told to go to [facility] Emergency Room. She initially was seen by the hospitalist and then was transferred to my service, where the history and physical was done. The patient was treated with BiPAP in the Emergency Room. She did not want to have intubation on the ventilator, but wanted to have shock treatment and chest compressions if it became necessary. The patient was seen by Dr. Deleon for Pulmonary and seen by, I believe, Dr. Scanlon for Cardiology and Dr. Miles for Infectious Disease. The patient's chest x-ray showed bilateral infiltrates. A CAT scan of the chest did not show any congestive heart failure and did not show any significant acute abnormality. She was thought to have odzzn-px-cmaotoe hypoxic and hypercarbic respiratory failure. Eventually, her BiPAP was discontinued and was put her on oxygen per nasal cannula. A nocturnal oxygen desaturation study showed that her oxygen desaturations have occurred about 9.5% of the time and she was started on oxygen 2 liters per nasal cannula at bedtime. It is also suspected that she has obstructive sleep apnea and she will have to have an outpatient sleep study and the patient and the daughter are aware of this and Dr. Deleon was to arrange that. In addition, she had acute kidney injury on top of chronic kidney disease stage 3, seen by Dr. Lock and was treated with IV fluids. She had increasing peripheral edema. Renal function did improve, with a serum creatinine of 1.9 and then it was 2.0. IV fluids were discontinued. She was started on furosemide 40 mg every day and lower extremity edema still present, but improved. She is no longer short of breath. She received some physical therapy. She had some problems with hyperkalemia during her hospital course and she was treated with amp of D50 and insulin and also received some Kayexalate with resolution. Serum creatinine was 1.9 and then 2.0 at the time of dismissal. Her sotalol was discontinued and she was put on metoprolol 12.5 mg b.i.d.; when her heart rate was low, at 12.5 once a day. Today, she has sinus tachycardia with a rate of 116. The nurses noted premature ventricular contractions, although I did not see it on the monitor. When I briefly looked at it, I saw sinus tachycardia with a rate of 116. We will increase the metoprolol tartrate to 12.5 mg b.i.d. and I told the nurse and case child protective services social worker that she needs to be seen by the entry analyst before she leaves today; may be dismissed later today if it is okay with the entry analyst. She is dismissed. She will have home health and told to see Dr. Rojas in the office next week. She will be dismissed on aspirin 81 mg every day, vitamin D at 1000 units every day, Flonase p.r.n., furosemide 40 mg p.o. daily, [place] 10/325 one every 6 hours p.r.n., levothyroxine 137 mcg daily, metoprolol tartrate 12.5 mg b.i.d., multiple vitamin every day, Protonix 40 mg every day, MiraLax 17 grams daily and Senokot-S 1 b.i.d. She will have an outpatient sleep study arranged by Dr. Deleon. She will see Dr. Rojas in the office in 1 week and follow up with Dr. Deleon also the office in a few weeks. She will be dismissed on a low-salt diabetic diet. Her blood sugars were under good control with just diet alone. HOOD ROJAS MD DR: LAURY/lila JOB#: [id number] / [id number]
[2017-12-06] MEDS: HYDROcodone/APAP 10/325 1 TAB TABLET PO PRN ×2 (16:19→23:57)
[2017-12-06] MEDS ORDERED: METOPROLOL TART IMMED RELEASE 25 MG TABLET. PO SCH (21:00)
[2017-12-07 03:30] VITALS: BP 100/63
[2017-12-07] MEDS: LEVOTHYROXINE 137 MCG TABLET PO SCH (05:38)
[2017-12-07] MEDS: PANTOPRAZOLE 40 MG TABLET.DR. PO SCH (05:38)
[2017-12-07 06:08] LABS: BASO % 1 % (0-3); EOS # 0.3 x10^3/uL (0.0-0.7); EOS % 6 % (0-3); HEMATOCRIT 34.5 % (36.0-47.0); HEMOGLOBIN 11.4 g/dL (12.0-15.5); LYMPH # 2.5 x10^3/uL (1.0-4.8); LYMPH % 54 % (24-48); MEAN CORPUSCULAR HEMOGLOBIN 30 pg (25-35); MEAN CORPUSCULAR HGB CONC 33 g/dL (31-37); MEAN CORPUSCULAR VOLUME 92 fL (79-100); MONO # 0.5 x10^3/uL (0.0-1.1); MONO % 11 % (0-9); NEUT # 1.3 x10^3uL (1.8-7.7); NEUT % 28 % (31-73); PLATELET COUNT 200 x10^3/uL (140-400); RED BLOOD COUNT 3.75 x10^6/uL (3.50-5.40); WHITE BLOOD COUNT 4.7 x10^3/uL (4.0-11.0)
[2017-12-07 06:12] LABS: CALCIUM 9.1 mg/dL (8.5-10.1); CREATININE 2.1 mg/dL (0.6-1.0); GFR 27.2; MAGNESIUM 2.1 mg/dL (1.8-2.4); POTASSIUM 4.4 mmol/L (3.5-5.1)
[2017-12-07 07:00] VITALS: BP 99/77
--- NOTE | 2017-12-07 07:03 | EKG ---
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
[2017-12-07] MEDS: IPRATRPIUM/ALBUTEROL 0.5/2.5MG 3 ML NEBU. NEB SCH ×4 (07:53→20:21)
--- NOTE | 2017-12-07 08:30 | PDOC ---
Infectious Disease Note Subjective Subjective awake, in bed, says feeling good did have a fib with rvr ROS ROS no n/v/d/sob Vital Sign Vital Signs Vital Signs Date Time Temp Pulse Resp B/P (MAP) Pulse Ox O2 Delivery O2 Flow Rate FiO2 12/07/17 07:53 99 Nasal Cannula 2.0 12/07/17 03:30 97.9 102 18 100/63 (75) 97.9 Physical Exam PHYSICAL EXAM GENERAL: Lying down, NAD HENT: Oral cavity clear LUNGS: Improved aeration Clear anteriorly HEART: S1, S2. ABDOMEN: Morbidly obese, soft, NT : [place] EXTREMITIES: Generalized edema. No cyanosis SKIN: Warm without rash AUTOMOTIVE WELDER: Alert and oriented Labs Lab Laboratory Tests Test 12/07/17 05:40 White Blood Count 4.7 x10^3/uL (4.0-11.0) Red Blood Count 3.75 x10^6/uL (3.50-5.40) Hemoglobin 11.4 g/dL (12.0-15.5) Hematocrit 34.5 % (36.0-47.0) Mean Corpuscular Volume 92 fL (79-100) Mean Corpuscular Hemoglobin 30 pg (25-35) Mean Corpuscular Hemoglobin Concent 33 g/dL (31-37) Red Cell Distribution Width 15.0 % (11.5-14.5) Platelet Count 200 x10^3/uL (140-400) Neutrophils (%) (Auto) 28 % (31-73) Lymphocytes (%) (Auto) 54 % (24-48) Monocytes (%) (Auto) 11 % (0-9) Eosinophils (%) (Auto) 6 % (0-3) Basophils (%) (Auto) 1 % (0-3) Neutrophils # (Auto) 1.3 x10^3uL (1.8-7.7) Lymphocytes # (Auto) 2.5 x10^3/uL (1.0-4.8) Monocytes # (Auto) 0.5 x10^3/uL (0.0-1.1) Eosinophils # (Auto) 0.3 x10^3/uL (0.0-0.7) Basophils # (Auto) 0.0 x10^3/uL (0.0-0.2) Sodium Level 139 mmol/L (136-145) Potassium Level 4.4 mmol/L (3.5-5.1) Chloride Level 103 mmol/L (98-107) Carbon Dioxide Level 32 mmol/L (21-32) Anion Gap 4 (6-14) Blood Urea Nitrogen 31 mg/dL (7-20) Creatinine 2.1 mg/dL (0.6-1.0) Estimated GFR (Cockcroft-Gault) 27.2 Glucose Level 154 mg/dL (70-99) Calcium Level 9.1 mg/dL (8.5-10.1) Magnesium Level 2.1 mg/dL (1.8-2.4) Creatine Kinase 14 U/L (26-192) Micro Microbiology 11/30/17 - Final, Complete 11/30/17 - Final, Complete 11/30/17 - Final, Complete 11/30/17 Gram Stain Evaluation - Final, Complete 11/30/17 Sputum Culture - Final, Complete 11/30/17 Sputum Result 1 - Final, Complete 11/29/17 Urine Culture - Final, Complete 11/29/17 Urine Culture Result 1 (RAPHAEL) - Final, Complete Objective Assessment Acute Resp failure - improved -Influenza neg; sputum culture neg; strep ag neg PCN allergy - has tolerated Cephalexin (d/w 2 daughters). Sulfa allergy AFib STAN CHF MRSA screen positive Plan Plan of Care off antibiotics, Monitor labs/temp Supportive care will sign off , please call if questions VARUN LE MD Dec 07, 2017 08:30
[2017-12-07] MEDS: LACTOBACILLUS RHAMNOSUS GG 1 CAPSULE. PO SCH ×2 (08:57→21:06)
[2017-12-07] MEDS: CHOLECALCIFEROL (VITAMIN D3) 1,000 UNIT TABLET PO SCH (08:57)
[2017-12-07] MEDS: ASPIRIN CHEWABLE 81 MG TABLET. PO SCH (08:57)
[2017-12-07] MEDS: MULTIVITAMIN with MINERAL TABLET. PO SCH (08:57)
[2017-12-07] MEDS: POLYETHYLENE GLYCOL 3350 17 GM PACKET. PO SCH (09:00)
[2017-12-07] MEDS: SENNOSIDES/DOCUSATE 8.6/50MG TABLET. PO SCH ×2 (09:00→21:00)
[2017-12-07] MEDS: HEPARIN for SUB-Q USE 5,000 UNIT/ML VIAL. SQ SCH ×2 (09:03→21:11)
--- NOTE | 2017-12-07 09:58 | PDOC ---
PULMONARY PROGRESS NOTES Subjective no soa Vitals Vital Signs Date Time Temp Pulse Resp B/P (MAP) Pulse Ox O2 Delivery O2 Flow Rate FiO2 12/07/17 08:00 Nasal Cannula 2.0 12/07/17 07:53 99 12/07/17 07:00 98.1 106 16 99/77 (84) 98.1 General: Alert, No acute distress Lungs: Clear Cardiovascular: S1 Abdomen: Soft, Other (obese) Extremities: Other (1+edema) Labs Laboratory Tests Test 12/06/17 04:15 12/07/17 05:40 Sodium Level 141 mmol/L (136-145) 139 mmol/L (136-145) Potassium Level 4.0 mmol/L (3.5-5.1) 4.4 mmol/L (3.5-5.1) Chloride Level 104 mmol/L (98-107) 103 mmol/L (98-107) Carbon Dioxide Level 31 mmol/L (21-32) 32 mmol/L (21-32) Anion Gap 6 (6-14) 4 (6-14) Blood Urea Nitrogen 29 mg/dL (7-20) 31 mg/dL (7-20) Creatinine 2.0 mg/dL (0.6-1.0) 2.1 mg/dL (0.6-1.0) Estimated GFR (Cockcroft-Gault) 28.8 27.2 Glucose Level 97 mg/dL (70-99) 154 mg/dL (70-99) Calcium Level 9.4 mg/dL (8.5-10.1) 9.1 mg/dL (8.5-10.1) Creatine Kinase 13 U/L (26-192) 14 U/L (26-192) White Blood Count 4.7 x10^3/uL (4.0-11.0) Red Blood Count 3.75 x10^6/uL (3.50-5.40) Hemoglobin 11.4 g/dL (12.0-15.5) Hematocrit 34.5 % (36.0-47.0) Mean Corpuscular Volume 92 fL (79-100) Mean Corpuscular Hemoglobin 30 pg (25-35) Mean Corpuscular Hemoglobin Concent 33 g/dL (31-37) Red Cell Distribution Width 15.0 % (11.5-14.5) Platelet Count 200 x10^3/uL (140-400) Neutrophils (%) (Auto) 28 % (31-73) Lymphocytes (%) (Auto) 54 % (24-48) Monocytes (%) (Auto) 11 % (0-9) Eosinophils (%) (Auto) 6 % (0-3) Basophils (%) (Auto) 1 % (0-3) Neutrophils # (Auto) 1.3 x10^3uL (1.8-7.7) Lymphocytes # (Auto) 2.5 x10^3/uL (1.0-4.8) Monocytes # (Auto) 0.5 x10^3/uL (0.0-1.1) Eosinophils # (Auto) 0.3 x10^3/uL (0.0-0.7) Basophils # (Auto) 0.0 x10^3/uL (0.0-0.2) Magnesium Level 2.1 mg/dL (1.8-2.4) Laboratory Tests Test 12/07/17 05:40 White Blood Count 4.7 x10^3/uL (4.0-11.0) Red Blood Count 3.75 x10^6/uL (3.50-5.40) Hemoglobin 11.4 g/dL (12.0-15.5) Hematocrit 34.5 % (36.0-47.0) Mean Corpuscular Volume 92 fL (79-100) Mean Corpuscular Hemoglobin 30 pg (25-35) Mean Corpuscular Hemoglobin Concent 33 g/dL (31-37) Red Cell Distribution Width 15.0 % (11.5-14.5) Platelet Count 200 x10^3/uL (140-400) Neutrophils (%) (Auto) 28 % (31-73) Lymphocytes (%) (Auto) 54 % (24-48) Monocytes (%) (Auto) 11 % (0-9) Eosinophils (%) (Auto) 6 % (0-3) Basophils (%) (Auto) 1 % (0-3) Neutrophils # (Auto) 1.3 x10^3uL (1.8-7.7) Lymphocytes # (Auto) 2.5 x10^3/uL (1.0-4.8) Monocytes # (Auto) 0.5 x10^3/uL (0.0-1.1) Eosinophils # (Auto) 0.3 x10^3/uL (0.0-0.7) Basophils # (Auto) 0.0 x10^3/uL (0.0-0.2) Sodium Level 139 mmol/L (136-145) Potassium Level 4.4 mmol/L (3.5-5.1) Chloride Level 103 mmol/L (98-107) Carbon Dioxide Level 32 mmol/L (21-32) Anion Gap 4 (6-14) Blood Urea Nitrogen 31 mg/dL (7-20) Creatinine 2.1 mg/dL (0.6-1.0) Estimated GFR (Cockcroft-Gault) 27.2 Glucose Level 154 mg/dL (70-99) Calcium Level 9.1 mg/dL (8.5-10.1) Magnesium Level 2.1 mg/dL (1.8-2.4) Creatine Kinase 14 U/L (26-192) Medications Active Scripts Medications Dose Route/Sig Max Daily Dose Days Date Category Miralax (Polyethylene Glycol 3350) 17 Gm Powd.pack 1 Packet PO DAILY 11/29/17 Reported Flonase Allergy Relief (Fluticasone Propionate) 9.9 Ml [place].susp 2 Sprays NS DAILY 11/29/17 Reported Vitamin D3 (Cholecalciferol (Vitamin D3)) 1,000 Unit Tablet 1 Tab PO DAILY 11/29/17 Reported Tylenol (Acetaminophen) 325 Mg Tablet 325 Mg PO 11/29/17 Reported Cranberry (Cranberry Extract) 200 Mg Capsule 200 Mg PO 11/29/17 Reported Multivitamins (Multivitamin) 1 Each Tablet 1 Tab PO DAILY 11/29/17 Reported Acid Control (Ranitidine Hcl) 150 Mg Tablet 150 Mg PO 11/29/17 Reported Synthroid (Levothyroxine Sodium) 137 Mcg Tablet 1 Tab PO DAILY 11/29/17 Reported Protonix (Pantoprazole Sodium) 40 Mg Granpkt.dr 40 Mg PO DAILY 11/29/17 Reported Sotalol (Sotalol Hcl) 80 Mg Tablet 1 Tab PO BID 11/29/17 Reported Amlodipine Besylate 5 Mg Tablet 5 Mg PO DAILY 11/29/17 Reported Lasix (Furosemide) 40 Mg Tablet 1 Tab PO DAILY 06/03/14 Reported Losartan Potassium 50 Mg Tablet 50 Mg PO BID 06/03/14 Reported Hydrocodone-Apap 10-325 (Hydrocodone Bit/Acetaminophen) 1 Each Tablet 1 Each PO PRN Q4HRS 04/01/13 Reported Aspirin 81 Mg Tab.chew 81 Mg PO DAILY 04/01/13 Reported Impression . 1. Bydso-py-lcycttp hypercapnic respiratory failure . 2. Abnormal chest x-ray with diffuse right sided interstitial infiltrates with right hilar prominence in the right lung. CT chest reviewed. no ILD or CHF/ mild basal effusions and atelectasis 3. Underlying morbid obesity with suspected obstructive sleep apnea and obesity hypoventilation syndrome. 4. Hyperkalemia. 5. azotemia 6. No significant history of tobacco use or asthma. 7. Ankle edema, suspect due to cor -pulmonale Plan . SPOKE WITH RN DAUGHTER CONCERNED THAT WE ARE NOT TREATING WITH ANTIBX WILL ADD PRED AND DOXY FOR ACUTE BRONCHITIS WILL S/O FOLLOW UP IN OFFICE WITH DR MAX OXYGEN AT HOME BRAVO JOHN MD Dec 07, 2017 09:58
[2017-12-07] MEDS: HYDROcodone/APAP 10/325 1 TAB TABLET PO PRN ×2 (10:59→18:35)
[2017-12-07] MEDS: FUROSEMIDE 40 MG TABLET. PO SCH (10:59)
[2017-12-07 11:00] VITALS: BP 144/82
[2017-12-07] MEDS: SOTALOL 80 MG TABLET. PO SCH ×2 (11:00→21:07)
--- NOTE | 2017-12-07 11:01 | PDOC ---
PROGRESS NOTES Subjective Subjective feels okay. in atrial fibrillation with better VR however has intermittent pauses . taking sotalol 40 mg bid and aspirin and not a coumadin candidate due to fall risk. systolic bp 99 and did not get furosemide this morning. Objective Objective Vital Signs Date Time Temp Pulse Resp B/P (MAP) Pulse Ox O2 Delivery O2 Flow Rate FiO2 12/07/17 08:00 Nasal Cannula 2.0 12/07/17 07:53 99 12/07/17 07:00 98.1 106 16 99/77 (84) 98.1 Intake and Output 12/07/17 07:00 Intake Total 1930 ml Output Total 25 ml Balance 1905 ml Intake Oral 1930 ml Output Urine Total 25 ml # Voids 1 Physical Exam Abdomen: Soft, Other (obese) Heart: Normal S1, Normal S2 Extremities: Other (2 plus bilateral LE edema) General: Alert HEENT: Atraumatic Lungs: Clear to auscultation Neuro: Normal speech Psych/Mental Status: Mental status NL Skin: No rashes Assessment Assessment . Acute on chronic hypoxic and hypercarbic respiratory failure. obesity hypoventilation syndrome 2. acute kidney injury improved on chronic kidney disease stage 3. 3. Morbid obesity with a body mass index of 60. 4. Paroxysmal atrial fibrillation. 5. Diabetes mellitus type 2, treated with diet. 6. Hypertension. 7. Hypothyroidism. 8. Chronic diastolic congestive heart failure. acute bronchitis treated bilateral LE edema due to acute and chronic cor pulmonale and previous iv fluids paroxysmal atrial fibrillation with RVR better controlled with sotalol, received 1 dose of iv digoxin yesterday discussed with her daughter Comment Review of Relevant I have reviewed the following items jeet (where applicable) has been applied. Labs Laboratory Tests Test 12/06/17 04:15 12/07/17 05:40 Sodium Level 141 mmol/L (136-145) 139 mmol/L (136-145) Potassium Level 4.0 mmol/L (3.5-5.1) 4.4 mmol/L (3.5-5.1) Chloride Level 104 mmol/L (98-107) 103 mmol/L (98-107) Carbon Dioxide Level 31 mmol/L (21-32) 32 mmol/L (21-32) Anion Gap 6 (6-14) 4 (6-14) Blood Urea Nitrogen 29 mg/dL (7-20) 31 mg/dL (7-20) Creatinine 2.0 mg/dL (0.6-1.0) 2.1 mg/dL (0.6-1.0) Estimated GFR (Cockcroft-Gault) 28.8 27.2 Glucose Level 97 mg/dL (70-99) 154 mg/dL (70-99) Calcium Level 9.4 mg/dL (8.5-10.1) 9.1 mg/dL (8.5-10.1) Creatine Kinase 13 U/L (26-192) 14 U/L (26-192) White Blood Count 4.7 x10^3/uL (4.0-11.0) Red Blood Count 3.75 x10^6/uL (3.50-5.40) Hemoglobin 11.4 g/dL (12.0-15.5) Hematocrit 34.5 % (36.0-47.0) Mean Corpuscular Volume 92 fL (79-100) Mean Corpuscular Hemoglobin 30 pg (25-35) Mean Corpuscular Hemoglobin Concent 33 g/dL (31-37) Red Cell Distribution Width 15.0 % (11.5-14.5) Platelet Count 200 x10^3/uL (140-400) Neutrophils (%) (Auto) 28 % (31-73) Lymphocytes (%) (Auto) 54 % (24-48) Monocytes (%) (Auto) 11 % (0-9) Eosinophils (%) (Auto) 6 % (0-3) Basophils (%) (Auto) 1 % (0-3) Neutrophils # (Auto) 1.3 x10^3uL (1.8-7.7) Lymphocytes # (Auto) 2.5 x10^3/uL (1.0-4.8) Monocytes # (Auto) 0.5 x10^3/uL (0.0-1.1) Eosinophils # (Auto) 0.3 x10^3/uL (0.0-0.7) Basophils # (Auto) 0.0 x10^3/uL (0.0-0.2) Magnesium Level 2.1 mg/dL (1.8-2.4) Laboratory Tests Test 12/07/17 05:40 White Blood Count 4.7 x10^3/uL (4.0-11.0) Red Blood Count 3.75 x10^6/uL (3.50-5.40) Hemoglobin 11.4 g/dL (12.0-15.5) Hematocrit 34.5 % (36.0-47.0) Mean Corpuscular Volume 92 fL (79-100) Mean Corpuscular Hemoglobin 30 pg (25-35) Mean Corpuscular Hemoglobin Concent 33 g/dL (31-37) Red Cell Distribution Width 15.0 % (11.5-14.5) Platelet Count 200 x10^3/uL (140-400) Neutrophils (%) (Auto) 28 % (31-73) Lymphocytes (%) (Auto) 54 % (24-48) Monocytes (%) (Auto) 11 % (0-9) Eosinophils (%) (Auto) 6 % (0-3) Basophils (%) (Auto) 1 % (0-3) Neutrophils # (Auto) 1.3 x10^3uL (1.8-7.7) Lymphocytes # (Auto) 2.5 x10^3/uL (1.0-4.8) Monocytes # (Auto) 0.5 x10^3/uL (0.0-1.1) Eosinophils # (Auto) 0.3 x10^3/uL (0.0-0.7) Basophils # (Auto) 0.0 x10^3/uL (0.0-0.2) Sodium Level 139 mmol/L (136-145) Potassium Level 4.4 mmol/L (3.5-5.1) Chloride Level 103 mmol/L (98-107) Carbon Dioxide Level 32 mmol/L (21-32) Anion Gap 4 (6-14) Blood Urea Nitrogen 31 mg/dL (7-20) Creatinine 2.1 mg/dL (0.6-1.0) Estimated GFR (Cockcroft-Gault) 27.2 Glucose Level 154 mg/dL (70-99) Calcium Level 9.1 mg/dL (8.5-10.1) Magnesium Level 2.1 mg/dL (1.8-2.4) Creatine Kinase 14 U/L (26-192) Microbiology 11/30/17 - Final, Complete 11/30/17 - Final, Complete 11/30/17 - Final, Complete 11/30/17 Gram Stain Evaluation - Final, Complete 11/30/17 Sputum Culture - Final, Complete 11/30/17 Sputum Result 1 - Final, Complete 11/29/17 Urine Culture - Final, Complete 11/29/17 Urine Culture Result 1 (RAPHAEL) - Final, Complete Medications Current Medications Ondansetron HCl (Zofran) 4 mg PRN Q8HRS PRN IV NAUSEA/VOMITING; Start at 21:00; Stop 11/30/17 at 20:59; Status DC Insulin Human Regular (HumuLIN R VIAL) 10 unit 1X ONCE IV Last administered on 11/29/17at 22:35; Start 11/29/17 at 22:00; Stop 11/30/17 at 09:35; Status DC Dextrose (Dextrose 50%-Water Syringe) 25 gm 1X ONCE IV Last administered on at 22:31; Start 11/29/17 at 22:00; Stop 11/30/17 at 09:35; Status DC Albuterol Sulfate (Ventolin Neb Soln) 2.5 mg 1X ONCE NEB Last administered on 11/29/17at 22:44; Start 11/29/17 at 22:00; Stop 11/29/17 at 22:01; Status DC Calcium Gluconate (Calcium Gluconate) 2,000 mg 1X ONCE IVP Last administered on 11/29/17at 22:33; Start 11/29/17 at 22:00; Stop 11/29/17 at 22:01; Status DC Acetaminophen (Tylenol) 650 mg 1X ONCE PO Last administered on 11/29/17at 22: 40; Start 11/29/17 at 22:45; Stop 11/29/17 at 22:46; Status DC Heparin Sodium (Porcine) (Heparin Sodium) 5,000 unit Q12HR SQ Last administered on 12/07/17at 09:03; Start 11/30/17 at 09:00 Sodium Chloride (Normal Saline Flush) 3 ml QSHIFT PRN IV AFTER MEDS AND BLOOD DRAWS; Start 11/29/17 at 23:45 Senna/Docusate Sodium (Senna Plus) 1 tab BID PO Last administered on at 08:50; Start 11/30/17 at 09:00 Acetaminophen (Tylenol) 325 mg PRN Q6HRS PRN PO fever Last administered on at 13:23; Start 11/29/17 at 23:45 Amlodipine Besylate (Norvasc) 5 mg DAILY PO ; Start 11/30/17 at 09:00; Stop at 11:37; Status DC Aspirin (Children'S Aspirin) 81 mg DAILY PO Last administered on 12/07/17 08: 57; Start 11/30/17 at 09:00 Vitamin D (Vitamin D3) 1,000 unit DAILY PO Last administered on 12/07/17 08: 57; Start 11/30/17 at 09:00 Furosemide (Lasix) 40 mg DAILY PO ; Start 11/30/17 at 09:00; Stop 11/30/17 at 11:37; Status DC Levothyroxine Sodium (Synthroid) 137 mcg DAILY07 PO Last administered on at 05:38; Start 11/30/17 at 07:00 Fluticasone Propionate (Flonase) 2 spray DAILY NS ; Start 11/30/17 at 09:00; Stop 11/30/17 at 11:37; Status DC Acetaminophen/ Hydrocodone Bitart (Lortab 10/325) 1 tab PRN Q4HRS PRN PO PAIN Last administered on 12/01/17 01:13; Start 11/29/17 at 23:45; Stop 12/01/17 at 10:01; Status DC Multivitamins (Thera M Plus) 1 tab DAILY PO Last administered on 12/07/17 08: 57; Start 11/30/17 at 09:00 Pantoprazole Sodium (Protonix) 40 mg DAILYAC PO Last administered on at 05:38; Start 11/30/17 at 07:30 Polyethylene Glycol (miraLAX PACKET) 17 gm DAILY PO Last administered on at 08:52; Start 11/30/17 at 09:00 Sotalol HCl (Betapace) 80 mg BID PO ; Start 11/30/17 at 09:00; Stop 11/30/17 at 11:37; Status DC Insulin Human Lispro (HumaLOG) 0-7 UNITS TIDWMEALS SQ ; Start 11/30/17 at 08:00 ; Stop 11/30/17 at 09:35; Status DC Dextrose (Dextrose 50%-Water Syringe) 12.5 gm PRN Q15MIN PRN IV SEE COMMENTS; Start 11/30/17 at 00:00; Stop 11/30/17 at 09:35; Status DC Albuterol/ Ipratropium (Duoneb) 3 ml RTQID NEB Last administered on 12/07/17at 07:53; Start 11/30/17 at 08:00 Furosemide (Lasix) 40 mg 1X ONCE IVP ; Start 11/30/17 at 10:00; Stop at 10:08; Status DC Sodium Polystyrene Sulfonate (Kayexalate) 30 gm 1X ONCE PO ; Start 11/30/17 at 10:00; Stop 11/30/17 at 10:08; Status DC Sodium Chloride 500 ml @ 500 mls/hr 1X ONCE IV Last administered on at 10:22; Start 11/30/17 at 10:15; Stop 11/30/17 at 11:14; Status DC Insulin Human Regular (HumuLIN R VIAL) 10 unit 1X ONCE IV Last administered on 11/30/17at 10:27; Start 11/30/17 at 10:30; Stop 11/30/17 at 10:31; Status DC Dextrose (Dextrose 50%-Water Syringe) 25 gm 1X ONCE IV Last administered on at 10:25; Start 11/30/17 at 10:30; Stop 11/30/17 at 10:31; Status DC Levofloxacin/ Dextrose (Levaquin Per Pharmacy) 1 each PRN DAILY PRN MC SEE COMMENTS; Start 11/30/17 at 11:15; Stop 11/30/17 at 14:55; Status DC Linezolid/Dextrose 300 ml @ 300 mls/hr Q12HR IV Last administered on at 08:53; Start 11/30/17 at 12:00; Stop 12/04/17 at 11:45; Status DC Levofloxacin/ Dextrose 100 ml @ 100 mls/hr 1X ONCE IV Last administered on at 13:36; Start 11/30/17 at 12:00; Stop 11/30/17 at 12:59; Status DC Levofloxacin/ Dextrose 50 ml @ 50 mls/hr Q24H IV ; Start 12/01/17 at 12:00; Stop 12/01/17 at 12:00; Status DC Fluticasone Propionate (Flonase) 2 spray PRN DAILY PRN NS ALLERGIES Last administered on 12/05/17 23:10; Start 11/30/17 at 11:30 Sotalol HCl (Betapace) 40 mg BID PO Last administered on 12/01/17at 01:18; Start 11/30/17 at 21:00; Stop 12/01/17 at 18:47; Status DC Sodium Chloride 1,000 ml @ 100 mls/hr Q10H IV Last administered on 12/02/17at 05:43; Start 11/30/17 at 11:30; Stop 12/02/17 at 10:56; Status DC Doxycycline Hyclate (Vibra-Tab) 100 mg BID PO Last administered on 12/01/17at 07:38; Start 11/30/17 at 21:00; Stop 12/01/17 at 11:36; Status DC Cefepime HCl 2 gm/ Dextrose 100 ml @ 200 mls/hr Q12HR IV ; Start 11/30/17 at 15:30; Status Cancel Cefepime HCl (Maxipime) 2 gm Q12HR IVP Last administered on 12/04/17at 08:52; Start 11/30/17 at 15:30; Stop 12/04/17 at 11:45; Status DC Acetaminophen/ Hydrocodone Bitart (Lortab 10/325) 1 tab PRN Q6HRS PRN PO PAIN Last administered on 12/06/17at 23:57; Start 12/01/17 at 10:15 Lactobacillus Rhamnosus (Culturelle) 1 cap BID PO Last administered on at 08:57; Start 12/01/17 at 21:00 Sotalol HCl (Betapace) 40 mg BID PO ; Start 12/01/17 at 21:00; Status Cancel Metoprolol Tartrate (Lopressor) 12.5 mg BID PO Last administered on 12/03/17at 08:34; Start 12/01/17 at 21:00; Stop 12/03/17 at 10:25; Status DC Furosemide (Lasix) 40 mg DAILY PO Last administered on 12/06/17at 08:02; Start 12/02/17 at 12:00 Sodium Polystyrene Sulfonate (Kayexalate) 30 gm 1X ONCE PO Last administered on 12/02/17at 12:33; Start 12/02/17 at 11:00; Stop 12/02/17 at 11:01; Status DC Metoprolol Tartrate (Lopressor) 12.5 mg DAILY PO Last administered on at 08:04; Start 12/04/17 at 09:00; Stop 12/06/17 at 09:40; Status DC Sodium Polystyrene Sulfonate (Kayexalate) 15 gm 1X ONCE PO Last administered on 12/03/17at 12:15; Start 12/03/17 at 11:00; Stop 12/03/17 at 11:01; Status DC Metoprolol Tartrate (Lopressor) 12.5 mg BID PO ; Start 12/06/17 at 21:00; Stop 12/06/17 at 21:00; Status DC Sotalol HCl (Betapace) 40 mg BID PO Last administered on 12/06/17at 21:05; Start 12/06/17 at 12:00 Digoxin (Lanoxin) 500 mcg 1X ONCE IV Last administered on 12/06/17at 12:10; Start 12/06/17 at 12:00; Stop 12/06/17 at 12:01; Status DC Active Scripts Active Metoprolol Tartrate 25 Mg Tablet 12.5 Mg PO BID 30 Days Reported Miralax (Polyethylene Glycol 3350) 17 Gm Powd.pack 1 Packet PO DAILY Flonase Allergy Relief (Fluticasone Propionate) 9.9 Ml [place].susp 2 Sprays NS DAILY Vitamin D3 (Cholecalciferol (Vitamin D3)) 1,000 Unit Tablet 1 Tab PO DAILY Tylenol (Acetaminophen) 325 Mg Tablet 325 Mg PO Cranberry (Cranberry Extract) 200 Mg Capsule 200 Mg PO Multivitamins (Multivitamin) 1 Each Tablet 1 Tab PO DAILY Synthroid (Levothyroxine Sodium) 137 Mcg Tablet 1 Tab PO DAILY Protonix (Pantoprazole Sodium) 40 Mg Granpkt.dr 40 Mg PO DAILY Lasix (Furosemide) 40 Mg Tablet 1 Tab PO DAILY Hydrocodone-Apap 10-325 (Hydrocodone Bit/Acetaminophen) 1 Each Tablet 1 Each PO PRN Q4HRS Aspirin 81 Mg Tab.chew 81 Mg PO DAILY Vitals/I & O Vital Sign - Last 24 Hours 12/06/17 12/06/17 12/06/17 12/06/17 11:00 12:06 12:10 12:10 Temp 98.0 98.8 98.0 98.8 Pulse 127 127 141 127 Resp 16 12 B/P (MAP) 111/58 (75) 97/66 (76) Pulse Ox 96 97 O2 Delivery Nasal Cannula Nasal Cannula O2 Flow Rate 2.0 12/06/17 12/06/17 12/06/17 12/06/17 15:00 15:05 16:19 17:19 Temp 97.8 97.8 Pulse 89 Resp 18 B/P (MAP) 116/73 (87) Pulse Ox 98 97 O2 Delivery Room Air Nasal Cannula Nasal Cannula Nasal Cannula O2 Flow Rate 2.0 2.0 12/06/17 12/06/17 12/06/17 12/06/17 19:20 19:49 20:08 21:05 Temp 98.0 98.0 Pulse 87 122 Resp 21 B/P (MAP) 107/92 (97) 107/92 Pulse Ox 99 98 O2 Delivery Room Air Nasal Cannula Nasal Cannula O2 Flow Rate 2.0 2.0 12/06/17 12/06/17 12/07/17 12/07/17 23:10 23:57 03:30 07:00 Temp 98.1 97.9 98.1 98.1 97.9 98.1 Pulse 124 102 106 Resp 16 18 16 B/P (MAP) 133/76 (95) 100/63 (75) 99/77 (84) Pulse Ox 99 100 100 O2 Delivery Room Air Nasal Cannula Nasal Cannula Nasal Cannula O2 Flow Rate 2.0 12/07/17 12/07/17 07:53 08:00 Pulse Ox 99 O2 Delivery Nasal Cannula Nasal Cannula O2 Flow Rate 2.0 2.0 Intake and Output 12/06/17 12/06/17 12/07/17 15:00 23:00 07:00 Intake Total 210 ml 1080 ml 640 ml Output Total 25 ml Balance 210 ml 1055 ml 640 ml HOOD ALLAN MD Dec 07, 2017 11:01
--- NOTE | 2017-12-07 11:55 | PDOC ---
CARDIO Progress Notes Date and Time Date of Service 12/07/17 Time of Evaluation 1115 Subjective Subjective: No Chest Pain, No shortness of breath, No Palpitations Vitals Vitals Vital Signs Date Time Temp Pulse Resp B/P (MAP) Pulse Ox O2 Delivery O2 Flow Rate FiO2 12/07/17 11:49 97 Nasal Cannula 2.0 12/07/17 11:00 110 144/83 12/07/17 07:00 98.1 16 98.1 Weight Weight [ ] Input and Output Intake and Output Intake and Output 12/07/17 07:00 Intake Total 1930 ml Output Total 25 ml Balance 1905 ml Intake Oral 1930 ml Output Urine Total 25 ml # Voids 1 Laboratory Labs Laboratory Tests Test 12/07/17 05:40 White Blood Count 4.7 x10^3/uL (4.0-11.0) Red Blood Count 3.75 x10^6/uL (3.50-5.40) Hemoglobin 11.4 g/dL (12.0-15.5) Hematocrit 34.5 % (36.0-47.0) Mean Corpuscular Volume 92 fL (79-100) Mean Corpuscular Hemoglobin 30 pg (25-35) Mean Corpuscular Hemoglobin Concent 33 g/dL (31-37) Red Cell Distribution Width 15.0 % (11.5-14.5) Platelet Count 200 x10^3/uL (140-400) Neutrophils (%) (Auto) 28 % (31-73) Lymphocytes (%) (Auto) 54 % (24-48) Monocytes (%) (Auto) 11 % (0-9) Eosinophils (%) (Auto) 6 % (0-3) Basophils (%) (Auto) 1 % (0-3) Neutrophils # (Auto) 1.3 x10^3uL (1.8-7.7) Lymphocytes # (Auto) 2.5 x10^3/uL (1.0-4.8) Monocytes # (Auto) 0.5 x10^3/uL (0.0-1.1) Eosinophils # (Auto) 0.3 x10^3/uL (0.0-0.7) Basophils # (Auto) 0.0 x10^3/uL (0.0-0.2) Sodium Level 139 mmol/L (136-145) Potassium Level 4.4 mmol/L (3.5-5.1) Chloride Level 103 mmol/L (98-107) Carbon Dioxide Level 32 mmol/L (21-32) Anion Gap 4 (6-14) Blood Urea Nitrogen 31 mg/dL (7-20) Creatinine 2.1 mg/dL (0.6-1.0) Estimated GFR (Cockcroft-Gault) 27.2 Glucose Level 154 mg/dL (70-99) Calcium Level 9.1 mg/dL (8.5-10.1) Magnesium Level 2.1 mg/dL (1.8-2.4) Creatine Kinase 14 U/L (26-192) Microbiology Micro Microbiology 11/30/17 - Final, Complete 11/30/17 - Final, Complete 11/30/17 - Final, Complete 11/30/17 Gram Stain Evaluation - Final, Complete 11/30/17 Sputum Culture - Final, Complete 11/30/17 Sputum Result 1 - Final, Complete 11/29/17 Urine Culture - Final, Complete 11/29/17 Urine Culture Result 1 (RAPHAEL) - Final, Complete Review of Systems Constitutional: yes: weakness, alert, oriented Ears/Nose/Throat: Yes: no symptom reported Eyes: Yes: no symptom reported Pulmonary: Yes no symptom reported, Yes dyspnea Cardiovascular: Yes no symptom reported Gastrointestional: Yes: no symptom reported Genitourinary: Yes: no symptom reported Musculoskeletal: Yes: no symptom reported Skin: Yes no symptom reported Psychiatric/Neurological: Yes: no symptom reported Endocrine: Yes: no symptom reported Physical Exam HEENT: Neck Supple W Full Motion Chest: Symmetric LUNGS: Other (diminished bases) Heart: S1S2, irregularly irregular (AFIB RVR rate 90-135) Abdomen: Soft N/T, Other (obese) Extremities: No Calf Tenderness, Other (2-3+ bilateral LE pitting edmea) Neurology: alert, oriented, follow commands Assessment Assessment 1. AFIB RVR: sotalol resumed. EKG this am; QTc 397. CrCl 56. HR remains 110-130 2. Acute on chronic respiratory failure with underlying ELLI/morbid obesity/CHF with possible pneumonia 3. Acute on chronic diastolic CHF: compensated. 4. STAN on CKD: stable at Cr 2.1 5. HTN: controlled Recommendations Give Digoxin IV x1 now ASA for stroke prevention as patient has been deemed poor OAC candidate due to ^ fall risk EKG in am; note QTc with sotalol. Monitor renal function Supportive care. ERICA CAMARENA APRN Dec 07, 2017 11:55
[2017-12-07] MEDS ORDERED: DIGOXIN IV 500 MCG/2 ML AMPUL. IV ONE (14:45)
[2017-12-07 15:00] VITALS: BP 108/67
[2017-12-07 19:27] VITALS: BP 101/81
[2017-12-07 23:20] VITALS: BP 113/76
[2017-12-08 03:49] VITALS: BP 112/58
--- NOTE | 2017-12-08 05:51 | EKG ---
[facility] [address] [place] [address] Test Date: 2017-12-08 Test Time: 05:44:23 Pat Name: ADILIA MACEDO Department: Room: 270 1 Gender: F Retail Representative: CHUY : 1935 Requested By: ERICA CAMARENA Order Number: [id number] Reading MD: Jairo Dubois MD Measurements Intervals [place] Rate: 90 P: NE: QRS: -26 QRSD: 86 T: 133 QT: 424 QTc: 523 Interpretive Statements ATRIAL FIBRILLATION WITH CONTROLLED VENTRICULAR RESPONSE NON-SPECIFIC ST/T CHANGES Electronically Signed On 12-11-2017 11:20:41 CDT by Jairo Dubois MD
[2017-12-08] MEDS: LEVOTHYROXINE 137 MCG TABLET PO SCH (05:53)
[2017-12-08 07:45] VITALS: BP 128/84
[2017-12-08] MEDS: IPRATRPIUM/ALBUTEROL 0.5/2.5MG 3 ML NEBU. NEB SCH ×4 (08:30→19:56)
[2017-12-08] MEDS: HEPARIN for SUB-Q USE 5,000 UNIT/ML VIAL. SQ SCH ×2 (09:00→21:09)
[2017-12-08] MEDS: SENNOSIDES/DOCUSATE 8.6/50MG TABLET. PO SCH ×2 (09:00→21:00)
[2017-12-08] MEDS: POLYETHYLENE GLYCOL 3350 17 GM PACKET. PO SCH (09:00)
[2017-12-08] MEDS: HYDROcodone/APAP 10/325 1 TAB TABLET PO PRN (09:18)
[2017-12-08] MEDS: LACTOBACILLUS RHAMNOSUS GG 1 CAPSULE. PO SCH ×2 (09:18→21:08)
[2017-12-08] MEDS: PANTOPRAZOLE 40 MG TABLET.DR. PO SCH (09:18)
[2017-12-08] MEDS: MULTIVITAMIN with MINERAL TABLET. PO SCH (09:18)
[2017-12-08] MEDS: FUROSEMIDE 40 MG TABLET. PO SCH (09:18)
[2017-12-08] MEDS: CHOLECALCIFEROL (VITAMIN D3) 1,000 UNIT TABLET PO SCH (09:18)
[2017-12-08] MEDS: ASPIRIN CHEWABLE 81 MG TABLET. PO SCH (09:18)
[2017-12-08] MEDS: SOTALOL 80 MG TABLET. PO SCH (09:19)
--- NOTE | 2017-12-08 09:35 | PDOC ---
CARDIO Progress Notes Date and Time Date of Service 12/08/2017 Time of Evaluation 0930 Subjective Subjective: No Chest Pain, No shortness of breath, No Palpitations Vitals Vitals Vital Signs Date Time Temp Pulse Resp B/P (MAP) Pulse Ox O2 Delivery O2 Flow Rate FiO2 12/08/17 09:19 98 12/08/17 09:18 Nasal Cannula 12/08/17 08:33 2.0 12/08/17 07:45 98.3 12 128/84 (99) 100 98.3 Weight Weight [ ] Input and Output Intake and Output Intake and Output 12/08/17 07:00 Intake Total 700 ml Output Total 500 ml Balance 200 ml Intake Oral 700 ml Output Urine Total 500 ml Microbiology Micro Microbiology 11/30/17 - Final, Complete 11/30/17 - Final, Complete 11/30/17 - Final, Complete 11/30/17 Gram Stain Evaluation - Final, Complete 11/30/17 Sputum Culture - Final, Complete 11/30/17 Sputum Result 1 - Final, Complete 11/29/17 Urine Culture - Final, Complete 11/29/17 Urine Culture Result 1 (RAPHAEL) - Final, Complete Review of Systems Constitutional: yes: weakness, alert, oriented Ears/Nose/Throat: Yes: no symptom reported Eyes: Yes: no symptom reported Pulmonary: Yes no symptom reported, Yes dyspnea Cardiovascular: Yes no symptom reported Gastrointestional: Yes: no symptom reported Genitourinary: Yes: no symptom reported Musculoskeletal: Yes: no symptom reported Skin: Yes no symptom reported Psychiatric/Neurological: Yes: no symptom reported Endocrine: Yes: no symptom reported Physical Exam HEENT: Neck Supple W Full Motion Chest: Symmetric LUNGS: Other (diminished bases) Heart: S1S2, irregularly irregular (AFIB rate controlled) Abdomen: Soft N/T, Other (obese) Extremities: No Calf Tenderness, Other (2-3+ bilateral LE pitting edmea) Neurology: alert, oriented, follow commands Assessment Assessment 1. AFIB RVR: refractory being off sotalol. asymptomatic. Rate now improved. No pauses but with brief episode of HR in the 40s. 2. Acute on chronic respiratory failure with underlying ELLI/morbid obesity/CHF with possible pneumonia. Improved 3. Acute on chronic diastolic CHF: compensated. 4. STAN on CKD: Cr 2.2 5. HTN: controlled 6. Prolonged QTc: increased to 523 Recommendations 1. Failed to convert to SR. Cr 2.2 with pronged QTc, Will DC sotalol and will place on higher dose of metoprolol at 25 mg po BID. 2. Will arrange for event monitor if none has been done this year and will provide EP referral as an outpt. 2. ASA for stroke prevention, and secondary prevention measures. Deemed not a good candidate in the past for anticoagulation due to high bleed and fall risk 4. Will need home ELLI w/u as outpt given that she is bedbound. GISELLE HERNANDEZ APRN Dec 08, 2017 09:35
--- NOTE | 2017-12-08 09:56 | PDOC ---
PROGRESS NOTES Subjective Subjective feels better . in a fib with controlled VR however she has a slow VR at times. discussed with Maria Fernanda.. she received a second dose of iv digoxin yesterday and taking sotalol 40 mg po bid. bp is better Objective Objective Vital Signs Date Time Temp Pulse Resp B/P (MAP) Pulse Ox O2 Delivery O2 Flow Rate FiO2 12/08/17 09:19 98 12/08/17 09:18 Nasal Cannula 12/08/17 08:33 2.0 12/08/17 07:45 98.3 12 128/84 (99) 100 98.3 Intake and Output 12/08/17 07:00 Intake Total 700 ml Output Total 500 ml Balance 200 ml Intake Oral 700 ml Output Urine Total 500 ml Physical Exam Abdomen: Soft Heart: Normal S1, Normal S2 Extremities: Other (2 plus edema legs) General: Alert HEENT: Atraumatic Lungs: Clear to auscultation Neuro: Normal speech Psych/Mental Status: Mental status NL Skin: No rashes Assessment Assessment Acute on chronic hypoxic and hypercarbic respiratory failure. obesity hypoventilation syndrome 2. acute kidney injury improved on chronic kidney disease stage 3. 3. Morbid obesity with a body mass index of 60. 4. Paroxysmal atrial fibrillation. 5. Diabetes mellitus type 2, treated with diet. 6. Hypertension. 7. Hypothyroidism. 8. Chronic diastolic congestive heart failure. acute bronchitis treated bilateral LE edema due to acute and chronic cor pulmonale and previous iv fluids paroxysmal atrial fibrillation with RVR better controlled with sotalol, received 1 dose of iv digoxin yesterday. slow VR noted this morning on monitor strip Plan Plan of Care continue sotalol not a coumadin candidate telemetry lab tomorrow Comment Review of Relevant I have reviewed the following items jeet (where applicable) has been applied. Labs Laboratory Tests Test 12/07/17 05:40 White Blood Count 4.7 x10^3/uL (4.0-11.0) Red Blood Count 3.75 x10^6/uL (3.50-5.40) Hemoglobin 11.4 g/dL (12.0-15.5) Hematocrit 34.5 % (36.0-47.0) Mean Corpuscular Volume 92 fL (79-100) Mean Corpuscular Hemoglobin 30 pg (25-35) Mean Corpuscular Hemoglobin Concent 33 g/dL (31-37) Red Cell Distribution Width 15.0 % (11.5-14.5) Platelet Count 200 x10^3/uL (140-400) Neutrophils (%) (Auto) 28 % (31-73) Lymphocytes (%) (Auto) 54 % (24-48) Monocytes (%) (Auto) 11 % (0-9) Eosinophils (%) (Auto) 6 % (0-3) Basophils (%) (Auto) 1 % (0-3) Neutrophils # (Auto) 1.3 x10^3uL (1.8-7.7) Lymphocytes # (Auto) 2.5 x10^3/uL (1.0-4.8) Monocytes # (Auto) 0.5 x10^3/uL (0.0-1.1) Eosinophils # (Auto) 0.3 x10^3/uL (0.0-0.7) Basophils # (Auto) 0.0 x10^3/uL (0.0-0.2) Sodium Level 139 mmol/L (136-145) Potassium Level 4.4 mmol/L (3.5-5.1) Chloride Level 103 mmol/L (98-107) Carbon Dioxide Level 32 mmol/L (21-32) Anion Gap 4 (6-14) Blood Urea Nitrogen 31 mg/dL (7-20) Creatinine 2.1 mg/dL (0.6-1.0) Estimated GFR (Cockcroft-Gault) 27.2 Glucose Level 154 mg/dL (70-99) Calcium Level 9.1 mg/dL (8.5-10.1) Magnesium Level 2.1 mg/dL (1.8-2.4) Creatine Kinase 14 U/L (26-192) Microbiology 11/30/17 - Final, Complete 11/30/17 - Final, Complete 11/30/17 - Final, Complete 11/30/17 Gram Stain Evaluation - Final, Complete 11/30/17 Sputum Culture - Final, Complete 11/30/17 Sputum Result 1 - Final, Complete 11/29/17 Urine Culture - Final, Complete 11/29/17 Urine Culture Result 1 (RAPHAEL) - Final, Complete Medications Current Medications Ondansetron HCl (Zofran) 4 mg PRN Q8HRS PRN IV NAUSEA/VOMITING; Start at 21:00; Stop 11/30/17 at 20:59; Status DC Insulin Human Regular (HumuLIN R VIAL) 10 unit 1X ONCE IV Last administered on 11/29/17at 22:35; Start 11/29/17 at 22:00; Stop 11/30/17 at 09:35; Status DC Dextrose (Dextrose 50%-Water Syringe) 25 gm 1X ONCE IV Last administered on at 22:31; Start 11/29/17 at 22:00; Stop 11/30/17 at 09:35; Status DC Albuterol Sulfate (Ventolin Neb Soln) 2.5 mg 1X ONCE NEB Last administered on 11/29/17at 22:44; Start 11/29/17 at 22:00; Stop 11/29/17 at 22:01; Status DC Calcium Gluconate (Calcium Gluconate) 2,000 mg 1X ONCE IVP Last administered on 11/29/17at 22:33; Start 11/29/17 at 22:00; Stop 11/29/17 at 22:01; Status DC Acetaminophen (Tylenol) 650 mg 1X ONCE PO Last administered on 11/29/17at 22: 40; Start 11/29/17 at 22:45; Stop 11/29/17 at 22:46; Status DC Heparin Sodium (Porcine) (Heparin Sodium) 5,000 unit Q12HR SQ Last administered on 12/07/17at 21:11; Start 11/30/17 at 09:00 Sodium Chloride (Normal Saline Flush) 3 ml QSHIFT PRN IV AFTER MEDS AND BLOOD DRAWS; Start 11/29/17 at 23:45 Senna/Docusate Sodium (Senna Plus) 1 tab BID PO Last administered on at 08:50; Start 11/30/17 at 09:00 Acetaminophen (Tylenol) 325 mg PRN Q6HRS PRN PO fever Last administered on at 13:23; Start 11/29/17 at 23:45 Amlodipine Besylate (Norvasc) 5 mg DAILY PO ; Start 11/30/17 at 09:00; Stop at 11:37; Status DC Aspirin (Children'S Aspirin) 81 mg DAILY PO Last administered on 12/08/17at 09: 18; Start 11/30/17 at 09:00 Vitamin D (Vitamin D3) 1,000 unit DAILY PO Last administered on 12/08/17at 09: 18; Start 11/30/17 at 09:00 Furosemide (Lasix) 40 mg DAILY PO ; Start 11/30/17 at 09:00; Stop 11/30/17 at 11:37; Status DC Levothyroxine Sodium (Synthroid) 137 mcg DAILY07 PO Last administered on at 05:53; Start 11/30/17 at 07:00 Fluticasone Propionate (Flonase) 2 spray DAILY NS ; Start 11/30/17 at 09:00; Stop 11/30/17 at 11:37; Status DC Acetaminophen/ Hydrocodone Bitart (Lortab 10/325) 1 tab PRN Q4HRS PRN PO PAIN Last administered on 12/01/17at 01:13; Start 11/29/17 at 23:45; Stop 12/01/17 at 10:01; Status DC Multivitamins (Thera M Plus) 1 tab DAILY PO Last administered on 12/08/17at 09: 18; Start 11/30/17 at 09:00 Pantoprazole Sodium (Protonix) 40 mg DAILYAC PO Last administered on at 09:18; Start 11/30/17 at 07:30 Polyethylene Glycol (miraLAX PACKET) 17 gm DAILY PO Last administered on at 08:52; Start 11/30/17 at 09:00 Sotalol HCl (Betapace) 80 mg BID PO ; Start 11/30/17 at 09:00; Stop 11/30/17 at 11:37; Status DC Insulin Human Lispro (HumaLOG) 0-7 UNITS TIDWMEALS SQ ; Start 11/30/17 at 08:00 ; Stop 11/30/17 at 09:35; Status DC Dextrose (Dextrose 50%-Water Syringe) 12.5 gm PRN Q15MIN PRN IV SEE COMMENTS; Start 11/30/17 at 00:00; Stop 11/30/17 at 09:35; Status DC Albuterol/ Ipratropium (Duoneb) 3 ml RTQID NEB Last administered on 12/08/17at 08:30; Start 11/30/17 at 08:00 Furosemide (Lasix) 40 mg 1X ONCE IVP ; Start 11/30/17 at 10:00; Stop at 10:08; Status DC Sodium Polystyrene Sulfonate (Kayexalate) 30 gm 1X ONCE PO ; Start 11/30/17 at 10:00; Stop 11/30/17 at 10:08; Status DC Sodium Chloride 500 ml @ 500 mls/hr 1X ONCE IV Last administered on at 10:22; Start 11/30/17 at 10:15; Stop 11/30/17 at 11:14; Status DC Insulin Human Regular (HumuLIN R VIAL) 10 unit 1X ONCE IV Last administered on 11/30/17at 10:27; Start 11/30/17 at 10:30; Stop 11/30/17 at 10:31; Status DC Dextrose (Dextrose 50%-Water Syringe) 25 gm 1X ONCE IV Last administered on at 10:25; Start 11/30/17 at 10:30; Stop 11/30/17 at 10:31; Status DC Levofloxacin/ Dextrose (Levaquin Per Pharmacy) 1 each PRN DAILY PRN MC SEE COMMENTS; Start 11/30/17 at 11:15; Stop 11/30/17 at 14:55; Status DC Linezolid/Dextrose 300 ml @ 300 mls/hr Q12HR IV Last administered on at 08:53; Start 11/30/17 at 12:00; Stop 12/04/17 at 11:45; Status DC Levofloxacin/ Dextrose 100 ml @ 100 mls/hr 1X ONCE IV Last administered on at 13:36; Start 11/30/17 at 12:00; Stop 11/30/17 at 12:59; Status DC Levofloxacin/ Dextrose 50 ml @ 50 mls/hr Q24H IV ; Start 12/01/17 at 12:00; Stop 12/01/17 at 12:00; Status DC Fluticasone Propionate (Flonase) 2 spray PRN DAILY PRN NS ALLERGIES Last administered on 12/05/17at 23:10; Start 11/30/17 at 11:30 Sotalol HCl (Betapace) 40 mg BID PO Last administered on 12/01/17at 01:18; Start 11/30/17 at 21:00; Stop 12/01/17 at 18:47; Status DC Sodium Chloride 1,000 ml @ 100 mls/hr Q10H IV Last administered on 12/02/17at 05:43; Start 11/30/17 at 11:30; Stop 12/02/17 at 10:56; Status DC Doxycycline Hyclate (Vibra-Tab) 100 mg BID PO Last administered on 12/01/17at 07:38; Start 11/30/17 at 21:00; Stop 12/01/17 at 11:36; Status DC Cefepime HCl 2 gm/ Dextrose 100 ml @ 200 mls/hr Q12HR IV ; Start 11/30/17 at 15:30; Status Cancel Cefepime HCl (Maxipime) 2 gm Q12HR IVP Last administered on 12/04/17at 08:52; Start 11/30/17 at 15:30; Stop 12/04/17 at 11:45; Status DC Acetaminophen/ Hydrocodone Bitart (Lortab 10/325) 1 tab PRN Q6HRS PRN PO PAIN Last administered on 12/08/17at 09:18; Start 12/01/17 at 10:15 Lactobacillus Rhamnosus (Culturelle) 1 cap BID PO Last administered on at 09:18; Start 12/01/17 at 21:00 Sotalol HCl (Betapace) 40 mg BID PO ; Start 12/01/17 at 21:00; Status Cancel Metoprolol Tartrate (Lopressor) 12.5 mg BID PO Last administered on 12/03/17at 08:34; Start 12/01/17 at 21:00; Stop 12/03/17 at 10:25; Status DC Furosemide (Lasix) 40 mg DAILY PO Last administered on 12/08/17at 09:18; Start 12/02/17 at 12:00 Sodium Polystyrene Sulfonate (Kayexalate) 30 gm 1X ONCE PO Last administered on 12/02/17at 12:33; Start 12/02/17 at 11:00; Stop 12/02/17 at 11:01; Status DC Metoprolol Tartrate (Lopressor) 12.5 mg DAILY PO Last administered on at 08:04; Start 12/04/17 at 09:00; Stop 12/06/17 at 09:40; Status DC Sodium Polystyrene Sulfonate (Kayexalate) 15 gm 1X ONCE PO Last administered on 12/03/17at 12:15; Start 12/03/17 at 11:00; Stop 12/03/17 at 11:01; Status DC Metoprolol Tartrate (Lopressor) 12.5 mg BID PO ; Start 12/06/17 at 21:00; Stop 12/06/17 at 21:00; Status DC Sotalol HCl (Betapace) 40 mg BID PO Last administered on 12/08/17at 09:19; Start 12/06/17 at 12:00 Digoxin (Lanoxin) 500 mcg 1X ONCE IV Last administered on 12/06/17at 12:10; Start 12/06/17 at 12:00; Stop 12/06/17 at 12:01; Status DC Digoxin (Lanoxin) 500 mcg 1X ONCE IV Last administered on 12/07/17at 15:26; Start 12/07/17 at 14:45; Stop 12/07/17 at 14:46; Status DC Active Scripts Active Metoprolol Tartrate 25 Mg Tablet 12.5 Mg PO BID 30 Days Reported Miralax (Polyethylene Glycol 3350) 17 Gm Powd.pack 1 Packet PO DAILY Flonase Allergy Relief (Fluticasone Propionate) 9.9 Ml Desmet.susp 2 Sprays NS DAILY Vitamin D3 (Cholecalciferol (Vitamin D3)) 1,000 Unit Tablet 1 Tab PO DAILY Tylenol (Acetaminophen) 325 Mg Tablet 325 Mg PO Cranberry (Cranberry Extract) 200 Mg Capsule 200 Mg PO Multivitamins (Multivitamin) 1 Each Tablet 1 Tab PO DAILY Synthroid (Levothyroxine Sodium) 137 Mcg Tablet 1 Tab PO DAILY Protonix (Pantoprazole Sodium) 40 Mg Granpkt.dr 40 Mg PO DAILY Lasix (Furosemide) 40 Mg Tablet 1 Tab PO DAILY Hydrocodone-Apap 10-325 (Hydrocodone Bit/Acetaminophen) 1 Each Tablet 1 Each PO PRN Q4HRS Aspirin 81 Mg Tab.chew 81 Mg PO DAILY Vitals/I & O Vital Sign - Last 24 Hours 12/07/17 12/07/17 12/07/17 12/07/17 10:59 11:00 11:00 11:49 Pulse 110 100 Resp 16 B/P (MAP) 144/83 144/82 (102) Pulse Ox 99 99 97 O2 Delivery Nasal Cannula Nasal Cannula Nasal Cannula O2 Flow Rate 2.0 2.0 2.0 12/07/17 12/07/17 12/07/17 12/07/17 15:00 15:26 15:45 18:35 Temp 98.1 98.1 Pulse 117 117 Resp 18 B/P (MAP) 108/67 (81) 108/67 Pulse Ox 97 98 98 O2 Delivery Nasal Cannula Nasal Cannula Nasal Cannula O2 Flow Rate 2.0 2.0 2.0 12/07/17 12/07/17 12/07/17 12/07/17 19:15 19:27 19:39 20:48 Temp 98.0 98.0 Pulse 89 Resp 16 B/P (MAP) 101/81 (88) Pulse Ox 96 99 99 O2 Delivery Nasal Cannula Nasal Cannula Nasal Cannula Nasal Cannula O2 Flow Rate 2.0 2.0 2.0 2.0 12/07/17 12/07/17 12/08/17 12/08/17 21:07 23:20 03:49 07:45 Temp 98.1 98.7 98.3 98.1 98.7 98.3 Pulse 89 87 104 62 Resp 17 16 12 B/P (MAP) 101/81 113/76 (88) 112/58 (76) 128/84 (99) Pulse Ox 99 98 100 O2 Delivery Nasal Cannula Nasal Cannula Nasal Cannula O2 Flow Rate 2.0 2.0 2.0 12/08/17 12/08/17 12/08/17 08:33 09:18 09:19 Pulse 98 O2 Delivery Nasal Cannula Nasal Cannula O2 Flow Rate 2.0 Intake and Output 12/07/17 12/07/17 12/08/17 15:00 23:00 07:00 Intake Total 500 ml 200 ml Output Total 500 ml Balance 0 ml 200 ml HOOD ALLAN MD Dec 08, 2017 09:56
[2017-12-08 11:00] VITALS: BP 140/70
[2017-12-08 11:02] LABS: CREATININE 2.2 mg/dL (0.6-1.0); GFR 25.8; POTASSIUM 4.8 mmol/L (3.5-5.1)
[2017-12-08 15:00] VITALS: BP 123/67
[2017-12-08] MEDS: predniSONE 20 MG TABLET PO SCH (17:54)
[2017-12-08] MEDS: DOXYCYCLINE HYCLATE 100 MG TABLET PO SCH ×2 (17:54→21:08)
[2017-12-08 19:00] VITALS: BP_SYST 117; BP_SYST 130; BP_DIAS 72
[2017-12-08] MEDS: METOPROLOL TART IMMED RELEASE 25 MG TABLET. PO SCH (21:08)
[2017-12-08 22:57] VITALS: BP 154/91
[2017-12-09 02:53] VITALS: BP 146/79
[2017-12-09] MEDS: LEVOTHYROXINE 137 MCG TABLET PO SCH (06:05)
[2017-12-09] MEDS: IPRATRPIUM/ALBUTEROL 0.5/2.5MG 3 ML NEBU. NEB SCH ×3 (07:31→15:22)
[2017-12-09 07:42] VITALS: BP 154/77
[2017-12-09] MEDS: predniSONE 20 MG TABLET PO SCH (08:36)
[2017-12-09] MEDS: POLYETHYLENE GLYCOL 3350 17 GM PACKET. PO SCH (08:36)
[2017-12-09] MEDS: FUROSEMIDE 40 MG TABLET. PO SCH (08:36)
[2017-12-09] MEDS: METOPROLOL TART IMMED RELEASE 25 MG TABLET. PO SCH (08:36)
[2017-12-09] MEDS: DOXYCYCLINE HYCLATE 100 MG TABLET PO SCH (08:36)
[2017-12-09] MEDS: LACTOBACILLUS RHAMNOSUS GG 1 CAPSULE. PO SCH (08:36)
[2017-12-09] MEDS: ASPIRIN CHEWABLE 81 MG TABLET. PO SCH (08:37)
[2017-12-09] MEDS: MULTIVITAMIN with MINERAL TABLET. PO SCH (08:37)
[2017-12-09] MEDS: PANTOPRAZOLE 40 MG TABLET.DR. PO SCH (08:37)
[2017-12-09] MEDS: HYDROcodone/APAP 10/325 1 TAB TABLET PO PRN ×2 (08:37→16:38)
[2017-12-09] MEDS: SENNOSIDES/DOCUSATE 8.6/50MG TABLET. PO SCH (08:37)
[2017-12-09] MEDS: CHOLECALCIFEROL (VITAMIN D3) 1,000 UNIT TABLET PO SCH (08:37)
[2017-12-09] MEDS: HEPARIN for SUB-Q USE 5,000 UNIT/ML VIAL. SQ SCH (08:46)
--- NOTE | 2017-12-09 10:44 | PDOC ---
PROGRESS NOTES Subjective Subjective feels better. has a controlled VR in s in a fib. switched to metoprolol.. lab reviwed. bun 35 and creatinine 2.2. will change furosemide to every other day. Objective Objective Vital Signs Date Time Temp Pulse Resp B/P (MAP) Pulse Ox O2 Delivery O2 Flow Rate FiO2 12/09/17 09:40 20 Nasal Cannula 12/09/17 08:36 88 154/77 12/09/17 07:42 97.6 99 97.6 12/09/17 07:32 2.0 Intake and Output 12/09/17 07:00 Intake Total 1450 ml Output Total 950 ml Balance 500 ml Intake Oral 1450 ml Output Urine Total 950 ml Physical Exam Abdomen: Soft, Other (obese) Heart: Regular rate, Normal S1, Normal S2 Extremities: Other (2 plus edema legs) General: Alert HEENT: Atraumatic Lungs: Clear to auscultation Neuro: Normal speech Psych/Mental Status: Mental status NL Skin: No rashes Assessment Assessment Assessment Acute on chronic hypoxic and hypercarbic respiratory failure. obesity hypoventilation syndrome 2. acute kidney injury improved on chronic kidney disease stage 3. 3. Morbid obesity with a body mass index of 60. 4. Paroxysmal atrial fibrillation. 5. Diabetes mellitus type 2, treated with diet. 6. Hypertension. 7. Hypothyroidism. 8. Chronic diastolic congestive heart failure. 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 Labs Laboratory Tests Test 12/08/17 10:25 Sodium Level 137 mmol/L (136-145) Potassium Level 4.8 mmol/L (3.5-5.1) Chloride Level 101 mmol/L (98-107) Carbon Dioxide Level 31 mmol/L (21-32) Anion Gap 5 (6-14) Blood Urea Nitrogen 35 mg/dL (7-20) Creatinine 2.2 mg/dL (0.6-1.0) Estimated GFR (Cockcroft-Gault) 25.8 Glucose Level 137 mg/dL (70-99) Calcium Level 9.0 mg/dL (8.5-10.1) Magnesium Level 2.2 mg/dL (1.8-2.4) Microbiology 11/30/17 - Final, Complete 11/30/17 - Final, Complete 11/30/17 - Final, Complete 11/30/17 Gram Stain Evaluation - Final, Complete 11/30/17 Sputum Culture - Final, Complete 11/30/17 Sputum Result 1 - Final, Complete 11/29/17 Urine Culture - Final, Complete 11/29/17 Urine Culture Result 1 (RAPHAEL) - Final, Complete Medications Current Medications Ondansetron HCl (Zofran) 4 mg PRN Q8HRS PRN IV NAUSEA/VOMITING; Start at 21:00; Stop 11/30/17 at 20:59; Status DC Insulin Human Regular (HumuLIN R VIAL) 10 unit 1X ONCE IV Last administered on 11/29/17at 22:35; Start 11/29/17 at 22:00; Stop 11/30/17 at 09:35; Status DC Dextrose (Dextrose 50%-Water Syringe) 25 gm 1X ONCE IV Last administered on at 22:31; Start 11/29/17 at 22:00; Stop 11/30/17 at 09:35; Status DC Albuterol Sulfate (Ventolin Neb Soln) 2.5 mg 1X ONCE NEB Last administered on 11/29/17at 22:44; Start 11/29/17 at 22:00; Stop 11/29/17 at 22:01; Status DC Calcium Gluconate (Calcium Gluconate) 2,000 mg 1X ONCE IVP Last administered on 11/29/17at 22:33; Start 11/29/17 at 22:00; Stop 11/29/17 at 22:01; Status DC Acetaminophen (Tylenol) 650 mg 1X ONCE PO Last administered on 11/29/17at 22: 40; Start 11/29/17 at 22:45; Stop 11/29/17 at 22:46; Status DC Heparin Sodium (Porcine) (Heparin Sodium) 5,000 unit Q12HR SQ Last administered on 12/09/17at 08:46; Start 11/30/17 at 09:00 Sodium Chloride (Normal Saline Flush) 3 ml QSHIFT PRN IV AFTER MEDS AND BLOOD DRAWS; Start 11/29/17 at 23:45 Senna/Docusate Sodium (Senna Plus) 1 tab BID PO Last administered on 08:37; Start 11/30/17 at 09:00 Acetaminophen (Tylenol) 325 mg PRN Q6HRS PRN PO fever Last administered on at 13:23; Start 11/29/17 at 23:45 Amlodipine Besylate (Norvasc) 5 mg DAILY PO ; Start 11/30/17 at 09:00; Stop at 11:37; Status DC Aspirin (Children'S Aspirin) 81 mg DAILY PO Last administered on 12/09/17 08: 37; Start 11/30/17 at 09:00 Vitamin D (Vitamin D3) 1,000 unit DAILY PO Last administered on 12/09/17 08: 37; Start 11/30/17 at 09:00 Furosemide (Lasix) 40 mg DAILY PO ; Start 11/30/17 at 09:00; Stop 11/30/17 at 11:37; Status DC Levothyroxine Sodium (Synthroid) 137 mcg DAILY07 PO Last administered on at 06:05; Start 11/30/17 at 07:00 Fluticasone Propionate (Flonase) 2 spray DAILY NS ; Start 11/30/17 at 09:00; Stop 11/30/17 at 11:37; Status DC Acetaminophen/ Hydrocodone Bitart (Lortab 10/325) 1 tab PRN Q4HRS PRN PO PAIN Last administered on 12/01/17at 01:13; Start 11/29/17 at 23:45; Stop 12/01/17 at 10:01; Status DC Multivitamins (Thera M Plus) 1 tab DAILY PO Last administered on 12/09/17at 08: 37; Start 11/30/17 at 09:00 Pantoprazole Sodium (Protonix) 40 mg DAILYAC PO Last administered on 08:37; Start 11/30/17 at 07:30 Polyethylene Glycol (miraLAX PACKET) 17 gm DAILY PO Last administered on at 08:36; Start 11/30/17 at 09:00 Sotalol HCl (Betapace) 80 mg BID PO ; Start 11/30/17 at 09:00; Stop 11/30/17 at 11:37; Status DC Insulin Human Lispro (HumaLOG) 0-7 UNITS TIDWMEALS SQ ; Start 11/30/17 at 08:00 ; Stop 11/30/17 at 09:35; Status DC Dextrose (Dextrose 50%-Water Syringe) 12.5 gm PRN Q15MIN PRN IV SEE COMMENTS; Start 11/30/17 at 00:00; Stop 11/30/17 at 09:35; Status DC Albuterol/ Ipratropium (Duoneb) 3 ml RTQID NEB Last administered on 12/09/17at 07:31; Start 11/30/17 at 08:00 Furosemide (Lasix) 40 mg 1X ONCE IVP ; Start 11/30/17 at 10:00; Stop at 10:08; Status DC Sodium Polystyrene Sulfonate (Kayexalate) 30 gm 1X ONCE PO ; Start 11/30/17 at 10:00; Stop 11/30/17 at 10:08; Status DC Sodium Chloride 500 ml @ 500 mls/hr 1X ONCE IV Last administered on at 10:22; Start 11/30/17 at 10:15; Stop 11/30/17 at 11:14; Status DC Insulin Human Regular (HumuLIN R VIAL) 10 unit 1X ONCE IV Last administered on 11/30/17at 10:27; Start 11/30/17 at 10:30; Stop 11/30/17 at 10:31; Status DC Dextrose (Dextrose 50%-Water Syringe) 25 gm 1X ONCE IV Last administered on at 10:25; Start 11/30/17 at 10:30; Stop 11/30/17 at 10:31; Status DC Levofloxacin/ Dextrose (Levaquin Per Pharmacy) 1 each PRN DAILY PRN MC SEE COMMENTS; Start 11/30/17 at 11:15; Stop 11/30/17 at 14:55; Status DC Linezolid/Dextrose 300 ml @ 300 mls/hr Q12HR IV Last administered on at 08:53; Start 11/30/17 at 12:00; Stop 12/04/17 at 11:45; Status DC Levofloxacin/ Dextrose 100 ml @ 100 mls/hr 1X ONCE IV Last administered on at 13:36; Start 11/30/17 at 12:00; Stop 11/30/17 at 12:59; Status DC Levofloxacin/ Dextrose 50 ml @ 50 mls/hr Q24H IV ; Start 12/01/17 at 12:00; Stop 12/01/17 at 12:00; Status DC Fluticasone Propionate (Flonase) 2 spray PRN DAILY PRN NS ALLERGIES Last administered on 12/05/17at 23:10; Start 11/30/17 at 11:30 Sotalol HCl (Betapace) 40 mg BID PO Last administered on 12/01/17at 01:18; Start 11/30/17 at 21:00; Stop 12/01/17 at 18:47; Status DC Sodium Chloride 1,000 ml @ 100 mls/hr Q10H IV Last administered on 12/02/17at 05:43; Start 11/30/17 at 11:30; Stop 12/02/17 at 10:56; Status DC Doxycycline Hyclate (Vibra-Tab) 100 mg BID PO Last administered on 12/01/17at 07:38; Start 11/30/17 at 21:00; Stop 12/01/17 at 11:36; Status DC Cefepime HCl 2 gm/ Dextrose 100 ml @ 200 mls/hr Q12HR IV ; Start 11/30/17 at 15:30; Status Cancel Cefepime HCl (Maxipime) 2 gm Q12HR IVP Last administered on 12/04/17at 08:52; Start 11/30/17 at 15:30; Stop 12/04/17 at 11:45; Status DC Acetaminophen/ Hydrocodone Bitart (Lortab 10/325) 1 tab PRN Q6HRS PRN PO PAIN Last administered on 12/09/17at 08:37; Start 12/01/17 at 10:15 Lactobacillus Rhamnosus (Culturelle) 1 cap BID PO Last administered on at 08:36; Start 12/01/17 at 21:00 Sotalol HCl (Betapace) 40 mg BID PO ; Start 12/01/17 at 21:00; Status Cancel Metoprolol Tartrate (Lopressor) 12.5 mg BID PO Last administered on 12/03/17at 08:34; Start 12/01/17 at 21:00; Stop 12/03/17 at 10:25; Status DC Furosemide (Lasix) 40 mg DAILY PO Last administered on 12/09/17at 08:36; Start 12/02/17 at 12:00 Sodium Polystyrene Sulfonate (Kayexalate) 30 gm 1X ONCE PO Last administered on 12/02/17at 12:33; Start 12/02/17 at 11:00; Stop 12/02/17 at 11:01; Status DC Metoprolol Tartrate (Lopressor) 12.5 mg DAILY PO Last administered on at 08:04; Start 12/04/17 at 09:00; Stop 12/06/17 at 09:40; Status DC Sodium Polystyrene Sulfonate (Kayexalate) 15 gm 1X ONCE PO Last administered on 12/03/17at 12:15; Start 12/03/17 at 11:00; Stop 12/03/17 at 11:01; Status DC Metoprolol Tartrate (Lopressor) 12.5 mg BID PO ; Start 12/06/17 at 21:00; Stop 12/06/17 at 21:00; Status DC Sotalol HCl (Betapace) 40 mg BID PO Last administered on 12/08/17at 09:19; Start 12/06/17 at 12:00; Stop 12/08/17 at 15:08; Status DC Digoxin (Lanoxin) 500 mcg 1X ONCE IV Last administered on 12/06/17at 12:10; Start 12/06/17 at 12:00; Stop 12/06/17 at 12:01; Status DC Digoxin (Lanoxin) 500 mcg 1X ONCE IV Last administered on 12/07/17at 15:26; Start 12/07/17 at 14:45; Stop 12/07/17 at 14:46; Status DC Metoprolol Tartrate (Lopressor) 25 mg BID PO Last administered on 12/09/17at 08 :36; Start 12/08/17 at 21:00 Prednisone (Prednisone) 20 mg DAILY PO Last administered on 12/09/17at 08:36; Start 12/08/17 at 15:30 Doxycycline Hyclate (Vibra-Tab) 100 mg BID PO Last administered on 12/09/17at 08:36; Start 12/08/17 at 15:15 Active Scripts Active Metoprolol Tartrate 25 Mg Tablet 12.5 Mg PO BID 30 Days Reported Miralax (Polyethylene Glycol 3350) 17 Gm Powd.pack 1 Packet PO DAILY Flonase Allergy Relief (Fluticasone Propionate) 9.9 Ml Pepin.susp 2 Sprays NS DAILY Vitamin D3 (Cholecalciferol (Vitamin D3)) 1,000 Unit Tablet 1 Tab PO DAILY Tylenol (Acetaminophen) 325 Mg Tablet 325 Mg PO Cranberry (Cranberry Extract) 200 Mg Capsule 200 Mg PO Multivitamins (Multivitamin) 1 Each Tablet 1 Tab PO DAILY Synthroid (Levothyroxine Sodium) 137 Mcg Tablet 1 Tab PO DAILY Protonix (Pantoprazole Sodium) 40 Mg Granpkt.dr 40 Mg PO DAILY Lasix (Furosemide) 40 Mg Tablet 1 Tab PO DAILY Hydrocodone-Apap 10-325 (Hydrocodone Bit/Acetaminophen) 1 Each Tablet 1 Each PO PRN Q4HRS Aspirin 81 Mg Tab.chew 81 Mg PO DAILY Vitals/I & O Vital Sign - Last 24 Hours 12/08/17 12/08/17 12/08/17 12/08/17 11:00 12:30 12:31 15:00 Temp 97.1 98.1 97.1 98.1 Pulse 101 91 Resp 20 20 B/P (MAP) 140/70 (93) 123/67 (85) Pulse Ox 94 91 O2 Delivery Nasal Cannula Nasal Cannula Nasal Cannula O2 Flow Rate 3.0 2.0 2.0 12/08/17 12/08/17 12/08/17 12/08/17 17:23 19:00 19:56 20:00 Temp 98.1 98.1 Pulse 88 B/P (MAP) 117/72 (87) Pulse Ox 91 91 O2 Delivery Nasal Cannula Nasal Cannula Room Air Nasal Cannula O2 Flow Rate 2.0 2.0 2.0 12/08/17 12/08/17 12/09/17 12/09/17 21:08 22:57 02:53 07:32 Temp 98.5 98.0 98.5 98.0 Pulse 88 98 95 Resp 20 22 B/P (MAP) 117/72 154/91 (112) 146/79 (101) Pulse Ox 98 96 98 O2 Delivery Room Air Room Air Nasal Cannula O2 Flow Rate 2.0 12/09/17 12/09/17 12/09/17 12/09/17 07:42 08:36 08:37 09:40 Temp 97.6 97.6 Pulse 88 88 Resp 18 20 20 B/P (MAP) 154/77 (102) 154/77 Pulse Ox 99 O2 Delivery Room Air Nasal Cannula Nasal Cannula Intake and Output 12/08/17 12/08/17 12/09/17 15:00 23:00 07:00 Intake Total 850 ml 600 ml Output Total 350 ml 600 ml Balance 500 ml 0 ml HOOD ALLAN MD Dec 09, 2017 10:44
[2017-12-09] MEDS ORDERED: FURO40TA4 PO (10:49)
[2017-12-09] MEDS ORDERED: METO25TA4 PO (10:49)
--- NOTE | 2017-12-09 10:50 | DISCH ---
DISCHARGE WITH HOME HEALTH DISCHARGE INFORMATION: Discharge Date: Dec 09, 2017 Final Diagnosis: acute on chronic hypoxic and hypercarbic respiratory failure atrial fibrillation with rapid ventricular response Condition on Discharge: Stable HOME HEALTH: Face to Face: I certify this patient is under my care and that I, or a nurse practitioner or physician's child nutrition assistant working with me, had a face to face encounter that meets the physician face to face encounter requirements with this patient on []. Physical Therapy For: Evalulation/Treatment Occupational Therapy For: Evaluation/Treatment POST DISCHARGE ORDERS: Activity Instructions for Disc: Activity as tolerated Weight Bearing Status after Di: No restrictions DIET AFTER DISCHARGE: Low Sodium 2 gm FOLLOW-UP: Follow up with: dr. allan next week Follow Up With: dr. Scanlon in 2 to 3 weeks TREATMENT/EQUIPMENT ORDERS: Adaptive Equipment Issued: Wheelchair CERTIFICATION STATEMENT: Certification Statement: Certification Statement: Based on the above finding, I certify that this patient is confined to the home and needs intermittent custodial care, physical therapy and/or speech therapy, or continues to need occupational therapy.~ This patient is under my care, and I have initiated the establishment of the plan of care.~ This patient will be followed by myself or a community physician who will periodically review the plan of care. Home Meds Active Scripts Metoprolol Tartrate (METOPROLOL TARTRATE) 25 Mg Tablet, 1 TAB PO BID for 30 Days , #60 TAB 1 Refill Prov:HOOD ALLAN MD 12/09/17 Furosemide (FUROSEMIDE) 40 Mg Tablet, 40 MG PO QODAY for 30 Days, #30 TAB Prov:HOOD ALLAN MD 12/09/17 Metoprolol Tartrate (METOPROLOL TARTRATE) 25 Mg Tablet, 12.5 MG PO BID for 30 Days, #30 TAB Prov:HOOD ALLAN MD 12/06/17 Reported Medications Polyethylene Glycol 3350 (MIRALAX) 17 Gm Powd.pack, 1 PACKET PO DAILY, #30 PACKET 3 Refills 11/29/17 Fluticasone Propionate (Flonase Allergy Relief) 9.9 Ml [place].susp, 2 SPRAYS NS DAILY, BOTTLE 11/29/17 Cholecalciferol (Vitamin D3) (VITAMIN D3) 1,000 Unit Tablet, 1 TAB PO DAILY, # 30 TAB 5 Refills 11/29/17 Acetaminophen (TYLENOL) 325 Mg Tablet, 325 MG PO, TAB 11/29/17 Cranberry Extract (CRANBERRY) 200 Mg Capsule, 200 MG PO, CAP 11/29/17 Multivitamin (MULTIVITAMINS) 1 Each Tablet, 1 TAB PO DAILY, #90 TAB 3 Refills 11/29/17 Levothyroxine Sodium (SYNTHROID) 137 Mcg Tablet, 1 TAB PO DAILY, #30 TAB 5 Refills 11/29/17 Pantoprazole Sodium (PROTONIX) 40 Mg Granpkt.dr, 40 MG PO DAILY, TAB 11/29/17 Hydrocodone Bit/Acetaminophen (HYDROCODONE-APAP 10-325 ) 1 Each Tablet, 1 EACH PO PRN Q4HRS 04/01/13 Aspirin (ASPIRIN) 81 Mg Tab.chew, 81 MG PO DAILY, TAB.CHEW 04/01/13 Discontinued Reported Medications Ranitidine Hcl (ACID CONTROL) 150 Mg Tablet, 150 MG PO for Nausea, TAB 11/29/17 Sotalol Hcl (SOTALOL) 80 Mg Tablet, 1 TAB PO BID, #60 TAB 5 Refills 11/29/17 Amlodipine Besylate (AMLODIPINE BESYLATE) 5 Mg Tablet, 5 MG PO DAILY, TAB 11/29/17 Losartan Potassium (LOSARTAN POTASSIUM) 50 Mg Tablet, 50 MG PO BID, TAB 06/03/14 HOOD ALLAN MD Dec 09, 2017 10:50
--- NOTE | 2017-12-09 10:59 | PDOC ---
Provider Note Provider Note addendum to discharge summary dictated # [id number] HOOD ALLAN MD Dec 09, 2017 10:59
[2017-12-09 11:07] VITALS: BP 138/62
[2017-12-09 13:01] LABS: BASE EXCESS ABG 1 mmol/L (-3-3); HCO3 ABG 27 mmol/L (21-28); PCO2 ABG 51 mmHg (35-46); PO2 ABG 64 mmHg (65-108); SAT O2 ABG 92 % (92-99)
[2017-12-09 13:05] LABS: FIO2 ABG 21
--- NOTE | 2017-12-09 15:57 | PDOC ---
PROGRESS NOTES Subjective Subjective Feeling better. No new complaints. Objective Objective Vital Signs Date Time Temp Pulse Resp B/P (MAP) Pulse Ox O2 Delivery O2 Flow Rate FiO2 12/09/17 15:23 Room Air 12/09/17 11:21 98 2.0 12/09/17 11:07 97.5 70 18 138/62 (87) 97.5 Intake and Output 12/09/17 07:00 Intake Total 1450 ml Output Total 950 ml Balance 500 ml Intake Oral 1450 ml Output Urine Total 950 ml Physical Exam Abdomen: Soft, Other (obese) Heart: No murmurs, Other (heart rate is irregular) Extremities: Other (2 plus edema legs) General: Alert HEENT: Atraumatic Lungs: Clear to auscultation Neuro: Normal speech Psych/Mental Status: Mental status NL Skin: No rashes Assessment Assessment 1. AFIB RVR: Heart rate better controlled. Continue current medical regimen. Plan for event monitor as an outpatient. Patient is a poor candidate for long- term anticoagulation secondary to fall risk. 2. Acute on chronic respiratory failure with underlying ELLI/morbid obesity/CHF with possible pneumonia. Improved 3. Acute on chronic diastolic CHF: compensated. Continue current medical regimen. 4. STAN on CKD: Cr 2.2 5. HTN: controlled Comment Review of Relevant I have reviewed the following items jeet (where applicable) has been applied. Labs Laboratory Tests Test 12/09/17 13:00 O2 Saturation 92 % (92-99) Arterial Blood pH 7.34 (7.35-7.45) Arterial Blood pCO2 at Patient Temp 51 mmHg (35-46) Arterial Blood pO2 at Patient Temp 64 mmHg (65-108) Arterial Blood HCO3 27 mmol/L (21-28) Arterial Blood Base Excess 1 mmol/L (-3-3) FiO2 21 Microbiology 11/30/17 - Final, Complete 11/30/17 - Final, Complete 11/30/17 - Final, Complete 11/30/17 Gram Stain Evaluation - Final, Complete 11/30/17 Sputum Culture - Final, Complete 11/30/17 Sputum Result 1 - Final, Complete 11/29/17 Urine Culture - Final, Complete 11/29/17 Urine Culture Result 1 (RAPHAEL) - Final, Complete Medications Current Medications Metoprolol Tartrate (Lopressor) 25 mg BID PO Last administered on 12/09/17at 08 :36; Start 12/08/17 at 21:00 Vitals/I & O Vital Sign - Last 24 Hours 12/08/17 12/08/17 12/08/17 12/08/17 17:23 19:00 19:56 20:00 Temp 98.1 98.1 Pulse 88 B/P (MAP) 117/72 (87) Pulse Ox 91 91 O2 Delivery Nasal Cannula Nasal Cannula Room Air Nasal Cannula O2 Flow Rate 2.0 2.0 2.0 12/08/17 12/08/17 12/09/17 12/09/17 21:08 22:57 02:53 07:32 Temp 98.5 98.0 98.5 98.0 Pulse 88 98 95 Resp 20 22 B/P (MAP) 117/72 154/91 (112) 146/79 (101) Pulse Ox 98 96 98 O2 Delivery Room Air Room Air Nasal Cannula O2 Flow Rate 2.0 12/09/17 12/09/17 12/09/17 12/09/17 07:42 08:00 08:36 08:37 Temp 97.6 97.6 Pulse 88 88 Resp 18 20 B/P (MAP) 154/77 (102) 154/77 Pulse Ox 99 O2 Delivery Room Air Nasal Cannula Nasal Cannula O2 Flow Rate 2.0 12/09/17 12/09/17 12/09/17 12/09/17 09:40 11:07 11:21 12:58 Temp 97.5 97.5 Pulse 70 Resp 20 18 B/P (MAP) 138/62 (87) Pulse Ox 99 98 O2 Delivery Nasal Cannula Room Air Nasal Cannula Room Air O2 Flow Rate 2.0 12/09/17 15:23 O2 Delivery Room Air Intake and Output 12/08/17 12/08/17 12/09/17 15:00 23:00 07:00 Intake Total 850 ml 600 ml Output Total 350 ml 600 ml Balance 500 ml 0 ml ELBERT CHUN MD Dec 09, 2017 15:57
--- NOTE | 2017-12-09 20:47 | DS ---
DATE OF DISCHARGE: 12/09/2017 Discharge summary is pretty much the same except she developed atrial fibrillation with a rapid ventricular response and she did not convert with sotalol to sinus rhythm, so she was switched to metoprolol 25 mg b.i.d. and her ventricular rate has been well controlled in the 80s. This morning, she feels much better. She was started on doxycycline and prednisone by Dr. Epps for acute bronchitis and doing better there. So, she will be dismissed with home health and have an outpatient sleep study for suspected obstructive sleep apnea. She will have a heart monitor placed by the timing adjuster and Dr. Deleon will set up the sleep study. She will make an appointment to see Dr. Rojas next week and she will be dismissed with home health with home physical therapy. The only difference is in her medications and she will be dismissed on furosemide 40 mg p.o. every other day instead of every day. She will discontinue the sotalol, amlodipine and losartan and she will be dismissed on metoprolol tartrate 25 mg b.i.d. Her other medications as written in the discharge summary is the same and everything else in the discharge summary and the chart is the same also. HOOD ROJAS MD DR: LAURY/lila JOB#: [id number] / [id number]
== END 2017-12-09 18:00 | disposition home health service (06) | DRG 682 ==
LOC: ER 19:11 → 1 WEST ICU 20:30 → 5 SOUTH 12-01 16:04 → CVICU 12-06 11:58
PROVIDERS: ADMIT Internal Medicine; ATTEND Internal Medicine
PROC: 5A09357 Assistance with Respiratory Ventilation, Less than 24 Consecutive Hours, Continuous Positive Airway Pressure (ICD-10-PCS; principal; 2017-11-29)
PROC: 5A09357 Assistance with Respiratory Ventilation, Less than 24 Consecutive Hours, Continuous Positive Airway Pressure (ICD-10-PCS; 2017-11-30)
PROC: 5A09357 Assistance with Respiratory Ventilation, Less than 24 Consecutive Hours, Continuous Positive Airway Pressure (ICD-10-PCS; 2017-12-01)
PROC: 5A09357 Assistance with Respiratory Ventilation, Less than 24 Consecutive Hours, Continuous Positive Airway Pressure (ICD-10-PCS; 2017-12-02)
PROC: 5A09357 Assistance with Respiratory Ventilation, Less than 24 Consecutive Hours, Continuous Positive Airway Pressure (ICD-10-PCS; 2017-12-03)
DX: N17.9 Acute kidney failure, unspecified (principal); J18.9 Pneumonia, unspecified organism; J96.21 Acute and chronic respiratory failure with hypoxia; G93.41 Metabolic encephalopathy; I50.33 Acute on chronic diastolic (congestive) heart failure; J96.22 Acute and chronic respiratory failure with hypercapnia; E66.2 Morbid (severe) obesity with alveolar hypoventilation; I13.0 Hypertensive heart and chronic kidney disease with heart failure and stage 1 through stage 4 chronic kidney disease, or unspecified chronic kidney disease; J98.11 Atelectasis; Z68.44 Body mass index [BMI] 60.0-69.9, adult; I48.0 Paroxysmal atrial fibrillation; D86.9 Sarcoidosis, unspecified; E11.22 Type 2 diabetes mellitus with diabetic chronic kidney disease; E78.5 Hyperlipidemia, unspecified; E87.5 Hyperkalemia; E89.0 Postprocedural hypothyroidism; I27.81 Cor pulmonale (chronic); K57.90 Diverticulosis of intestine, part unspecified, without perforation or abscess without bleeding; M48.061 Spinal stenosis, lumbar region without neurogenic claudication; M54.5 Low back pain; I45.81 Long QT syndrome; I70.0 Atherosclerosis of aorta; M19.90 Unspecified osteoarthritis, unspecified site; J20.9 Acute bronchitis, unspecified; N18.3 Chronic kidney disease, stage 3 (moderate); Z79.82 Long term (current) use of aspirin; Z79.890 Hormone replacement therapy; Z86.711 Personal history of pulmonary embolism; Z88.0 Allergy status to penicillin; Z88.2 Allergy status to sulfonamides; Z90.710 Acquired absence of both cervix and uterus; Z90.49 Acquired absence of other specified parts of digestive tract; Z88.8 Allergy status to other drugs, medicaments and biological substances; Z74.01 Bed confinement status
CPT/HCPCS: 36415; 36600; 51702; 71045; 71250; 76770; 80048; 80053; 81001; 82550; 82575; 82728; 82805; 82962; 83540; 83550; 83615; 83735; 83880; 84133; 84145; 84156; 84443; 84484; 85025; 85045; 87070; 87086; 87205; 87449; 87641; 87804; 93005; 93970; 94640; 94660; 94760; 94799; 96374; 96375; J0610; J0692; J1160; J1644; J1815; J1956; J2020; J7030; J7040; J7042; J7512; J7613; J7620; 97530; 97535; 99285-25

== ENCOUNTER 2018-06-28 12:50 | Inpatient (IN) | payer MEDICARE, OTHER ==
[~2018-06-28] VITALS: Ht 170.2 cm; Wt 179.9 kg
[~2018-06-28 12:50] MED LIST changes: +AMLO5TAB10 PO; +CHOL10003 PO; +CRAN200C2 PO; +DIGO125T PO; +FLUT9.9S NS; +FURO40TA4 PO; -HYDR-2766 PO; +HYDR-2769 PO; -HYDR15SO4 PO; +HYDR15SO6 PO; +LEVO137T2 PO; +LOSA-73 PO; -LOSA50TA7 PO; +METO25TA4 PO; +MULT1TAB52 PO; +PANT40GR PO; +POLY17PO29 PO; +SENN-22 PO; +[UNRECOGNIZED DRUG - CODE] PO
--- NOTE | 2018-06-28 13:06 | PHYS DOC ---
Past Medical History Past Medical History: A-Fib, CHF, Hypertension, Hypothyroid, Renal Disease, Other Additional Past Medical Histor: PE, OBESE Past Surgical History: Cholecystectomy, Hysterectomy, Other Additional Past Surgical Histo: thyroidectomy, hernia, cataracts Alcohol Use: None Drug Use: None Adult General Chief Complaint Chief Complaint: ABNORMAL LABS HPI HPI Patient is a 82 year old [f__sex] who presents with [] Review of Systems Review of Systems Constitutional: Denies fever or chills [] Eyes: Denies change in visual acuity, redness, or eye pain [] HENT: Denies nasal congestion or sore throat [] Respiratory: Denies cough or shortness of breath [] Cardiovascular: No additional information not addressed in HPI [] GI: Denies abdominal pain, nausea, vomiting, bloody stools or diarrhea [] : Denies dysuria or hematuria [] Musculoskeletal: Denies back pain or joint pain [] Integument: Denies rash or skin lesions [] Neurologic: Denies headache, focal weakness or sensory changes [] Endocrine: Denies polyuria or polydipsia [] All other systems were reviewed and found to be within normal limits, except as documented in this note. Current Medications Current Medications Current Medications Medications (Trade) Dose Ordered Sig/Violet Start Time Stop Time Status Last Admin Dose Admin Dextrose (Dextrose 50%-Water Syringe) 25 gm 1X ONCE 06/28/18 14:45 06/28/18 14:46 Insulin Human Regular (HumuLIN R VIAL) 10 unit 1X ONCE 06/28/18 14:45 06/28/18 14:46 Allergies Allergies Allergies Coded Allergies Type Severity Reaction Last Updated Verified adhesive Allergy Severe rash 10/28/15 Yes dabigatran etexilate Allergy Severe chf 08/24/17 Yes gabapentin Allergy Severe CHF 08/24/17 Yes Penicillins Allergy Intermediate Rash 10/28/15 Yes sulfacetamide sodium Allergy Intermediate Rash 10/28/15 Yes I S O L A T I O N *CONTACT* Allergy Unknown 12/04/17 Yes lisinopril Adverse Reaction Intermediate COUGH 10/28/15 Yes Physical Exam Physical Exam Constitutional: Well developed, well nourished, no acute distress, non-toxic appearance. [] HENT: Normocephalic, atraumatic, bilateral external ears normal, oropharynx moist, no oral exudates, nose normal. [] Eyes: PERRLA, EOMI, conjunctiva normal, no discharge. [] Neck: Normal range of motion, no tenderness, supple, no stridor. [] Cardiovascular:Heart rate regular rhythm, no murmur [] Lungs & Thorax: Bilateral breath sounds clear to auscultation [] Abdomen: Bowel sounds normal, soft, no tenderness, no masses, no pulsatile masses. [] Skin: Warm, dry, no erythema, no rash. [] Back: No tenderness, no CVA tenderness. [] Extremities: No tenderness, no cyanosis, no clubbing, ROM intact, no edema. [] Neurologic: Alert and oriented X 3, normal motor function, normal sensory function, no focal deficits noted. [] Psychologic: Affect normal, judgement normal, mood normal. [] Current Patient Data Vital Signs Vital Signs Date Time Temp Pulse Resp B/P (MAP) Pulse Ox O2 Delivery O2 Flow Rate FiO2 06/28/18 13:04 97.8 86 20 140/60 (86) 96 Room Air 97.8 Lab Values Laboratory Tests Test 06/28/18 13:15 White Blood Count 6.0 x10^3/uL (4.0-11.0) Red Blood Count 4.45 x10^6/uL (3.50-5.40) Hemoglobin 13.4 g/dL (12.0-15.5) Hematocrit 41.6 % (36.0-47.0) Mean Corpuscular Volume 93 fL (79-100) Mean Corpuscular Hemoglobin 30 pg (25-35) Mean Corpuscular Hemoglobin Concent 32 g/dL (31-37) Red Cell Distribution Width 16.2 % (11.5-14.5) H Platelet Count 277 x10^3/uL (140-400) Neutrophils (%) (Auto) 40 % (31-73) Lymphocytes (%) (Auto) 46 % (24-48) Monocytes (%) (Auto) 8 % (0-9) Eosinophils (%) (Auto) 5 % (0-3) H Basophils (%) (Auto) 1 % (0-3) Neutrophils # (Auto) 2.4 x10^3uL (1.8-7.7) Lymphocytes # (Auto) 2.8 x10^3/uL (1.0-4.8) Monocytes # (Auto) 0.5 x10^3/uL (0.0-1.1) Eosinophils # (Auto) 0.3 x10^3/uL (0.0-0.7) Basophils # (Auto) 0.0 x10^3/uL (0.0-0.2) Prothrombin Time 13.6 SEC (11.7-14.0) Prothrombin Time INR 1.1 (0.8-1.1) PTT 29 SEC (24-38) Sodium Level 140 mmol/L (136-145) Potassium Level 5.8 mmol/L (3.5-5.1) H Chloride Level 102 mmol/L (98-107) Carbon Dioxide Level 28 mmol/L (21-32) Anion Gap 10 (6-14) Blood Urea Nitrogen 60 mg/dL (7-20) H Creatinine 4.8 mg/dL (0.6-1.0) H Estimated GFR (Cockcroft-Gault) 10.5 BUN/Creatinine Ratio 13 (6-20) Glucose Level 83 mg/dL (70-99) Calcium Level 9.4 mg/dL (8.5-10.1) Magnesium Level 2.6 mg/dL (1.8-2.4) H Total Bilirubin 0.7 mg/dL (0.2-1.0) Aspartate Amino Transferase (AST) 16 U/L (15-37) Alanine Aminotransferase (ALT) 13 U/L (14-59) L Alkaline Phosphatase 84 U/L (46-116) Creatine Kinase 33 U/L (26-192) Creatine Kinase MB (Mass) 0.6 ng/mL (0.0-3.6) Creatine Kinase MB Relative Index 1.8 % (0-4) Troponin I Quantitative < 0.017 ng/mL (0.000-0.055) XX-Dlz-N-Type Natriuretic Peptide 87338 pg/mL (0-449) H Total Protein 7.1 g/dL (6.4-8.2) Albumin 2.7 g/dL (3.4-5.0) L Albumin/Globulin Ratio 0.6 (1.0-1.7) L Lipase 41 U/L (73-393) L Laboratory Tests 06/28/18 13:15 Laboratory Tests 06/28/18 13:15 EKG EKG [] Radiology/Procedures Radiology/Procedures [] Course & Med Decision Making Course & Med Decision Making Pertinent Labs and Imaging studies reviewed. (See chart for details) [] Dragon Disclaimer Dragon Disclaimer This electronic medical record was generated, in whole or in part, using a voice recognition dictation system. Departure Departure Impression: Primary Impression: Hyperkalemia Additional Impression: Acute on chronic renal failure Disposition: ADMITTED INPATIENT Admitting Physician: He Rojas (discussed with Dr. El) Condition: GUARDED Referrals: HE ROJAS MD (PCP) Critical Care Time Critical care time was 30 minutes which includes time at bedside, spent in discussion of patient's care with specialists and/or family members, with interpretation of laboratory and/or radiological studies and is exclusive of procedures. Problem Qualifiers Additional Impression: Acute on chronic renal failure Acute renal failure type: unspecified Chronic kidney disease stage: unspecified stage Qualified Codes: N17.9 - Acute kidney failure, unspecified; N18.9 - Chronic kidney disease, unspecified HE FLOYD DO June 28, 2018 13:06
--- NOTE | 2018-06-28 13:32 | EKG ---
[facility] [address] [place] [address] Test Date: 2018-06-28 Test Time: 13:08:37 Pat Name: ADILIA MACEDO Department: Room: Gender: F Medical Clinic Manager: : 1935 Requested By: HOOD FLOYD Order Number: [id number] Reading MD: Viraj Rocha Measurements Intervals [place] Rate: 117 P: 0 [place]: 170 QRS: -43 QRSD: 78 T: -75 QT: 316 QTc: 445 Interpretive Statements ATRIAL FIBRILLATION LOW VOLTAGE QRS(T) CONTOUR ABNORMALITY CONSISTENT WITH ANTEROSEPTAL INFARCT AGE UNDETERMINED ABNORMAL ECG Electronically Signed On 07-20-2018 12:20:09 CDT by Viraj Rocha
[2018-06-28 13:33] LABS: BASO % 1 % (0-3); EOS # 0.3 x10^3/uL (0.0-0.7); EOS % 5 % (0-3); HEMATOCRIT 41.6 % (36.0-47.0); HEMOGLOBIN 13.4 g/dL (12.0-15.5); LYMPH # 2.8 x10^3/uL (1.0-4.8); LYMPH % 46 % (24-48); MEAN CORPUSCULAR HEMOGLOBIN 30 pg (25-35); MEAN CORPUSCULAR HGB CONC 32 g/dL (31-37); MEAN CORPUSCULAR VOLUME 93 fL (79-100); MONO # 0.5 x10^3/uL (0.0-1.1); MONO % 8 % (0-9); NEUT # 2.4 x10^3uL (1.8-7.7); NEUT % 40 % (31-73); PLATELET COUNT 277 x10^3/uL (140-400); RED BLOOD COUNT 4.45 x10^6/uL (3.50-5.40); RED CELL DISTRIBUTION WIDTH 16.2 % (11.5-14.5)
[2018-06-28 13:46] LABS: CALCIUM 9.4 mg/dL (8.5-10.1); CREATININE 4.8 mg/dL (0.6-1.0); GFR 10.5; POTASSIUM 5.8 mmol/L (3.5-5.1); PROTHROMBIN TIME PATIENT 13.6 SEC (11.7-14.0)
[2018-06-28 13:51] LABS: ALBUMIN 2.7 g/dL (3.4-5.0); ALBUMIN/GLOBULIN RATIO 0.6 (1.0-1.7); MAGNESIUM 2.6 mg/dL (1.8-2.4); TOTAL BILIRUBIN 0.7 mg/dL (0.2-1.0); TOTAL PROTEIN 7.1 g/dL (6.4-8.2)
[2018-06-28] MEDS ORDERED: ONDANSETRON PF 4 MG/2 ML VIAL. IV PRN (14:30)
--- NOTE | 2018-06-28 14:42 | RAD ---
Single view chest dated 06/28/2018. Comparison made to 01/25/2018. CLINICAL INDICATION: Cough. FINDINGS: Single upright portable exam performed. Heart size mildly enlarged, stable. Lungs are clear without focal consolidation. Blunting of the costophrenic sulci, unchanged from prior study. Previously described interstitial changes are improved. No pneumothorax. IMPRESSION: 1. No acute radiographic abnormality. Interval improvement in interstitial changes. 2. Blunting of the costophrenic sulci could represent small pleural effusions or chronic pleural thickening. 3. Stable mild cardiomegaly. Electronically signed by: He Sepulveda MD (06/28/2018 2:39 PM) [id number]
[2018-06-28] MEDS ORDERED: INSULIN REGULAR 100 UNIT/ML 3ML VIAL. IV ONE (14:45)
[2018-06-28] MEDS ORDERED: DEXTROSE 50% 25 GM / 50ML DISP.SYRIN. IV ONE (14:45)
[2018-06-28] MEDS ORDERED: SODIUM POLYSTYRENE SULFONATE 15 GM/60 ML ORAL.SUSP. PO ONE (15:00)
[2018-06-28] MEDS ORDERED: fentaNYL PF VIAL 100 MCG/2 ML VIAL IV ONE (16:00)
[2018-06-28] MEDS: fentaNYL PF VIAL 100 MCG/2 ML VIAL IV PRN ×2 (18:52→21:31)
[2018-06-28] MEDS ORDERED: METO50TA6 PO (21:14)
[2018-06-28] MEDS: HYDROcodone/APAP 10/325 1 TAB TABLET PO PRN (21:31)
[2018-06-28 21:45] VITALS: BP_SYST 102; BP_SYST 94; BP_DIAS 56; BP_DIAS 67
[2018-06-28] MEDS ORDERED: dilTIAZem IV PUSH 25 MG/5 ML VIAL IVP ONE (21:45)
[2018-06-28] MEDS ORDERED: dilTIAZem INJ 125 MG in IV DEXTROSE 5% 100ML 100 ML IV PRN (22:00)
--- NOTE | 2018-06-28 22:15 | NUR ---
Pt admitted to 674 with hyperkalemis, acute on chronic renal failure, pt transferred to room 205 with afib rvr per 6th floor LUIS MIGUEL Romero. once arrival to cvc pt bp 89/61, p-120's, dr calles notified of pt vitals new orders received to d/c cardizem and give metoprolol 5mg ivp prn for hr greater than 140's consistantly. will cont to monitor for status changes. pmrn
[2018-06-28 22:43] VITALS: BP 89/61
[2018-06-28] MEDS ORDERED: METOPROLOL TARTRATE 5 MG/5 ML VIAL. IVP PRN (23:30)
[2018-06-29] VITALS (7 sets, daily range): BP systolic 82–136; BP diastolic 42–69
[2018-06-29] MEDS: LEVOTHYROXINE 175 MCG TABLET PO SCH (06:12)
[2018-06-29] MEDS: ASPIRIN CHEWABLE 81 MG TABLET. PO SCH (08:49)
[2018-06-29] MEDS: METOPROLOL TART IMMED RELEASE 50 MG TABLET. PO SCH ×2 (08:49→21:51)
[2018-06-29] MEDS: CHOLECALCIFEROL (VITAMIN D3) 1,000 UNIT TABLET PO SCH (08:49)
[2018-06-29] MEDS: MULTIVITAMIN with MINERAL TABLET. PO SCH (08:49)
[2018-06-29] MEDS: HYDROcodone/APAP 10/325 1 TAB TABLET PO PRN (08:53)
--- NOTE | 2018-06-29 10:12 | NUR ---
SW reviewed pt's medical chart and evaluated for dc needs. Pt is from home and lives alone. Pt was admitted for acute kidney failure. Per , pt is currently bed confined and has skin breakdown. Pt is on 2 liters of O2. Pt dc with [facility] in January 2018. SW will continue to follow and be available for dc needs.
[2018-06-29] MEDS ORDERED: MAGNESIUM HYDROXIDE 2,400 MG/30 ML ORAL.SUSP. PO PRN (10:30)
[2018-06-29] MEDS ORDERED: fentaNYL PF VIAL 100 MCG/2 ML VIAL IV PRN (10:30)
[2018-06-29] MEDS ORDERED: ACETAMINOPHEN 325 MG TABLET. PO PRN (10:30)
--- NOTE | 2018-06-29 10:33 | NUR ---
IP: Pt has a hx of + mrsa screen on 11/30/17. Pt to be in contact precautions until there are 2 negative screens 7 days apart.
--- NOTE | 2018-06-29 10:45 | PDOC ---
Provider Note Provider Note history and physical dictated # [id number] HOOD ALLAN MD June 29, 2018 10:45
[2018-06-29] MEDS: FUROSEMIDE 40 MG/4 ML VIAL. IVP SCH (11:00)
--- NOTE | 2018-06-29 11:41 | PDOC2 ---
GISELLE HERNANDEZ BOATING SAFETY OFFICER 06/29/18 1141: CARDIAC CONSULT DATE OF CONSULT Date of Consult DATE: 06/29/18 TIME: 11:37 REASON FOR CONSULT Reason for Consult: Tachycardia REFERRING PHYSICIAN Referring Physician: Crystal SOURCE Source: Chart review, Patient HISTORY OF PRESENT ILLNESS HISTORY OF PRESENT ILLNESS This is a pleasant 82 yo female admitted for complains of abnormal labs. She lives at home with her daughter and follow up labs were done and was called that her K was 6.6 and needed to come to ED. Denies any significant pain. No CP or SOA. Denies persistent palpitations, she does have wounds on her buttocks. She is debilitated and her renal function has been decreasing lately. She is significant for AFIB and noted with RVR during admission but not symptomatic. She has failed several therapies in the past due to her low BP and renal dysfunction. PAST MEDICAL HISTORY Past Medical History Cardiovascular: AFIB (paroxysmal), CHF (diastolic ), HTN Pulmonary: Pulmonary embolus (2013) CENTRAL NERVOUS SYSTEM: Other (none) GI: Diverticulosis, Other (morbid obesity) Heme/Onc: No pertinent hx Hepatobiliary: cholelithiasis Psych: No pertinent hx Musculoskeletal: Osteoarthritis, lumbar stenosis, morbid obesity Rheumatologic: No pertinent hx Infectious disease: No pertinent hx ENT: No pertinent hx Renal/: No pertinent hx Endocrine: Diabetes, Hypothyroidism Dermatology: No pertinent hx PAST SURGICAL HISTORY Past Surgical History Cholecystectomy, Hernia Repair, Hysterectomy, Other (thyroidectomy) FAMILY HISTORY Family History noncontributory to CV SOCIAL HISTORY Smoke: No ALCOHOL: none Drugs: None CURRENT MEDICATIONS CURRENT MEDICATIONS Current Medications Medications (Trade) Dose Ordered Sig/Violet Route PRN Reason Start Time Stop Time Status Last Admin Dose Admin Dextrose (Dextrose 50%-Water Syringe) 25 gm 1X ONCE IV 06/28/18 14:45 06/28/18 14:46 DC 06/28/18 15:13 Insulin Human Regular (HumuLIN R VIAL) 10 unit 1X ONCE IV 06/28/18 14:45 06/28/18 14:46 DC 06/28/18 15:15 Sodium Polystyrene Sulfonate (Kayexalate) 30 gm 1X ONCE PO 06/28/18 15:00 06/28/18 15:01 DC 06/28/18 16:02 Fentanyl Citrate (Fentanyl 2ml Vial) 50 mcg 1X ONCE IV 06/28/18 16:00 06/28/18 16:01 DC 06/28/18 15:44 Fentanyl Citrate (Fentanyl 2ml Vial) 50 mcg PRN Q2HR PRN IV MODERATE PAIN 4-6 06/28/18 18:45 06/29/18 10:33 DC 06/28/18 21:31 Aspirin (Children'S Aspirin) 81 mg DAILY PO 06/29/18 09:00 06/29/18 08:49 Vitamin D (Vitamin D3) 1,000 unit DAILY PO 06/29/18 09:00 06/29/18 08:49 Acetaminophen/ Hydrocodone Bitart (Lortab 10/325) 1 tab PRN Q4HRS PRN PO PAIN 06/28/18 21:30 06/29/18 08:53 Levothyroxine Sodium (Synthroid) 175 mcg DAILY06 PO 06/29/18 06:00 06/29/18 06:12 Metoprolol Tartrate (Lopressor) 50 mg BID PO 06/29/18 09:00 06/29/18 08:49 Multivitamins (Thera M Plus) 1 tab DAILY PO 06/29/18 09:00 06/29/18 08:49 ALLERGIES ALLERGIES: Coded Allergies: adhesive (Verified Allergy, Severe, rash, 10/28/15) dabigatran etexilate (Verified Allergy, Severe, chf, 08/24/17) gabapentin (Verified Allergy, Severe, CHF, 08/24/17) Penicillins (Verified Allergy, Intermediate, Rash, 10/28/15) sulfacetamide sodium (Verified Allergy, Intermediate, Rash, 10/28/15) I S O L A T I O N *CONTACT* (Verified Allergy, Unknown, 12/04/17) mrsa lisinopril (Verified Adverse Reaction, Intermediate, COUGH, 10/28/15) ROS Review of System 14 point ROS evaluated with pertinent positives noted per HPI PHYSICAL EXAM General: Alert, Oriented X3, Cooperative, No acute distress (getting bathe without any distress flat on back ) HEENT: Atraumatic, Mucous membr. moist/pink Lungs: Other (diminished ) Heart: Other (AFIB RVR, distant heart sounds) Abdomen: Soft, No tenderness Extremities: No cyanosis, Other (chronic leg edema) Skin: Other (wound to buttocks) Neuro: Normal speech, Sensation intact Psych/Mental Status: Mental status NL, Mood NL MUSCULOSKELETAL: Osteoarthritic changes both hands VITALS VITALS Vital Signs Date Time Temp Pulse Resp B/P (MAP) Pulse Ox O2 Delivery O2 Flow Rate FiO2 06/29/18 10:04 96 Nasal Cannula 2.0 06/29/18 08:49 120 105/61 06/29/18 07:00 97.3 18 97.3 LABS Lab: Laboratory Tests Test 06/28/18 13:15 06/28/18 17:15 06/28/18 22:30 White Blood Count 6.0 x10^3/uL (4.0-11.0) Red Blood Count 4.45 x10^6/uL (3.50-5.40) Hemoglobin 13.4 g/dL (12.0-15.5) Hematocrit 41.6 % (36.0-47.0) Mean Corpuscular Volume 93 fL (79-100) Mean Corpuscular Hemoglobin 30 pg (25-35) Mean Corpuscular Hemoglobin Concent 32 g/dL (31-37) Red Cell Distribution Width 16.2 % (11.5-14.5) Platelet Count 277 x10^3/uL (140-400) Neutrophils (%) (Auto) 40 % (31-73) Lymphocytes (%) (Auto) 46 % (24-48) Monocytes (%) (Auto) 8 % (0-9) Eosinophils (%) (Auto) 5 % (0-3) Basophils (%) (Auto) 1 % (0-3) Neutrophils # (Auto) 2.4 x10^3uL (1.8-7.7) Lymphocytes # (Auto) 2.8 x10^3/uL (1.0-4.8) Monocytes # (Auto) 0.5 x10^3/uL (0.0-1.1) Eosinophils # (Auto) 0.3 x10^3/uL (0.0-0.7) Basophils # (Auto) 0.0 x10^3/uL (0.0-0.2) Prothrombin Time 13.6 SEC (11.7-14.0) Prothromb Time International Ratio 1.1 (0.8-1.1) Activated Partial Thromboplast Time 29 SEC (24-38) Sodium Level 140 mmol/L (136-145) Potassium Level 5.8 mmol/L (3.5-5.1) Chloride Level 102 mmol/L (98-107) Carbon Dioxide Level 28 mmol/L (21-32) Anion Gap 10 (6-14) Blood Urea Nitrogen 60 mg/dL (7-20) Creatinine 4.8 mg/dL (0.6-1.0) Estimated GFR (Cockcroft-Gault) 10.5 BUN/Creatinine Ratio 13 (6-20) Glucose Level 83 mg/dL (70-99) Calcium Level 9.4 mg/dL (8.5-10.1) Magnesium Level 2.6 mg/dL (1.8-2.4) Total Bilirubin 0.7 mg/dL (0.2-1.0) Aspartate Amino Transf (AST/SGOT) 16 U/L (15-37) Alanine Aminotransferase (ALT/SGPT) 13 U/L (14-59) Alkaline Phosphatase 84 U/L (46-116) Creatine Kinase 33 U/L (26-192) Creatine Kinase MB (Mass) 0.6 ng/mL (0.0-3.6) Creatine Kinase MB Relative Index 1.8 % (0-4) Troponin I Quantitative < 0.017 ng/mL (0.000-0.055) < 0.017 ng/mL (0.000-0.055) < 0.017 ng/mL (0.000-0.055) GX-Hst-C-Type Natriuretic Peptide 57006 pg/mL (0-449) Total Protein 7.1 g/dL (6.4-8.2) Albumin 2.7 g/dL (3.4-5.0) Albumin/Globulin Ratio 0.6 (1.0-1.7) Lipase 41 U/L (73-393) ECHOCARDIOGRAM ECHOCARDIOGRAM <Conclusion> The left ventricular systolic function is normal and the ejection fraction is within normal range. EF 65% There is mild to moderate concentric left ventricular hypertrophy. DATE: 08/24/17 1043 ASSESSMENT/PLAN ASSESSMENT/PLAN 1. Persistent AFIB with RVR 2. Acute on chronic diastolic CHF: appears compensated 3. STAN on CKD4?/hyperkalemia: Cr 4.8 4. HTN: marginally low 5. Morbid obesity/ELLI Recommendations 1. Failed rhythm control in the past due to marginal BP and renal dysfunction. Continue with metoprolol and digoxin low dose PRN given her renal insufficiency 2. ASA for stroke prevention, and secondary prevention measures. Deemed not a good candidate in the past for anticoagulation due to high bleed and fall risk 3. Lasix therapy. Kayexelate already given. 4. BMP, Mg TTE 5. Will need to readdress goal of care. ELBERT CHUN MD 06/29/18 1749: CARDIAC CONSULT ASSESSMENT/PLAN ASSESSMENT/PLAN Patient seen and examined. Agree with RADIO TELEVISION TECHNICAL DIRECTOR's assessment and plan. Continue metoprolol and digoxin for persistent atrial fibrillation She is a poor candidate for long-term anticoagulation 2-D echo showed normal LV systolic function Acute on chronic diastolic heart failure better compensated Nephrology team following for renal insufficiency and hyperkalemia Thank you for your consultation GISELLE HERANNDEZ APRN June 29, 2018 11:41 ELBERT CHUN MD June 29, 2018 17:49
--- NOTE | 2018-06-29 11:49 | HP ---
ADMIT DATE: 06/28/2018 LOCATION: She is in room 205. HISTORY OF PRESENT ILLNESS: The patient is an 82-year-old morbidly obese -[place] female with a history of chronic kidney disease stage 4, hypothyroidism, paroxysmal atrial fibrillation and chronic diastolic congestive heart failure, who had abnormal labs done by a visiting nurse with a serum potassium level elevated around 6.6 and the patient was sent to the [facility] Emergency Room where the potassium was noted to be elevated at 5.8 and she was given insulin, glucose and Kayexalate. Her BUN was 60 with creatinine of 4.8 and her baseline creatinine of 2-2.2 and she has a history of chronic kidney disease stage 4. In addition, she also has history of paroxysmal atrial fibrillation, but is not receiving any anticoagulation, has a previous history of GI bleeding. Due to previous history of a GI bleed; apparently, she had blood in her stool in the past. She was noted to be in atrial fibrillation with a rapid ventricular response and was transferred to the telemetry unit from the medical floor and she was given IV metoprolol and her ventricular rate is much better in atrial fibrillation. She is admitted for further evaluation of her acute kidney injury on top of chronic kidney disease stage ____, hyperkalemia and she also has anasarca with increasing lower extremity edema in her legs and the rapid atrial fibrillation. ALLERGIES AND INTOLERANCES: Include PENICILLIN, ADHESIVE, LISINOPRIL, SULFA, GABAPENTIN, and PRADAXA. PRADAXA caused a headache. Also ROSUVASTATIN caused myalgias. MEDICATIONS: Include aspirin 81 mg every day, fish oil 1 g daily, Flonase 2 sprays every day p.r.n., furosemide 40 mg p.o. daily, Tornillo 10/325 one tablet t.i.d. p.r.n., levothyroxine 175 mcg every day, metoprolol tartrate 50 mg b.i.d., multiple vitamin every day, nystatin cream applied b.i.d. p.r.n., Tylenol 325 mg 1-2 every 4 hours p.r.n., vitamin D 1000 units every day. PAST HISTORY: Significant for chronic diastolic congestive heart failure; paroxysmal atrial fibrillation, not a candidate for anticoagulation due to her fall risk. She also has hypothyroidism; chronic kidney disease stage 4, baseline serum creatinine is 2.2-2.4. Morbid obesity and she has a history of an idiopathic peripheral neuropathy, the paroxysmal atrial fibrillation, osteoarthritis, pulmonary embolus in 04/2013. She had a thyroidectomy in 2009 for a large goiter, colonoscopy in 2008, arthrocentesis of her knees in the past. Bilateral tubal ligation, cholecystectomy, hysterectomy and umbilical hernia repair. There is a mention of a previous history of hypertension, hyperlipidemia and also as mentioned diabetes mellitus in the past history, although I do not think that is questionable. SOCIAL HISTORY: She does not drink alcohol nor does she smoke cigarettes. Her daughter takes care of her at home. FAMILY HISTORY: Not contributory. REVIEW OF SYSTEMS: GENERAL: She denies any fever, chills or sweats. CARDIOVASCULAR: No chest pain. PULMONARY: No shortness of breath or cough. GASTROINTESTINAL: No diarrhea. ENDOCRINE: She has hypothyroidism. SKIN: No rashes, but she has got some maceration in her back of her legs and buttock area apparently from lying in bed and also from bladder incontinence. Rest of systems reviewed and negative except as stated in history of present illness. PHYSICAL EXAMINATION: VITAL SIGNS: Temperature is 97.3 degrees, apical pulse in the room was about 100-105, respiratory rate is 18, blood pressure 105/61, oxygen saturation 96% on 2 liters per nasal cannula. HEENT: Eyes, gaze is conjugate. Mouth, tongue is midline. NECK: There is no cervical lymphadenopathy. HEART: Reveals an S1 and S2. There is no S3 or murmur. LUNGS: Clear. ABDOMEN: Obese and soft, nontender. EXTREMITIES: Lower extremities, she has got 3+ edema in the legs. NEUROLOGIC: Shows that she has no focal weakness or facial asymmetry. SKIN: I could not look at her backside, but she was told the nurse mentioned she has some maceration there. GENITOURINARY: She has got a Soto catheter that was placed. LABORATORY DATA AND DIAGNOSTIC STUDIES: On review of her labs; sodium was 140, potassium 5.8 yesterday, chloride 102, total CO2 28, BUN 60, creatinine 4.8, magnesium 2.6. Liver function tests were normal. CPK of 33, troponin level negative x 3. ProBNP was increased to 25,531, but she has renal insufficiency. The albumin 2.7, lipase was normal at 41. White count 6.0, hemoglobin 13.4, platelet count 277,000, 40 polys and 46 lymphocytes with an INR of 1.1 and PTT of 29. The electrocardiogram showed a lot of baseline artifact, but she is in atrial fibrillation per telemetry now. The chest x-ray showed no acute abnormality. She has some blunting of the costophrenic sulci, which may represent small pleural effusions or chronic pleural thickening with stable mild cardiomegaly. ASSESSMENT: 1. Hyperkalemia. 2. Acute kidney injury on top of chronic kidney disease stage 4 versus progression of her chronic kidney disease stage 4. 3. Paroxysmal atrial fibrillation, now in atrial fibrillation with a rapid ventricular response. The ventricular response is controlled with her metoprolol and p.r.n. IV metoprolol. Apparently, she did not receive the diltiazem last night due to relatively low blood pressure. 4. Anasarca. 5. Severe protein-calorie malnutrition. 6. Morbid obesity. 7. Debility. 8. Chronic diastolic congestive heart failure. 9. Hypothyroidism. PLAN: At this time is to proceed with a bilateral lower extremity venous Doppler to rule out a deep vein thrombosis and we will also get an echocardiogram and renal ultrasound. We will start her on heparin for deep vein thrombosis prophylaxis. She takes oxygen 2 liters per nasal cannula at night and order some Lasix 40 mg IV daily and we will monitor intake and output. Repeat her basic metabolic profile today and repeat her labs again tomorrow. Get a thyroid stimulating hormone level. Daughter wishes her to be a full code. We will get a hemoglobin A1c tomorrow. Consult Dr. Mays for Nephrology and Dr. Rocha for Cardiology. She is on telemetry now and also she will be seen by the wound care nurse and she is on a bariatric bed. HOOD ALLAN MD DR: LAURY/lila JOB#: [id number] / [id number]
[2018-06-29] MEDS: DIGOXIN IV 500 MCG/2 ML AMPUL. IV ONE ×2 (12:45→13:14)
--- NOTE | 2018-06-29 12:54 | PDOC2 ---
CONSULT Date of Consult Date of Consult DATE: 06/29/18 TIME: 12:48 Reason for Consult Reason for Consult: STAN on CKD Source Source: Chart review History of Present Illness Reason for Visit: Dmirti solis is an 82-year-old morbidly obese -[place] female with a history of chronic kidney disease stage 4, paroxysmal atrial fibrillation and chronic diastolic congestive heart failure, who had abnormal labs done by a visiting nurse with a serum potassium level elevated around 6.6 and the patient was sent to the [facility] Emergency Room where the potassium was noted to be elevated at 5.8 and she was given insulin, glucose and Kayexalate. Her BUN was 60 with creatinine of 4.8 and her baseline creatinine of 2-2.2 chronic kidney disease stage 4. She was noted to be in atrial fibrillation with a rapid ventricular response given IV metoprolol and her ventricular rate is much better Currently eating Lunch. Denies any complaints.She is on lasix at Home 40 mg PO QD . Has Soto placed last night No labs done this am Past Medical History Cardiovascular: AFIB, CHF, HTN Pulmonary: Pulmonary embolus CENTRAL NERVOUS SYSTEM: Other GI: Diverticulosis, Other Heme/Onc: No pertinent hx Hepatobiliary: No pertinent hx Psych: No pertinent hx Rheumatologic: No pertinent hx Infectious disease: No pertinent hx Renal/: No pertinent hx Endocrine: Diabetes, Hypothyroidism Past Surgical History Past Surgical History: Cholecystectomy, Hernia Repair, Hysterectomy, Other Family History Family History: Other Social History No ALCOHOL: none Drugs: None Lives: Alone Current Problem List Problem List Problems Medical Problems: (1) Acute on chronic renal failure Status: Acute (2) Hyperkalemia Status: Acute Current Medications Current Medications Current Medications Dextrose (Dextrose 50%-Water Syringe) 25 gm 1X ONCE IV Last administered on 06/28/18at 15:13; Start 06/28/18 at 14:45; Stop 06/28/18 at 14:46; Status DC Insulin Human Regular (HumuLIN R VIAL) 10 unit 1X ONCE IV Last administered on 06/28/18at 15:15; Start 06/28/18 at 14:45; Stop 06/28/18 at 14:46; Status DC Ondansetron HCl (Zofran) 4 mg PRN Q8HRS PRN IV NAUSEA/VOMITING; Start 06/28/18 at 14:30; Stop 06/29/18 at 14:29 Sodium Polystyrene Sulfonate (Kayexalate) 30 gm 1X ONCE PO Last administered on 06/28/18at 16:02; Start 06/28/18 at 15:00; Stop 06/28/18 at 15:01; Status DC Fentanyl Citrate (Fentanyl 2ml Vial) 50 mcg 1X ONCE IV Last administered on 06/28/18at 15:44; Start 06/28/18 at 16:00; Stop 06/28/18 at 16:01; Status DC Fentanyl Citrate (Fentanyl 2ml Vial) 50 mcg PRN Q2HR PRN IV MODERATE PAIN 4-6 Last administered on 06/28/18at 21:31; Start 06/28/18 at 18:45; Stop 06/29/18 at 10:33; Status DC Aspirin (Children'S Aspirin) 81 mg DAILY PO Last administered on 06/29/18at 08:49; Start 06/29/18 at 09:00 Vitamin D (Vitamin D3) 1,000 unit DAILY PO Last administered on 06/29/18at 08:49; Start 06/29/18 at 09:00 Acetaminophen/ Hydrocodone Bitart (Lortab 10/325) 1 tab PRN Q4HRS PRN PO PAIN Last administered on 06/29/18at 08:53; Start 06/28/18 at 21:30 Levothyroxine Sodium (Synthroid) 175 mcg DAILY06 PO Last administered on 06/29/18at 06:12; Start 06/29/18 at 06:00 Metoprolol Tartrate (Lopressor) 50 mg BID PO Last administered on 06/29/18at 08:49; Start 06/29/18 at 09:00 Multivitamins (Thera M Plus) 1 tab DAILY PO Last administered on 06/29/18at 08:49; Start 06/29/18 at 09:00 Diltiazem HCl (Cardizem Iv Push) 10 mg 1X ONCE IVP ; Start 06/28/18 at 21:45; Stop 06/28/18 at 23:32; Status DC Diltiazem HCl 125 mg/Dextrose 125 ml @ 5 mls/hr CONT PRN IV SEE I/O RECORD; Start 06/28/18 at 22:00; Stop 06/28/18 at 23:32; Status DC Metoprolol Tartrate (Lopressor Vial) 5 mg PRN Q4HRS PRN IVP ELEVATED HR; Start 06/28/18 at 23:30 Fentanyl Citrate (Fentanyl 2ml Vial) 50 mcg PRN Q4HRS PRN IV SEVERE PAIN 7-10; Start 06/29/18 at 10:30 Heparin Sodium (Porcine) (Heparin Sodium) 5,000 unit BID SQ ; Start 06/29/18 at 11:00 Acetaminophen (Tylenol) 650 mg PRN Q6HRS PRN PO MILD PAIN / TEMP; Start 06/29/18 at 10:30 Magnesium Hydroxide (Milk Of Magnesia) 2,400 mg PRN DAILY PRN PO CONSTIPATION; Start 06/29/18 at 10:30 Furosemide (Lasix) 40 mg DAILY IVP ; Start 06/29/18 at 11:00 Digoxin (Lanoxin) 250 mcg 1X ONCE IV ; Start 06/29/18 at 12:45; Stop 06/29/18 at 12:46; Status DC Active Scripts Active Senna-Time S Tablet (Sennosides/Docusate Sodium) 1 Each Tablet 2 Tab PO QHS Furosemide 40 Mg Tablet 40 Mg PO DAILY Digoxin 125 Mcg Tablet 125 Mcg PO Q48H Metoprolol Tartrate 25 Mg Tablet 1 Tab PO BID 30 Days Reported Metoprolol Tartrate 50 Mg Tablet 1 Tab PO BID Flonase Allergy Relief (Fluticasone Propionate) 9.9 Ml [place].susp 2 Sprays NS DAILY PRN Vitamin D3 (Cholecalciferol (Vitamin D3)) 1,000 Unit Tablet 1 Tab PO DAILY Multivitamins (Multivitamin) 1 Each Tablet 1 Tab PO DAILY Synthroid (Levothyroxine Sodium) 137 Mcg Tablet 175 Mcg PO DAILY Hydrocodone-Apap 10-325 (Hydrocodone Bit/Acetaminophen) 1 Each Tablet 1 Each PO PRN Q4HRS Aspirin 81 Mg Tab.chew 81 Mg PO DAILY Allergies Allergies: Coded Allergies: adhesive (Verified Allergy, Severe, rash, 10/28/15) dabigatran etexilate (Verified Allergy, Severe, chf, 08/24/17) gabapentin (Verified Allergy, Severe, CHF, 08/24/17) Penicillins (Verified Allergy, Intermediate, Rash, 10/28/15) sulfacetamide sodium (Verified Allergy, Intermediate, Rash, 10/28/15) I S O L A T I O N *CONTACT* (Verified Allergy, Unknown, 12/04/17) mrsa lisinopril (Verified Adverse Reaction, Intermediate, COUGH, 10/28/15) ROS Review of System As per HPI Physical Exam Physical Exam General: Alert, Oriented X3, Cooperative, No acute distress, Morbidly obese HEENT: Atraumatic, Mucous membr. moist/pink Neck Supple Lungs: CTA Heart: AFIB Abdomen: Soft, Obese Extremities: chronic leg edema Skin: Excoriation back , wound to buttocks Neuro: Normal speech, Sensation intact, AXO x3 Psych/Mental Status: Mental status NL, Mood NL - Soto + , No CVA or SP tenderness Vital Signs Vital Signs Date Time Temp Pulse Resp B/P (MAP) Pulse Ox O2 Delivery O2 Flow Rate FiO2 06/29/18 11:29 97.3 130 18 82/42 (55) 91 Room Air 97.3 06/29/18 10:04 2.0 Assessment & Plan STAN on CKD - Cardiorenal Labs pending for today At presentation Cr 4.8 ,Recommend Holding Diuretics Not ON IVF due to cardiac Hx, Elevated BNP Monitor , May give Boluses if Hypotensive UA not done at admission ,now has Soto if UOP inadequate or no improvement in Renal function- will get Renal US (Difficult study in 2018 due to Morbid obesity ) Hyperkalemia- Got Kayexalate Labs pending Persistent AFIB with RVR Card managing Acute on chronic diastolic CHF: appears compensated HTN: Low BP Hold Anthypertensives Morbid obesity/ELLI Discussed with pt and RN t bedside Labs Labs Laboratory Tests Test 06/28/18 13:15 06/28/18 17:15 06/28/18 22:30 White Blood Count 6.0 x10^3/uL (4.0-11.0) Red Blood Count 4.45 x10^6/uL (3.50-5.40) Hemoglobin 13.4 g/dL (12.0-15.5) Hematocrit 41.6 % (36.0-47.0) Mean Corpuscular Volume 93 fL (79-100) Mean Corpuscular Hemoglobin 30 pg (25-35) Mean Corpuscular Hemoglobin Concent 32 g/dL (31-37) Red Cell Distribution Width 16.2 % (11.5-14.5) Platelet Count 277 x10^3/uL (140-400) Neutrophils (%) (Auto) 40 % (31-73) Lymphocytes (%) (Auto) 46 % (24-48) Monocytes (%) (Auto) 8 % (0-9) Eosinophils (%) (Auto) 5 % (0-3) Basophils (%) (Auto) 1 % (0-3) Neutrophils # (Auto) 2.4 x10^3uL (1.8-7.7) Lymphocytes # (Auto) 2.8 x10^3/uL (1.0-4.8) Monocytes # (Auto) 0.5 x10^3/uL (0.0-1.1) Eosinophils # (Auto) 0.3 x10^3/uL (0.0-0.7) Basophils # (Auto) 0.0 x10^3/uL (0.0-0.2) Prothrombin Time 13.6 SEC (11.7-14.0) Prothromb Time International Ratio 1.1 (0.8-1.1) Activated Partial Thromboplast Time 29 SEC (24-38) Sodium Level 140 mmol/L (136-145) Potassium Level 5.8 mmol/L (3.5-5.1) Chloride Level 102 mmol/L (98-107) Carbon Dioxide Level 28 mmol/L (21-32) Anion Gap 10 (6-14) Blood Urea Nitrogen 60 mg/dL (7-20) Creatinine 4.8 mg/dL (0.6-1.0) Estimated GFR (Cockcroft-Gault) 10.5 BUN/Creatinine Ratio 13 (6-20) Glucose Level 83 mg/dL (70-99) Calcium Level 9.4 mg/dL (8.5-10.1) Magnesium Level 2.6 mg/dL (1.8-2.4) Total Bilirubin 0.7 mg/dL (0.2-1.0) Aspartate Amino Transf (AST/SGOT) 16 U/L (15-37) Alanine Aminotransferase (ALT/SGPT) 13 U/L (14-59) Alkaline Phosphatase 84 U/L (46-116) Creatine Kinase 33 U/L (26-192) Creatine Kinase MB (Mass) 0.6 ng/mL (0.0-3.6) Creatine Kinase MB Relative Index 1.8 % (0-4) Troponin I Quantitative < 0.017 ng/mL (0.000-0.055) < 0.017 ng/mL (0.000-0.055) < 0.017 ng/mL (0.000-0.055) GU-Xfs-H-Type Natriuretic Peptide 06588 pg/mL (0-449) Total Protein 7.1 g/dL (6.4-8.2) Albumin 2.7 g/dL (3.4-5.0) Albumin/Globulin Ratio 0.6 (1.0-1.7) Lipase 41 U/L (73-393) Laboratory Tests Test 06/28/18 13:15 06/28/18 17:15 06/28/18 22:30 White Blood Count 6.0 x10^3/uL (4.0-11.0) Red Blood Count 4.45 x10^6/uL (3.50-5.40) Hemoglobin 13.4 g/dL (12.0-15.5) Hematocrit 41.6 % (36.0-47.0) Mean Corpuscular Volume 93 fL (79-100) Mean Corpuscular Hemoglobin 30 pg (25-35) Mean Corpuscular Hemoglobin Concent 32 g/dL (31-37) Red Cell Distribution Width 16.2 % (11.5-14.5) Platelet Count 277 x10^3/uL (140-400) Neutrophils (%) (Auto) 40 % (31-73) Lymphocytes (%) (Auto) 46 % (24-48) Monocytes (%) (Auto) 8 % (0-9) Eosinophils (%) (Auto) 5 % (0-3) Basophils (%) (Auto) 1 % (0-3) Neutrophils # (Auto) 2.4 x10^3uL (1.8-7.7) Lymphocytes # (Auto) 2.8 x10^3/uL (1.0-4.8) Monocytes # (Auto) 0.5 x10^3/uL (0.0-1.1) Eosinophils # (Auto) 0.3 x10^3/uL (0.0-0.7) Basophils # (Auto) 0.0 x10^3/uL (0.0-0.2) Prothrombin Time 13.6 SEC (11.7-14.0) Prothromb Time International Ratio 1.1 (0.8-1.1) Activated Partial Thromboplast Time 29 SEC (24-38) Sodium Level 140 mmol/L (136-145) Potassium Level 5.8 mmol/L (3.5-5.1) Chloride Level 102 mmol/L (98-107) Carbon Dioxide Level 28 mmol/L (21-32) Anion Gap 10 (6-14) Blood Urea Nitrogen 60 mg/dL (7-20) Creatinine 4.8 mg/dL (0.6-1.0) Estimated GFR (Cockcroft-Gault) 10.5 BUN/Creatinine Ratio 13 (6-20) Glucose Level 83 mg/dL (70-99) Calcium Level 9.4 mg/dL (8.5-10.1) Magnesium Level 2.6 mg/dL (1.8-2.4) Total Bilirubin 0.7 mg/dL (0.2-1.0) Aspartate Amino Transf (AST/SGOT) 16 U/L (15-37) Alanine Aminotransferase (ALT/SGPT) 13 U/L (14-59) Alkaline Phosphatase 84 U/L (46-116) Creatine Kinase 33 U/L (26-192) Creatine Kinase MB (Mass) 0.6 ng/mL (0.0-3.6) Creatine Kinase MB Relative Index 1.8 % (0-4) Troponin I Quantitative < 0.017 ng/mL (0.000-0.055) < 0.017 ng/mL (0.000-0.055) < 0.017 ng/mL (0.000-0.055) EZ-Ywj-N-Type Natriuretic Peptide 80508 pg/mL (0-449) Total Protein 7.1 g/dL (6.4-8.2) Albumin 2.7 g/dL (3.4-5.0) Albumin/Globulin Ratio 0.6 (1.0-1.7) Lipase 41 U/L (73-393) Review All relevant outside records, renal labs, imaging studies, telemetry/EKG's were reviewed. DANIELA HARRINGTON MD June 29, 2018 12:54
[2018-06-29] MEDS: HEPARIN for SUB-Q USE 5,000 UNIT/ML VIAL. SQ SCH ×2 (13:31→22:00)
[2018-06-29 13:33] LABS: CALCIUM 9.2 mg/dL (8.5-10.1); CREATININE 5.1 mg/dL (0.6-1.0); GFR 9.8
[2018-06-29 13:36] LABS: POTASSIUM 5.2 mmol/L (3.5-5.1)
--- NOTE | 2018-06-29 16:10 | NUR ---
Wound Care: Consult to eval and treat for maceration to pannus, posterior and medial thighs, bilateral buttocks, and under breasts, axilla, and posterior knee folds. No open areas noted, but all described areas red, painful and scaly. Yellow serous weeping to medial thighs. Applied nystatin powder to all folds, and A&D ointment to buttocks and posterior thighs. Pt on bariatric bed. Turned to R side with wedge and pillows. Education provided regarding plan of care and skin breakdown prevention. Plan to follow up 07/05/18.
[2018-06-29] MEDS ORDERED: NYSTATIN TOPICAL POWDER 15GM BOTTLE. TP PRN (16:15)
--- NOTE | 2018-06-29 17:29 | CARD ---
MR#: [id number] Date of Study: 06/29/2018 Ordering Physician: GISELLE HERNANDEZ, Referring Physician: HOOD ALLAN, Tech: Lazara Martínez APPROVED REPORT EXAM: Two-dimensional and M-mode echocardiogram with Doppler and color Doppler. Other Information Quality : FairHR: 135bpm INDICATION Congestive Heart Failure 2D DIMENSIONS RVDd3.7 (2.9-3.5cm)Left Atrium(2D)4.5 (1.6-4.0cm) IVSd1.5 (0.7-1.1cm)Aortic Root(2D)3.2 (2.0-3.7cm) LVDd4.4 (3.9-5.9cm)LVOT Diameter2.3 (1.8-2.4cm) PWd1.2 (0.7-1.1cm)LVDs3.2 (2.5-4.0cm) FS (%) 26.7 %SV46.5 ml LVEF(%)52.4 (>50%) Aortic Valve AoV Peak Wesly.116.9cm/sAoV VTI21.4cm AO Peak GR.5.5mmHgLVOT VTI 14.37cm AO Mean GR.3mmHg TDI Lateral E' P. V4.93cm/s Tricuspid Valve TR P. [id number] TR Peak Gr.[id number] Pulmonary Vein PVa [id number] LEFT VENTRICLE The left ventricle is normal size. There is moderate concentric left ventricular hypertrophy. The lef t ventricular systolic function is normal. The Ejection Fraction is 55%. There is normal LV segmental wall motion. Diastology indeterminate due to atrial fibrillation. RIGHT VENTRICLE The right ventricle is normal size. There is normal right ventricular wall thickness. The right ventr icular systolic function is normal. ATRIA The left atrium is mildly dilated. The right atrium is moderately dilated. The interatrial septum is intact with no evidence for an atrial septal defect or patent foramen ovale as noted on 2-D or Dopple r imaging. AORTIC VALVE The aortic valve is thickened but opens well. Doppler and Color Flow revealed no significant aortic r egurgitation. There is no significant aortic valvular stenosis. MITRAL VALVE The mitral valve is normal in structure and function. There is no evidence of mitral valve prolapse. There is no mitral valve stenosis. Doppler and Color Flow revealed no mitral valve regurgitation note d. TRICUSPID VALVE The tricuspid valve is not well visualized. Doppler and Color Flow revealed trace tricuspid regurgita tion with an estimated PAP of 40 mmHg. There is mild pulmonary hypertension. There is no tricuspid va lve stenosis. PULMONIC VALVE The pulmonic valve is not well visualized. Doppler and Color Flow revealed trace pulmonic valvular re gurgitation. GREAT VESSELS The aortic root is normal in size. The aortic root is normal in size. The IVC is dilated and collapse s <50% with inspiration. PERICARDIAL EFFUSION There is no evidence of significant pericardial effusion. Critical Notification Critical Value: No <Conclusion> Technically very difficult study. Valves poorly visualized. The left ventricular systolic function is normal. The Ejection Fraction is 55%. There is normal LV segmental wall motion. The left atrium is mildly dilated. Trace tricuspid regurgitation with an estimated PAP of 40 mmHg. There is no evidence of significant pericardial effusion. Signed by : Viraj Rocha, Electronically Approved : 06/29/2018 17:29:28
--- NOTE | 2018-06-29 19:38 | NUR ---
Digoxin not given per order r/t patient not having a viable iv. Patient was stuck 6 times by 3 RN's. Anesthesia called. They have just gotten to the floor to attempt to stick her. Report given to LUIS MIGUEL Shannon in regards to the situation.
[2018-06-29] MEDS ORDERED: PANT20TA2 PO (20:27)
[2018-06-29] MEDS ORDERED: NYST15PO9 TP (20:27)
[2018-06-29] MEDS ORDERED: MEMA10TA PO (20:27)
[2018-06-29] MEDS ORDERED: DONE10TA14 PO (20:27)
[2018-06-29] MEDS ORDERED: LEVO100T5 PO (20:27)
[2018-06-29] MEDS ORDERED: DOCU100C28 PO (20:27)
[2018-06-29] MEDS ORDERED: MELA1TAB10 PO (20:27)
[2018-06-29] MEDS ORDERED: MAGN400O7 PO (20:27)
[2018-06-29] MEDS ORDERED: ONDA4TAB12 PO (20:27)
[2018-06-29] MEDS ORDERED: LOSA-73 PO (20:27)
[2018-06-29] MEDS ORDERED: LEVO175T5 PO (20:38)
[2018-06-29] MEDS: VITS A & D/LANOLIN TOPICAL OINTMENT 56GM TUBE. TP SCH (22:00)
[2018-06-29] MEDS: NYSTATIN TOPICAL POWDER 15GM BOTTLE. TP SCH (22:00)
--- NOTE | 2018-06-30 00:52 | NUR ---
Anesthesia was unable to obtain PIV access at beginning of shift. [facility] was called for picc placement that was approved by and from [facility]. [facility] had a few cases to do prior to being able to see this patient, we are still waiting for them to arrive to obtain picc placement. Fluids and digoxin have been delayed due to no IV access. Pt encouraged to drink oral fluids.
[2018-06-30 02:25] VITALS: BP 110/75
[2018-06-30] MEDS: IV NORMAL SALINE 1000ML BAG 1,000 ML IV SCH ×2 (04:10→17:41)
[2018-06-30] MEDS: LEVOTHYROXINE 175 MCG TABLET PO SCH (06:29)
--- NOTE | 2018-06-30 06:31 | RAD ---
PORTABLE CHEST 1V Clinical Indication: PICC placement Comparison: AP chest, 2 days ago. Findings: Evaluation is limited due to significant patient rotation. There is right PICC, tip near superior atrial caval junction. Atherosclerotic aortic arch. Stable cardiomegaly. Lungs are clear. There is no pneumothorax. Stable blunting of the costophrenic sulci. No acute bone abnormality. IMPRESSION: Right PICC tip near superior atrial caval junction. Electronically signed by: Mamadou Brady MD (06/30/2018 6:28 AM) [facility]
[2018-06-30 06:42] LABS: BASO % 1 % (0-3); EOS # 0.2 x10^3/uL (0.0-0.7); EOS % 4 % (0-3); HEMATOCRIT 35.3 % (36.0-47.0); HEMOGLOBIN 11.4 g/dL (12.0-15.5); LYMPH # 2.1 x10^3/uL (1.0-4.8); LYMPH % 42 % (24-48); MEAN CORPUSCULAR HEMOGLOBIN 30 pg (25-35); MEAN CORPUSCULAR HGB CONC 32 g/dL (31-37); MEAN CORPUSCULAR VOLUME 93 fL (79-100); MONO # 0.5 x10^3/uL (0.0-1.1); MONO % 9 % (0-9); NEUT # 2.2 x10^3uL (1.8-7.7); NEUT % 44 % (31-73); PLATELET COUNT 228 x10^3/uL (140-400); RED CELL DISTRIBUTION WIDTH 16.1 % (11.5-14.5); WHITE BLOOD COUNT 5.1 x10^3/uL (4.0-11.0)
[2018-06-30 06:53] LABS: ALBUMIN 2.1 g/dL (3.4-5.0); CALCIUM 9.1 mg/dL (8.5-10.1); CREATININE 4.9 mg/dL (0.6-1.0); GFR 10.2; PHOSPHORUS 4.5 mg/dL (2.6-4.7); POTASSIUM 4.7 mmol/L (3.5-5.1)
[2018-06-30 06:56] LABS: CALCIUM 8.7 mg/dL (8.5-10.1); CREATININE 4.9 mg/dL (0.6-1.0); GFR 10.2; POTASSIUM 4.7 mmol/L (3.5-5.1)
[2018-06-30 06:58] LABS: CHOLESTEROL/HDL RATIO 3.2
[2018-06-30 07:30] VITALS: BP 118/67
--- NOTE | 2018-06-30 07:46 | RAD ---
Examination: Bilateral Lower Extremity Venous Doppler Ultrasound History: Bilateral lower extremity swelling Comparison: 01/25/2018 Procedure: Beckham scale, color flow 2D and spectal waveform analysis images are obtained with and without compression in the area of the common femoral vein, superficial femoral vein - femoral vein junction, main femoral vein (superficial femoral vein) and popliteal vein. Veins of the proximal calf are also imaged. Findings: There is normal duplex flow, color flow and compressibility of all visualized vein segments. No evidence of deep venous thrombus is present in the visualized bilateral lower extremity venous system. The calf veins are not well-visualized.. Impression: No evidence of DVT in the visualized bilateral lower extremity venous system. Electronically signed by: José Miguel Kim MD (06/30/2018 7:43 AM) [facility]
--- NOTE | 2018-06-30 08:14 | RAD ---
Examination: Ultrasound kidneys HISTORY: History of renal failure COMPARISON: 12/01/2017. FINDINGS: The right kidney measures 10.2 x 4.7 x 5.3 cm. The left kidney is not visualized. Examination is limited due to patient body habitus. 2.5 cm hypoechogenicity identified in the right kidney could be a cyst however evaluation is limited due to patient body habitus. Urinary bladder is not visualized. IMPRESSION: 1. Limited examination due to patient body habitus. 2. 2.5 cm hypoechogenicity identified in the right kidney probably a cyst. 3. The left kidney is not identified. Electronically signed by: José Miguel Kim MD (06/30/2018 8:11 AM) [facility]
[2018-06-30] MEDS: FUROSEMIDE 40 MG/4 ML VIAL. IVP SCH (09:00)
[2018-06-30] MEDS: CHOLECALCIFEROL (VITAMIN D3) 1,000 UNIT TABLET PO SCH (09:16)
[2018-06-30] MEDS: MULTIVITAMIN with MINERAL TABLET. PO SCH (09:16)
[2018-06-30] MEDS: METOPROLOL TART IMMED RELEASE 50 MG TABLET. PO SCH ×2 (09:17→21:07)
[2018-06-30] MEDS: ASPIRIN CHEWABLE 81 MG TABLET. PO SCH (09:17)
[2018-06-30] MEDS: HEPARIN for SUB-Q USE 5,000 UNIT/ML VIAL. SQ SCH ×2 (09:23→21:14)
[2018-06-30] MEDS: HYDROcodone/APAP 10/325 1 TAB TABLET PO PRN (09:27)
[2018-06-30] MEDS: VITS A & D/LANOLIN TOPICAL OINTMENT 56GM TUBE. TP SCH ×2 (09:27→21:07)
[2018-06-30] MEDS: NYSTATIN TOPICAL POWDER 15GM BOTTLE. TP SCH ×2 (09:27→21:07)
--- NOTE | 2018-06-30 10:28 | PDOC ---
PROGRESS NOTES Subjective Subjective denies nausea or vomiting or shortness of breath. discussed results of echo which showed a normal LVEF and results of negative bilateral LE venous doppler and renal sonogram without hydronephrosis. PICC placed and on iv fluids. received iv lasix once yesterday and will d/c iv lasix and see if iv hydration improves renal function and urine output. urine output 335 cc yesterday. lab reviewed. Objective Objective Vital Signs Date Time Temp Pulse Resp B/P (MAP) Pulse Ox O2 Delivery O2 Flow Rate FiO2 06/30/18 09:27 21 93 Room Air 06/30/18 09:17 104 118/67 06/30/18 07:30 97.5 2.0 97.5 Intake and Output 06/30/18 06:59 Intake Total 1083 ml Output Total 335 ml Balance 748 ml Intake Oral 930 ml IV Total 153 ml Output Urine Total 335 ml Physical Exam Abdomen: Soft, Other (obese) Heart: Normal S1, Normal S2 Extremities: Other (2 plus edema legs) General: Alert HEENT: Atraumatic Lungs: Clear to auscultation Neuro: Normal speech Psych/Mental Status: Mental status NL Skin: No rashes Assessment Assessment Problems1. Hyperkalemia resolved 2. Acute kidney injury on top of chronic kidney disease stage 4 versus progression of her chronic kidney disease stage 4. 3. Paroxysmal atrial fibrillation, now in atrial fibrillation with a rapid ventricular response. VR intermittently fast. receiving bid po metoprolol and prn iv metoprolol 4. Anasarca. bilateral LE edema 5. Severe protein-calorie malnutrition. 6. Morbid obesity. 7. Debility. 8. Chronic diastolic congestive heart failure. 9. Hypothyroidism. Medical Problems: (1) Acute on chronic renal failure Status: Acute (2) Hyperkalemia Status: Acute Plan Plan of Care continue iv fluids d/c iv lasix monitor renal function and urine output lab tomorrow sq heparin for dvt prophylaxis continue oral metoprolol and prn iv metoprolol for rate control not a good candidate for alf anticoagulation Comment Review of Relevant I have reviewed the following items jeet (where applicable) has been applied. Labs Laboratory Tests Test 06/28/18 13:15 06/28/18 17:15 06/28/18 22:30 06/29/18 12:30 White Blood Count 6.0 x10^3/uL (4.0-11.0) Red Blood Count 4.45 x10^6/uL (3.50-5.40) Hemoglobin 13.4 g/dL (12.0-15.5) Hematocrit 41.6 % (36.0-47.0) Mean Corpuscular Volume 93 fL (79-100) Mean Corpuscular Hemoglobin 30 pg (25-35) Mean Corpuscular Hemoglobin Concent 32 g/dL (31-37) Red Cell Distribution Width 16.2 % (11.5-14.5) Platelet Count 277 x10^3/uL (140-400) Neutrophils (%) (Auto) 40 % (31-73) Lymphocytes (%) (Auto) 46 % (24-48) Monocytes (%) (Auto) 8 % (0-9) Eosinophils (%) (Auto) 5 % (0-3) Basophils (%) (Auto) 1 % (0-3) Neutrophils # (Auto) 2.4 x10^3uL (1.8-7.7) Lymphocytes # (Auto) 2.8 x10^3/uL (1.0-4.8) Monocytes # (Auto) 0.5 x10^3/uL (0.0-1.1) Eosinophils # (Auto) 0.3 x10^3/uL (0.0-0.7) Basophils # (Auto) 0.0 x10^3/uL (0.0-0.2) Prothrombin Time 13.6 SEC (11.7-14.0) Prothromb Time International Ratio 1.1 (0.8-1.1) Activated Partial Thromboplast Time 29 SEC (24-38) Sodium Level 140 mmol/L (136-145) 142 mmol/L (136-145) Potassium Level 5.8 mmol/L (3.5-5.1) 5.2 mmol/L (3.5-5.1) Chloride Level 102 mmol/L (98-107) 104 mmol/L (98-107) Carbon Dioxide Level 28 mmol/L (21-32) 28 mmol/L (21-32) Anion Gap 10 (6-14) 10 (6-14) Blood Urea Nitrogen 60 mg/dL (7-20) 59 mg/dL (7-20) Creatinine 4.8 mg/dL (0.6-1.0) 5.1 mg/dL (0.6-1.0) Estimated GFR (Cockcroft-Gault) 10.5 9.8 BUN/Creatinine Ratio 13 (6-20) Glucose Level 83 mg/dL (70-99) 77 mg/dL (70-99) Calcium Level 9.4 mg/dL (8.5-10.1) 9.2 mg/dL (8.5-10.1) Magnesium Level 2.6 mg/dL (1.8-2.4) 2.7 mg/dL (1.8-2.4) Total Bilirubin 0.7 mg/dL (0.2-1.0) Aspartate Amino Transf (AST/SGOT) 16 U/L (15-37) Alanine Aminotransferase (ALT/SGPT) 13 U/L (14-59) Alkaline Phosphatase 84 U/L (46-116) Creatine Kinase 33 U/L (26-192) Creatine Kinase MB (Mass) 0.6 ng/mL (0.0-3.6) Creatine Kinase MB Relative Index 1.8 % (0-4) Troponin I Quantitative < 0.017 ng/mL (0.000-0.055) < 0.017 ng/mL (0.000-0.055) < 0.017 ng/mL (0.000-0.055) UM-Qbe-P-Type Natriuretic Peptide 93442 pg/mL (0-449) Total Protein 7.1 g/dL (6.4-8.2) Albumin 2.7 g/dL (3.4-5.0) Albumin/Globulin Ratio 0.6 (1.0-1.7) Lipase 41 U/L (73-393) Test 06/30/18 06:00 White Blood Count 5.1 x10^3/uL (4.0-11.0) Red Blood Count 3.80 x10^6/uL (3.50-5.40) Hemoglobin 11.4 g/dL (12.0-15.5) Hematocrit 35.3 % (36.0-47.0) Mean Corpuscular Volume 93 fL (79-100) Mean Corpuscular Hemoglobin 30 pg (25-35) Mean Corpuscular Hemoglobin Concent 32 g/dL (31-37) Red Cell Distribution Width 16.1 % (11.5-14.5) Platelet Count 228 x10^3/uL (140-400) Neutrophils (%) (Auto) 44 % (31-73) Lymphocytes (%) (Auto) 42 % (24-48) Monocytes (%) (Auto) 9 % (0-9) Eosinophils (%) (Auto) 4 % (0-3) Basophils (%) (Auto) 1 % (0-3) Neutrophils # (Auto) 2.2 x10^3uL (1.8-7.7) Lymphocytes # (Auto) 2.1 x10^3/uL (1.0-4.8) Monocytes # (Auto) 0.5 x10^3/uL (0.0-1.1) Eosinophils # (Auto) 0.2 x10^3/uL (0.0-0.7) Basophils # (Auto) 0.0 x10^3/uL (0.0-0.2) Sodium Level 143 mmol/L (136-145) Potassium Level 4.7 mmol/L (3.5-5.1) Chloride Level 104 mmol/L (98-107) Carbon Dioxide Level 28 mmol/L (21-32) Anion Gap 11 (6-14) Blood Urea Nitrogen 60 mg/dL (7-20) Creatinine 4.9 mg/dL (0.6-1.0) Estimated GFR (Cockcroft-Gault) 10.2 Glucose Level 105 mg/dL (70-99) Calcium Level 9.1 mg/dL (8.5-10.1) Phosphorus Level 4.5 mg/dL (2.6-4.7) Albumin 2.1 g/dL (3.4-5.0) Triglycerides Level 82 mg/dL (0-150) Cholesterol Level 113 mg/dL (0-200) LDL Cholesterol, Calculated 62 mg/dL (0-100) VLDL Cholesterol, Calculated 16 mg/dL (0-40) Non-HDL Cholesterol Calculated 78 mg/dL (0-129) HDL Cholesterol 35 mg/dL (40-60) Cholesterol/HDL Ratio 3.2 Thyroid Stimulating Hormone (TSH) 5.013 uIU/mL (0.358-3.74) Laboratory Tests Test 06/29/18 12:30 06/30/18 06:00 Sodium Level 142 mmol/L (136-145) 143 mmol/L (136-145) Potassium Level 5.2 mmol/L (3.5-5.1) 4.7 mmol/L (3.5-5.1) Chloride Level 104 mmol/L (98-107) 104 mmol/L (98-107) Carbon Dioxide Level 28 mmol/L (21-32) 28 mmol/L (21-32) Anion Gap 10 (6-14) 11 (6-14) Blood Urea Nitrogen 59 mg/dL (7-20) 60 mg/dL (7-20) Creatinine 5.1 mg/dL (0.6-1.0) 4.9 mg/dL (0.6-1.0) Estimated GFR (Cockcroft-Gault) 9.8 10.2 Glucose Level 77 mg/dL (70-99) 105 mg/dL (70-99) Calcium Level 9.2 mg/dL (8.5-10.1) 9.1 mg/dL (8.5-10.1) Magnesium Level 2.7 mg/dL (1.8-2.4) White Blood Count 5.1 x10^3/uL (4.0-11.0) Red Blood Count 3.80 x10^6/uL (3.50-5.40) Hemoglobin 11.4 g/dL (12.0-15.5) Hematocrit 35.3 % (36.0-47.0) Mean Corpuscular Volume 93 fL (79-100) Mean Corpuscular Hemoglobin 30 pg (25-35) Mean Corpuscular Hemoglobin Concent 32 g/dL (31-37) Red Cell Distribution Width 16.1 % (11.5-14.5) Platelet Count 228 x10^3/uL (140-400) Neutrophils (%) (Auto) 44 % (31-73) Lymphocytes (%) (Auto) 42 % (24-48) Monocytes (%) (Auto) 9 % (0-9) Eosinophils (%) (Auto) 4 % (0-3) Basophils (%) (Auto) 1 % (0-3) Neutrophils # (Auto) 2.2 x10^3uL (1.8-7.7) Lymphocytes # (Auto) 2.1 x10^3/uL (1.0-4.8) Monocytes # (Auto) 0.5 x10^3/uL (0.0-1.1) Eosinophils # (Auto) 0.2 x10^3/uL (0.0-0.7) Basophils # (Auto) 0.0 x10^3/uL (0.0-0.2) Phosphorus Level 4.5 mg/dL (2.6-4.7) Albumin 2.1 g/dL (3.4-5.0) Triglycerides Level 82 mg/dL (0-150) Cholesterol Level 113 mg/dL (0-200) LDL Cholesterol, Calculated 62 mg/dL (0-100) VLDL Cholesterol, Calculated 16 mg/dL (0-40) Non-HDL Cholesterol Calculated 78 mg/dL (0-129) HDL Cholesterol 35 mg/dL (40-60) Cholesterol/HDL Ratio 3.2 Thyroid Stimulating Hormone (TSH) 5.013 uIU/mL (0.358-3.74) Medications Current Medications Dextrose (Dextrose 50%-Water Syringe) 25 gm 1X ONCE IV Last administered on 06/28/18at 15:13; Start 06/28/18 at 14:45; Stop 06/28/18 at 14:46; Status DC Insulin Human Regular (HumuLIN R VIAL) 10 unit 1X ONCE IV Last administered on 06/28/18at 15:15; Start 06/28/18 at 14:45; Stop 06/28/18 at 14:46; Status DC Ondansetron HCl (Zofran) 4 mg PRN Q8HRS PRN IV NAUSEA/VOMITING; Start 06/28/18 at 14:30; Stop 06/29/18 at 14:29; Status DC Sodium Polystyrene Sulfonate (Kayexalate) 30 gm 1X ONCE PO Last administered on 06/28/18at 16:02; Start 06/28/18 at 15:00; Stop 06/28/18 at 15:01; Status DC Fentanyl Citrate (Fentanyl 2ml Vial) 50 mcg 1X ONCE IV Last administered on 06/28/18at 15:44; Start 06/28/18 at 16:00; Stop 06/28/18 at 16:01; Status DC Fentanyl Citrate (Fentanyl 2ml Vial) 50 mcg PRN Q2HR PRN IV MODERATE PAIN 4-6 Last administered on 06/28/18at 21:31; Start 06/28/18 at 18:45; Stop 06/29/18 at 10:33; Status DC Aspirin (Children'S Aspirin) 81 mg DAILY PO Last administered on 06/30/18 09:17; Start 06/29/18 at 09:00 Vitamin D (Vitamin D3) 1,000 unit DAILY PO Last administered on 06/30/18at 09:16; Start 06/29/18 at 09:00 Acetaminophen/ Hydrocodone Bitart (Lortab 10/325) 1 tab PRN Q4HRS PRN PO MODERATE PAIN, SEVERE PAIN Last administered on 06/30/18at 09:27; Start 06/28/18 at 21:30 Levothyroxine Sodium (Synthroid) 175 mcg DAILY06 PO Last administered on 06/30/18at 06:29; Start 06/29/18 at 06:00 Metoprolol Tartrate (Lopressor) 50 mg BID PO Last administered on 06/30/18at 09:17; Start 06/29/18 at 09:00 Multivitamins (Thera M Plus) 1 tab DAILY PO Last administered on 06/30/18at 09:16; Start 06/29/18 at 09:00 Diltiazem HCl (Cardizem Iv Push) 10 mg 1X ONCE IVP ; Start 06/28/18 at 21:45; Stop 06/28/18 at 23:32; Status DC Diltiazem HCl 125 mg/Dextrose 125 ml @ 5 mls/hr CONT PRN IV SEE I/O RECORD; Start 06/28/18 at 22:00; Stop 06/28/18 at 23:32; Status DC Metoprolol Tartrate (Lopressor Vial) 5 mg PRN Q4HRS PRN IVP ELEVATED HR; Start 06/28/18 at 23:30 Fentanyl Citrate (Fentanyl 2ml Vial) 50 mcg PRN Q4HRS PRN IV SEVERE PAIN 7-10; Start 06/29/18 at 10:30 Heparin Sodium (Porcine) (Heparin Sodium) 5,000 unit BID SQ Last administered on 06/30/18at 09:23; Start 06/29/18 at 11:00 Acetaminophen (Tylenol) 650 mg PRN Q6HRS PRN PO MILD PAIN / TEMP; Start 06/29/18 at 10:30 Magnesium Hydroxide (Milk Of Magnesia) 2,400 mg PRN DAILY PRN PO CONSTIPATION; Start 06/29/18 at 10:30 Furosemide (Lasix) 40 mg DAILY IVP ; Start 06/29/18 at 11:00 Digoxin (Lanoxin) 250 mcg 1X ONCE IV ; Start 06/29/18 at 12:45; Stop 06/29/18 at 12:46; Status DC Nystatin (Nystop) 1 morenita BID TP Last administered on 06/30/18at 09:27; Start 06/29/18 at 21:00 Vitamin A/Vitamin D (Vitamin A & D Ointment) 1 morenita BID TP Last administered on 06/30/18at 09:27; Start 06/29/18 at 21:00 Nystatin (Nystop) 1 morenita PRN BID PRN TP AFFECTED AREA; Start 06/29/18 at 16:15 Sodium Chloride 1,000 ml @ 75 mls/hr [id number] IV Last administered on 06/30/18at 04:10; Start 06/29/18 at 19:00 Active Scripts Active Senna-Time S Tablet (Sennosides/Docusate Sodium) 1 Each Tablet 2 Tab PO QHS Furosemide 40 Mg Tablet 40 Mg PO DAILY Digoxin 125 Mcg Tablet 125 Mcg PO Q48H Metoprolol Tartrate 25 Mg Tablet 1 Tab PO BID 30 Days Reported Levothyroxine Sodium 175 Mcg Tablet 1 Tab PO DAILY Metoprolol Tartrate 50 Mg Tablet 1 Tab PO BID Flonase Allergy Relief (Fluticasone Propionate) 9.9 Ml [place].susp 2 Sprays NS DAILY PRN Vitamin D3 (Cholecalciferol (Vitamin D3)) 1,000 Unit Tablet 1 Tab PO DAILY Multivitamins (Multivitamin) 1 Each Tablet 1 Tab PO DAILY Hydrocodone-Apap 10-325 (Hydrocodone Bit/Acetaminophen) 1 Each Tablet 1 Each PO PRN Q4HRS Aspirin 81 Mg Tab.chew 81 Mg PO DAILY Vitals/I & O Vital Sign - Last 24 Hours 06/29/18 06/29/18 06/29/18 06/29/18 11:29 15:00 19:30 19:59 Temp 97.3 97.5 97.4 97.3 97.5 97.4 Pulse 130 85 121 Resp 18 20 20 B/P (MAP) 82/42 (55) 82/59 (67) 94/61 (72) Pulse Ox 91 92 96 O2 Delivery Room Air Room Air Room Air Room Air 06/29/18 06/29/18 06/29/18 06/30/18 21:51 21:51 23:25 02:25 Temp 97.5 97.7 97.5 97.7 Pulse 118 118 118 90 Resp 16 16 B/P (MAP) 119/65 (83) 119/65 136/69 (91) 110/75 (87) Pulse Ox 99 95 O2 Delivery Nasal Cannula Nasal Cannula O2 Flow Rate 2.0 2.0 06/30/18 06/30/18 06/30/18 06/30/18 07:30 08:30 09:17 09:27 Temp 97.5 97.5 Pulse 120 104 Resp 20 21 B/P (MAP) 118/67 (84) 118/67 Pulse Ox 93 93 O2 Delivery Nasal Cannula Room Air Room Air O2 Flow Rate 2.0 Intake and Output 06/29/18 06/29/18 06/30/18 14:59 22:59 06:59 Intake Total 240 ml 240 ml 603 ml Output Total 150 ml 185 ml Balance 240 ml 90 ml 418 ml HOOD ALLAN MD June 30, 2018 10:28
--- NOTE | 2018-06-30 10:42 | PDOC ---
PROGRESS NOTES Subjective Subjective Patient denied any chest pain or palpitations Objective Objective Vital Signs Date Time Temp Pulse Resp B/P (MAP) Pulse Ox O2 Delivery O2 Flow Rate FiO2 06/30/18 09:27 21 93 Room Air 06/30/18 09:17 104 118/67 06/30/18 07:30 97.5 2.0 97.5 Intake and Output 06/30/18 07:00 Intake Total 1083 ml Output Total 335 ml Balance 748 ml Intake Oral 930 ml IV Total 153 ml Output Urine Total 335 ml Physical Exam Abdomen: Soft, Other (obese) Heart: Normal S1, Normal S2, Other (heart rate is irregular) Extremities: Other (2 plus edema legs) General: Alert HEENT: Atraumatic Lungs: Clear to auscultation Neuro: Normal speech Psych/Mental Status: Mental status NL Skin: No rashes Assessment Assessment 1. Persistent AFIB with RVR. Heart rate better controlled with metoprolol with intermittent episodes of RVR. Blood pressure marginal and hence cannot increase metoprolol. We cannot use long-term digoxin due to elevated creatinine level. She is a poor candidate for long-term anticoagulation. 2. Acute on chronic diastolic CHF: appears better compensated. 2-D echo showed normal LV systolic function. 3. STAN on CKD4/hyperkalemia: Nephrology following 4. HTN: marginally low 5. Morbid obesity/ELLI Plan Plan of Care Problems Medical Problems: (1) Acute on chronic renal failure Status: Acute (2) Hyperkalemia Status: Acute Comment Review of Relevant I have reviewed the following items jeet (where applicable) has been applied. Labs Laboratory Tests Test 06/29/18 12:30 06/30/18 06:00 Sodium Level 142 mmol/L (136-145) 143 mmol/L (136-145) Potassium Level 5.2 mmol/L (3.5-5.1) 4.7 mmol/L (3.5-5.1) Chloride Level 104 mmol/L (98-107) 104 mmol/L (98-107) Carbon Dioxide Level 28 mmol/L (21-32) 28 mmol/L (21-32) Anion Gap 10 (6-14) 11 (6-14) Blood Urea Nitrogen 59 mg/dL (7-20) 60 mg/dL (7-20) Creatinine 5.1 mg/dL (0.6-1.0) 4.9 mg/dL (0.6-1.0) Estimated GFR (Cockcroft-Gault) 9.8 10.2 Glucose Level 77 mg/dL (70-99) 105 mg/dL (70-99) Calcium Level 9.2 mg/dL (8.5-10.1) 9.1 mg/dL (8.5-10.1) Magnesium Level 2.7 mg/dL (1.8-2.4) White Blood Count 5.1 x10^3/uL (4.0-11.0) Red Blood Count 3.80 x10^6/uL (3.50-5.40) Hemoglobin 11.4 g/dL (12.0-15.5) Hematocrit 35.3 % (36.0-47.0) Mean Corpuscular Volume 93 fL (79-100) Mean Corpuscular Hemoglobin 30 pg (25-35) Mean Corpuscular Hemoglobin Concent 32 g/dL (31-37) Red Cell Distribution Width 16.1 % (11.5-14.5) Platelet Count 228 x10^3/uL (140-400) Neutrophils (%) (Auto) 44 % (31-73) Lymphocytes (%) (Auto) 42 % (24-48) Monocytes (%) (Auto) 9 % (0-9) Eosinophils (%) (Auto) 4 % (0-3) Basophils (%) (Auto) 1 % (0-3) Neutrophils # (Auto) 2.2 x10^3uL (1.8-7.7) Lymphocytes # (Auto) 2.1 x10^3/uL (1.0-4.8) Monocytes # (Auto) 0.5 x10^3/uL (0.0-1.1) Eosinophils # (Auto) 0.2 x10^3/uL (0.0-0.7) Basophils # (Auto) 0.0 x10^3/uL (0.0-0.2) Phosphorus Level 4.5 mg/dL (2.6-4.7) Albumin 2.1 g/dL (3.4-5.0) Triglycerides Level 82 mg/dL (0-150) Cholesterol Level 113 mg/dL (0-200) LDL Cholesterol, Calculated 62 mg/dL (0-100) VLDL Cholesterol, Calculated 16 mg/dL (0-40) Non-HDL Cholesterol Calculated 78 mg/dL (0-129) HDL Cholesterol 35 mg/dL (40-60) Cholesterol/HDL Ratio 3.2 Thyroid Stimulating Hormone (TSH) 5.013 uIU/mL (0.358-3.74) Medications Current Medications Digoxin (Lanoxin) 250 mcg 1X ONCE IV ; Start 06/29/18 at 12:45; Stop 06/29/18 at 12:46; Status DC Furosemide (Lasix) 40 mg DAILY IVP ; Start 06/29/18 at 11:00; Stop 06/30/18 at 10:30; Status DC Heparin Sodium (Porcine) (Heparin Sodium) 5,000 unit BID SQ Last administered on 06/30/18at 09:23; Start 06/29/18 at 11:00 Nystatin (Nystop) 1 morenita BID TP Last administered on 06/30/18at 09:27; Start 06/29/18 at 21:00 Nystatin (Nystop) 1 morenita PRN BID PRN TP AFFECTED AREA; Start 06/29/18 at 16:15 Sodium Chloride 1,000 ml @ 75 mls/hr [id number] IV Last administered on 06/30/18at 04:10; Start 06/29/18 at 19:00 Vitamin A/Vitamin D (Vitamin A & D Ointment) 1 morenita BID TP Last administered on 06/30/18at 09:27; Start 06/29/18 at 21:00 Vitals/I & O Vital Sign - Last 24 Hours 06/29/18 06/29/18 06/29/18 06/29/18 11:29 15:00 19:30 19:59 Temp 97.3 97.5 97.4 97.3 97.5 97.4 Pulse 130 85 121 Resp 18 20 20 B/P (MAP) 82/42 (55) 82/59 (67) 94/61 (72) Pulse Ox 91 92 96 O2 Delivery Room Air Room Air Room Air Room Air 06/29/18 06/29/18 06/29/18 06/30/18 21:51 21:51 23:25 02:25 Temp 97.5 97.7 97.5 97.7 Pulse 118 118 118 90 Resp 16 16 B/P (MAP) 119/65 (83) 119/65 136/69 (91) 110/75 (87) Pulse Ox 99 95 O2 Delivery Nasal Cannula Nasal Cannula O2 Flow Rate 2.0 2.0 06/30/18 06/30/18 06/30/18 06/30/18 07:30 08:30 09:17 09:27 Temp 97.5 97.5 Pulse 120 104 Resp 20 21 B/P (MAP) 118/67 (84) 118/67 Pulse Ox 93 93 O2 Delivery Nasal Cannula Room Air Room Air O2 Flow Rate 2.0 Intake and Output 06/29/18 06/29/18 06/30/18 15:00 23:00 07:00 Intake Total 240 ml 240 ml 603 ml Output Total 150 ml 185 ml Balance 240 ml 90 ml 418 ml ELBERT CHUN MD June 30, 2018 10:42
[2018-06-30 11:41] VITALS: BP 111/89
--- NOTE | 2018-06-30 13:09 | PDOC ---
PROGRESS NOTES Subjective Subjective SEEN IN FOLLOW UP OF ARF AND CKD Objective Objective Vital Signs Date Time Temp Pulse Resp B/P (MAP) Pulse Ox O2 Delivery O2 Flow Rate FiO2 06/30/18 11:41 96.9 112 16 111/89 (96) 95 Room Air 96.9 06/30/18 07:30 2.0 Intake and Output 06/30/18 07:00 Intake Total 1083 ml Output Total 335 ml Balance 748 ml Intake Oral 930 ml IV Total 153 ml Output Urine Total 335 ml Physical Exam Abdomen: Normal bowel sounds, Soft, No tenderness, No hepatosplenomegaly, No masses Heart: Regular rate, Normal S1, Normal S2, No murmurs, Gallops Extremities: No clubbing, No cyanosis, No edema, Normal pulses, No tenderness/s welling General: Alert, Oriented X3, Cooperative, No acute distress Lungs: Clear to auscultation, Normal air movement Diagnosis RENAL FAILURE: Acute (Acute tubular necrosis), Chronic Assessment Assessment Problems Medical Problems: (1) Acute on chronic renal failure Status: Acute (2) Hyperkalemia Status: Acute Plan Plan of Care NO CHANGE IN RENAL FUNCTION. CONT FLUID BALANCE AND TREND LAB. NO URGENT NEED FOR DIALYSIS Comment Review of Relevant I have reviewed the following items jeet (where applicable) has been applied. Labs Laboratory Tests Test 06/28/18 13:15 06/28/18 17:15 06/28/18 22:30 06/29/18 12:30 White Blood Count 6.0 x10^3/uL (4.0-11.0) Red Blood Count 4.45 x10^6/uL (3.50-5.40) Hemoglobin 13.4 g/dL (12.0-15.5) Hematocrit 41.6 % (36.0-47.0) Mean Corpuscular Volume 93 fL (79-100) Mean Corpuscular Hemoglobin 30 pg (25-35) Mean Corpuscular Hemoglobin Concent 32 g/dL (31-37) Red Cell Distribution Width 16.2 % (11.5-14.5) Platelet Count 277 x10^3/uL (140-400) Neutrophils (%) (Auto) 40 % (31-73) Lymphocytes (%) (Auto) 46 % (24-48) Monocytes (%) (Auto) 8 % (0-9) Eosinophils (%) (Auto) 5 % (0-3) Basophils (%) (Auto) 1 % (0-3) Neutrophils # (Auto) 2.4 x10^3uL (1.8-7.7) Lymphocytes # (Auto) 2.8 x10^3/uL (1.0-4.8) Monocytes # (Auto) 0.5 x10^3/uL (0.0-1.1) Eosinophils # (Auto) 0.3 x10^3/uL (0.0-0.7) Basophils # (Auto) 0.0 x10^3/uL (0.0-0.2) Prothrombin Time 13.6 SEC (11.7-14.0) Prothromb Time International Ratio 1.1 (0.8-1.1) Activated Partial Thromboplast Time 29 SEC (24-38) Sodium Level 140 mmol/L (136-145) 142 mmol/L (136-145) Potassium Level 5.8 mmol/L (3.5-5.1) 5.2 mmol/L (3.5-5.1) Chloride Level 102 mmol/L (98-107) 104 mmol/L (98-107) Carbon Dioxide Level 28 mmol/L (21-32) 28 mmol/L (21-32) Anion Gap 10 (6-14) 10 (6-14) Blood Urea Nitrogen 60 mg/dL (7-20) 59 mg/dL (7-20) Creatinine 4.8 mg/dL (0.6-1.0) 5.1 mg/dL (0.6-1.0) Estimated GFR (Cockcroft-Gault) 10.5 9.8 BUN/Creatinine Ratio 13 (6-20) Glucose Level 83 mg/dL (70-99) 77 mg/dL (70-99) Calcium Level 9.4 mg/dL (8.5-10.1) 9.2 mg/dL (8.5-10.1) Magnesium Level 2.6 mg/dL (1.8-2.4) 2.7 mg/dL (1.8-2.4) Total Bilirubin 0.7 mg/dL (0.2-1.0) Aspartate Amino Transf (AST/SGOT) 16 U/L (15-37) Alanine Aminotransferase (ALT/SGPT) 13 U/L (14-59) Alkaline Phosphatase 84 U/L (46-116) Creatine Kinase 33 U/L (26-192) Creatine Kinase MB (Mass) 0.6 ng/mL (0.0-3.6) Creatine Kinase MB Relative Index 1.8 % (0-4) Troponin I Quantitative < 0.017 ng/mL (0.000-0.055) < 0.017 ng/mL (0.000-0.055) < 0.017 ng/mL (0.000-0.055) [id number]-Type Natriuretic Peptide 92948 pg/mL (0-449) Total Protein 7.1 g/dL (6.4-8.2) Albumin 2.7 g/dL (3.4-5.0) Albumin/Globulin Ratio 0.6 (1.0-1.7) Lipase 41 U/L (73-393) Test 06/30/18 06:00 White Blood Count 5.1 x10^3/uL (4.0-11.0) Red Blood Count 3.80 x10^6/uL (3.50-5.40) Hemoglobin 11.4 g/dL (12.0-15.5) Hematocrit 35.3 % (36.0-47.0) Mean Corpuscular Volume 93 fL (79-100) Mean Corpuscular Hemoglobin 30 pg (25-35) Mean Corpuscular Hemoglobin Concent 32 g/dL (31-37) Red Cell Distribution Width 16.1 % (11.5-14.5) Platelet Count 228 x10^3/uL (140-400) Neutrophils (%) (Auto) 44 % (31-73) Lymphocytes (%) (Auto) 42 % (24-48) Monocytes (%) (Auto) 9 % (0-9) Eosinophils (%) (Auto) 4 % (0-3) Basophils (%) (Auto) 1 % (0-3) Neutrophils # (Auto) 2.2 x10^3uL (1.8-7.7) Lymphocytes # (Auto) 2.1 x10^3/uL (1.0-4.8) Monocytes # (Auto) 0.5 x10^3/uL (0.0-1.1) Eosinophils # (Auto) 0.2 x10^3/uL (0.0-0.7) Basophils # (Auto) 0.0 x10^3/uL (0.0-0.2) Sodium Level 143 mmol/L (136-145) Potassium Level 4.7 mmol/L (3.5-5.1) Chloride Level 104 mmol/L (98-107) Carbon Dioxide Level 28 mmol/L (21-32) Anion Gap 11 (6-14) Blood Urea Nitrogen 60 mg/dL (7-20) Creatinine 4.9 mg/dL (0.6-1.0) Estimated GFR (Cockcroft-Gault) 10.2 Glucose Level 105 mg/dL (70-99) Calcium Level 9.1 mg/dL (8.5-10.1) Phosphorus Level 4.5 mg/dL (2.6-4.7) Albumin 2.1 g/dL (3.4-5.0) Triglycerides Level 82 mg/dL (0-150) Cholesterol Level 113 mg/dL (0-200) LDL Cholesterol, Calculated 62 mg/dL (0-100) VLDL Cholesterol, Calculated 16 mg/dL (0-40) Non-HDL Cholesterol Calculated 78 mg/dL (0-129) HDL Cholesterol 35 mg/dL (40-60) Cholesterol/HDL Ratio 3.2 Thyroid Stimulating Hormone (TSH) 5.013 uIU/mL (0.358-3.74) Laboratory Tests Test 06/30/18 06:00 White Blood Count 5.1 x10^3/uL (4.0-11.0) Red Blood Count 3.80 x10^6/uL (3.50-5.40) Hemoglobin 11.4 g/dL (12.0-15.5) Hematocrit 35.3 % (36.0-47.0) Mean Corpuscular Volume 93 fL (79-100) Mean Corpuscular Hemoglobin 30 pg (25-35) Mean Corpuscular Hemoglobin Concent 32 g/dL (31-37) Red Cell Distribution Width 16.1 % (11.5-14.5) Platelet Count 228 x10^3/uL (140-400) Neutrophils (%) (Auto) 44 % (31-73) Lymphocytes (%) (Auto) 42 % (24-48) Monocytes (%) (Auto) 9 % (0-9) Eosinophils (%) (Auto) 4 % (0-3) Basophils (%) (Auto) 1 % (0-3) Neutrophils # (Auto) 2.2 x10^3uL (1.8-7.7) Lymphocytes # (Auto) 2.1 x10^3/uL (1.0-4.8) Monocytes # (Auto) 0.5 x10^3/uL (0.0-1.1) Eosinophils # (Auto) 0.2 x10^3/uL (0.0-0.7) Basophils # (Auto) 0.0 x10^3/uL (0.0-0.2) Sodium Level 143 mmol/L (136-145) Potassium Level 4.7 mmol/L (3.5-5.1) Chloride Level 104 mmol/L (98-107) Carbon Dioxide Level 28 mmol/L (21-32) Anion Gap 11 (6-14) Blood Urea Nitrogen 60 mg/dL (7-20) Creatinine 4.9 mg/dL (0.6-1.0) Estimated GFR (Cockcroft-Gault) 10.2 Glucose Level 105 mg/dL (70-99) Calcium Level 9.1 mg/dL (8.5-10.1) Phosphorus Level 4.5 mg/dL (2.6-4.7) Albumin 2.1 g/dL (3.4-5.0) Triglycerides Level 82 mg/dL (0-150) Cholesterol Level 113 mg/dL (0-200) LDL Cholesterol, Calculated 62 mg/dL (0-100) VLDL Cholesterol, Calculated 16 mg/dL (0-40) Non-HDL Cholesterol Calculated 78 mg/dL (0-129) HDL Cholesterol 35 mg/dL (40-60) Cholesterol/HDL Ratio 3.2 Thyroid Stimulating Hormone (TSH) 5.013 uIU/mL (0.358-3.74) Medications Current Medications Dextrose (Dextrose 50%-Water Syringe) 25 gm 1X ONCE IV Last administered on 06/28/18at 15:13; Start 06/28/18 at 14:45; Stop 06/28/18 at 14:46; Status DC Insulin Human Regular (HumuLIN R VIAL) 10 unit 1X ONCE IV Last administered on 06/28/18at 15:15; Start 06/28/18 at 14:45; Stop 06/28/18 at 14:46; Status DC Ondansetron HCl (Zofran) 4 mg PRN Q8HRS PRN IV NAUSEA/VOMITING; Start 06/28/18 at 14:30; Stop 06/29/18 at 14:29; Status DC Sodium Polystyrene Sulfonate (Kayexalate) 30 gm 1X ONCE PO Last administered on 06/28/18at 16:02; Start 06/28/18 at 15:00; Stop 06/28/18 at 15:01; Status DC Fentanyl Citrate (Fentanyl 2ml Vial) 50 mcg 1X ONCE IV Last administered on 06/28/18at 15:44; Start 06/28/18 at 16:00; Stop 06/28/18 at 16:01; Status DC Fentanyl Citrate (Fentanyl 2ml Vial) 50 mcg PRN Q2HR PRN IV MODERATE PAIN 4-6 Last administered on 06/28/18at 21:31; Start 06/28/18 at 18:45; Stop 06/29/18 at 10:33; Status DC Aspirin (Children'S Aspirin) 81 mg DAILY PO Last administered on 06/30/18 09:17; Start 06/29/18 at 09:00 Vitamin D (Vitamin D3) 1,000 unit DAILY PO Last administered on 06/30/18 09:16; Start 06/29/18 at 09:00 Acetaminophen/ Hydrocodone Bitart (Lortab 10/325) 1 tab PRN Q4HRS PRN PO MODERATE PAIN, SEVERE PAIN Last administered on 06/30/18at 09:27; Start 06/28/18 at 21:30 Levothyroxine Sodium (Synthroid) 175 mcg DAILY06 PO Last administered on 06/30/18at 06:29; Start 06/29/18 at 06:00 Metoprolol Tartrate (Lopressor) 50 mg BID PO Last administered on 06/30/18at 09:17; Start 06/29/18 at 09:00 Multivitamins (Thera M Plus) 1 tab DAILY PO Last administered on 06/30/18at 09:16; Start 06/29/18 at 09:00 Diltiazem HCl (Cardizem Iv Push) 10 mg 1X ONCE IVP ; Start 06/28/18 at 21:45; Stop 06/28/18 at 23:32; Status DC Diltiazem HCl 125 mg/Dextrose 125 ml @ 5 mls/hr CONT PRN IV SEE I/O RECORD; Start 06/28/18 at 22:00; Stop 06/28/18 at 23:32; Status DC Metoprolol Tartrate (Lopressor Vial) 5 mg PRN Q4HRS PRN IVP ELEVATED HR; Start 06/28/18 at 23:30 Fentanyl Citrate (Fentanyl 2ml Vial) 50 mcg PRN Q4HRS PRN IV SEVERE PAIN 7-10; Start 06/29/18 at 10:30 Heparin Sodium (Porcine) (Heparin Sodium) 5,000 unit BID SQ Last administered on 06/30/18at 09:23; Start 06/29/18 at 11:00 Acetaminophen (Tylenol) 650 mg PRN Q6HRS PRN PO MILD PAIN / TEMP; Start 06/29/18 at 10:30 Magnesium Hydroxide (Milk Of Magnesia) 2,400 mg PRN DAILY PRN PO CONSTIPATION; Start 06/29/18 at 10:30 Furosemide (Lasix) 40 mg DAILY IVP ; Start 06/29/18 at 11:00; Stop 06/30/18 at 10:30; Status DC Digoxin (Lanoxin) 250 mcg 1X ONCE IV ; Start 06/29/18 at 12:45; Stop 06/29/18 at 12:46; Status DC Nystatin (Nystop) 1 morenita BID TP Last administered on 06/30/18at 09:27; Start 06/29/18 at 21:00 Vitamin A/Vitamin D (Vitamin A & D Ointment) 1 morenita BID TP Last administered on 06/30/18at 09:27; Start 06/29/18 at 21:00 Nystatin (Nystop) 1 morenita PRN BID PRN TP AFFECTED AREA; Start 06/29/18 at 16:15 Sodium Chloride 1,000 ml @ 75 mls/hr [id number] IV Last administered on 06/30/18at 04:10; Start 06/29/18 at 19:00 Active Scripts Active Senna-Time S Tablet (Sennosides/Docusate Sodium) 1 Each Tablet 2 Tab PO QHS Furosemide 40 Mg Tablet 40 Mg PO DAILY Digoxin 125 Mcg Tablet 125 Mcg PO Q48H Metoprolol Tartrate 25 Mg Tablet 1 Tab PO BID 30 Days Reported Levothyroxine Sodium 175 Mcg Tablet 1 Tab PO DAILY Metoprolol Tartrate 50 Mg Tablet 1 Tab PO BID Flonase Allergy Relief (Fluticasone Propionate) 9.9 Ml Harold.susp 2 Sprays NS DAILY PRN Vitamin D3 (Cholecalciferol (Vitamin D3)) 1,000 Unit Tablet 1 Tab PO DAILY Multivitamins (Multivitamin) 1 Each Tablet 1 Tab PO DAILY Hydrocodone-Apap 10-325 (Hydrocodone Bit/Acetaminophen) 1 Each Tablet 1 Each PO PRN Q4HRS Aspirin 81 Mg Tab.chew 81 Mg PO DAILY Vitals/I & O Vital Sign - Last 24 Hours 06/29/18 06/29/18 06/29/18 06/29/18 15:00 19:30 19:59 21:51 Temp 97.5 97.4 97.5 97.4 Pulse 85 121 118 Resp 20 20 B/P (MAP) 82/59 (67) 94/61 (72) 119/65 (83) Pulse Ox 92 96 O2 Delivery Room Air Room Air Room Air 06/29/18 06/29/18 06/30/18 06/30/18 21:51 23:25 02:25 07:30 Temp 97.5 97.7 97.5 97.5 97.7 97.5 Pulse 118 118 90 120 Resp 16 16 20 B/P (MAP) 119/65 136/69 (91) 110/75 (87) 118/67 (84) Pulse Ox 99 95 93 O2 Delivery Nasal Cannula Nasal Cannula Nasal Cannula O2 Flow Rate 2.0 2.0 2.0 06/30/18 06/30/18 06/30/18 06/30/18 08:30 09:17 09:27 11:00 Pulse 104 Resp 21 14 B/P (MAP) 118/67 Pulse Ox 93 93 O2 Delivery Room Air Room Air Room Air 06/30/18 11:41 Temp 96.9 96.9 Pulse 112 Resp 16 B/P (MAP) 111/89 (96) Pulse Ox 95 O2 Delivery Room Air Intake and Output 06/29/18 06/29/18 06/30/18 15:00 23:00 07:00 Intake Total 240 ml 240 ml 603 ml Output Total 150 ml 185 ml Balance 240 ml 90 ml 418 ml HOOD APTEL MD June 30, 2018 13:08
[2018-06-30 15:00] VITALS: BP 103/65
[2018-06-30 19:57] VITALS: BP 121/67
[2018-06-30 23:53] VITALS: BP 100/75
[2018-07-01 03:41] VITALS: BP 93/73
[2018-07-01 05:08] LABS: ALBUMIN 2.2 g/dL (3.4-5.0); CALCIUM 8.2 mg/dL (8.5-10.1); CREATININE 4.7 mg/dL (0.6-1.0); GFR 10.7; PHOSPHORUS 4.1 mg/dL (2.6-4.7); POTASSIUM 4.5 mmol/L (3.5-5.1)
[2018-07-01] MEDS: LEVOTHYROXINE 175 MCG TABLET PO SCH (05:40)
[2018-07-01 07:00] VITALS: BP 118/51
[2018-07-01] MEDS: MULTIVITAMIN with MINERAL TABLET. PO SCH (08:40)
[2018-07-01] MEDS: CHOLECALCIFEROL (VITAMIN D3) 1,000 UNIT TABLET PO SCH (08:40)
[2018-07-01] MEDS: ASPIRIN CHEWABLE 81 MG TABLET. PO SCH (08:41)
[2018-07-01] MEDS: METOPROLOL TART IMMED RELEASE 50 MG TABLET. PO SCH ×2 (08:41→22:02)
[2018-07-01] MEDS: IV NORMAL SALINE 1000ML BAG 1,000 ML IV SCH ×2 (08:42→11:00)
[2018-07-01] MEDS: HEPARIN for SUB-Q USE 5,000 UNIT/ML VIAL. SQ SCH ×2 (08:46→22:05)
[2018-07-01] MEDS: HYDROcodone/APAP 10/325 1 TAB TABLET PO PRN ×2 (08:57→22:02)
[2018-07-01] MEDS: NYSTATIN TOPICAL POWDER 15GM BOTTLE. TP SCH ×2 (08:57→22:05)
[2018-07-01] MEDS: VITS A & D/LANOLIN TOPICAL OINTMENT 56GM TUBE. TP SCH ×2 (08:58→22:05)
--- NOTE | 2018-07-01 09:03 | PDOC ---
PROGRESS NOTES Subjective Subjective Denied any palpitations, nausea or vomiting Objective Objective Vital Signs Date Time Temp Pulse Resp B/P (MAP) Pulse Ox O2 Delivery O2 Flow Rate FiO2 07/01/18 08:57 15 86 Room Air 2.0 07/01/18 08:41 106 93/73 07/01/18 07:00 97.9 97.9 Intake and Output 07/01/18 06:59 Intake Total 2110 ml Output Total 600 ml Balance 1510 ml Intake Oral 1110 ml IV Total 1000 ml Output Urine Total 600 ml Physical Exam Abdomen: Normal bowel sounds, Soft, No tenderness, No hepatosplenomegaly, No masses Heart: Regular rate, Normal S1, Normal S2, No murmurs, Gallops Extremities: No clubbing, No cyanosis, No edema, Normal pulses, No tenderness/swelling General: Alert, Oriented X3, Cooperative, No acute distress HEENT: Atraumatic Lungs: Clear to auscultation, Normal air movement Neuro: Normal speech Psych/Mental Status: Mental status NL Skin: No rashes Diagnosis RENAL FAILURE: Acute (Acute tubular necrosis), Chronic Assessment Assessment 1. Persistent AFIB with RVR. Heart rate better controlled with metoprolol with intermittent episodes of RVR. Blood pressure marginal and hence cannot increase metoprolol. We cannot use long-term digoxin due to elevated creatinine level. S he is a poor candidate for long-term anticoagulation. 2. Acute on chronic diastolic CHF: appears better compensated. 2-D echo showed normal LV systolic function. 3. STAN on CKD4/hyperkalemia: Nephrology following 4. HTN: marginally low 5. Morbid obesity/ELLI Plan Plan of Care Problems Medical Problems: (1) Acute on chronic renal failure Status: Acute (2) Hyperkalemia Status: Acute Comment Review of Relevant I have reviewed the following items jeet (where applicable) has been applied. Labs Laboratory Tests Test 07/01/18 04:40 Sodium Level 141 mmol/L (136-145) Potassium Level 4.5 mmol/L (3.5-5.1) Chloride Level 104 mmol/L (98-107) Carbon Dioxide Level 27 mmol/L (21-32) Anion Gap 10 (6-14) Blood Urea Nitrogen 62 mg/dL (7-20) Creatinine 4.7 mg/dL (0.6-1.0) Estimated GFR (Cockcroft-Gault) 10.7 Glucose Level 107 mg/dL (70-99) Calcium Level 8.2 mg/dL (8.5-10.1) Phosphorus Level 4.1 mg/dL (2.6-4.7) Albumin 2.2 g/dL (3.4-5.0) Vitals/I & O Vital Sign - Last 24 Hours 06/30/18 06/30/18 06/30/18 06/30/18 09:17 09:27 11:00 11:41 Temp 96.9 96.9 Pulse 104 112 Resp 21 14 16 B/P (MAP) 118/67 111/89 (96) Pulse Ox 93 93 95 O2 Delivery Room Air Room Air Room Air 06/30/18 06/30/18 06/30/18 06/30/18 15:00 19:56 19:57 21:07 Temp 97.7 97.9 97.7 97.9 Pulse 69 121 121 Resp 16 17 B/P (MAP) 103/65 (78) 121/67 (85) 121/67 Pulse Ox 97 99 O2 Delivery Room Air Room Air Room Air 06/30/18 07/01/18 07/01/18 07/01/18 23:53 03:41 07:00 08:41 Temp 97.6 98.0 97.9 97.6 98.0 97.9 Pulse 104 106 75 106 Resp 23 22 20 B/P (MAP) 100/75 (83) 93/73 (80) 118/51 (73) 93/73 Pulse Ox 96 96 86 O2 Delivery Room Air Room Air Room Air 07/01/18 08:57 Resp 15 Pulse Ox 86 O2 Delivery Room Air O2 Flow Rate 2.0 Intake and Output 06/30/18 06/30/18 07/01/18 14:59 22:59 06:59 Intake Total 360 ml 1550 ml 200 ml Output Total 200 ml 400 ml Balance 360 ml 1350 ml -200 ml ELBERT CHUN MD July 01, 2018 09:03
--- NOTE | 2018-07-01 11:18 | PDOC ---
PROGRESS NOTES Subjective Subjective feels the same. no nausea or vomiting. still in a fib with variable VR and intermittent increased VR. systolic bp 93. lab reviewed. creatinine 4.7 and about the same. Objective Objective Vital Signs Date Time Temp Pulse Resp B/P (MAP) Pulse Ox O2 Delivery O2 Flow Rate FiO2 07/01/18 10:03 14 86 Nasal Cannula 2.0 07/01/18 08:41 106 93/73 07/01/18 07:00 97.9 97.9 Intake and Output 07/01/18 07:00 Intake Total 2110 ml Output Total 600 ml Balance 1510 ml Intake Oral 1110 ml IV Total 1000 ml Output Urine Total 600 ml Physical Exam Abdomen: Soft, Other (obese) Heart: Normal S1, Normal S2 Extremities: Other (2 plus edema legs and feet) General: Alert HEENT: Atraumatic Lungs: Clear to auscultation Neuro: Normal speech Psych/Mental Status: Mental status NL Skin: No rashes Assessment Assessment Problems1. Hyperkalemia resolved 2. Acute kidney injury on top of chronic kidney disease stage 4 versus progression of her chronic kidney disease stage 4. 3. Paroxysmal atrial fibrillation, now in atrial fibrillation with intermittent rapid ventricular response.receiving bid po metoprolol and prn iv metoprolol 4. Anasarca. bilateral LE edema 5. Severe protein-calorie malnutrition. 6. Morbid obesity. 7. Debility. 8. Chronic diastolic congestive heart failure. 9. Hypothyroidism. Medical Problems: (1) Acute on chronic renal failure Status: Acute (2) Hyperkalemia Status: Acute Plan Plan of Care decrease iv fluids daily labs increase oral metoprolol continue sq heparin for dvt prophylaxis Comment Review of Relevant I have reviewed the following items jeet (where applicable) has been applied. Labs Laboratory Tests Test 06/29/18 12:30 06/30/18 06:00 07/01/18 04:40 Sodium Level 142 mmol/L (136-145) 143 mmol/L (136-145) 141 mmol/L (136-145) Potassium Level 5.2 mmol/L (3.5-5.1) 4.7 mmol/L (3.5-5.1) 4.5 mmol/L (3.5-5.1) Chloride Level 104 mmol/L (98-107) 104 mmol/L (98-107) 104 mmol/L (98-107) Carbon Dioxide Level 28 mmol/L (21-32) 28 mmol/L (21-32) 27 mmol/L (21-32) Anion Gap 10 (6-14) 11 (6-14) 10 (6-14) Blood Urea Nitrogen 59 mg/dL (7-20) 60 mg/dL (7-20) 62 mg/dL (7-20) Creatinine 5.1 mg/dL (0.6-1.0) 4.9 mg/dL (0.6-1.0) 4.7 mg/dL (0.6-1.0) Estimated GFR (Cockcroft-Gault) 9.8 10.2 10.7 Glucose Level 77 mg/dL (70-99) 105 mg/dL (70-99) 107 mg/dL (70-99) Calcium Level 9.2 mg/dL (8.5-10.1) 9.1 mg/dL (8.5-10.1) 8.2 mg/dL (8.5-10.1) Magnesium Level 2.7 mg/dL (1.8-2.4) White Blood Count 5.1 x10^3/uL (4.0-11.0) Red Blood Count 3.80 x10^6/uL (3.50-5.40) Hemoglobin 11.4 g/dL (12.0-15.5) Hematocrit 35.3 % (36.0-47.0) Mean Corpuscular Volume 93 fL (79-100) Mean Corpuscular Hemoglobin 30 pg (25-35) Mean Corpuscular Hemoglobin Concent 32 g/dL (31-37) Red Cell Distribution Width 16.1 % (11.5-14.5) Platelet Count 228 x10^3/uL (140-400) Neutrophils (%) (Auto) 44 % (31-73) Lymphocytes (%) (Auto) 42 % (24-48) Monocytes (%) (Auto) 9 % (0-9) Eosinophils (%) (Auto) 4 % (0-3) Basophils (%) (Auto) 1 % (0-3) Neutrophils # (Auto) 2.2 x10^3uL (1.8-7.7) Lymphocytes # (Auto) 2.1 x10^3/uL (1.0-4.8) Monocytes # (Auto) 0.5 x10^3/uL (0.0-1.1) Eosinophils # (Auto) 0.2 x10^3/uL (0.0-0.7) Basophils # (Auto) 0.0 x10^3/uL (0.0-0.2) Phosphorus Level 4.5 mg/dL (2.6-4.7) 4.1 mg/dL (2.6-4.7) Albumin 2.1 g/dL (3.4-5.0) 2.2 g/dL (3.4-5.0) Triglycerides Level 82 mg/dL (0-150) Cholesterol Level 113 mg/dL (0-200) LDL Cholesterol, Calculated 62 mg/dL (0-100) VLDL Cholesterol, Calculated 16 mg/dL (0-40) Non-HDL Cholesterol Calculated 78 mg/dL (0-129) HDL Cholesterol 35 mg/dL (40-60) Cholesterol/HDL Ratio 3.2 Thyroid Stimulating Hormone (TSH) 5.013 uIU/mL (0.358-3.74) Laboratory Tests Test 07/01/18 04:40 Sodium Level 141 mmol/L (136-145) Potassium Level 4.5 mmol/L (3.5-5.1) Chloride Level 104 mmol/L (98-107) Carbon Dioxide Level 27 mmol/L (21-32) Anion Gap 10 (6-14) Blood Urea Nitrogen 62 mg/dL (7-20) Creatinine 4.7 mg/dL (0.6-1.0) Estimated GFR (Cockcroft-Gault) 10.7 Glucose Level 107 mg/dL (70-99) Calcium Level 8.2 mg/dL (8.5-10.1) Phosphorus Level 4.1 mg/dL (2.6-4.7) Albumin 2.2 g/dL (3.4-5.0) Medications Current Medications Dextrose (Dextrose 50%-Water Syringe) 25 gm 1X ONCE IV Last administered on 06/28/18at 15:13; Start 06/28/18 at 14:45; Stop 06/28/18 at 14:46; Status DC Insulin Human Regular (HumuLIN R VIAL) 10 unit 1X ONCE IV Last administered on 06/28/18at 15:15; Start 06/28/18 at 14:45; Stop 06/28/18 at 14:46; Status DC Ondansetron HCl (Zofran) 4 mg PRN Q8HRS PRN IV NAUSEA/VOMITING; Start 06/28/18 at 14:30; Stop 06/29/18 at 14:29; Status DC Sodium Polystyrene Sulfonate (Kayexalate) 30 gm 1X ONCE PO Last administered on 06/28/18at 16:02; Start 06/28/18 at 15:00; Stop 06/28/18 at 15:01; Status DC Fentanyl Citrate (Fentanyl 2ml Vial) 50 mcg 1X ONCE IV Last administered on 06/28/18at 15:44; Start 06/28/18 at 16:00; Stop 06/28/18 at 16:01; Status DC Fentanyl Citrate (Fentanyl 2ml Vial) 50 mcg PRN Q2HR PRN IV MODERATE PAIN 4-6 Last administered on 06/28/18at 21:31; Start 06/28/18 at 18:45; Stop 06/29/18 at 10:33; Status DC Aspirin (Children'S Aspirin) 81 mg DAILY PO Last administered on 07/01/18at 0 8:41; Start 06/29/18 at 09:00 Vitamin D (Vitamin D3) 1,000 unit DAILY PO Last administered on 07/01/18at 08:40; Start 06/29/18 at 09:00 Acetaminophen/ Hydrocodone Bitart (Lortab 10/325) 1 tab PRN Q4HRS PRN PO MODERATE PAIN, SEVERE PAIN Last administered on 07/01/18at 08:57; Start 06/28/18 at 21:30 Levothyroxine Sodium (Synthroid) 175 mcg DAILY06 PO Last administered on 07/01/18at 05:40; Start 06/29/18 at 06:00 Metoprolol Tartrate (Lopressor) 50 mg BID PO Last administered on 07/01/18at 08:41; Start 06/29/18 at 09:00 Multivitamins (Thera M Plus) 1 tab DAILY PO Last administered on 07/01/18at 08:40; Start 06/29/18 at 09:00 Diltiazem HCl (Cardizem Iv Push) 10 mg 1X ONCE IVP ; Start 06/28/18 at 21:45; Stop 06/28/18 at 23:32; Status DC Diltiazem HCl 125 mg/Dextrose 125 ml @ 5 mls/hr CONT PRN IV SEE I/O RECORD; Start 06/28/18 at 22:00; Stop 06/28/18 at 23:32; Status DC Metoprolol Tartrate (Lopressor Vial) 5 mg PRN Q4HRS PRN IVP ELEVATED HR; Start 06/28/18 at 23:30 Fentanyl Citrate (Fentanyl 2ml Vial) 50 mcg PRN Q4HRS PRN IV SEVERE PAIN 7-10; Start 06/29/18 at 10:30 Heparin Sodium (Porcine) (Heparin Sodium) 5,000 unit BID SQ Last administered on 07/01/18at 08:46; Start 06/29/18 at 11:00 Acetaminophen (Tylenol) 650 mg PRN Q6HRS PRN PO MILD PAIN / TEMP; Start at 10:30 Magnesium Hydroxide (Milk Of Magnesia) 2,400 mg PRN DAILY PRN PO CONSTIPATION; Start 06/29/18 at 10:30 Furosemide (Lasix) 40 mg DAILY IVP ; Start 06/29/18 at 11:00; Stop 06/30/18 at 10:30; Status DC Digoxin (Lanoxin) 250 mcg 1X ONCE IV ; Start 06/29/18 at 12:45; Stop 06/29/18 at 12:46; Status DC Nystatin (Nystop) 1 morenita BID TP Last administered on 07/01/18at 08:57; Start 06/29/18 at 21:00 Vitamin A/Vitamin D (Vitamin A & D Ointment) 1 morenita BID TP Last administered on 07/01/18at 08:58; Start 06/29/18 at 21:00 Nystatin (Nystop) 1 morenita PRN BID PRN TP AFFECTED AREA; Start 06/29/18 at 16:15 Sodium Chloride 1,000 ml @ 75 mls/hr [id number] IV Last administered on 07/01/18at 08:42; Start 06/29/18 at 19:00 Active Scripts Active Senna-Time S Tablet (Sennosides/Docusate Sodium) 1 Each Tablet 2 Tab PO QHS Furosemide 40 Mg Tablet 40 Mg PO DAILY Digoxin 125 Mcg Tablet 125 Mcg PO Q48H Metoprolol Tartrate 25 Mg Tablet 1 Tab PO BID 30 Days Reported Levothyroxine Sodium 175 Mcg Tablet 1 Tab PO DAILY Metoprolol Tartrate 50 Mg Tablet 1 Tab PO BID Flonase Allergy Relief (Fluticasone Propionate) 9.9 Ml [place].susp 2 Sprays NS DAILY PRN Vitamin D3 (Cholecalciferol (Vitamin D3)) 1,000 Unit Tablet 1 Tab PO DAILY Multivitamins (Multivitamin) 1 Each Tablet 1 Tab PO DAILY Hydrocodone-Apap 10-325 (Hydrocodone Bit/Acetaminophen) 1 Each Tablet 1 Each PO PRN Q4HRS Aspirin 81 Mg Tab.chew 81 Mg PO DAILY Vitals/I & O Vital Sign - Last 24 Hours 06/30/18 06/30/18 06/30/18 06/30/18 11:41 15:00 19:56 19:57 Temp 96.9 97.7 97.9 96.9 97.7 97.9 Pulse 112 69 121 Resp 16 16 17 B/P (MAP) 111/89 (96) 103/65 (78) 121/67 (85) Pulse Ox 95 97 99 O2 Delivery Room Air Room Air Room Air Room Air 06/30/18 06/30/18 07/01/18 07/01/18 21:07 23:53 03:41 07:00 Temp 97.6 98.0 97.9 97.6 98.0 97.9 Pulse 121 104 106 75 Resp 23 22 20 B/P (MAP) 121/67 100/75 (83) 93/73 (80) 118/51 (73) Pulse Ox 96 96 86 O2 Delivery Room Air Room Air Room Air 07/01/18 07/01/18 07/01/18 07/01/18 08:00 08:41 08:57 10:03 Pulse 106 Resp 15 14 B/P (MAP) 93/73 Pulse Ox 86 86 O2 Delivery Nasal Cannula Room Air Nasal Cannula O2 Flow Rate 2.0 2.0 2.0 Intake and Output 06/30/18 06/30/18 07/01/18 15:00 23:00 07:00 Intake Total 360 ml 1550 ml 200 ml Output Total 200 ml 400 ml Balance 360 ml 1350 ml -200 ml HOOD ALLAN MD July 01, 2018 11:18
[2018-07-01 11:59] VITALS: BP 114/70
[2018-07-01 15:00] VITALS: BP 131/59
[2018-07-01 19:36] VITALS: BP 114/55
[2018-07-01 23:47] VITALS: BP 112/72
[2018-07-02] MEDS: IV NORMAL SALINE 1000ML BAG 1,000 ML IV SCH ×2 (01:45→20:15)
[2018-07-02 03:30] VITALS: BP 142/83
[2018-07-02] MEDS: LEVOTHYROXINE 175 MCG TABLET PO SCH (06:12)
[2018-07-02 06:38] LABS: BASO % 1 % (0-3); EOS # 0.3 x10^3/uL (0.0-0.7); EOS % 6 % (0-3); HEMATOCRIT 36.4 % (36.0-47.0); HEMOGLOBIN 11.8 g/dL (12.0-15.5); LYMPH # 2.3 x10^3/uL (1.0-4.8); LYMPH % 44 % (24-48); MEAN CORPUSCULAR HEMOGLOBIN 30 pg (25-35); MEAN CORPUSCULAR HGB CONC 32 g/dL (31-37); MEAN CORPUSCULAR VOLUME 93 fL (79-100); MONO # 0.5 x10^3/uL (0.0-1.1); MONO % 10 % (0-9); NEUT % 39 % (31-73); PLATELET COUNT 210 x10^3/uL (140-400); RED BLOOD COUNT 3.89 x10^6/uL (3.50-5.40); RED CELL DISTRIBUTION WIDTH 16.5 % (11.5-14.5); WHITE BLOOD COUNT 5.2 x10^3/uL (4.0-11.0)
[2018-07-02 06:57] LABS: ALBUMIN 2.1 g/dL (3.4-5.0); CALCIUM 8.2 mg/dL (8.5-10.1); CREATININE 4.4 mg/dL (0.6-1.0); GFR 11.6; PHOSPHORUS 4.1 mg/dL (2.6-4.7); POTASSIUM 4.4 mmol/L (3.5-5.1)
[2018-07-02 07:00] VITALS: BP 118/53
[2018-07-02] MEDS: CHOLECALCIFEROL (VITAMIN D3) 1,000 UNIT TABLET PO SCH (09:04)
[2018-07-02] MEDS: METOPROLOL TART IMMED RELEASE 50 MG TABLET. PO SCH ×2 (09:04→22:58)
[2018-07-02] MEDS: MULTIVITAMIN with MINERAL TABLET. PO SCH (09:04)
[2018-07-02] MEDS: ASPIRIN CHEWABLE 81 MG TABLET. PO SCH (09:04)
[2018-07-02] MEDS: VITS A & D/LANOLIN TOPICAL OINTMENT 56GM TUBE. TP SCH ×2 (09:05→23:00)
[2018-07-02] MEDS: NYSTATIN TOPICAL POWDER 15GM BOTTLE. TP SCH ×2 (09:05→22:58)
[2018-07-02] MEDS: HYDROcodone/APAP 10/325 1 TAB TABLET PO PRN ×3 (09:07→23:03)
[2018-07-02] MEDS: HEPARIN for SUB-Q USE 5,000 UNIT/ML VIAL. SQ SCH ×2 (09:14→23:05)
--- NOTE | 2018-07-02 10:12 | PDOC ---
PROGRESS NOTES Subjective Subjective feels better. heart rate better in 80s. bp is okay. improved urine output with 1.2 liters of urine output yesterday. not short of breath. no nausea or vomiting. lab reviewed. creatinine minimally better 4.4. Objective Objective Vital Signs Date Time Temp Pulse Resp B/P (MAP) Pulse Ox O2 Delivery O2 Flow Rate FiO2 07/02/18 09:07 95 Room Air 07/02/18 09:04 98 118/53 07/02/18 07:00 97.3 16 97.3 07/02/18 03:30 2.0 Intake and Output 07/02/18 07:00 Intake Total 1300 ml Output Total 1200 ml Balance 100 ml Intake Oral 300 ml IV Total 1000 ml Output Urine Total 1200 ml Physical Exam Abdomen: Soft, Other (obese) Heart: Normal S1, Normal S2 Extremities: Other (2 plus edema legs) General: Alert HEENT: Atraumatic Lungs: Clear to auscultation Neuro: Normal speech Psych/Mental Status: Mental status NL Skin: No rashes Assessment Assessment Problems1. Hyperkalemia resolved 2. Acute kidney injury on top of chronic kidney disease stage 4 versus progression of her chronic kidney disease stage 4. 3. Paroxysmal atrial fibrillation, now in atrial fibrillation with intermittent rapid ventricular response.receiving bid po metoprolol and prn iv metoprolol 4. bilateral LE edema.. neg bilateral LE venous doppler 5. Severe protein-calorie malnutrition. 6. Morbid obesity. 7. Debility. 8. Chronic diastolic congestive heart failure. 9. Hypothyroidism. Medical Problems: (1) Acute on chronic renal failure Status: Acute (2) Hyperkalemia Status: Acute Plan Plan of Care continue iv fluids daily labs continue metoprolol for VR control continue heparin for dvt prophylaxis consult devops architect for low potassium renal diet instructioin Comment Review of Relevant I have reviewed the following items jeet (where applicable) has been applied. Labs Laboratory Tests Test 07/01/18 04:40 07/02/18 06:15 Sodium Level 141 mmol/L (136-145) 141 mmol/L (136-145) Potassium Level 4.5 mmol/L (3.5-5.1) 4.4 mmol/L (3.5-5.1) Chloride Level 104 mmol/L (98-107) 105 mmol/L (98-107) Carbon Dioxide Level 27 mmol/L (21-32) 28 mmol/L (21-32) Anion Gap 10 (6-14) 8 (6-14) Blood Urea Nitrogen 62 mg/dL (7-20) 66 mg/dL (7-20) Creatinine 4.7 mg/dL (0.6-1.0) 4.4 mg/dL (0.6-1.0) Estimated GFR (Cockcroft-Gault) 10.7 11.6 Glucose Level 107 mg/dL (70-99) 114 mg/dL (70-99) Calcium Level 8.2 mg/dL (8.5-10.1) 8.2 mg/dL (8.5-10.1) Phosphorus Level 4.1 mg/dL (2.6-4.7) 4.1 mg/dL (2.6-4.7) Albumin 2.2 g/dL (3.4-5.0) 2.1 g/dL (3.4-5.0) White Blood Count 5.2 x10^3/uL (4.0-11.0) Red Blood Count 3.89 x10^6/uL (3.50-5.40) Hemoglobin 11.8 g/dL (12.0-15.5) Hematocrit 36.4 % (36.0-47.0) Mean Corpuscular Volume 93 fL (79-100) Mean Corpuscular Hemoglobin 30 pg (25-35) Mean Corpuscular Hemoglobin Concent 32 g/dL (31-37) Red Cell Distribution Width 16.5 % (11.5-14.5) Platelet Count 210 x10^3/uL (140-400) Neutrophils (%) (Auto) 39 % (31-73) Lymphocytes (%) (Auto) 44 % (24-48) Monocytes (%) (Auto) 10 % (0-9) Eosinophils (%) (Auto) 6 % (0-3) Basophils (%) (Auto) 1 % (0-3) Neutrophils # (Auto) 2.0 x10^3uL (1.8-7.7) Lymphocytes # (Auto) 2.3 x10^3/uL (1.0-4.8) Monocytes # (Auto) 0.5 x10^3/uL (0.0-1.1) Eosinophils # (Auto) 0.3 x10^3/uL (0.0-0.7) Basophils # (Auto) 0.0 x10^3/uL (0.0-0.2) Laboratory Tests Test 07/02/18 06:15 White Blood Count 5.2 x10^3/uL (4.0-11.0) Red Blood Count 3.89 x10^6/uL (3.50-5.40) Hemoglobin 11.8 g/dL (12.0-15.5) Hematocrit 36.4 % (36.0-47.0) Mean Corpuscular Volume 93 fL (79-100) Mean Corpuscular Hemoglobin 30 pg (25-35) Mean Corpuscular Hemoglobin Concent 32 g/dL (31-37) Red Cell Distribution Width 16.5 % (11.5-14.5) Platelet Count 210 x10^3/uL (140-400) Neutrophils (%) (Auto) 39 % (31-73) Lymphocytes (%) (Auto) 44 % (24-48) Monocytes (%) (Auto) 10 % (0-9) Eosinophils (%) (Auto) 6 % (0-3) Basophils (%) (Auto) 1 % (0-3) Neutrophils # (Auto) 2.0 x10^3uL (1.8-7.7) Lymphocytes # (Auto) 2.3 x10^3/uL (1.0-4.8) Monocytes # (Auto) 0.5 x10^3/uL (0.0-1.1) Eosinophils # (Auto) 0.3 x10^3/uL (0.0-0.7) Basophils # (Auto) 0.0 x10^3/uL (0.0-0.2) Sodium Level 141 mmol/L (136-145) Potassium Level 4.4 mmol/L (3.5-5.1) Chloride Level 105 mmol/L (98-107) Carbon Dioxide Level 28 mmol/L (21-32) Anion Gap 8 (6-14) Blood Urea Nitrogen 66 mg/dL (7-20) Creatinine 4.4 mg/dL (0.6-1.0) Estimated GFR (Cockcroft-Gault) 11.6 Glucose Level 114 mg/dL (70-99) Calcium Level 8.2 mg/dL (8.5-10.1) Phosphorus Level 4.1 mg/dL (2.6-4.7) Albumin 2.1 g/dL (3.4-5.0) Medications Current Medications Dextrose (Dextrose 50%-Water Syringe) 25 gm 1X ONCE IV Last administered on 06/28/18 15:13; Start 06/28/18 at 14:45; Stop 06/28/18 at 14:46; Status DC Insulin Human Regular (HumuLIN R VIAL) 10 unit 1X ONCE IV Last administered on 06/28/18at 15:15; Start 06/28/18 at 14:45; Stop 06/28/18 at 14:46; Status DC Ondansetron HCl (Zofran) 4 mg PRN Q8HRS PRN IV NAUSEA/VOMITING; Start 06/28/18 at 14:30; Stop 06/29/18 at 14:29; Status DC Sodium Polystyrene Sulfonate (Kayexalate) 30 gm 1X ONCE PO Last administered on 06/28/18 16:02; Start 06/28/18 at 15:00; Stop 06/28/18 at 15:01; Status DC Fentanyl Citrate (Fentanyl 2ml Vial) 50 mcg 1X ONCE IV Last administered on 06/28/18at 15:44; Start 06/28/18 at 16:00; Stop 06/28/18 at 16:01; Status DC Fentanyl Citrate (Fentanyl 2ml Vial) 50 mcg PRN Q2HR PRN IV MODERATE PAIN 4-6 Last administered on 06/28/18at 21:31; Start 06/28/18 at 18:45; Stop 06/29/18 at 10:33; Status DC Aspirin (Children'S Aspirin) 81 mg DAILY PO Last administered on 07/02/18 09:04; Start 06/29/18 at 09:00 Vitamin D (Vitamin D3) 1,000 unit DAILY PO Last administered on 07/02/18 09:04; Start 06/29/18 at 09:00 Acetaminophen/ Hydrocodone Bitart (Lortab 10/325) 1 tab PRN Q4HRS PRN PO MODE RATE PAIN, SEVERE PAIN Last administered on 07/02/18 09:07; Start 06/28/18 at 21:30 Levothyroxine Sodium (Synthroid) 175 mcg DAILY06 PO Last administered on 5/20/19at 06:12; Start 06/29/18 at 06:00 Metoprolol Tartrate (Lopressor) 50 mg BID PO Last administered on 07/01/18at 08:41; Start 06/29/18 at 09:00; Stop 07/01/18 at 11:18; Status DC Multivitamins (Thera M Plus) 1 tab DAILY PO Last administered on 07/02/18at 09:04; Start 06/29/18 at 09:00 Diltiazem HCl (Cardizem Iv Push) 10 mg 1X ONCE IVP ; Start 06/28/18 at 21:45; Stop 06/28/18 at 23:32; Status DC Diltiazem HCl 125 mg/Dextrose 125 ml @ 5 mls/hr CONT PRN IV SEE I/O RECORD; Start 06/28/18 at 22:00; Stop 06/28/18 at 23:32; Status DC Metoprolol Tartrate (Lopressor Vial) 5 mg PRN Q4HRS PRN IVP ELEVATED HR; Start 06/28/18 at 23:30 Fentanyl Citrate (Fentanyl 2ml Vial) 50 mcg PRN Q4HRS PRN IV SEVERE PAIN 7-10; Start 06/29/18 at 10:30 Heparin Sodium (Porcine) (Heparin Sodium) 5,000 unit BID SQ Last administered on 07/02/18at 09:14; Start 06/29/18 at 11:00 Acetaminophen (Tylenol) 650 mg PRN Q6HRS PRN PO MILD PAIN / TEMP; Start 06/29/18 at 10:30 Magnesium Hydroxide (Milk Of Magnesia) 2,400 mg PRN DAILY PRN PO CONSTIPATION; Start 06/29/18 at 10:30 Furosemide (Lasix) 40 mg DAILY IVP ; Start 06/29/18 at 11:00; Stop 06/30/18 at 10:30; Status DC Digoxin (Lanoxin) 250 mcg 1X ONCE IV ; Start 06/29/18 at 12:45; Stop 06/29/18 at 12:46; Status DC Nystatin (Nystop) 1 morenita BID TP Last administered on 07/02/18at 09:05; Start 06/29/18 at 21:00 Vitamin A/Vitamin D (Vitamin A & D Ointment) 1 morenita BID TP Last administered on 07/02/18at 09:05; Start 06/29/18 at 21:00 Nystatin (Nystop) 1 morenita PRN BID PRN TP AFFECTED AREA; Start 06/29/18 at 16:15 Sodium Chloride 1,000 ml @ 60 mls/hr [id number] IV Last administered on 07/02/18at 01:45; Start 06/29/18 at 19:00 Metoprolol Tartrate (Lopressor) 75 mg BID PO Last administered on 07/02/18at 09:04; Start 07/01/18 at 21:00 Active Scripts Active Senna-Time S Tablet (Sennosides/Docusate Sodium) 1 Each Tablet 2 Tab PO QHS Furosemide 40 Mg Tablet 40 Mg PO DAILY Digoxin 125 Mcg Tablet 125 Mcg PO Q48H Metoprolol Tartrate 25 Mg Tablet 1 Tab PO BID 30 Days Reported Levothyroxine Sodium 175 Mcg Tablet 1 Tab PO DAILY Metoprolol Tartrate 50 Mg Tablet 1 Tab PO BID Flonase Allergy Relief (Fluticasone Propionate) 9.9 Ml [place].susp 2 Sprays NS DAILY PRN Vitamin D3 (Cholecalciferol (Vitamin D3)) 1,000 Unit Tablet 1 Tab PO DAILY Multivitamins (Multivitamin) 1 Each Tablet 1 Tab PO DAILY Hydrocodone-Apap 10-325 (Hydrocodone Bit/Acetaminophen) 1 Each Tablet 1 Each PO PRN Q4HRS Aspirin 81 Mg Tab.chew 81 Mg PO DAILY Vitals/I & O Vital Sign - Last 24 Hours 07/01/18 07/01/18 07/01/18 07/01/18 11:59 15:00 19:36 20:07 Temp 98.0 97.6 98.7 98.0 97.6 98.7 Pulse 80 68 102 Resp 18 20 20 B/P (MAP) 114/70 (85) 131/59 (83) 114/55 (74) Pulse Ox 91 97 92 O2 Delivery Room Air Room Air Nasal Cannula Room Air O2 Flow Rate 2.0 07/01/18 07/01/18 07/01/18 07/02/18 22:02 22:02 23:47 03:30 Temp 97.8 97.7 97.8 97.7 Pulse 102 92 89 Resp 20 14 16 B/P (MAP) 114/55 112/72 (85) 142/83 (102) Pulse Ox 96 95 O2 Delivery Room Air Nasal Cannula Nasal Cannula O2 Flow Rate 2.0 2.0 07/02/18 07/02/18 07/02/18 07/02/18 07:00 07:58 09:04 09:07 Temp 97.3 97.3 Pulse 98 98 Resp 16 B/P (MAP) 118/53 (74) 118/53 Pulse Ox 95 95 O2 Delivery Room Air Room Air Room Air Intake and Output 07/01/18 07/01/18 07/02/18 15:00 23:00 07:00 Intake Total 1000 ml 300 ml Output Total 300 ml 900 ml Balance 700 ml -600 ml HOOD ALLAN MD July 02, 2018 10:12
[2018-07-02 11:00] VITALS: BP 149/59
--- NOTE | 2018-07-02 12:07 | PDOC ---
SUBJECTIVE ROS Stable , No concerns voiced by RN or daughter at bedside OBJECTIVE Vital Signs Vital Signs Date Time Temp Pulse Resp B/P (MAP) Pulse Ox O2 Delivery O2 Flow Rate FiO2 07/02/18 11:00 97.8 103 16 149/59 (89) 91 Room Air 97.8 07/02/18 03:30 2.0 I & 0 Intake and Output 07/02/18 07:00 Intake Total 1300 ml Output Total 1200 ml Balance 100 ml Intake Oral 300 ml IV Total 1000 ml Output Urine Total 1200 ml PHYSICAL EXAM Physical Exam General: Alert, Oriented X3, Cooperative, No acute distress, Morbidly obese HEENT: Atraumatic, Mucous membr. moist/pink Neck Supple Lungs: CTA Heart: AFIB Abdomen: Soft, Obese Extremities: chronic leg edema Skin: Excoriation back , wound to buttocks Neuro: Normal speech, Sensation intact, AXO x3 Psych/Mental Status: Mental status NL, Mood NL - Soto + , No CVA or SP tenderness Vital Signs DIAGNOSIS/ASSESSMENT Assessment & Plan STAN on CKD - Cardiorenal Creat Peaked at 5.1, now 4.4 E-lytes and acid base stable, No uremic symptoms , signs If Not significant improvement in renal function will have to initiate HD Discuss with daughter Hyperkalemia- at presentation Normal today Persistent AFIB with RVR Card managing Acute on chronic diastolic CHF: appears compensated HTN: Low BP at presentation Stable Morbid obesity/ELLI Discussed with daughter at length COMMENT/RELEVANT DATA Meds Current Medications Medications (Trade) Dose Ordered Sig/Violet Start Time Stop Time Status Last Admin Dose Admin Acetaminophen (Tylenol) 650 mg PRN Q6HRS PRN 06/29/18 10:30 Acetaminophen/ Hydrocodone Bitart (Lortab 10/325) 1 tab PRN Q4HRS PRN 06/28/18 21:30 07/02/18 09:07 1 TAB Aspirin (Children'S Aspirin) 81 mg DAILY 06/29/18 09:00 07/02/18 09:04 81 MG Dextrose (Dextrose 50%-Water Syringe) 25 gm 1X ONCE 06/28/18 14:45 06/28/18 14:46 DC 06/28/18 15:13 25 GM Digoxin (Lanoxin) 250 mcg 1X ONCE 06/29/18 12:45 06/29/18 12:46 DC Diltiazem HCl (Cardizem Iv Push) 10 mg 1X ONCE 06/28/18 21:45 06/28/18 23:32 DC Diltiazem HCl 125 mg/Dextrose 125 ml @ 5 mls/hr CONT PRN 06/28/18 22:00 06/28/18 23:32 DC Fentanyl Citrate (Fentanyl 2ml Vial) 50 mcg PRN Q4HRS PRN 06/29/18 10:30 Furosemide (Lasix) 40 mg DAILY 06/29/18 11:00 06/30/18 10:30 DC Heparin Sodium (Porcine) (Heparin Sodium) 5,000 unit BID 06/29/18 11:00 07/02/18 09:14 5,000 UNIT Insulin Human Regular (HumuLIN R VIAL) 10 unit 1X ONCE 06/28/18 14:45 06/28/18 14:46 DC 06/28/18 15:15 10 UNIT Levothyroxine Sodium (Synthroid) 175 mcg DAILY06 06/29/18 06:00 07/02/18 06:12 175 MCG Magnesium Hydroxide (Milk Of Magnesia) 2,400 mg PRN DAILY PRN 06/29/18 10:30 Metoprolol Tartrate (Lopressor Vial) 5 mg PRN Q4HRS PRN 06/28/18 23:30 Metoprolol Tartrate (Lopressor) 75 mg BID 07/01/18 21:00 07/02/18 09:04 75 MG Multivitamins (Thera M Plus) 1 tab DAILY 06/29/18 09:00 07/02/18 09:04 1 TAB Nystatin (Nystop) 1 morenita PRN BID PRN 06/29/18 16:15 Ondansetron HCl (Zofran) 4 mg PRN Q8HRS PRN 06/28/18 14:30 06/29/18 14:29 DC Sodium Polystyrene Sulfonate (Kayexalate) 30 gm 1X ONCE 06/28/18 15:00 06/28/18 15:01 DC 06/28/18 16:02 30 GM Sodium Chloride 1,000 ml @ 60 mls/hr [id number] 06/29/18 19:00 07/02/18 01:45 60 MLS/HR Vitamin A/Vitamin D (Vitamin A & D Ointment) 1 morenita BID 06/29/18 21:00 07/02/18 09:05 1 MORENITA Vitamin D (Vitamin D3) 1,000 unit DAILY 06/29/18 09:00 07/02/18 09:04 1,000 UNIT Lab Laboratory Tests Test 07/02/18 06:15 White Blood Count 5.2 x10^3/uL (4.0-11.0) Red Blood Count 3.89 x10^6/uL (3.50-5.40) Hemoglobin 11.8 g/dL (12.0-15.5) Hematocrit 36.4 % (36.0-47.0) Mean Corpuscular Volume 93 fL (79-100) Mean Corpuscular Hemoglobin 30 pg (25-35) Mean Corpuscular Hemoglobin Concent 32 g/dL (31-37) Red Cell Distribution Width 16.5 % (11.5-14.5) Platelet Count 210 x10^3/uL (140-400) Neutrophils (%) (Auto) 39 % (31-73) Lymphocytes (%) (Auto) 44 % (24-48) Monocytes (%) (Auto) 10 % (0-9) Eosinophils (%) (Auto) 6 % (0-3) Basophils (%) (Auto) 1 % (0-3) Neutrophils # (Auto) 2.0 x10^3uL (1.8-7.7) Lymphocytes # (Auto) 2.3 x10^3/uL (1.0-4.8) Monocytes # (Auto) 0.5 x10^3/uL (0.0-1.1) Eosinophils # (Auto) 0.3 x10^3/uL (0.0-0.7) Basophils # (Auto) 0.0 x10^3/uL (0.0-0.2) Sodium Level 141 mmol/L (136-145) Potassium Level 4.4 mmol/L (3.5-5.1) Chloride Level 105 mmol/L (98-107) Carbon Dioxide Level 28 mmol/L (21-32) Anion Gap 8 (6-14) Blood Urea Nitrogen 66 mg/dL (7-20) Creatinine 4.4 mg/dL (0.6-1.0) Estimated GFR (Cockcroft-Gault) 11.6 Glucose Level 114 mg/dL (70-99) Calcium Level 8.2 mg/dL (8.5-10.1) Phosphorus Level 4.1 mg/dL (2.6-4.7) Albumin 2.1 g/dL (3.4-5.0) Results All relevant outside records, renal labs, imaging studies, telemetry/EKG's were reviewed. Other Renal US 2. 2.5 cm hypoechogenicity identified in the right kidney probably a cyst. 3. The left kidney is not identified. DANIELA HARRINGTON MD July 02, 2018 12:07
--- NOTE | 2018-07-02 12:28 | NUR ---
SS following up with discharge planning. Pt is from home with daughter and was previously on services with [facility], ; fax [phone]. Pt declined PT/OT at this time. SS will continue to follow for discharge planning.
--- NOTE | 2018-07-02 14:02 | PDOC ---
CARDIO Progress Notes Date and Time Date of Service 07/02/18 Time of Evaluation 1400 Subjective Subjective: No Chest Pain, No shortness of breath, No Palpitations Vitals Vitals Vital Signs Date Time Temp Pulse Resp B/P (MAP) Pulse Ox O2 Delivery O2 Flow Rate FiO2 07/02/18 11:00 97.8 103 16 149/59 (89) 91 Room Air 97.8 07/02/18 03:30 2.0 Weight Weight [ ] Input and Output Intake and Output Intake and Output 07/02/18 07:00 Intake Total 1300 ml Output Total 1200 ml Balance 100 ml Intake Oral 300 ml IV Total 1000 ml Output Urine Total 1200 ml Laboratory Labs Laboratory Tests Test 07/02/18 06:15 White Blood Count 5.2 x10^3/uL (4.0-11.0) Red Blood Count 3.89 x10^6/uL (3.50-5.40) Hemoglobin 11.8 g/dL (12.0-15.5) Hematocrit 36.4 % (36.0-47.0) Mean Corpuscular Volume 93 fL (79-100) Mean Corpuscular Hemoglobin 30 pg (25-35) Mean Corpuscular Hemoglobin Concent 32 g/dL (31-37) Red Cell Distribution Width 16.5 % (11.5-14.5) Platelet Count 210 x10^3/uL (140-400) Neutrophils (%) (Auto) 39 % (31-73) Lymphocytes (%) (Auto) 44 % (24-48) Monocytes (%) (Auto) 10 % (0-9) Eosinophils (%) (Auto) 6 % (0-3) Basophils (%) (Auto) 1 % (0-3) Neutrophils # (Auto) 2.0 x10^3uL (1.8-7.7) Lymphocytes # (Auto) 2.3 x10^3/uL (1.0-4.8) Monocytes # (Auto) 0.5 x10^3/uL (0.0-1.1) Eosinophils # (Auto) 0.3 x10^3/uL (0.0-0.7) Basophils # (Auto) 0.0 x10^3/uL (0.0-0.2) Sodium Level 141 mmol/L (136-145) Potassium Level 4.4 mmol/L (3.5-5.1) Chloride Level 105 mmol/L (98-107) Carbon Dioxide Level 28 mmol/L (21-32) Anion Gap 8 (6-14) Blood Urea Nitrogen 66 mg/dL (7-20) Creatinine 4.4 mg/dL (0.6-1.0) Estimated GFR (Cockcroft-Gault) 11.6 Glucose Level 114 mg/dL (70-99) Calcium Level 8.2 mg/dL (8.5-10.1) Phosphorus Level 4.1 mg/dL (2.6-4.7) Albumin 2.1 g/dL (3.4-5.0) Physical Exam HEENT: Neck Supple W Full Motion Chest: Symmetric LUNGS: Other (diminished bases) Heart: S1S2, irregularly irregular (AFIB) Abdomen: Soft N/T, Other (obese ) Extremities: Other (3+ bilateral LE edema ) Neurology: alert, oriented, follow commands Assessment Assessment 1. Persistent AFIB; HR better controlled with metoprolol. Having occasional bursts of RVR. Unable to uptitrate due to marginal BP at times. he is a poor candidate for long-term anticoagulation. 2. Acute on chronic diastolic CHF: appears better compensated. Echo with preserved LV systolic function 3. STAN on CKD4; Nephrology following. Does not want HD 4. HTN: marginally low 5. Morbid obesity/ELLI Recommendations Continue BB for rate controled ASA for stroke prevention as she has been deemed poor candidate for long-term OAC. Supportive care. Patient to f/u in our office with Dr. Scanlon in 1 month. ERICA CAMARENA APRN July 02, 2018 14:02
[2018-07-02 15:00] VITALS: BP 96/58
[2018-07-02 19:39] VITALS: BP 144/62
[2018-07-02 23:15] VITALS: BP 119/67
[2018-07-03 03:44] VITALS: BP 116/65
[2018-07-03] MEDS: LEVOTHYROXINE 175 MCG TABLET PO SCH (05:50)
[2018-07-03 06:38] LABS: CALCIUM 8.1 mg/dL (8.5-10.1); CREATININE 4.3 mg/dL (0.6-1.0); GFR 11.9; PHOSPHORUS 4.1 mg/dL (2.6-4.7); POTASSIUM 4.5 mmol/L (3.5-5.1)
[2018-07-03 07:00] VITALS: BP 109/61
[2018-07-03] MEDS: ASPIRIN CHEWABLE 81 MG TABLET. PO SCH (08:48)
[2018-07-03] MEDS: MULTIVITAMIN with MINERAL TABLET. PO SCH (08:48)
[2018-07-03] MEDS: HYDROcodone/APAP 10/325 1 TAB TABLET PO PRN ×2 (08:48→21:22)
[2018-07-03] MEDS: CHOLECALCIFEROL (VITAMIN D3) 1,000 UNIT TABLET PO SCH (08:48)
[2018-07-03] MEDS: METOPROLOL TART IMMED RELEASE 50 MG TABLET. PO SCH ×2 (08:49→21:22)
[2018-07-03] MEDS: VITS A & D/LANOLIN TOPICAL OINTMENT 56GM TUBE. TP SCH ×2 (08:53→21:00)
[2018-07-03] MEDS: NYSTATIN TOPICAL POWDER 15GM BOTTLE. TP SCH ×2 (08:53→21:00)
[2018-07-03] MEDS: HEPARIN for SUB-Q USE 5,000 UNIT/ML VIAL. SQ SCH ×2 (08:53→21:23)
--- NOTE | 2018-07-03 10:17 | PDOC ---
PROGRESS NOTES Subjective Subjective renal function unchanged but has more leg edema due to iv fluids and chronic renal failure. no uremic symptoms. lab reviewed. heart rate under better control Objective Objective Vital Signs Date Time Temp Pulse Resp B/P (MAP) Pulse Ox O2 Delivery O2 Flow Rate FiO2 07/03/18 10:02 90 Room Air 07/03/18 08:49 71 109/61 07/03/18 07:00 97.4 18 2.0 97.4 Intake and Output 07/03/18 06:59 Intake Total 5161 ml Output Total 476 ml Balance 4685 ml Intake Oral 1436 ml IV Total 3725 ml Output Urine Total 475 ml Stool Total 1 ml Physical Exam Abdomen: Soft, Other (obese) Heart: Normal S1, Normal S2 Extremities: Other (2 plus edema legs) General: Alert HEENT: Atraumatic Lungs: Clear to auscultation Neuro: Normal speech Psych/Mental Status: Mood NL Skin: No rashes Assessment Assessment Problems1. Hyperkalemia resolved 2. Acute kidney injury on top of chronic kidney disease stage 4 versus progression of her chronic kidney disease stage 4. now stage 5 3. Paroxysmal atrial fibrillation, now in atrial fibrillation with intermittent rapid ventricular response.receiving bid po metoprolol and prn iv metoprolol 4. bilateral LE edema.. neg bilateral LE venous doppler 5. Severe protein-calorie malnutrition. 6. Morbid obesity. 7. Debility. 8. Chronic diastolic congestive heart failure. 9. Hypothyroidism. Medical Problems: (1) Acute on chronic renal failure Status: Acute (2) Hyperkalemia Status: Acute Plan Plan of Care d/c iv fluids defer decision to dialyze to dr. Hayde krishnamurthy tomorrow continue telemetry continue metoprolol continue heparin for dvt prophylaxis Comment Review of Relevant I have reviewed the following items jeet (where applicable) has been applied. Labs Laboratory Tests Test 07/02/18 06:15 07/03/18 06:00 White Blood Count 5.2 x10^3/uL (4.0-11.0) Red Blood Count 3.89 x10^6/uL (3.50-5.40) Hemoglobin 11.8 g/dL (12.0-15.5) Hematocrit 36.4 % (36.0-47.0) Mean Corpuscular Volume 93 fL (79-100) Mean Corpuscular Hemoglobin 30 pg (25-35) Mean Corpuscular Hemoglobin Concent 32 g/dL (31-37) Red Cell Distribution Width 16.5 % (11.5-14.5) Platelet Count 210 x10^3/uL (140-400) Neutrophils (%) (Auto) 39 % (31-73) Lymphocytes (%) (Auto) 44 % (24-48) Monocytes (%) (Auto) 10 % (0-9) Eosinophils (%) (Auto) 6 % (0-3) Basophils (%) (Auto) 1 % (0-3) Neutrophils # (Auto) 2.0 x10^3uL (1.8-7.7) Lymphocytes # (Auto) 2.3 x10^3/uL (1.0-4.8) Monocytes # (Auto) 0.5 x10^3/uL (0.0-1.1) Eosinophils # (Auto) 0.3 x10^3/uL (0.0-0.7) Basophils # (Auto) 0.0 x10^3/uL (0.0-0.2) Sodium Level 141 mmol/L (136-145) 142 mmol/L (136-145) Potassium Level 4.4 mmol/L (3.5-5.1) 4.5 mmol/L (3.5-5.1) Chloride Level 105 mmol/L (98-107) 106 mmol/L (98-107) Carbon Dioxide Level 28 mmol/L (21-32) 27 mmol/L (21-32) Anion Gap 8 (6-14) 9 (6-14) Blood Urea Nitrogen 66 mg/dL (7-20) 67 mg/dL (7-20) Creatinine 4.4 mg/dL (0.6-1.0) 4.3 mg/dL (0.6-1.0) Estimated GFR (Cockcroft-Gault) 11.6 11.9 Glucose Level 114 mg/dL (70-99) 113 mg/dL (70-99) Calcium Level 8.2 mg/dL (8.5-10.1) 8.1 mg/dL (8.5-10.1) Phosphorus Level 4.1 mg/dL (2.6-4.7) 4.1 mg/dL (2.6-4.7) Albumin 2.1 g/dL (3.4-5.0) 2.0 g/dL (3.4-5.0) Laboratory Tests Test 07/03/18 06:00 Sodium Level 142 mmol/L (136-145) Potassium Level 4.5 mmol/L (3.5-5.1) Chloride Level 106 mmol/L (98-107) Carbon Dioxide Level 27 mmol/L (21-32) Anion Gap 9 (6-14) Blood Urea Nitrogen 67 mg/dL (7-20) Creatinine 4.3 mg/dL (0.6-1.0) Estimated GFR (Cockcroft-Gault) 11.9 Glucose Level 113 mg/dL (70-99) Calcium Level 8.1 mg/dL (8.5-10.1) Phosphorus Level 4.1 mg/dL (2.6-4.7) Albumin 2.0 g/dL (3.4-5.0) Medications Current Medications Dextrose (Dextrose 50%-Water Syringe) 25 gm 1X ONCE IV Last administered on 06/28/18at 15:13; Start 06/28/18 at 14:45; Stop 06/28/18 at 14:46; Status DC Insulin Human Regular (HumuLIN R VIAL) 10 unit 1X ONCE IV Last administered on 06/28/18at 15:15; Start 06/28/18 at 14:45; Stop 06/28/18 at 14:46; Status DC Ondansetron HCl (Zofran) 4 mg PRN Q8HRS PRN IV NAUSEA/VOMITING; Start 06/28/18 at 14:30; Stop 06/29/18 at 14:29; Status DC Sodium Polystyrene Sulfonate (Kayexalate) 30 gm 1X ONCE PO Last administered on 06/28/18at 16:02; Start 06/28/18 at 15:00; Stop 06/28/18 at 15:01; Status DC Fentanyl Citrate (Fentanyl 2ml Vial) 50 mcg 1X ONCE IV Last administered on 06/28/18at 15:44; Start 06/28/18 at 16:00; Stop 06/28/18 at 16:01; Status DC Fentanyl Citrate (Fentanyl 2ml Vial) 50 mcg PRN Q2HR PRN IV MODERATE PAIN 4-6 Last administered on 06/28/18at 21:31; Start 06/28/18 at 18:45; Stop 06/29/18 at 10:33; Status DC Aspirin (Children'S Aspirin) 81 mg DAILY PO Last administered on 07/03/18 08:48; Start 06/29/18 at 09:00 Vitamin D (Vitamin D3) 1,000 unit DAILY PO Last administered on 07/03/18at 08:48; Start 06/29/18 at 09:00 Acetaminophen/ Hydrocodone Bitart (Lortab 10/325) 1 tab PRN Q4HRS PRN PO MODERATE PAIN, SEVERE PAIN Last administered on 07/03/18at 08:48; Start 06/28/18 at 21:30 Levothyroxine Sodium (Synthroid) 175 mcg DAILY06 PO Last administered on 07/03/18 05:50; Start 06/29/18 at 06:00 Metoprolol Tartrate (Lopressor) 50 mg BID PO Last administered on 07/01/18 08:41; Start 06/29/18 at 09:00; Stop 07/01/18 at 11:18; Status DC Multivitamins (Thera M Plus) 1 tab DAILY PO Last administered on 07/03/18at 08:48; Start 06/29/18 at 09:00 Diltiazem HCl (Cardizem Iv Push) 10 mg 1X ONCE IVP ; Start 06/28/18 at 21:45; Stop 06/28/18 at 23:32; Status DC Diltiazem HCl 125 mg/Dextrose 125 ml @ 5 mls/hr CONT PRN IV SEE I/O RECORD; Start 06/28/18 at 22:00; Stop 06/28/18 at 23:32; Status DC Metoprolol Tartrate (Lopressor Vial) 5 mg PRN Q4HRS PRN IVP ELEVATED HR; Start 06/28/18 at 23:30 Fentanyl Citrate (Fentanyl 2ml Vial) 50 mcg PRN Q4HRS PRN IV SEVERE PAIN 7-10; Start 06/29/18 at 10:30 Heparin Sodium (Porcine) (Heparin Sodium) 5,000 unit BID SQ Last administered on 07/03/18at 08:53; Start 06/29/18 at 11:00 Acetaminophen (Tylenol) 650 mg PRN Q6HRS PRN PO MILD PAIN / TEMP; Start 06/29/18 at 10:30 Magnesium Hydroxide (Milk Of Magnesia) 2,400 mg PRN DAILY PRN PO CONSTIPATION Last administered on 07/02/18 14:31; Start 06/29/18 at 10:30 Furosemide (Lasix) 40 mg DAILY IVP ; Start 06/29/18 at 11:00; Stop 06/30/18 at 10:30; Status DC Digoxin (Lanoxin) 250 mcg 1X ONCE IV ; Start 06/29/18 at 12:45; Stop 06/29/18 at 12:46; Status DC Nystatin (Nystop) 1 morenita BID TP Last administered on 07/03/18at 08:53; Start 06/29/18 at 21:00 Vitamin A/Vitamin D (Vitamin A & D Ointment) 1 morenita BID TP Last administered on 07/03/18at 08:53; Start 06/29/18 at 21:00 Nystatin (Nystop) 1 morenita PRN BID PRN TP AFFECTED AREA; Start 06/29/18 at 16:15 Sodium Chloride 1,000 ml @ 60 mls/hr [id number] IV Last administered on 07/02/18at 20:15; Start 06/29/18 at 19:00 Metoprolol Tartrate (Lopressor) 75 mg BID PO Last administered on 07/03/18at 08:49; Start 07/01/18 at 21:00 Active Scripts Active Senna-Time S Tablet (Sennosides/Docusate Sodium) 1 Each Tablet 2 Tab PO QHS Furosemide 40 Mg Tablet 40 Mg PO DAILY Digoxin 125 Mcg Tablet 125 Mcg PO Q48H Metoprolol Tartrate 25 Mg Tablet 1 Tab PO BID 30 Days Reported Levothyroxine Sodium 175 Mcg Tablet 1 Tab PO DAILY Metoprolol Tartrate 50 Mg Tablet 1 Tab PO BID Flonase Allergy Relief (Fluticasone Propionate) 9.9 Ml [place].susp 2 Sprays NS DAILY PRN Vitamin D3 (Cholecalciferol (Vitamin D3)) 1,000 Unit Tablet 1 Tab PO DAILY Multivitamins (Multivitamin) 1 Each Tablet 1 Tab PO DAILY Hydrocodone-Apap 10-325 (Hydrocodone Bit/Acetaminophen) 1 Each Tablet 1 Each PO PRN Q4HRS Aspirin 81 Mg Tab.chew 81 Mg PO DAILY Vitals/I & O Vital Sign - Last 24 Hours 07/02/18 07/02/18 07/02/18 07/02/18 11:00 14:31 15:00 19:39 Temp 97.8 97.9 98.1 97.8 97.9 98.1 Pulse 103 82 82 Resp 16 12 19 B/P (MAP) 149/59 (89) 96/58 (71) 144/62 (89) Pulse Ox 91 91 96 96 O2 Delivery Room Air Room Air Room Air Room Air 07/02/18 07/02/18 07/02/18 07/02/18 20:00 22:58 23:03 23:15 Temp 97.5 97.5 Pulse 82 101 Resp 17 B/P (MAP) 144/62 119/67 (84) Pulse Ox 96 95 O2 Delivery Room Air Room Air Room Air 07/03/18 07/03/18 07/03/18 07/03/18 03:44 07:00 08:14 08:48 Temp 97.9 97.4 97.9 97.4 Pulse 82 71 Resp 18 18 B/P (MAP) 116/65 (82) 109/61 (77) Pulse Ox 96 90 90 O2 Delivery Nasal Cannula Nasal Cannula Room Air Room Air O2 Flow Rate 2.0 2.0 07/03/18 07/03/18 08:49 10:02 Pulse 71 B/P (MAP) 109/61 Pulse Ox 90 O2 Delivery Room Air l Intake and Output 07/02/18 07/02/18 07/03/18 14:59 22:59 06:59 Intake Total 1036 ml 400 ml 3725 ml Output Total 225 ml 251 ml Balance 1036 ml 175 ml 3474 ml HOOD ALLAN MD July 03, 2018 10:17
[2018-07-03 11:14] VITALS: BP 110/67
--- NOTE | 2018-07-03 11:35 | PDOC ---
SUBJECTIVE ROS Stable , OBJECTIVE Vital Signs Vital Signs Date Time Temp Pulse Resp B/P (MAP) Pulse Ox O2 Delivery O2 Flow Rate FiO2 07/03/18 11:14 97.8 97 18 110/67 (81) 93 Nasal Cannula 2.0 97.8 I & 0 Intake and Output 07/03/18 07:00 Intake Total 5161 ml Output Total 476 ml Balance 4685 ml Intake Oral 1436 ml IV Total 3725 ml Output Urine Total 475 ml Stool Total 1 ml PHYSICAL EXAM Physical Exam General: Alert, Oriented X3, Cooperative, No acute distress, Morbidly obese HEENT: Atraumatic, Mucous membr. moist/pink Neck Supple Lungs: CTA Heart: AFIB Abdomen: Soft, Obese Extremities: chronic leg edema Skin: Excoriation back , wound to buttocks Neuro: Normal speech, Sensation intact, AXO x3 Psych/Mental Status: Mental status NL, Mood NL - Soto + , No CVA or SP tenderness DIAGNOSIS/ASSESSMENT Assessment & Plan STAN on CKD - Cardiorenal Creat Peaked at 5.1, now 4.3 E-lytes and acid base stable, No uremic symptoms , signs Not any significant improvement in renal function Recommend initiating [facility]TACT [facility] [employer]- dw Pt and daughter (On Phone ) Tunneled Dialysis catheter in am , SW for OP chair time Vein mapping and Vascular consult Hyperkalemia- at presentation Normal today Persistent AFIB with RVR Card managing Acute on chronic diastolic CHF: appears compensated HTN: Low BP at presentation Stable Morbid obesity/ELLI Discussed with daughter , Pt and Rn COMMENT/RELEVANT DATA Meds Current Medications Medications (Trade) Dose Ordered Sig/Violet Start Time Stop Time Status Last Admin Dose Admin Acetaminophen (Tylenol) 650 mg PRN Q6HRS PRN 06/29/18 10:30 Acetaminophen/ Hydrocodone Bitart (Lortab 10/325) 1 tab PRN Q4HRS PRN 06/28/18 21:30 07/03/18 08:48 1 TAB Aspirin (Children'S Aspirin) 81 mg DAILY 06/29/18 09:00 07/03/18 08:48 81 MG Dextrose (Dextrose 50%-Water Syringe) 25 gm 1X ONCE 06/28/18 14:45 06/28/18 14:46 DC 06/28/18 15:13 25 GM Digoxin (Lanoxin) 250 mcg 1X ONCE 06/29/18 12:45 06/29/18 12:46 DC Diltiazem HCl (Cardizem Iv Push) 10 mg 1X ONCE 06/28/18 21:45 06/28/18 23:32 DC Diltiazem HCl 125 mg/Dextrose 125 ml @ 5 mls/hr CONT PRN 06/28/18 22:00 06/28/18 23:32 DC Fentanyl Citrate (Fentanyl 2ml Vial) 50 mcg PRN Q4HRS PRN 06/29/18 10:30 Furosemide (Lasix) 40 mg DAILY 06/29/18 11:00 06/30/18 10:30 DC Heparin Sodium (Porcine) (Heparin Sodium) 5,000 unit BID 06/29/18 11:00 07/03/18 08:53 5,000 UNIT Insulin Human Regular (HumuLIN R VIAL) 10 unit 1X ONCE 06/28/18 14:45 06/28/18 14:46 DC 06/28/18 15:15 10 UNIT Levothyroxine Sodium (Synthroid) 175 mcg DAILY06 06/29/18 06:00 07/03/18 05:50 175 MCG Magnesium Hydroxide (Milk Of Magnesia) 2,400 mg PRN DAILY PRN 06/29/18 10:30 07/02/18 14:31 2,400 MG Metoprolol Tartrate (Lopressor Vial) 5 mg PRN Q4HRS PRN 06/28/18 23:30 Metoprolol Tartrate (Lopressor) 75 mg BID 07/01/18 21:00 07/03/18 08:49 75 MG Multivitamins (Thera M Plus) 1 tab DAILY 06/29/18 09:00 07/03/18 08:48 1 TAB Nystatin (Nystop) 1 morenita PRN BID PRN 06/29/18 16:15 Ondansetron HCl (Zofran) 4 mg PRN Q8HRS PRN 06/28/18 14:30 06/29/18 14:29 DC Sodium Polystyrene Sulfonate (Kayexalate) 30 gm 1X ONCE 06/28/18 15:00 06/28/18 15:01 DC 06/28/18 16:02 30 GM Sodium Chloride 1,000 ml @ 60 mls/hr [id number] 06/29/18 19:00 07/03/18 10:14 DC 07/02/18 20:15 60 MLS/HR Vitamin A/Vitamin D (Vitamin A & D Ointment) 1 morenita BID 06/29/18 21:00 07/03/18 08:53 1 MORENITA Vitamin D (Vitamin D3) 1,000 unit DAILY 06/29/18 09:00 07/03/18 08:48 1,000 UNIT Lab Laboratory Tests Test 07/03/18 06:00 Sodium Level 142 mmol/L (136-145) Potassium Level 4.5 mmol/L (3.5-5.1) Chloride Level 106 mmol/L (98-107) Carbon Dioxide Level 27 mmol/L (21-32) Anion Gap 9 (6-14) Blood Urea Nitrogen 67 mg/dL (7-20) Creatinine 4.3 mg/dL (0.6-1.0) Estimated GFR (Cockcroft-Gault) 11.9 Glucose Level 113 mg/dL (70-99) Calcium Level 8.1 mg/dL (8.5-10.1) Phosphorus Level 4.1 mg/dL (2.6-4.7) Albumin 2.0 g/dL (3.4-5.0) Results All relevant outside records, renal labs, imaging studies, telemetry/EKG's were reviewed. DANIELA HARRINGTON MD July 03, 2018 11:35
--- NOTE | 2018-07-03 14:14 | NUR ---
SS following up with discharge planning. Pt's RN notified SS that pt will need OPHD. Serology labs ordered. SS awaiting Hep B Total core results. Pt's RN reported that pt is getting her tunneled catheter tomorrow and will have her first dialysis time. SS will await final lab results and first flow sheet and will proceed accordingly with OPHD referral.
[2018-07-03 15:00] VITALS: BP 138/81
--- NOTE | 2018-07-03 18:08 | RAD ---
Vein mapping study dated 07/03/2018. No comparison available. Clinical data indication: End-stage renal disease. FINDINGS: Grayscale, color-flow and spectral waveform analysis performed. Cephalic vein on the right measures 0.15 cm diameter proximally, 0.16 cm at its mid aspect and 0.14 cm distally. No filling defect. Right basilic vein measures 0.38 cm proximally with PICC line in place. Proximal and mid aspects are obscured by bandages. Just beyond the antecubital fossa, the vessel measures 0.17 cm diameter. 0.14 cm diameter distally. Cephalic vein on the left measures 0.07 cm proximally, 0.20 cm at its mid aspect and 0.10 cm distally. No filling defect. The basilic vein is patent and measures 0.21 cm proximally, 0.15 cm at its mid aspect and 0.18 cm distally. IMPRESSION: Vein mapping study as described. Electronically signed by: He Sepulveda MD (07/03/2018 6:05 PM) [facility]
[2018-07-03 19:55] VITALS: BP_SYST 127; BP_SYST 142; BP_DIAS 111; BP_DIAS 70
[2018-07-03 22:44] VITALS: BP 142/76
[2018-07-04] VITALS (7 sets, daily range): BP systolic 82–126; BP diastolic 41–68
[2018-07-04 05:49] LABS: CALCIUM 8.3 mg/dL (8.5-10.1); CREATININE 4.3 mg/dL (0.6-1.0); GFR 11.9; PHOSPHORUS 4.3 mg/dL (2.6-4.7); POTASSIUM 4.6 mmol/L (3.5-5.1)
[2018-07-04] MEDS: LEVOTHYROXINE 175 MCG TABLET PO SCH (06:00)
[2018-07-04] MEDS: HEPARIN for SUB-Q USE 5,000 UNIT/ML VIAL. SQ SCH ×2 (09:00→21:09)
[2018-07-04] MEDS: VITS A & D/LANOLIN TOPICAL OINTMENT 56GM TUBE. TP SCH ×2 (09:00→21:05)
[2018-07-04] MEDS: NYSTATIN TOPICAL POWDER 15GM BOTTLE. TP SCH ×2 (09:00→21:05)
[2018-07-04] MEDS: MULTIVITAMIN with MINERAL TABLET. PO SCH (09:01)
[2018-07-04] MEDS: CHOLECALCIFEROL (VITAMIN D3) 1,000 UNIT TABLET PO SCH (09:01)
[2018-07-04] MEDS: ASPIRIN CHEWABLE 81 MG TABLET. PO SCH (09:01)
[2018-07-04] MEDS: METOPROLOL TART IMMED RELEASE 50 MG TABLET. PO SCH ×2 (09:02→21:05)
[2018-07-04] MEDS: HYDROcodone/APAP 10/325 1 TAB TABLET PO PRN (09:06)
[2018-07-04] MEDS ORDERED: LIDOCAINE 1%/EPI 1:100,000 20 ML VIAL. ONE (09:21)
[2018-07-04] MEDS ORDERED: fentaNYL PF VIAL 100 MCG/2 ML VIAL ONE (09:38)
[2018-07-04] MEDS ORDERED: MIDAZOLAM HCL/PF 2 MG/2 ML VIAL. ONE (09:38)
[2018-07-04] MEDS ORDERED: fentaNYL PF VIAL 100 MCG/2 ML VIAL IV ONE (10:00)
[2018-07-04] MEDS ORDERED: LIDOCAINE 1%/EPI 1:100,000 20 ML VIAL. IJ ONE (10:00)
[2018-07-04] MEDS ORDERED: MIDAZOLAM HCL/PF 2 MG/2 ML VIAL. IV ONE (10:00)
--- NOTE | 2018-07-04 10:20 | PDOC ---
SUBJECTIVE ROS Stable , OBJECTIVE Vital Signs Vital Signs Date Time Temp Pulse Resp B/P (MAP) Pulse Ox O2 Delivery O2 Flow Rate FiO2 07/04/18 09:06 Room Air 07/04/18 09:02 95 07/04/18 07:58 97.2 20 93/60 (71) 91 2.0 97.2 I & 0 Intake and Output 07/04/18 07:00 Intake Total 890 ml Output Total 400 ml Balance 490 ml Intake Oral 890 ml Output Urine Total 400 ml PHYSICAL EXAM Physical Exam General: No acute distress, Morbidly obese HEENT: OM moist Neck Supple Lungs: CTA Heart: AFIB Abdomen: Soft, Obese Extremities: chronic leg edema Skin: Excoriation back , wound to buttocks Neuro: Normal speech, Sensation intact, AXO x3 - Soto + , No CVA or SP tenderness DIAGNOSIS/ASSESSMENT Assessment & Plan New Onset ESRD - Initiate HD today,seen during the treatment Tolerating well ,Continue as Ordered , [employer] Tunneled Dialysis catheter this am , SW for OP chair time Vein mapping done ,Vascular consult pending Hyperkalemia- at presentation Normal today Persistent AFIB with RVR Card managing Acute on chronic diastolic CHF: appears compensated HTN: Low BP at presentation Stable Morbid obesity/ELLI Multiple discussions with Pt and family including daughter about renal function, at previous admission as well this admission Again at this admission had a lengthy discussion with daughter in person and on the phone as she reported that she cannot come in due to bad weather Pt had not kept OP Renal appointments COMMENT/RELEVANT DATA Meds Current Medications Medications (Trade) Dose Ordered Sig/Violet Start Time Stop Time Status Last Admin Dose Admin Acetaminophen (Tylenol) 650 mg PRN Q6HRS PRN 06/29/18 10:30 Acetaminophen/ Hydrocodone Bitart (Lortab 10/325) 1 tab PRN Q4HRS PRN 06/28/18 21:30 07/04/18 09:06 1 TAB Aspirin (Children'S Aspirin) 81 mg DAILY 06/29/18 09:00 07/04/18 09:01 81 MG Dextrose (Dextrose 50%-Water Syringe) 25 gm 1X ONCE 06/28/18 14:45 06/28/18 14:46 DC 06/28/18 15:13 25 GM Digoxin (Lanoxin) 250 mcg 1X ONCE 06/29/18 12:45 06/29/18 12:46 DC Diltiazem HCl (Cardizem Iv Push) 10 mg 1X ONCE 06/28/18 21:45 06/28/18 23:32 DC Diltiazem HCl 125 mg/Dextrose 125 ml @ 5 mls/hr CONT PRN 06/28/18 22:00 06/28/18 23:32 DC Fentanyl Citrate (Fentanyl 2ml Vial) 100 mcg 1X ONCE 07/04/18 10:00 07/04/18 10:01 DC Furosemide (Lasix) 40 mg DAILY 06/29/18 11:00 06/30/18 10:30 DC Heparin Sodium (Porcine) (Heparin Sodium) 5,000 unit BID 06/29/18 11:00 07/03/18 21:23 5,000 UNIT Insulin Human Regular (HumuLIN R VIAL) 10 unit 1X ONCE 06/28/18 14:45 06/28/18 14:46 DC 06/28/18 15:15 10 UNIT Levothyroxine Sodium (Synthroid) 175 mcg DAILY06 06/29/18 06:00 07/03/18 05:50 175 MCG Lidocaine/ Epinephrine (LIDOCAINE 1%-EPI 1:100,000 Multi-Dose) 20 ml 1X ONCE 07/04/18 10:00 07/04/18 10:01 DC Magnesium Hydroxide (Milk Of Magnesia) 2,400 mg PRN DAILY PRN 06/29/18 10:30 07/02/18 14:31 2,400 MG Metoprolol Tartrate (Lopressor Vial) 5 mg PRN Q4HRS PRN 06/28/18 23:30 Metoprolol Tartrate (Lopressor) 75 mg BID 07/01/18 21:00 07/04/18 09:02 75 MG Midazolam HCl (Versed) 2 mg 1X ONCE 07/04/18 10:00 07/04/18 10:01 DC Multivitamins (Thera M Plus) 1 tab DAILY 06/29/18 09:00 07/04/18 09:01 1 TAB Nystatin (Nystop) 1 morenita PRN BID PRN 06/29/18 16:15 Ondansetron HCl (Zofran) 4 mg PRN Q8HRS PRN 06/28/18 14:30 06/29/18 14:29 DC Sodium Polystyrene Sulfonate (Kayexalate) 30 gm 1X ONCE 06/28/18 15:00 06/28/18 15:01 DC 06/28/18 16:02 30 GM Sodium Chloride 1,000 ml @ 60 mls/hr [id number] 06/29/18 19:00 07/03/18 10:14 DC 07/02/18 20:15 60 MLS/HR Vitamin A/Vitamin D (Vitamin A & D Ointment) 1 morenita BID 06/29/18 21:00 07/04/18 09:00 1 MORENITA Vitamin D (Vitamin D3) 1,000 unit DAILY 06/29/18 09:00 07/04/18 09:01 1,000 UNIT Lab Laboratory Tests Test 07/04/18 05:25 Sodium Level 141 mmol/L (136-145) Potassium Level 4.6 mmol/L (3.5-5.1) Chloride Level 106 mmol/L (98-107) Carbon Dioxide Level 27 mmol/L (21-32) Anion Gap 8 (6-14) Blood Urea Nitrogen 70 mg/dL (7-20) Creatinine 4.3 mg/dL (0.6-1.0) Estimated GFR (Cockcroft-Gault) 11.9 Glucose Level 116 mg/dL (70-99) Calcium Level 8.3 mg/dL (8.5-10.1) Phosphorus Level 4.3 mg/dL (2.6-4.7) Albumin 2.0 g/dL (3.4-5.0) Results All relevant outside records, renal labs, imaging studies, telemetry/EKG's were reviewed. DANIELA HARRINGTON MD July 04, 2018 10:20
--- NOTE | 2018-07-04 10:42 | PDOC ---
PROGRESS NOTES Subjective Subjective feels okay. dialysis catheter placed. discussed with patient and social service liaison and patients daughter. lab reviewed. Objective Objective Vital Signs Date Time Temp Pulse Resp B/P (MAP) Pulse Ox O2 Delivery O2 Flow Rate FiO2 07/04/18 10:17 17 98 Nasal Cannula 2.0 07/04/18 10:01 116 07/04/18 07:58 97.2 93/60 (71) 97.2 Intake and Output 07/04/18 06:59 Intake Total 890 ml Output Total 400 ml Balance 490 ml Intake Oral 890 ml Output Urine Total 400 ml Physical Exam Abdomen: Soft, Other (obese) Heart: Regular rate, Normal S1, Normal S2 Extremities: Other (2 plus edema legs) General: Alert HEENT: Atraumatic Lungs: Clear to auscultation Neuro: Normal speech Psych/Mental Status: Mental status NL Skin: No rashes Assessment Assessment Problems1. Hyperkalemia resolved 2. Acute kidney injury on top of chronic kidney disease now with ESRD 3. Paroxysmal atrial fibrillation, now in atrial fibrillation with intermittent rapid ventricular response.receiving bid po metoprolol and prn iv metoprolol 4. bilateral LE edema.. neg bilateral LE venous doppler 5. Severe protein-calorie malnutrition. 6. Morbid obesity. 7. Debility. 8. Chronic diastolic congestive heart failure. 9. Hypothyroidism. Medical Problems: (1) Acute on chronic renal failure Status: Acute (2) Hyperkalemia Status: Acute Plan Plan of Care hemodialysis today PT [facility] Comment Review of Relevant I have reviewed the following items jeet (where applicable) has been applied. Labs Laboratory Tests Test 07/03/18 06:00 07/04/18 05:25 Sodium Level 142 mmol/L (136-145) 141 mmol/L (136-145) Potassium Level 4.5 mmol/L (3.5-5.1) 4.6 mmol/L (3.5-5.1) Chloride Level 106 mmol/L (98-107) 106 mmol/L (98-107) Carbon Dioxide Level 27 mmol/L (21-32) 27 mmol/L (21-32) Anion Gap 9 (6-14) 8 (6-14) Blood Urea Nitrogen 67 mg/dL (7-20) 70 mg/dL (7-20) Creatinine 4.3 mg/dL (0.6-1.0) 4.3 mg/dL (0.6-1.0) Estimated GFR (Cockcroft-Gault) 11.9 11.9 Glucose Level 113 mg/dL (70-99) 116 mg/dL (70-99) Calcium Level 8.1 mg/dL (8.5-10.1) 8.3 mg/dL (8.5-10.1) Phosphorus Level 4.1 mg/dL (2.6-4.7) 4.3 mg/dL (2.6-4.7) Albumin 2.0 g/dL (3.4-5.0) 2.0 g/dL (3.4-5.0) Hepatitis B Surface Antigen Nonreactive (Nonreactive) Hepatitis B Surface Antibody Nonreactive Hepatitis B Core Total Antibody Negative (Negative) Laboratory Tests Test 07/04/18 05:25 Sodium Level 141 mmol/L (136-145) Potassium Level 4.6 mmol/L (3.5-5.1) Chloride Level 106 mmol/L (98-107) Carbon Dioxide Level 27 mmol/L (21-32) Anion Gap 8 (6-14) Blood Urea Nitrogen 70 mg/dL (7-20) Creatinine 4.3 mg/dL (0.6-1.0) Estimated GFR (Cockcroft-Gault) 11.9 Glucose Level 116 mg/dL (70-99) Calcium Level 8.3 mg/dL (8.5-10.1) Phosphorus Level 4.3 mg/dL (2.6-4.7) Albumin 2.0 g/dL (3.4-5.0) Medications Current Medications Dextrose (Dextrose 50%-Water Syringe) 25 gm 1X ONCE IV Last administered on 06/28/18at 15:13; Start 06/28/18 at 14:45; Stop 06/28/18 at 14:46; Status DC Insulin Human Regular (HumuLIN R VIAL) 10 unit 1X ONCE IV Last administered on 06/28/18at 15:15; Start 06/28/18 at 14:45; Stop 06/28/18 at 14:46; Status DC Ondansetron HCl (Zofran) 4 mg PRN Q8HRS PRN IV NAUSEA/VOMITING; Start 06/28/18 at 14:30; Stop 06/29/18 at 14:29; Status DC Sodium Polystyrene Sulfonate (Kayexalate) 30 gm 1X ONCE PO Last administered on 06/28/18at 16:02; Start 06/28/18 at 15:00; Stop 06/28/18 at 15:01; Status DC Fentanyl Citrate (Fentanyl 2ml Vial) 50 mcg 1X ONCE IV Last administered on 06/28/18at 15:44; Start 06/28/18 at 16:00; Stop 06/28/18 at 16:01; Status DC Fentanyl Citrate (Fentanyl 2ml Vial) 50 mcg PRN Q2HR PRN IV MODERATE PAIN 4-6 Last administered on 06/28/18at 21:31; Start 06/28/18 at 18:45; Stop 06/29/18 at 10:33; Status DC Aspirin (Children'S Aspirin) 81 mg DAILY PO Last administered on 07/04/18at 09:01; Start 06/29/18 at 09:00 Vitamin D (Vitamin D3) 1,000 unit DAILY PO Last administered on 07/04/18at 09:01; Start 06/29/18 at 09:00 Acetaminophen/ Hydrocodone Bitart (Lortab 10/325) 1 tab PRN Q4HRS PRN PO MODERATE PAIN, SEVERE PAIN Last administered on 07/04/18at 09:06; Start 06/28/18 at 21:30 Levothyroxine Sodium (Synthroid) 175 mcg DAILY06 PO Last administered on 07/03/18at 05:50; Start 06/29/18 at 06:00 Metoprolol Tartrate (Lopressor) 50 mg BID PO Last administered on 07/01/18at 08:41; Start 06/29/18 at 09:00; Stop 07/01/18 at 11:18; Status DC Multivitamins (Thera M Plus) 1 tab DAILY PO Last administered on 07/04/18at 09:01; Start 06/29/18 at 09:00 Diltiazem HCl (Cardizem Iv Push) 10 mg 1X ONCE IVP ; Start 06/28/18 at 21:45; Stop 06/28/18 at 23:32; Status DC Diltiazem HCl 125 mg/Dextrose 125 ml @ 5 mls/hr CONT PRN IV SEE I/O RECORD; Start 06/28/18 at 22:00; Stop 06/28/18 at 23:32; Status DC Metoprolol Tartrate (Lopressor Vial) 5 mg PRN Q4HRS PRN IVP ELEVATED HR; Start 06/28/18 at 23:30 Fentanyl Citrate (Fentanyl 2ml Vial) 50 mcg PRN Q4HRS PRN IV SEVERE PAIN 7-10; Start 06/29/18 at 10:30 Heparin Sodium (Porcine) (Heparin Sodium) 5,000 unit BID SQ Last administered on 07/03/18at 21:23; Start 06/29/18 at 11:00 Acetaminophen (Tylenol) 650 mg PRN Q6HRS PRN PO MILD PAIN / TEMP; Start at 10:30 Magnesium Hydroxide (Milk Of Magnesia) 2,400 mg PRN DAILY PRN PO CONSTIPATION Last administered on 07/02/18at 14:31; Start 06/29/18 at 10:30 Furosemide (Lasix) 40 mg DAILY IVP ; Start 06/29/18 at 11:00; Stop 06/30/18 at 10:30; Status DC Digoxin (Lanoxin) 250 mcg 1X ONCE IV ; Start 06/29/18 at 12:45; Stop 06/29/18 at 12:46; Status DC Nystatin (Nystop) 1 morenita BID TP Last administered on 07/04/18at 09:00; Start 06/29/18 at 21:00 Vitamin A/Vitamin D (Vitamin A & D Ointment) 1 morenita BID TP Last administered on 07/04/18at 09:00; Start 06/29/18 at 21:00 Nystatin (Nystop) 1 morenita PRN BID PRN TP AFFECTED AREA; Start 06/29/18 at 16:15 Sodium Chloride 1,000 ml @ 60 mls/hr [id number] IV Last administered on 07/02/18at 20:15; Start 06/29/18 at 19:00; Stop 07/03/18 at 10:14; Status DC Metoprolol Tartrate (Lopressor) 75 mg BID PO Last administered on 07/04/18at 09:02; Start 07/01/18 at 21:00 Lidocaine/ Epinephrine (LIDOCAINE 1%-EPI 1:100,000 Multi-Dose) 20 ml STK-MED ONCE .ROUTE ; Start 07/04/18 at 09:21; Stop 07/04/18 at 09:22; Status DC Midazolam HCl (Versed) 2 mg STK-MED ONCE .ROUTE ; Start 07/04/18 at 09:38; Stop 07/04/18 at 09:39; Status DC Fentanyl Citrate (Fentanyl 2ml Vial) 100 mcg STK-MED ONCE .ROUTE ; Start 07/04/18 at 09:38; Stop 07/04/18 at 09:39; Status DC Midazolam HCl (Versed) 2 mg 1X ONCE IV Last administered on 07/04/18at 10:17; Start 07/04/18 at 10:00; Stop 07/04/18 at 10:01; Status DC Fentanyl Citrate (Fentanyl 2ml Vial) 100 mcg 1X ONCE IV Last administered on 07/04/18at 10:17; Start 07/04/18 at 10:00; Stop 07/04/18 at 10:01; Status DC Lidocaine/ Epinephrine (LIDOCAINE 1%-EPI 1:100,000 Multi-Dose) 20 ml 1X ONCE IJ Last administered on 07/04/18at 10:16; Start 07/04/18 at 10:00; Stop 07/04/18 at 10:01; Status DC Active Scripts Active Senna-Time S Tablet (Sennosides/Docusate Sodium) 1 Each Tablet 2 Tab PO QHS Furosemide 40 Mg Tablet 40 Mg PO DAILY Digoxin 125 Mcg Tablet 125 Mcg PO Q48H Metoprolol Tartrate 25 Mg Tablet 1 Tab PO BID 30 Days Reported Levothyroxine Sodium 175 Mcg Tablet 1 Tab PO DAILY Metoprolol Tartrate 50 Mg Tablet 1 Tab PO BID Flonase Allergy Relief (Fluticasone Propionate) 9.9 Ml [place].susp 2 Sprays NS DAILY PRN Vitamin D3 (Cholecalciferol (Vitamin D3)) 1,000 Unit Tablet 1 Tab PO DAILY Multivitamins (Multivitamin) 1 Each Tablet 1 Tab PO DAILY Hydrocodone-Apap 10-325 (Hydrocodone Bit/Acetaminophen) 1 Each Tablet 1 Each PO PRN Q4HRS Aspirin 81 Mg Tab.chew 81 Mg PO DAILY Vitals/I & O Vital Sign - Last 24 Hours 07/03/18 07/03/18 07/03/18 07/03/18 11:14 15:00 19:55 20:00 Temp 97.8 97.5 97.5 97.8 97.5 97.5 Pulse 97 96 92 Resp 18 18 18 B/P (MAP) 110/67 (81) 138/81 (100) 127/70 (89) Pulse Ox 93 93 96 O2 Delivery Nasal Cannula Nasal Cannula Nasal Cannula Room Air O2 Flow Rate 2.0 2.0 2.0 2.0 07/03/18 07/03/18 07/03/18 07/03/18 21:22 21:22 22:22 22:44 Temp 97.5 97.5 Pulse 92 42 Resp 20 B/P (MAP) 127/70 142/76 (98) Pulse Ox 96 96 90 O2 Delivery Nasal Cannula Nasal Cannula Room Air O2 Flow Rate 2.0 2.0 07/04/18 07/04/18 07/04/18 07/04/18 03:42 07:58 09:02 09:06 Temp 97.4 97.2 97.4 97.2 Pulse 85 77 95 Resp 18 20 B/P (MAP) 111/51 (71) 93/60 (71) Pulse Ox 97 91 O2 Delivery Nasal Cannula Nasal Cannula Room Air O2 Flow Rate 2.0 2.0 07/04/18 07/04/18 10:01 10:17 Pulse 116 Resp 17 17 Pulse Ox 98 98 O2 Delivery Nasal Cannula Nasal Cannula O2 Flow Rate 2.0 2.0 Intake and Output 07/03/18 07/03/18 07/04/18 14:59 22:59 06:59 Intake Total 480 ml 290 ml 120 ml Output Total 150 ml 250 ml Balance 480 ml 140 ml -130 ml HOOD ALLAN MD July 04, 2018 10:42
[2018-07-04] MEDS ORDERED: IV NORMAL SALINE 1000ML BAG 1,000 ML IV PRN ×2 (12:01)
--- NOTE | 2018-07-04 12:08 | NUR ---
SS following up with discharge planning. SS met with pt and pt's daughter in room to discuss discharge planning and OPHD. Dr. Rojas present in the room. Pt's daughter wanting to pursue aggressive treatment with dialysis. Pt not strong enough to transfer at this time. SS discussed transfer to [facility] if accepted for continued care. Dr. Rojas in agreement. Pt and pt's daughter agreed to referral. SS phoned and faxed referral to [facility], ; fax [phone]. SS will await acceptance decision and will proceed accordingly. Pt's RN notified.
[2018-07-04] MEDS ORDERED: DIALYSIS PATIENT. MC PRN ×2 (12:15)
[2018-07-04] MEDS ORDERED: 0.9 % SODIUM CHLORIDE 10 ML DISP.SYRIN. IV PRN ×2 (12:15)
--- NOTE | 2018-07-04 14:54 | RAD ---
Procedure: Tunneled hemodialysis catheter placement 07/04/2018 2:50 PM Clinical Indication: renal failure, need for dialysis access Sterility: All elements of maximal sterile barrier technique including the use of a cap, mask, sterile gown, sterile gloves, large sterile sheet, appropriate hand hygiene, and 2% chlorhexidine for cutaneous antisepsis (or acceptable alternative antiseptic per current guidelines) were followed for this procedure. Consent: The procedure was explained in its entirety to the patient or the patients designated insurance claim representative by a member of the treatment team, including a discussion of the risks, benefits and commonly accepted alternatives to the procedure, as well as the expected consequences of no therapy whatsoever. Discussion of the risks included, but was not limited to, those that are most frequent and those that are rare but possibly severe or life-threatening, as well as the possibility of unforeseen complications. Technique and Findings: Following informed consent, a timeout procedure was performed. The patient was prepped and draped in the usual sterile fashion. Ultrasound interrogation of the right neck revealed patency and compressibility of the right internal jugular vein. A 21-gauge micropuncture was then used to gain access to this vein under ultrasound guidance. A hard copy ultrasound image was recorded. The needle was exchanged over a wire for a 4 [place] sheath which was used to guide an guidewire into the IVC. The skin over the right anterior chest wall was copiously anesthetized with 1% Lidocaine and a small dermatotomy was made. A 23 cm tipped cuff palindrome tunneled hemodialysis catheter was then tunneled subcutaneously towards the neck dermatotomy and deployed through a large caliber peel-away sheath under fluoroscopic guidance such that the distal tip resided in the mid right atrium. Manual flow rates were assessed and found to be within normal limits. The catheter was then flushed, packed with Heparin, capped, and sutured to the skin. The neck dermatotomy was closed with Dermabond. No immediate complications were identified. Sedation: Show-hb-ocxi conscious sedation time: 30 minutes. The patient was monitored by a qualified independent observer throughout the time of sedation. Please refer to the medical record for exact doses of medications utilized to achieve moderate sedation. Fluoroscopy time: 0.9MIN Dose area product: 8 Gycm2 Impression: Tunneled hemodialysis catheter placement as described
--- NOTE | 2018-07-04 15:00 | NUR ---
SS following up with discharge planning. Pt accepted at [facility]. Pt's RN notified.
--- NOTE | 2018-07-04 17:54 | NUR ---
Pt returned to unit from dialysis with no complaints of pain or SOB, VS stable at this time and patient ready to eat dinner.
[2018-07-05 03:00] VITALS: BP 107/69
[2018-07-05 06:12] LABS: CALCIUM 8.2 mg/dL (8.5-10.1); CREATININE 3.5 mg/dL (0.6-1.0); GFR 15.1; PHOSPHORUS 3.4 mg/dL (2.6-4.7); POTASSIUM 4.5 mmol/L (3.5-5.1)
[2018-07-05 07:00] VITALS: BP 132/59
[2018-07-05] MEDS: LEVOTHYROXINE 175 MCG TABLET PO SCH (07:56)
[2018-07-05] MEDS: ASPIRIN CHEWABLE 81 MG TABLET. PO SCH (09:30)
[2018-07-05] MEDS: MULTIVITAMIN with MINERAL TABLET. PO SCH (09:30)
[2018-07-05] MEDS: CHOLECALCIFEROL (VITAMIN D3) 1,000 UNIT TABLET PO SCH (09:30)
[2018-07-05] MEDS: METOPROLOL TART IMMED RELEASE 50 MG TABLET. PO SCH (09:31)
[2018-07-05] MEDS: HYDROcodone/APAP 10/325 1 TAB TABLET PO PRN (09:31)
[2018-07-05] MEDS: VITS A & D/LANOLIN TOPICAL OINTMENT 56GM TUBE. TP SCH (09:31)
[2018-07-05] MEDS: NYSTATIN TOPICAL POWDER 15GM BOTTLE. TP SCH (09:31)
[2018-07-05] MEDS: HEPARIN for SUB-Q USE 5,000 UNIT/ML VIAL. SQ SCH (09:43)
--- NOTE | 2018-07-05 10:12 | PDOC ---
PROGRESS NOTES Subjective Subjective feels well. tolerated dialysis yesterday and will be dialyzed today. lab reviewed. Objective Objective Vital Signs Date Time Temp Pulse Resp B/P (MAP) Pulse Ox O2 Delivery O2 Flow Rate FiO2 07/05/18 09:31 143 07/05/18 09:31 Room Air 07/05/18 07:00 97.5 19 132/59 (83) 99 97.5 07/05/18 03:00 2.0 Intake and Output 07/05/18 07:00 Intake Total 400 ml Balance 400 ml Intake Oral 400 ml # Voids 2 Physical Exam Abdomen: Soft, Other (obese) Heart: Normal S1, Normal S2 Extremities: Other (2 plus edema legs) General: Alert HEENT: Atraumatic Lungs: Clear to auscultation Neck: Supple Neuro: Normal speech Psych/Mental Status: Mental status NL Skin: No rashes Assessment Assessment Problems. Hyperkalemia resolved 2. Acute kidney injury on top of chronic kidney disease now with ESRD started hemodialysis 07/04/18 3. Paroxysmal atrial fibrillation, now in atrial fibrillation with intermittent rapid ventricular response.receiving bid po metoprolol and prn iv metoprolol 4. bilateral LE edema.. neg bilateral LE venous doppler 5. Severe protein-calorie malnutrition. 6. Morbid obesity. 7. Debility. 8. Chronic diastolic congestive heart failure. 9. Hypothyroidism. Medical Problems: (1) Acute on chronic renal failure Status: Acute (2) Hyperkalemia Status: Acute Plan Plan of Care hemodialysis today[facility] Comment Review of Relevant I have reviewed the following items jeet (where applicable) has been applied. Labs Laboratory Tests Test 07/04/18 05:25 07/05/18 05:45 Sodium Level 141 mmol/L (136-145) 141 mmol/L (136-145) Potassium Level 4.6 mmol/L (3.5-5.1) 4.5 mmol/L (3.5-5.1) Chloride Level 106 mmol/L (98-107) 105 mmol/L (98-107) Carbon Dioxide Level 27 mmol/L (21-32) 30 mmol/L (21-32) Anion Gap 8 (6-14) 6 (6-14) Blood Urea Nitrogen 70 mg/dL (7-20) 54 mg/dL (7-20) Creatinine 4.3 mg/dL (0.6-1.0) 3.5 mg/dL (0.6-1.0) Estimated GFR (Cockcroft-Gault) 11.9 15.1 Glucose Level 116 mg/dL (70-99) 112 mg/dL (70-99) Calcium Level 8.3 mg/dL (8.5-10.1) 8.2 mg/dL (8.5-10.1) Phosphorus Level 4.3 mg/dL (2.6-4.7) 3.4 mg/dL (2.6-4.7) Albumin 2.0 g/dL (3.4-5.0) 2.0 g/dL (3.4-5.0) Laboratory Tests Test 07/05/18 05:45 Sodium Level 141 mmol/L (136-145) Potassium Level 4.5 mmol/L (3.5-5.1) Chloride Level 105 mmol/L (98-107) Carbon Dioxide Level 30 mmol/L (21-32) Anion Gap 6 (6-14) Blood Urea Nitrogen 54 mg/dL (7-20) Creatinine 3.5 mg/dL (0.6-1.0) Estimated GFR (Cockcroft-Gault) 15.1 Glucose Level 112 mg/dL (70-99) Calcium Level 8.2 mg/dL (8.5-10.1) Phosphorus Level 3.4 mg/dL (2.6-4.7) Albumin 2.0 g/dL (3.4-5.0) Medications Current Medications Dextrose (Dextrose 50%-Water Syringe) 25 gm 1X ONCE IV Last administered on 06/28/18at 15:13; Start 06/28/18 at 14:45; Stop 06/28/18 at 14:46; Status DC Insulin Human Regular (HumuLIN R VIAL) 10 unit 1X ONCE IV Last administered on 06/28/18at 15:15; Start 06/28/18 at 14:45; Stop 06/28/18 at 14:46; Status DC Ondansetron HCl (Zofran) 4 mg PRN Q8HRS PRN IV NAUSEA/VOMITING; Start 06/28/18 at 14:30; Stop 06/29/18 at 14:29; Status DC Sodium Polystyrene Sulfonate (Kayexalate) 30 gm 1X ONCE PO Last administered on 06/28/18 16:02; Start 06/28/18 at 15:00; Stop 06/28/18 at 15:01; Status DC Fentanyl Citrate (Fentanyl 2ml Vial) 50 mcg 1X ONCE IV Last administered on 06/28/18at 15:44; Start 06/28/18 at 16:00; Stop 06/28/18 at 16:01; Status DC Fentanyl Citrate (Fentanyl 2ml Vial) 50 mcg PRN Q2HR PRN IV MODERATE PAIN 4-6 Last administered on 06/28/18at 21:31; Start 06/28/18 at 18:45; Stop 06/29/18 at 10:33; Status DC Aspirin (Children'S Aspirin) 81 mg DAILY PO Last administered on 07/05/18 09:30; Start 06/29/18 at 09:00 Vitamin D (Vitamin D3) 1,000 unit DAILY PO Last administered on 07/05/18 09:30; Start 06/29/18 at 09:00 Acetaminophen/ Hydrocodone Bitart (Lortab 10/325) 1 tab PRN Q4HRS PRN PO MODERATE PAIN, SEVERE PAIN Last administered on 07/05/18 09:31; Start 06/28/18 at 21:30 Levothyroxine Sodium (Synthroid) 175 mcg DAILY06 PO Last administered on 07/05/18 07:56; Start 06/29/18 at 06:00 Metoprolol Tartrate (Lopressor) 50 mg BID PO Last administered on 07/01/18 08:41; Start 06/29/18 at 09:00; Stop 07/01/18 at 11:18; Status DC Multivitamins (Thera M Plus) 1 tab DAILY PO Last administered on 07/05/18 09:30; Start 06/29/18 at 09:00 Diltiazem HCl (Cardizem Iv Push) 10 mg 1X ONCE IVP ; Start 06/28/18 at 21:45; Stop 06/28/18 at 23:32; Status DC Diltiazem HCl 125 mg/Dextrose 125 ml @ 5 mls/hr CONT PRN IV SEE I/O RECORD; Start 06/28/18 at 22:00; Stop 06/28/18 at 23:32; Status DC Metoprolol Tartrate (Lopressor Vial) 5 mg PRN Q4HRS PRN IVP ELEVATED HR; Start 06/28/18 at 23:30 Fentanyl Citrate (Fentanyl 2ml Vial) 50 mcg PRN Q4HRS PRN IV SEVERE PAIN 7-10; Start 06/29/18 at 10:30 Heparin Sodium (Porcine) (Heparin Sodium) 5,000 unit BID SQ Last administered on 07/05/18at 09:43; Start 06/29/18 at 11:00 Acetaminophen (Tylenol) 650 mg PRN Q6HRS PRN PO MILD PAIN / TEMP; Start 06/29/18 at 10:30 Magnesium Hydroxide (Milk Of Magnesia) 2,400 mg PRN DAILY PRN PO CONSTIPATION Last administered on 07/02/18at 14:31; Start 06/29/18 at 10:30 Furosemide (Lasix) 40 mg DAILY IVP ; Start 06/29/18 at 11:00; Stop 06/30/18 at 10:30; Status DC Digoxin (Lanoxin) 250 mcg 1X ONCE IV ; Start 06/29/18 at 12:45; Stop 06/29/18 at 12:46; Status DC Nystatin (Nystop) 1 morenita BID TP Last administered on 07/05/18at 09:31; Start 06/29/18 at 21:00 Vitamin A/Vitamin D (Vitamin A & D Ointment) 1 morenita BID TP Last administered on 07/05/18 09:31; Start 06/29/18 at 21:00 Nystatin (Nystop) 1 morenita PRN BID PRN TP AFFECTED AREA; Start 06/29/18 at 16:15 Sodium Chloride 1,000 ml @ 60 mls/hr [id number] IV Last administered on 07/02/18at 20:15; Start 06/29/18 at 19:00; Stop 07/03/18 at 10:14; Status DC Metoprolol Tartrate (Lopressor) 75 mg BID PO Last administered on 07/05/18 09:31; Start 07/01/18 at 21:00 Lidocaine/ Epinephrine (LIDOCAINE 1%-EPI 1:100,000 Multi-Dose) 20 ml STK-MED ONCE .ROUTE ; Start 07/04/18 at 09:21; Stop 07/04/18 at 09:22; Status DC Midazolam HCl (Versed) 2 mg STK-MED ONCE .ROUTE ; Start 07/04/18 at 09:38; Stop 07/04/18 at 09:39; Status DC Fentanyl Citrate (Fentanyl 2ml Vial) 100 mcg STK-MED ONCE .ROUTE ; Start 07/04/18 at 09:38; Stop 07/04/18 at 09:39; Status DC Midazolam HCl (Versed) 2 mg 1X ONCE IV Last administered on 07/04/18at 10:17; Start 07/04/18 at 10:00; Stop 07/04/18 at 10:01; Status DC Fentanyl Citrate (Fentanyl 2ml Vial) 100 mcg 1X ONCE IV Last administered on 07/04/18at 10:17; Start 07/04/18 at 10:00; Stop 07/04/18 at 10:01; Status DC Lidocaine/ Epinephrine (LIDOCAINE 1%-EPI 1:100,000 Multi-Dose) 20 ml 1X ONCE IJ Last administered on 07/04/18at 10:16; Start 07/04/18 at 10:00; Stop 07/04/18 at 10:01; Status DC Sodium Chloride 1,000 ml @ 1,000 mls/hr Q1H PRN IV hypotension; Start 07/04/18 at 12:01; Stop 07/04/18 at 18:00; Status DC Sodium Chloride (Normal Saline Flush) 10 ml 1X PRN PRN IV AP catheter pack; Start 07/04/18 at 12:15; Stop 07/05/18 at 12:14 Sodium Chloride (Normal Saline Flush) 10 ml 1X PRN PRN IV [employer] SCI[employer] PROFESSOR catheter pack; Start 07/04/18 at 12:15; Stop 07/05/18 at 12:14 Sodium Chloride 1,000 ml @ 400 mls/hr Q2H30M PRN IV PATENCY; Start 07/04/18 at 12:01; Stop 07/05/18 at 00:00; Status DC Info (PHARMACY MONITORING -- do not chart) 1 each PRN DAILY PRN MC SEE COMM ENTS; Start 07/04/18 at 12:15; Status UNV Info (PHARMACY MONITORING -- do not chart) 1 each PRN DAILY PRN MC SEE COMMENTS; Start 07/04/18 at 12:15 Active Scripts Active Senna-Time S Tablet (Sennosides/Docusate Sodium) 1 Each Tablet 2 Tab PO QHS Furosemide 40 Mg Tablet 40 Mg PO DAILY Digoxin 125 Mcg Tablet 125 Mcg PO Q48H Metoprolol Tartrate 25 Mg Tablet 1 Tab PO BID 30 Days Reported Levothyroxine Sodium 175 Mcg Tablet 1 Tab PO DAILY Metoprolol Tartrate 50 Mg Tablet 1 Tab PO BID Flonase Allergy Relief (Fluticasone Propionate) 9.9 Ml [place].susp 2 Sprays NS DAILY PRN Vitamin D3 (Cholecalciferol (Vitamin D3)) 1,000 Unit Tablet 1 Tab PO DAILY Multivitamins (Multivitamin) 1 Each Tablet 1 Tab PO DAILY Hydrocodone-Apap 10-325 (Hydrocodone Bit/Acetaminophen) 1 Each Tablet 1 Each PO PRN Q4HRS Aspirin 81 Mg Tab.chew 81 Mg PO DAILY Vitals/I & O Vital Sign - Last 24 Hours 07/04/18 07/04/18 07/04/18 07/04/18 10:17 10:47 11:34 18:14 Temp 97.7 97.7 Pulse 68 85 Resp 17 20 B/P (MAP) 82/41 (55) 122/68 (86) Pulse Ox 98 100 O2 Delivery Nasal Cannula Room Air Room Air Room Air O2 Flow Rate 2.0 07/04/18 07/04/18 07/04/18 07/04/18 20:00 20:33 21:05 23:00 Temp 98.6 98.6 98.6 98.6 Pulse 84 107 108 Resp 17 B/P (MAP) 96/63 (74) 107/76 126/52 (76) Pulse Ox 100 91 O2 Delivery Room Air Room Air Room Air O2 Flow Rate 2.0 2.0 2.0 07/05/18 07/05/18 07/05/18 07/05/18 03:00 07:00 09:31 09:31 Temp 98.6 97.5 98.6 97.5 Pulse 101 90 143 Resp 19 B/P (MAP) 107/69 (82) 132/59 (83) Pulse Ox 95 99 O2 Delivery Room Air Room Air Room Air O2 Flow Rate 2.0 Intake and Output 07/04/18 07/04/18 07/05/18 15:00 23:00 07:00 Intake Total 100 ml 300 ml 0 ml Balance 100 ml 300 ml 0 ml HOOD ALLAN MD July 05, 2018 10:12
[2018-07-05] MEDS ORDERED: IV NORMAL SALINE 1000ML BAG 1,000 ML IV PRN ×2 (10:17)
[2018-07-05] MEDS ORDERED: HEPA50003 SQ (10:22)
[2018-07-05] MEDS ORDERED: METO50TA6 PO (10:22)
--- NOTE | 2018-07-05 10:24 | SNU/HH DC ---
DISCHARGE ORDERS DISCHARGE INFORMATION: DISCHARGE DATE: July 05, 2018 FINAL DIAGNOSIS Problems Medical Problems: (1) Acute on chronic renal failure Status: Acute (2) Hyperkalemia Status: Acute CONDITION ON DISCHARGE: Stable CODE STATUS: Code Status: Full LTAC: ADMIT TO LTAC: Yes POST DISCHARGE ORDERS: ACTIVITY ORDERS: Activity as tolerated WEIGHT BEARING STATUS: As tolerated DIET AFTER DISCHARGE: Renal WOUND/INCISION CARE: No wound care needed CHECKS AFTER DISCHARGE: CHECKS AFTER DISCHARGE: Check blood press - daily, Check blood sugar, ac/hs, Weigh Yourself Daily FOLLOW-UP: PHYSICIAN FOLLOW-UP: dr. allan at [facility] TREATMENT/EQUIPMENT ORDERS: ADAPTIVE EQUIPMENT NEEDED: None, Wheelchair Physical Therapy For: Evalulation/Treatment Occupational Therapy For: Evaluation/Treatment DISCHARGE MEDICATIONS: Home Meds Active Scripts Metoprolol Tartrate (METOPROLOL TARTRATE) 50 Mg Tablet, 75 MG PO BID for a fib for 30 Days, #90 TAB Prov:HOOD ALLAN MD 07/05/18 Heparin Sodium,Porcine (HEPARIN SODIUM) 5,000 Unit/1 Ml Vial, 5000 UNIT SQ BID for dvt prophylaxis for 30 Days, EACH Prov:HOOD ALLAN MD 07/05/18 Sennosides/Docusate Sodium (SENNA-TIME S TABLET) 1 Each Tablet, 2 TAB PO QHS for constipation, #60 TAB Prov:HOOD ALLAN MD 02/03/18 Reported Medications Levothyroxine Sodium (LEVOTHYROXINE SODIUM) 175 Mcg Tablet, 1 TAB PO DAILY for thyroid supplement, #30 TAB 5 Refills 06/29/18 Fluticasone Propionate (Flonase Allergy Relief) 9.9 Ml [place].susp, 2 SPRAYS NS DAILY PRN for CONGESTION, BOTTLE 11/29/17 Cholecalciferol (Vitamin D3) (VITAMIN D3) 1,000 Unit Tablet, 1 TAB PO DAILY, #30 TAB 5 Refills 11/29/17 Multivitamin (MULTIVITAMINS) 1 Each Tablet, 1 TAB PO DAILY, #90 TAB 3 Refills 11/29/17 Hydrocodone Bit/Acetaminophen (HYDROCODONE-APAP 10-325 ) 1 Each Tablet, 1 EACH PO PRN Q4HRS 04/01/13 Aspirin (ASPIRIN) 81 Mg Tab.chew, 81 MG PO DAILY, TAB.CHEW 04/01/13 Discontinued Reported Medications Metoprolol Tartrate (METOPROLOL TARTRATE) 50 Mg Tablet, 1 TAB PO BID for htn, #60 TAB 5 Refills 06/28/18 Discontinued Scripts Furosemide (FUROSEMIDE) 40 Mg Tablet, 40 MG PO DAILY for chf, #30 TAB Prov:HOOD ALLAN MD 02/03/18 Digoxin (DIGOXIN) 125 Mcg Tablet, 125 MCG PO Q48H for atrial fibrillation, #15 TAB Prov:HOOD ALLAN MD 02/03/18 Metoprolol Tartrate (METOPROLOL TARTRATE) 25 Mg Tablet, 1 TAB PO BID for 30 Days, #60 TAB 1 Refill Prov:HOOD ALLAN MD 12/09/17 HOOD ALLAN MD July 05, 2018 10:24
--- NOTE | 2018-07-05 10:28 | PDOC ---
Provider Note Provider Note discharge summary dictated # [id number] HOOD ALLAN MD July 05, 2018 10:28
[2018-07-05] MEDS ORDERED: ALBUMIN HUMAN 25% 200 ML IV PRN (10:30)
[2018-07-05] MEDS ORDERED: 0.9 % SODIUM CHLORIDE 10 ML DISP.SYRIN. IV PRN ×2 (10:30)
[2018-07-05] MEDS ORDERED: DIALYSIS PATIENT. MC PRN ×2 (10:30)
--- NOTE | 2018-07-05 11:38 | NUR ---
SS following up with discharge planning. Discharge orders received for [facility]. SS phoned and faxed discharge orders to [facility], ; fax [phone]. Pt will discharge today and go to [facility] at 1600 via [facility] transport. Pt, pt's RN, and pt's daughter, Diana Brown, notified.
--- NOTE | 2018-07-05 11:42 | PDOC ---
SUBJECTIVE ROS Stable ,states feeling better since her HD yesterday OBJECTIVE Vital Signs Vital Signs Date Time Temp Pulse Resp B/P (MAP) Pulse Ox O2 Delivery O2 Flow Rate FiO2 07/05/18 10:31 Room Air 07/05/18 09:31 143 07/05/18 07:00 97.5 19 132/59 (83) 99 97.5 07/05/18 03:00 2.0 I & 0 Intake and Output 07/05/18 07:00 Intake Total 400 ml Balance 400 ml Intake Oral 400 ml # Voids 2 PHYSICAL EXAM Physical Exam General: No acute distress, Morbidly obese HEENT: OM moist Neck Supple Lungs: CTA Heart: AFIB Abdomen: Soft, Obese Extremities: chronic leg edema Skin: Excoriation back , wound to buttocks Neuro: Normal speech, Sensation intact, AXO x3 - Soto + , No CVA or SP tenderness DIAGNOSIS/ASSESSMENT Assessment & Plan New Onset ESRD - Initiated HD 07/04 2 nd today- seen during the treatment Tolerating well ,Continue as Ordered , [employer] Access- Tunneled Dialysis cath 07/04 Hyperkalemia- at presentation Normal today Persistent AFIB with RVR Card managing Acute on chronic diastolic CHF: appears compensated HTN: Low BP at presentation Stable Morbid obesity/ELLI Discussed with daughter , tried to address all questions and concerns COMMENT/RELEVANT DATA Meds Current Medications Medications (Trade) Dose Ordered Sig/Violet Start Time Stop Time Status Last Admin Dose Admin Acetaminophen (Tylenol) 650 mg PRN Q6HRS PRN 06/29/18 10:30 Acetaminophen/ Hydrocodone Bitart (Lortab 10/325) 1 tab PRN Q4HRS PRN 06/28/18 21:30 07/05/18 09:31 1 TAB Albumin Human 200 ml @ 200 mls/hr 1X PRN PRN 07/05/18 10:30 07/05/18 16:29 Aspirin (Children'S Aspirin) 81 mg DAILY 06/29/18 09:00 07/05/18 09:30 81 MG Dextrose (Dextrose 50%-Water Syringe) 25 gm 1X ONCE 06/28/18 14:45 06/28/18 14:46 DC 06/28/18 15:13 25 GM Digoxin (Lanoxin) 250 mcg 1X ONCE 06/29/18 12:45 06/29/18 12:46 DC Diltiazem HCl (Cardizem Iv Push) 10 mg 1X ONCE 06/28/18 21:45 06/28/18 23:32 DC Diltiazem HCl 125 mg/Dextrose 125 ml @ 5 mls/hr CONT PRN 06/28/18 22:00 06/28/18 23:32 DC Fentanyl Citrate (Fentanyl 2ml Vial) 100 mcg 1X ONCE 07/04/18 10:00 07/04/18 10:01 DC 07/04/18 10:17 50 MCG Furosemide (Lasix) 40 mg DAILY 06/29/18 11:00 06/30/18 10:30 DC Heparin Sodium (Porcine) (Heparin Sodium) 5,000 unit BID 06/29/18 11:00 07/05/18 09:43 5,000 UNIT Info (PHARMACY MONITORING -- do not chart) 1 each PRN DAILY PRN 07/05/18 10:30 UNV Insulin Human Regular (HumuLIN R VIAL) 10 unit 1X ONCE 06/28/18 14:45 06/28/18 14:46 DC 06/28/18 15:15 10 UNIT Levothyroxine Sodium (Synthroid) 175 mcg DAILY06 06/29/18 06:00 07/05/18 07:56 175 MCG Lidocaine/ Epinephrine (LIDOCAINE 1%-EPI 1:100,000 Multi-Dose) 20 ml 1X ONCE 07/04/18 10:00 07/04/18 10:01 DC 07/04/18 10:16 9 ML Magnesium Hydroxide (Milk Of Magnesia) 2,400 mg PRN DAILY PRN 06/29/18 10:30 07/02/18 14:31 2,400 MG Metoprolol Tartrate (Lopressor Vial) 5 mg PRN Q4HRS PRN 06/28/18 23:30 Metoprolol Tartrate (Lopressor) 75 mg BID 07/01/18 21:00 07/05/18 09:31 75 MG Midazolam HCl (Versed) 2 mg 1X ONCE 07/04/18 10:00 07/04/18 10:01 DC 07/04/18 10:17 2 MG Multivitamins (Thera M Plus) 1 tab DAILY 06/29/18 09:00 07/05/18 09:30 1 TAB Nystatin (Nystop) 1 morenita PRN BID PRN 06/29/18 16:15 Ondansetron HCl (Zofran) 4 mg PRN Q8HRS PRN 06/28/18 14:30 06/29/18 14:29 DC Sodium Polystyrene Sulfonate (Kayexalate) 30 gm 1X ONCE 06/28/18 15:00 06/28/18 15:01 DC 06/28/18 16:02 30 GM Sodium Chloride 1,000 ml @ 400 mls/hr Q2H30M PRN 07/05/18 10:17 07/05/18 22:16 Sodium Chloride (Normal Saline Flush) 10 ml 1X PRN PRN 07/05/18 10:30 07/06/18 10:29 Vitamin A/Vitamin D (Vitamin A & D Ointment) 1 morenita BID 06/29/18 21:00 07/05/18 09:31 1 MORENITA Vitamin D (Vitamin D3) 1,000 unit DAILY 06/29/18 09:00 07/05/18 09:30 1,000 UNIT Lab Laboratory Tests Test 07/05/18 05:45 Sodium Level 141 mmol/L (136-145) Potassium Level 4.5 mmol/L (3.5-5.1) Chloride Level 105 mmol/L (98-107) Carbon Dioxide Level 30 mmol/L (21-32) Anion Gap 6 (6-14) Blood Urea Nitrogen 54 mg/dL (7-20) Creatinine 3.5 mg/dL (0.6-1.0) Estimated GFR (Cockcroft-Gault) 15.1 Glucose Level 112 mg/dL (70-99) Calcium Level 8.2 mg/dL (8.5-10.1) Phosphorus Level 3.4 mg/dL (2.6-4.7) Albumin 2.0 g/dL (3.4-5.0) Results All relevant outside records, renal labs, imaging studies, telemetry/EKG's were reviewed. DANIELA HARRINGTON MD July 05, 2018 11:42
--- NOTE | 2018-07-05 14:45 | NUR ---
PT returned to [address] [place] [address] from dialysis accompanied by dialysis nurse. Pt has not complaints of pain or SOB. Patient made aware of transport to [facility] scheduled for 4pm.
--- NOTE | 2018-07-05 14:58 | DS ---
DATE OF DISCHARGE: 07/05/2018 CONSULTANTS: Dr. Rocha and Dr. Lock. FINAL DIAGNOSES: 1. Acute kidney injury, advancing to end-stage renal disease requiring hemodialysis, which was just started 07/04/2018. 2. Paroxysmal atrial fibrillation with intermittent rapid ventricular response, improved. 3. Bilateral lower extremity edema with a negative venous Doppler of the lower extremities. 4. Severe protein-calorie malnutrition. 5. Morbid obesity. 6. Debility. 7. Chronic diastolic congestive heart failure. 8. Hypothyroidism. HOSPITAL COURSE: The patient is an 82-year-old morbidly obese -[place] female with history of chronic disease stage 4 who has hypothyroidism, paroxysmal atrial fibrillation, chronic diastolic congestive heart failure who had abnormal labs with elevated potassium level of 6.6 by the visiting nurse and the patient was sent to the [facility] Emergency Room where she was given insulin, glucose, and Kayexalate. Her BUN was 60, creatinine 4.8. Her potassium level improved. She was seen by Dr. Lock in consultation, received IV fluids and her creatinine did not improve much, and it was felt that she needed to go on hemodialysis. A hemodialysis catheter was placed and she was initiated on hemodialysis on 07/04/2018, which she tolerated well. She has atrial fibrillation and is not a candidate for anticoagulation due to her mobility deficits and fall risk. She received p.r.n. IV metoprolol for increased ventricular rate and her metoprolol was increased from 50 to 75 mg b.i.d. with improvement in her heart rate. She also received physical and occupational therapy, which she will need in order to work on transfers from wheelchair to the chair if she is to receive outpatient hemodialysis. She will be dismissed on aspirin 81 mg every day, Tylenol 650 mg every 6 hours p.r.n., vitamin D 1000 units every day, heparin 5000 units subcutaneous b.i.d., [place] 10/325 one every 4 hours p.r.n., levothyroxine 175 mcg every day, metoprolol 5 mg IV every 4 hours p.r.n. if ventricular rate is 130 or higher, metoprolol tartrate 75 mg b.i.d. and she will be dismissed on Gabriella-Amish 1 every day, nystatin powder b.i.d. p.r.n., fentanyl 50 mcg IV every 4 hours p.r.n. She will be on a renal diet and dismissed to [facility] later today after hemodialysis. HOOD ALLAN MD DR: LAURY/lila JOB#: [id number] / [id number]
[2018-07-05 15:00] VITALS: BP 127/84
--- NOTE | 2018-07-05 15:20 | NUR ---
Attempted to call report to receiving nurse at [facility]. LUIS MIGUEL Taylor stated he was unable to take report at the time due to being in a patient room performing patient care. Provided phone number to nurses station to return call once available.
[2018-07-19] MEDS ORDERED: FOLI0.8T3 PO (08:46)
[2018-07-19] MEDS ORDERED: METO5DIS IV (08:46)
[2018-07-19] MEDS ORDERED: MICONAZOLE TOP (08:46)
[2018-07-19] MEDS ORDERED: METO100T7 PO (08:46)
[2018-07-19] MEDS ORDERED: DOCU100C28 PO (08:46)
[2018-07-19] MEDS ORDERED: ALBU2.5V14 NEB (08:46)
[2018-07-19] MEDS ORDERED: DAPT350V IV (08:46)
[2018-07-19] MEDS ORDERED: VITS56.7 TP (08:46)
[2018-07-19] MEDS ORDERED: DIPH25CA58 PO (08:46)
[2018-07-19] MEDS ORDERED: MIDO10TA PO (08:46)
[2018-07-19] MEDS ORDERED: CEFE1VIA2 IV (08:46)
== END 2018-07-05 16:00 | DRG 673 ==
LOC: ER 12:50 → 6 SOUTH 14:20 → 2 NORTH 22:04
PROVIDERS: ADMIT Internal Medicine; ATTEND Internal Medicine
PROC: 5A1D70Z Performance of Urinary Filtration, Intermittent, Less than 6 Hours Per Day (ICD-10-PCS; principal; 2018-07-04)
PROC: 0JH63XZ Insertion of Tunneled Vascular Access Device into Chest Subcutaneous Tissue and Fascia, Percutaneous Approach (ICD-10-PCS; 2018-07-04)
PROC: 02H633Z Insertion of Infusion Device into Right Atrium, Percutaneous Approach (ICD-10-PCS; 2018-07-04)
PROC: B244ZZZ Ultrasonography of Right Heart (ICD-10-PCS; 2018-07-04)
PROC: B2141ZZ Fluoroscopy of Right Heart using Low Osmolar Contrast (ICD-10-PCS; 2018-07-04)
DX: N17.9 Acute kidney failure, unspecified (principal); E43 Unspecified severe protein-calorie malnutrition; I50.33 Acute on chronic diastolic (congestive) heart failure; Z68.44 Body mass index [BMI] 60.0-69.9, adult; I13.2 Hypertensive heart and chronic kidney disease with heart failure and with stage 5 chronic kidney disease, or end stage renal disease; I48.1 Persistent atrial fibrillation; N18.6 End stage renal disease; E87.5 Hyperkalemia; G47.33 Obstructive sleep apnea (adult) (pediatric); M48.061 Spinal stenosis, lumbar region without neurogenic claudication; M19.90 Unspecified osteoarthritis, unspecified site; E11.42 Type 2 diabetes mellitus with diabetic polyneuropathy; K57.90 Diverticulosis of intestine, part unspecified, without perforation or abscess without bleeding; E11.22 Type 2 diabetes mellitus with diabetic chronic kidney disease; E66.01 Morbid (severe) obesity due to excess calories; I48.0 Paroxysmal atrial fibrillation; E89.0 Postprocedural hypothyroidism; Z90.710 Acquired absence of both cervix and uterus; Z99.2 Dependence on renal dialysis; Z86.711 Personal history of pulmonary embolism; Z91.81 History of falling; Z90.49 Acquired absence of other specified parts of digestive tract; Z98.42 Cataract extraction status, left eye; Z98.41 Cataract extraction status, right eye; Z88.0 Allergy status to penicillin; Z88.2 Allergy status to sulfonamides; Z88.8 Allergy status to other drugs, medicaments and biological substances; Z79.82 Long term (current) use of aspirin
CPT/HCPCS: 36415; 36558; 36569; 71045; 76770; 76937; 77001; 80048; 80053; 80061; 80069; 82553; 83690; 83735; 83880; 84443; 84484; 85025; 85610; 85730; 86704; 86706; 87340; 87641; 93005; 93306; 93970; 96361; 96374; 96375; 96376; 99152; 99153; A4314; C1750; C1769; C1892; J1160; J1644; J1815; J2250; J3010; J3490; J7030; J7042; P9046; 97530; 97535; 99285-25